=== PATIENT | female | born 1965 | race Caucasian/White ===

== ENCOUNTER 2020-10-03 06:56 | Inpatient (IN) | payer OTHER ==
--- NOTE | 2020-10-03 07:26 | ED ---
General Adult HPI - General Chief complaint: Shortness of Breath Stated complaint: SOB Time Seen by Provider: 10/03/20 07:05 Source: patient Mode of arrival: wheelchair - History of Present Illness Initial comments: Dictation was produced using [employer] dictation software. please excuse any grammatical, word or spelling errors. This patient was cared for during a federal and state declared state of emergency secondary to Covid 19 Chief Complaint: 55-year-old female with multiple comorbidities presents with dyspnea times one week History of Present Illness: 55-year-old female she presents to the emergency department with dyspnea times one week. Patient just recently moved from [place]. She states that her of 30 years left her and patient was about to be homeless. Her sister who lives locally went to pick her up and brought her to report here on 2 live patient has multiple comorbidities. She has past medical history of COPD. She states she normally wears oxygen at 5 L. Patient is accompanied by sister who states that patient does not have any home oxygen at the moment. Patient states she's been progressively short of breath. She does have some mild left anterior chest pain. States it radiates down her left upper extremity. Denies any diaphoresis. She does feel like she has increased swelling in her lower extremities. States that her symptoms are worse with lying flat. Patient does have a history of congestive heart failure. Denies any constitutional symptoms. No cough. The ROS documented in this emergency department record has been reviewed and confirmed by me. Those systems with pertinent positive or negative responses have been documented in the HPI. All other systems are other negative and/or noncontributory. PHYSICAL EXAM: General Impression: Alert and oriented x3, not in acute distress, obese HEENT: Normocephalic atraumatic, extra-ocular movements intact, pupils equal and reactive to light bilaterally, mucous membranes moist. Cardiovascular: Heart regular rate and rhythm, no murmurs Chest: Able to complete full sentences, no retractions, no tachypnea, lungs clear to auscultation bilaterally in the posterior lung gray Abdomen: abdomen soft, non-tender, non-distended, no organomegaly Musculoskeletal: Pulses present and equal in all extremities, 1+ pitting edema Motor: no focal deficits noted Neurological: CN II-XII grossly intact, no focal motor or sensory deficits noted Skin: Intact with no visualized rashes Psych: Normal affect and mood ED course: -year-old female with multiple comorbidities presents to the emergency department for chest pain shortness of breath. All signs upon arrival shows 85% on room air, rest vital signs within acceptable limits. Patient typically wears 5 L home oxygen at home. Patient placed on her usual home oxygen level. Laboratory evaluation obtained. CBC is unremarkable. Coag panel is negative. 0.49. Metabolic panel shows respiratory acidosis with a pH of 7.24 and pCO2 of 77. No long panel is unremarkable. Troponin is negative. BNP is negative. Chest x-ray shows chronic parenchymal changes. Patient reevaluated bedside shortly after labs are resulted and she still complains of shortness of breath. Concerning patient's recent vehicle travel is concerned that patient has pulmonary embolus. CT angios the chest obtained showing 2 small filling defects within the right upper lobe suggesting pulmonary embolism. Patient started on heparin. She does not have any features to suggest mass or submassive pulmonary embolism. Patient be admitted to cardiac telemetry. Case discussed with Dr. Sergo Valencia was went except patient care. Pulmonology on consult. EKG interpretation: Ventricular rate 70, sinus rhythm, MD interval 150, QRS 86, QTC 426. No MD prolongation, no QTC prolongation, no ST or T-wave changes noted. No old EKG for comparison. Overall, this EKG is unremarkable - Related Data Home Medications Medication Instructions Recorded Confirmed Albuterol Sulfate [Ventolin HFA] 2 puff INHALATION RT-QID PRN 10/03/20 10/03/20 Atorvastatin [Lipitor] 20 mg PO HS 10/03/20 10/03/20 Budesonide/Formoterol Fumarate 2 puff INHALATION RT-BID 10/03/20 10/03/20 [Symbicort 160-4.5 Mcg Inhaler] Ipratropium-Albuterol Nebulize 3 ml INHALATION RT-QID PRN 10/03/20 10/03/20 [Duoneb 0.5 mg-3 mg/3 ml Soln] Levothyroxine Sodium [Euthyrox] 150 mcg PO DAILY 10/03/20 10/03/20 Losartan [Cozaar] 12.5 mg PO DAILY 10/03/20 10/03/20 Magnesium Oxide 400 mg PO DAILY 10/03/20 10/03/20 Omeprazole 40 mg PO DAILY 10/03/20 10/03/20 Potassium Chloride [Klor-Con 20] 20 meq PO DAILY 10/03/20 10/03/20 Umeclidinium [place] [Incruse 1 puff INHALATION RT-DAILY 10/03/20 10/03/20 Ellipta] acetaZOLAMIDE [Diamox Sequels] 500 mg PO DAILY 10/03/20 10/03/20 metFORMIN HCL ER [Glucophage Xr] 500 mg PO DAILY 10/03/20 10/03/20 Allergies Allergy/AdvReac Type Severity Reaction Status Date / Time hydrocodone [From [place]] AdvReac Rash/Hives Verified 10/03/20 09:49 Review of Systems ROS Statement: Those systems with pertinent positive or pertinent negative responses have been documented in the HPI. ROS Other: All systems not noted in ROS Statement are negative. Past Medical History Past Medical History: Chest Pain / Angina, COPD, Diabetes Mellitus, Liver Disease, Thyroid Disorder Additional Past Medical History / Comment(s): CHF History of Any Multi-Drug Resistant Organisms: None Reported Past Surgical History: Section, Cholecystectomy Past Psychological History: No Psychological Hx Reported Smoking Status: Current every day smoker Past Alcohol Use History: None Reported Past Drug Use History: None Reported Course Vital Signs 10/03/20 10/03/20 10/03/20 07:06 07:40 09:04 Temperature 98.1 F Pulse Rate 80 58 L 58 L Respiratory 21 20 20 Rate Blood Pressure 138/87 128/64 120/74 O2 Sat by Pulse 85 L 97 97 Oximetry Medical Decision Making - Lab Data Result diagrams: 10/03/20 07:40 10/03/20 07:40 Lab Results 10/03/20 10/03/20 10/03/20 Range/Units 07:40 07:40 07:40 WBC 5.5 (3.8-10.6) k/uL RBC 4.51 (3.80-5.40) m/uL Hgb 14.6 (11.4-16.0) gm/dL Hct 46.1 H (34.0-46.0) % MCV 102.2 H (80.0-100.0) fL MCH 32.3 (25.0-35.0) pg MCHC 31.6 (31.0-37.0) g/dL RDW 14.6 (11.5-15.5) % Plt Count 211 (150-450) k/uL MPV 9.6 Neutrophils % 58 % Lymphocytes % 27 % Monocytes % 11 % Eosinophils % 2 % Basophils % 1 % Neutrophils # 3.2 (1.3-7.7) k/uL Lymphocytes # 1.5 (1.0-4.8) k/uL Monocytes # 0.6 (0-1.0) k/uL Eosinophils # 0.1 (0-0.7) k/uL Basophils # 0.1 (0-0.2) k/uL Manual Slide Review Performed Macrocytosis Slight PT (9.0-12.0) sec INR (<1.2) APTT (22.0-30.0) sec D-Dimer (<0.60) mg/L FEU VBG pH (7.31-7.41) VBG pCO2 (37-51) mmHg VBG HCO3 (24-28) mmol/L Sodium 141 (137-145) mmol/L Potassium 4.5 (3.5-5.1) mmol/L Chloride 103 (98-107) mmol/L Carbon Dioxide 30 (22-30) mmol/L Anion Gap 8 mmol/L BUN 16 (7-17) mg/dL Creatinine 0.88 (0.52-1.04) mg/dL Est GFR (CKD-EPI)AfAm 85 (>60 ml/min/1.73 sqM) Est GFR (CKD-EPI)NonAf 74 (>60 ml/min/1.73 sqM) Glucose 129 H (74-99) mg/dL Calcium 8.7 (8.4-10.2) mg/dL Magnesium 1.9 (1.6-2.3) mg/dL Total Bilirubin 0.6 (0.2-1.3) mg/dL AST 23 (14-36) U/L ALT 22 (4-34) U/L Alkaline Phosphatase 60 (38-126) U/L Troponin I <0.012 (0.000-0.034) ng/mL NT-Pro-B Natriuret Pep pg/mL Total Protein 6.9 (6.3-8.2) g/dL Albumin 3.8 (3.5-5.0) g/dL Lipase 24 (23-300) U/L 10/03/20 10/03/20 10/03/20 Range/Units 07:40 07:40 09:03 WBC (3.8-10.6) k/uL RBC (3.80-5.40) m/uL Hgb (11.4-16.0) gm/dL Hct (34.0-46.0) % MCV (80.0-100.0) fL MCH (25.0-35.0) pg MCHC (31.0-37.0) g/dL RDW (11.5-15.5) % Plt Count (150-450) k/uL MPV Neutrophils % % Lymphocytes % % Monocytes % % Eosinophils % % Basophils % % Neutrophils # (1.3-7.7) k/uL Lymphocytes # (1.0-4.8) k/uL Monocytes # (0-1.0) k/uL Eosinophils # (0-0.7) k/uL Basophils # (0-0.2) k/uL Manual Slide Review Macrocytosis PT 10.4 (9.0-12.0) sec INR 1.0 (<1.2) APTT 20.9 L (22.0-30.0) sec D-Dimer 0.49 (<0.60) mg/L FEU VBG pH 7.24 L (7.31-7.41) VBG pCO2 77 H* (37-51) mmHg VBG HCO3 32 H (24-28) mmol/L Sodium (137-145) mmol/L Potassium (3.5-5.1) mmol/L Chloride (98-107) mmol/L Carbon Dioxide (22-30) mmol/L Anion Gap mmol/L BUN (7-17) mg/dL Creatinine (0.52-1.04) mg/dL Est GFR (CKD-EPI)AfAm (>60 ml/min/1.73 sqM) Est GFR (CKD-EPI)NonAf (>60 ml/min/1.73 sqM) Glucose (74-99) mg/dL Calcium (8.4-10.2) mg/dL Magnesium (1.6-2.3) mg/dL Total Bilirubin (0.2-1.3) mg/dL AST (14-36) U/L ALT (4-34) U/L Alkaline Phosphatase (38-126) U/L Troponin I (0.000-0.034) ng/mL NT-Pro-B Natriuret Pep 175 pg/mL Total Protein (6.3-8.2) g/dL Albumin (3.5-5.0) g/dL Lipase (23-300) U/L Critical Care Time Critical Care Time: Yes Total Critical Care Time: 33 Disposition Clinical Impression: Pulmonary embolism, Respiratory failure Disposition: ADMITTED IP TO THIS [facility] Condition: Fair Referrals: None,Stated [Primary Care Provider] - 1-2 days Decision Time: 10:28
[2020-10-03 07:58] LABS: VBG PH 7.24 (7.31-7.41)
[2020-10-03 08:09] LABS: Basophils # (A) 0.1 k/uL (0-0.2); Basophils % (A) 1 %; Eosinophils # (A) 0.1 k/uL (0-0.7); Eosinophils % (A) 2 %; HCT 46.1 % (34.0-46.0); HGB 14.6 gm/dL (11.4-16.0); Lymphocytes # (A) 1.5 k/uL (1.0-4.8); Lymphocytes % (A) 27 %; MCH 32.3 pg (25.0-35.0); MCHC 31.6 g/dL (31.0-37.0); MCV 102.2 fL (80.0-100.0); Macrocytosis Slight; Mean Platelet Volume 9.6; Monocytes # (A) 0.6 k/uL (0-1.0); Monocytes % (A) 11 %; Neutrophils # (A) 3.2 k/uL (1.3-7.7); Neutrophils % (A) 58 %; Platelet Count 211 k/uL (150-450); RBC 4.51 m/uL (3.80-5.40); RDW 14.6 % (11.5-15.5); WBC 5.5 k/uL (3.8-10.6)
[2020-10-03 08:27] LABS: Albumin 3.8 g/dL (3.5-5.0); Calcium 8.7 mg/dL (8.4-10.2); Magnesium 1.9 mg/dL (1.6-2.3); Potassium 4.5 mmol/L (3.5-5.1); Total Bilirubin 0.6 mg/dL (0.2-1.3); Total Protein 6.9 g/dL (6.3-8.2)
[2020-10-03] MEDS ORDERED: ACETAMINOPHEN TAB 500 MG TAB PO STA (08:52)
--- NOTE | 2020-10-03 09:26 | XR ---
EXAMINATION TYPE: XR chest 1V portable DATE OF EXAM: 10/03/2020 COMPARISON: NONE HISTORY: Chest pain and cough. Dyspnea. TECHNIQUE: Single AP portable frontal view of the chest is obtained. FINDINGS: There is chronic parenchymal change bilaterally without suspicious focal air space opacity , pleural effusion, or pneumothorax seen. The cardiac silhouette size is enlarged. The osseous str uctures are intact. IMPRESSION: Chronic parenchymal changes and cardiomegaly without acute pulmonary process.
[2020-10-03] MEDS ORDERED: IPRATROPIUM-ALBUTEROL 3 ML NEB INHALATION PRN ×2 (09:32→16:39)
[2020-10-03 09:44] LABS: Prothrombin Time 10.4 sec (9.0-12.0)
[2020-10-03 09:53] LABS: Partial Thromboplastin Time 20.9 sec (22.0-30.0)
--- NOTE | 2020-10-03 10:20 | CT ---
EXAMINATION TYPE: CT angio chest DATE OF EXAM: 10/03/2020 COMPARISON: None HISTORY: Positive D-dimer CT DLP: 1024.1 mGycm CONTRAST: CT chest with contrast and 3D reconstruction with MIP imaging is performed without and with IV Contra st, patient injected with 100 ml mL of Isovue 370. Contrast-enhanced CT of the chest was performed through the course of the pulmonary arteries with ralf g and mediastinal window settings submitted. 3D reconstruction with MIP imaging was also performed. PULMONARY ARTERIES: One or 2 small filling defects within right upper lobe tributaries suggest pulmon sindi embolism. No evidence for large central embolus. LUNGS: The lungs are clear and free of infiltrate. Linear basilar atelectasis noted. No pulmonary nod ule or mass is detected. No pleural effusion. MEDIASTINUM: Thoracic aorta is of normal caliber,however, evaluation is limited given timing of the contrast bolus. If there is concern for thoracic aortic pathology consider [place]AR[place]. Correlate clinicall y . The heart is is enlarged. The main pulmonary arteries are enlarged suggesting underlying pulmona ry arterial hypertension. No evidence for mediastinal mass. No mediastinal lymph nodes greater than 1cm. HILAR STRUCTURES: No evidence for mass. No hilar lymph nodes greater than 1 cm. UPPER ABDOMEN: No significant abnormality is seen. IMPRESSION: 1. One or 2 small filling defects within right upper lobe tributaries suggest pulmonary embolism. No evidence for large central embolus.
[2020-10-03] MEDS ORDERED: HEPARIN SODIUM,PORCINE 10,000 UNIT/ML 1 ML VIAL IV ONE (10:22)
[2020-10-03] MEDS ORDERED: HEPARIN SODIUM,PORCINE 5,000 UNIT/ML 1 ML VIAL IV PRN (10:22)
[2020-10-03] MEDS ORDERED: HEPARIN SOD,PORK IN 0.45% NACL 25,000 UNIT in 0.45% NACL 1 250ML.BAG IV SCH (10:30)
[2020-10-03] MEDS ORDERED: ALBUTEROL NEBULIZED 2.5 MG/3 ML INHALATION PRN (16:39)
[2020-10-03] MEDS ORDERED: metFORMIN 500 MG TAB PO SCH (17:30)
[2020-10-03] MEDS: INSULIN ASPART (NovoLOG) 100 UNIT/ML VIAL SQ SCH ×2 (18:21→21:24)
[2020-10-03 18:25] LABS: Glucose,Whole Blood 128 mg/dL (75-99)
--- NOTE | 2020-10-03 18:26 | P.CNPUL ---
History of Present Illness Consult date: 10/03/20 Reason for consult: dyspnea Chief complaint: Acute hypercapnic respiratory failure History of present illness: This is a 55-year-old white female patient who has recently moved from [place] to be with her younger sister, with past medical history of advanced COPD on home oxygen usually 5 L/m, chronic CHF with unknown systolic function, morbid obesity, sleep apnea on CPAP therapy, diabetes mellitus type 2, hypot hyroidism, chronic and ongoing history of smoking, patient quit smoking last night, she had been smoking up to 3 packs on a daily basis. Her sister states that she had recently had to go down to [place] and "rescue" her sister whose recently left her with her children and the patient was about to be homeless, who had been having problems with her health for the past year, she was housebound for the past year, with limited mobility. On 10/03/2020 patient presents to the emergency department with dyspnea 1 week. Patient was having some mild anterior chest pain that was radiating down her left upper extremity. Denied any diaphoresis, she reported some increased swelling in her lower extremities. Chest x-ray in emergency department showed chronic parenchymal changes with cardiomegaly without acute pulmonary process. EKG showed a sinus rhythm with PACs. Patient was tested for COVID 19 and was negative. Venous blood gas revealed a pCO2 of 77, and pH of 7.24 and bicarbonate concentration of 32 venous blood gas, patient was having significant shortness of breath, she was placed on BiPAP support with pressures of 12 and 6 and FiO2 of 40%. D-dimer was negative at 0.49, white blood cell count was 5.5, hemoglobin is 14.6, electrodes and renal profile were unremarkable, LFTs were within normal limits, BNP was 175, troponin was less than 0.012. CTA chest was completed showing one or 2 small filling defects within the right upper lobe tributary suggesting pulmonary embolism, no evidence of a large central embolus. Review of Systems All systems: negative Constitutional: Denies chills, Denies fever Eyes: denies blurred vision, denies pain Ears, nose, mouth and throat: Denies headache, Denies sore throat Cardiovascular: Reports edema, Reports shortness of breath, Denies chest pain Respiratory: Reports dyspnea, Reports home oxygen, Reports sleep apnea, Reports wheezing, Denies cough Gastrointestinal: Denies abdominal pain, Denies diarrhea, Denies nausea, Denies vomiting Genitourinary: Denies dysuria, Denies hematuria Musculoskeletal: Denies myalgias Integumentary: Denies pruritus, Denies rash Neurological: Denies numbness, Denies weakness Psychiatric: Denies anxiety, Denies depression Endocrine: Denies fatigue, Denies weight change Past Medical History Past Medical History: Chest Pain / Angina, COPD, Diabetes Mellitus, Liver Disease, Thyroid Disorder Additional Past Medical History / Comment(s): CHF History of Any Multi-Drug Resistant Organisms: None Reported Past Surgical History: Section, Cholecystectomy Past Psychological History: No Psychological Hx Reported Smoking Status: Current every day smoker Past Alcohol Use History: None Reported Past Drug Use History: None Reported Medications and Allergies Home Medications Medication Instructions Recorded Confirmed Type Albuterol Sulfate [Ventolin HFA] 2 puff INHALATION RT-QID PRN 10/03/20 10/03/20 History Atorvastatin [Lipitor] 20 mg PO HS 10/03/20 10/03/20 History Budesonide/Formoterol Fumarate 2 puff INHALATION RT-BID 10/03/20 10/03/20 History [Symbicort 160-4.5 Mcg Inhaler] Ipratropium-Albuterol Nebulize 3 ml INHALATION RT-QID PRN 10/03/20 10/03/20 History [Duoneb 0.5 mg-3 mg/3 ml Soln] Levothyroxine Sodium [Euthyrox] 150 mcg PO DAILY 10/03/20 10/03/20 History Losartan [Cozaar] 12.5 mg PO DAILY 10/03/20 10/03/20 History Magnesium Oxide 400 mg PO DAILY 10/03/20 10/03/20 History Omeprazole 40 mg PO DAILY 10/03/20 10/03/20 History Potassium Chloride [Klor-Con 20] 20 meq PO DAILY 10/03/20 10/03/20 History Umeclidinium [place] [Incruse 1 puff INHALATION RT-DAILY 10/03/20 10/03/20 History Ellipta] acetaZOLAMIDE [Diamox Sequels] 500 mg PO DAILY 10/03/20 10/03/20 History metFORMIN HCL ER [Glucophage Xr] 500 mg PO DAILY 10/03/20 10/03/20 History Allergies Allergy/AdvReac Type Severity Reaction Status Date / Time hydrocodone [From [place]] AdvReac Rash/Hives Verified 10/03/20 09:49 Physical Exam Vitals: Vital Signs Temp Pulse Resp BP Pulse Ox 10/03/20 17:00 75 18 117/74 100 10/03/20 16:00 75 18 124/72 100 10/03/20 15:00 70 20 129/66 100 10/03/20 13:13 75 20 136/98 100 10/03/20 11:45 71 20 136/91 98 10/03/20 10:53 63 22 124/91 97 10/03/20 09:50 97 10/03/20 09:35 86 L 10/03/20 09:04 58 L 20 120/74 97 10/03/20 07:40 58 L 20 128/64 97 10/03/20 07:06 98.1 F 80 21 138/87 85 L Intake and Output 10/03/20 10/03/20 10/03/20 06:59 14:59 22:59 Other: Weight 165.561 kg GENERAL EXAM: Alert, pleasant, 55-year-old obese white female on BiPAP support in the emergency department with pressures of 12 and 6 and FiO2 of 40%, comfortable in no apparent distress. HEAD: Normocephalic/atraumatic. EYES: Normal reaction of pupils, equal size. Conjunctiva pink, sclera white. NOSE: Clear with pink turbinates. THROAT: No erythema or exudates. NECK: No masses, no JVD, no thyroid enlargement, no adenopathy. CHEST: No chest wall deformity. Symmetrical expansion. LUNGS: Diminished l air entry with no crackles, wheeze, rhonchi or dullness. CVS: Regular rate and rhythm, normal S1 and S2, no gallops, no murmurs, no rubs ABDOMEN: Soft, nontender. No hepatosplenomegaly, normal bowel sounds, no guarding or rigidity. EXTREMITIES: No clubbing, 1+ bilateral lower extremity edema, and evidence of chronic venous stasis, no cyanosis, 2+ pulses and upper and lower extremities. MUSCULOSKELETAL: Muscle strength and tone normal. SPINE: No scoliosis or deformity SKIN: No rashes CENTRAL NERVOUS SYSTEM: Alert and oriented -3. No focal deficits, tone is normal in all 4 extremities. PSYCHIATRIC: Alert and oriented -3. Appropriate affect. Intact judgment and insight. Results - Laboratory Findings CBC and BMP: 10/03/20 07:40 10/03/20 07:40 PT/INR, D-dimer PT 10.4 sec (9.0-12.0) 10/03/20 09:03 INR 1.0 (<1.2) 10/03/20 09:03 D-Dimer 0.49 mg/L FEU (<0.60) 10/03/20 09:03 Abnormal lab findings: Abnormal Labs 10/03/20 10/03/20 10/03/20 07:40 07:40 07:40 Hct 46.1 H MCV 102.2 H APTT VBG pH 7.24 L VBG pCO2 77 H* VBG HCO3 32 H Glucose 129 H 10/03/20 09:03 Hct MCV APTT 20.9 L VBG pH VBG pCO2 VBG HCO3 Glucose - Diagnostic Findings Chest x-ray: report reviewed, image reviewed CT scan - chest: report reviewed, image reviewed Assessment and Plan Plan: Assessment: #1. Acute hypercapnic respiratory failure related to acute exacerbation of COPD. COVID 19 was negative #2. Chronic hypoxic respiratory failure related to COPD #3. Cor pulmonale #4. History of CHF with unknown systolic function #5. Obstructive sleep apnea on CPAP #6. Morbid obesity #7. Diabetes mellitus2 #8. Chronic and ongoing history of smoking #9. Hypothyroidism Plan: We'll continue current medical treatment, continue BiPAP support, we will add IV steroids 40 mg every 8 hours, continue with Diamox, we will add Symbicort, breathing treatments, lab work and chest x-ray and computed tomography scan have been reviewed. We can discontinue the heparin infusion, no central pulmonary embolism, we'll place the patient on prophylactic dose Lovenox for DVT prophylaxis. Patient's presentation is related to acute exacerbation of COPD, not related to small tiny PE in the right upper lobe. Acute intake and output, daily weight, follow-up labs in the morning. Obtain Dopplers of lower extremities. Obtain echocardiogram. We'll continue to follow I performed a history & physical examination of the patient and discussed their management with my nurse practitioner, Savanna Bishop. I reviewed the nurse practitioner's note and agree with the documented findings and plan of care. Lung sounds are positive for diminished breath sounds with scattered wheezes. The findings and the impression was discussed with the patient. I attest to the documentation by the nurse practitioner. Time with Patient: Greater than 30
[2020-10-03] MEDS: PANTOPRAZOLE 40 MG TABLET PO SCH (18:28)
[2020-10-03] MEDS: metFORMIN 500 MG TAB PO SCH (18:28)
[2020-10-03] MEDS: LOSARTAN 25 MG TAB PO SCH (18:29)
[2020-10-03] MEDS: ENOXAPARIN 40 MG/0.4 ML SYRINGE SQ SCH (18:30)
[2020-10-03] MEDS: SYMBICORT 160-4.5 MCG INHALER INHALATION SCH (19:22)
[2020-10-03] MEDS: IPRATROPIUM-ALBUTEROL 3 ML NEB INHALATION SCH (19:22)
[2020-10-03] MEDS ORDERED: AZITHROMYCIN 500 MG in SODIUM CHLORIDE 0.9% 250 ML IVPB STA (19:41)
[2020-10-03] MEDS: ACETAZOLAMIDE 500 MG PO SCH (20:19)
[2020-10-03 21:16] LABS: Glucose,Whole Blood 125 mg/dL (75-99)
[2020-10-03] MEDS ORDERED: MAGNESIUM SULFATE-D5W PMX 1 GM in DEXTROSE/WATER 1 100ML.BAG IVPB ONE (21:28)
[2020-10-03] MEDS: MORPHINE SULFATE 4 MG/ML SYRINGE IVP PRN (21:36)
[2020-10-03] MEDS: ATORVASTATIN 20 MG TAB PO SCH (21:37)
[2020-10-03] MEDS: methylPREDNISolone SOD SUCCI 40 MG/ML 1 ML VIAL IV SCH (22:57)
--- NOTE | 2020-10-04 00:32 | US ---
EXAMINATION TYPE: US venous doppler duplex LE DATE OF EXAM: 10/03/2020 8:56 PM COMPARISON: NONE CLINICAL HISTORY: swelling, rule out DVT. Swelling. R/O DVT. SIDE PERFORMED: Bilateral TECHNIQUE: The lower extremity deep venous system is examined utilizing real time linear array sonog vj with graded compression, doppler sonography and color-flow sonography. VESSELS IMAGED: Common Femoral Vein Deep Femoral Vein Greater Saphenous Vein * Femoral Vein Popliteal Vein Small Saphenous Vein * Proximal Calf Veins (* superficial vessels) Limited exam due to large patient body habitus. Right Leg: No evidence of DVT in veins imaged at this time. Unable to visualize distal femoral vein in transverse compression views. Limited due to edema. Left Leg: No evidence of DVT in veins imaged at this time. Unable to visualize distal femoral vein in transverse compression views. Limited due to edema. IMPRESSION: No sign of deep vein thrombosis in both legs.
[2020-10-04 06:28] LABS: Glucose,Whole Blood 157 mg/dL (75-99)
[2020-10-04] MEDS: INSULIN ASPART (NovoLOG) 100 UNIT/ML VIAL SQ SCH ×4 (06:35→20:53)
[2020-10-04] MEDS: LEVOTHYROXINE 75 MCG TAB PO SCH (06:36)
[2020-10-04] MEDS: MORPHINE SULFATE 4 MG/ML SYRINGE IVP PRN ×3 (06:36→23:09)
[2020-10-04] MEDS: metFORMIN 500 MG TAB PO SCH ×2 (06:36→17:47)
[2020-10-04] MEDS: SYMBICORT 160-4.5 MCG INHALER INHALATION SCH ×2 (07:50→19:37)
[2020-10-04] MEDS: IPRATROPIUM-ALBUTEROL 3 ML NEB INHALATION SCH ×4 (07:50→19:37)
[2020-10-04] MEDS: ACETAZOLAMIDE 500 MG PO SCH (09:24)
[2020-10-04] MEDS: methylPREDNISolone SOD SUCCI 40 MG/ML 1 ML VIAL IV SCH (09:26)
[2020-10-04] MEDS: PANTOPRAZOLE 40 MG TABLET PO SCH (09:26)
[2020-10-04] MEDS: LOSARTAN 25 MG TAB PO SCH (09:26)
--- NOTE | 2020-10-04 10:58 | XR ---
EXAMINATION TYPE: XR chest 1V portable DATE OF EXAM: 10/04/2020 COMPARISON: 10/03/2020 HISTORY: Shortness of breath TECHNIQUE: Single frontal view of the chest is obtained. FINDINGS: Heart is enlarged. Coarsened interstitium with arthropathy of the shoulders. No pneumothor ax. No sizable pleural effusion. IMPRESSION: 1. Cardiomegaly correlate for bronchitis, interstitial pneumonitis or mild venous congestion.
[2020-10-04 11:50] LABS: Glucose,Whole Blood 143 mg/dL (75-99)
[2020-10-04] MEDS: predniSONE 10 MG TAB PO SCH (12:35)
--- NOTE | 2020-10-04 12:37 | ECHOF ---
Referral Reason:dyspbnea MEASUREMENTS -------- HEIGHT: 162.6 cm WEIGHT: 167.8 kg BP: 127/74 RVIDd: 3.5 cm (< 3.3) IVSd: 1.3 cm (0.6 - 1.1) LVIDd: 3.8 cm (3.9 - 5.3) LVPWd: 1.5 cm (0.6 - 1.1) IVSs: 1.7 cm LVIDs: 3.1 cm LVPWs: 1.8 cm MV EXCURSION: 18.655 mm (> 18.000) MV EF SLOPE: 72 mm/s (70 - 150) EPSS: 0.5 cm FINDINGS -------- Sinus rhythm. Morbid Obesity This was a techncally difficult study with suboptimal views, , Lumason utilized for enhancement of images. The left ventricular size is normal. Overall left ventricular systolic function is low-normal with, an EF between 50 - 55 %. The right ventricle is normal in size. The left atrial size is normal. 5.0mg OF Lumason UTLIZED: 2 OR MORE WALL SEGMENTS NOT VISUALIZED. The aortic valve was not well visualized. The mitral valve was not well visualized. The tricuspid valve was not well visualized. Unable to estimate RVSP due to inadequate TR jet spect ral doppler profile. The pulmonic valve was not well visualized. There is no pericardial effusion. CONCLUSIONS -------- 1. Morbid Obesity 2. This was a techncally difficult study with suboptimal views, , Lumason utilized for enhancement of images. 3. Overall left ventricular systolic function is low-normal with, an EF between 50 - 55 %. 4. The left atrial size is normal. 5. 5.0mg OF Lumason UTLIZED: 2 OR MORE WALL SEGMENTS NOT VISUALIZED. 6. The aortic valve was not well visualized. 7. The mitral valve was not well visualized. 8. The tricuspid valve was not well visualized. 9. The pulmonic valve was not well visualized. UNIT AIDE TECH: Palak Morrow RDCS
--- NOTE | 2020-10-04 16:07 | P.PN ---
Subjective Progress Note Date: 10/04/20 Principal diagnosis: Dyspnea, hypoxemia This is a 55-year-old white female patient who has recently moved from [place] to be with her younger sister, with past medical history of advanced COPD on home oxygen usually 5 L/m, chronic CHF with unknown systolic function, morbid obesity, sleep apnea on CPAP therapy, diabetes mellitus type 2, hypothyroidism, chronic and ongoing history of smoking, patient quit smoking last night, she had been smoking up to 3 packs on a daily basis. Her sister states that she had recently had to go down to [place] and "rescue" her alize truong whose recently left her with her children and the patient was about to be homeless, who had been having problems with her health for the past year, she was housebound for the past year, with limited mobility. On 10/03/2020 patient presents to the emergency department with dyspnea 1 week. Patient was having some mild anterior chest pain that was radiating down her left upper extremity. Denied any diaphoresis, she reported some increased swelling in her lower extremities. Chest x-ray in emergency department showed chronic parenchymal changes with cardiomegaly without acute pulmonary process. EKG showed a sinus rhythm with PACs. Patient was tested for COVID 19 and was negative. Venous blood gas revealed a pCO2 of 77, and pH of 7.24 and bicarbonate concentration of 32 venous blood gas, patient was having significant shortness of breath, she was placed on BiPAP support with pressures of 12 and 6 and FiO2 of 40%. D-dimer was negative at 0.49, white blood cell count was 5.5, hemoglobin is 14.6, electrodes and renal profile were unremarkable, LFTs were within normal limits, BNP was 175, troponin was less than 0.012. CTA chest was completed showing one or 2 small filling defects within the right upper lobe tributary suggesting pulmonary embolism, no evidence of a large central embolus. On 10/04/2020 patient seen in follow-up on selective care unit, she is currently off BiPAP support, she is currently on 5 L of oxygen which which she usually wears on a regular basis at home and her pulse ox is 96%, no fever or chills, vitals have been stable, she did wear BiPAP support last night with FiO2 of 40%. Her pro-calcitonin was negative, echocardiogram was completed and this was a technically difficult study with suboptimal views, and the valves were not well visualized, and right-sided pressures were not possible to estimate, EF was low normal at 50-55%. Follow-up chest x-ray shows cardiomegaly with coarsened interstitium. Lower extremity Dopplers were negative for DVT, d-dimer was negative, patient is on prophylactic dose Lovenox, she is on antibiotics including azithromycin and Rocephin, she is on breathing treatments and IV steroids. She feels much better today, she is talking in full sentences. Objective - Vital Signs Vital signs: Vital Signs Temp 98.9 F 10/04/20 08:00 Pulse 72 10/04/20 15:57 Resp 19 10/04/20 04:00 BP 122/66 10/04/20 08:00 Pulse Ox 96 10/04/20 12:00 Intake & Output 10/03/20 10/04/20 10/04/20 18:59 06:59 18:59 Intake Total 530 Balance 530 Weight 165.561 kg 165.7 kg Intake: Intake, IV Titration 50 Amount cefTRIAXone 1 gm In 50 Sodium Chloride 0.9% 50 ml @ 100 mls/hr IVPB Q24HR [facility] Rx#:[id number] Oral 480 Other: Voiding Method Toilet # Voids 1 1 # Bowel Movements 1 1 - Exam GENERAL EXAM: Alert, pleasant, 55-year-old obese white female currently on 5 L of oxygen a pulse ox of 96%, was previously on on BiPAP support with pressures of 12 and 6 and FiO2 of 40%, comfortable in no apparent distress. HEAD: Normocephalic/atraumatic. EYES: Normal reaction of pupils, equal size. Conjunctiva pink, sclera white. NOSE: Clear with pink turbinates. THROAT: No erythema or exudates. NECK: No masses, no JVD, no thyroid enlargement, no adenopathy. CHEST: No chest wall deformity. Symmetrical expansion. LUNGS: Diminished l air entry with no crackles, wheeze, rhonchi or dullness. CVS: Regular rate and rhythm, normal S1 and S2, no gallops, no murmurs, no rubs ABDOMEN: Soft, nontender. No hepatosplenomegaly, normal bowel sounds, no guarding or rigidity. EXTREMITIES: No clubbing, 1+ bilateral lower extremity edema, and evidence of chronic venous stasis, no cyanosis, 2+ pulses and upper and lower extremities. MUSCULOSKELETAL: Muscle strength and tone normal. SPINE: No scoliosis or deformity SKIN: No rashes CENTRAL NERVOUS SYSTEM: Alert and oriented -3. No focal deficits, tone is normal in all 4 extremities. PSYCHIATRIC: Alert and oriented -3. Appropriate affect. Intact judgment and insight. - Labs CBC & Chem 7: 10/03/20 07:40 10/03/20 07:40 Labs: Abnormal Lab Results - Last 24 Hours (Table) 10/03/20 10/03/20 10/03/20 Range/Units 07:40 18:12 21:14 POC Glucose (mg/dL) 128 H 125 H (75-99) mg/dL Hemoglobin A1c 6.6 H (4.0-6.0) % 10/04/20 10/04/20 Range/Units 06:27 11:45 POC Glucose (mg/dL) 157 H 143 H (75-99) mg/dL Hemoglobin A1c (4.0-6.0) % Assessment and Plan Plan: Assessment: #1. Acute hypercapnic respiratory failure related to acute exacerbation of COPD. COVID 19 was negative #2. Chronic hypoxic respiratory failure related to COPD #3. Cor pulmonale #4. History of CHF with diastolic dysfunction #5. Obstructive sleep apnea on CPAP #6. Morbid obesity #7. Diabetes mellitus2 #8. Chronic and ongoing history of smoking #9. Hypothyroidism Plan: Patient is improving, breathing easier, off BiPAP support, she is back on 5 L of oxygen, wean FiO2 to keep O2 sat at or above 90-92%. We will discontinue azit hromycin, continue with Rocephin, continue with breathing treatments, we'll stop the IV Solu-Medrol and switch the patient to oral prednisone, continue home dose of Diamox. Discharge planning is working with the patient on arranging home oxygen, she has a Trilogy ventilator that she brought with her from [place] however the unit may have to be checked by the company as it has been malfunctioning, she has a nebulizer machine, she will need medication for it, patient has no healthcare coverage, discharge planning is working with [employer] funds to provide patient with necessary equipment and medications prior to discharge. She is improving, she was advised to quit smoking. She has been up to the bathroom tolerating activity well. She can probably be considered for discharge home tomorrow in the next 24 hours I performed a history & physical examination of the patient and discussed their management with my nurse practitioner, Savanna Bishop. I reviewed the nurse practitioner's note and agree with the documented findings and plan of care. Lung sounds are positive for diminished breath sounds with scattered wheezes. The findings and the impression was discussed with the patient. I attest to the documentation by the nurse practitioner. Time with Patient: Less than 30
[2020-10-04 16:59] LABS: Glucose,Whole Blood 163 mg/dL (75-99)
[2020-10-04] MEDS: ENOXAPARIN 40 MG/0.4 ML SYRINGE SQ SCH (17:46)
[2020-10-04 20:18] LABS: Glucose,Whole Blood 164 mg/dL (75-99)
[2020-10-04] MEDS: ATORVASTATIN 20 MG TAB PO SCH (20:53)
[2020-10-05 06:01] LABS: Glucose,Whole Blood 129 mg/dL (75-99)
[2020-10-05] MEDS: LEVOTHYROXINE 75 MCG TAB PO SCH (06:52)
[2020-10-05] MEDS: INSULIN ASPART (NovoLOG) 100 UNIT/ML VIAL SQ SCH ×3 (06:52→17:40)
[2020-10-05] MEDS: metFORMIN 500 MG TAB PO SCH ×2 (06:52→17:40)
[2020-10-05] MEDS ORDERED: BUTALB/APAP/CAFF 50-325-40MG TAB PO PRN (07:06)
--- NOTE | 2020-10-05 08:16 | P.HPIM ---
History of Present Illness H&P Date: 10/04/20 Chief Complaint: shortness of breath Nerissa Marshall is a 55 yo F who recently moved to this area from [place] to be with her younger sister, with past medical history of COPD on home O2 5 LPM, chronic CHF with unknown systolic function, morbid obesity, sleep apnea on CPAP therapy, diabetes mellitus type 2, hypothyroidism, chronic and ongoing history of smoking, patient quit smoking last night, she had been smoking up to 3 packs on a daily basis. Her sister states that she had recently had to go down to [place] and "rescue" her sister whose recently left her with her children and the patient was about to be homeless, who had been having problems with her health for the past year, she was housebound for the past year, with limited mobility. On 10/03/2020 patient presents to the emergency department with dyspnea 1 week. Patient was having some mild anterior chest pain that was radiating down her left upper extremity. Denied any diaphoresis, she reported some increased swelling in her lower extremities. Chest x-ray in emergency department showed chronic parenchymal changes with cardiomegaly without acute pulmonary process. EKG showed a sinus rhythm with PACs. Patient was tested for COVID 19 and was negative. Venous blood gas revealed a pCO2 of 77, and pH of 7.24 and bicarbonate concentration of 32 venous blood gas, patient was having significant shortness of breath, she was placed on BiPAP support with pressures of 12 and 6 and FiO2 of 40%. D-dimer was negative at 0.49, white blood cell count was 5.5, hemoglobin is 14.6, electrodes and renal profile were unremarkable, LFTs were within normal limits, BNP was 175, troponin was less than 0.012. CTA chest was completed showing one or 2 small filling defects within the right upper lobe tributary suggesting pulmonary embolism, no evidence of a large central embolus. Review of Systems All systems: negative Constitutional: Reports malaise, Reports weakness, Denies chills, Denies fever Eyes: denies blurred vision, denies pain Ears, nose, mouth and throat: Denies headache, Denies sore throat Cardiovascular: Denies chest pain, Denies shortness of breath Respiratory: Reports cough, Reports dyspnea, Reports wheezing Gastrointestinal: Denies abdominal pain, Denies diarrhea, Denies nausea, Denies vomiting Genitourinary: Denies dysuria, Denies hematuria Musculoskeletal: Denies myalgias Integumentary: Denies pruritus, Denies rash Neurological: Denies numbness, Denies weakness Psychiatric: Denies anxiety, Denies depression Endocrine: Denies fatigue, Denies weight change Past Medical History Past Medical History: Chest Pain / Angina, COPD, Diabetes Mellitus, Liver Disease, Sleep Apnea/CPAP/BIPAP, Thyroid Disorder Additional Past Medical History / Comment(s): CHF, cpap at night, gout History of Any Multi-Drug Resistant Organisms: None Reported Past Surgical History: Section, Cholecystectomy Past Anesthesia/Blood Transfusion Reactions: No Reported Reaction Past Psychological History: No Psychological Hx Reported Smoking Status: Former smoker Past Alcohol Use History: None Reported Past Drug Use History: None Reported Medications and Allergies Home Medications Medication Instructions Recorded Confirmed Type Albuterol Sulfate [Ventolin HFA] 2 puff INHALATION RT-QID PRN 10/03/20 10/03/20 History Atorvastatin [Lipitor] 20 mg PO HS 10/03/20 10/03/20 History Budesonide/Formoterol Fumarate 2 puff INHALATION RT-BID 10/03/20 10/03/20 History [Symbicort 160-4.5 Mcg Inhaler] Ipratropium-Albuterol Nebulize 3 ml INHALATION RT-QID PRN 10/03/20 10/03/20 History [Duoneb 0.5 mg-3 mg/3 ml Soln] Levothyroxine Sodium [Euthyrox] 150 mcg PO DAILY 10/03/20 10/03/20 History Losartan [Cozaar] 12.5 mg PO DAILY 10/03/20 10/03/20 History Magnesium Oxide 400 mg PO DAILY 10/03/20 10/03/20 History Omeprazole 40 mg PO DAILY 10/03/20 10/03/20 History Potassium Chloride [Klor-Con 20] 20 meq PO DAILY 10/03/20 10/03/20 History Umeclidinium [place] [Incruse 1 puff INHALATION RT-DAILY 10/03/20 10/03/20 History Ellipta] acetaZOLAMIDE [Diamox Sequels] 500 mg PO DAILY 10/03/20 10/03/20 History metFORMIN HCL ER [Glucophage Xr] 500 mg PO DAILY 10/03/20 10/03/20 History Allergies Allergy/AdvReac Type Severity Reaction Status Date / Time hydrocodone [From [place]] AdvReac Rash/Hives Verified 10/03/20 09:49 Physical Exam Vitals: Vital Signs Temp Pulse Pulse Resp BP Pulse Ox 10/04/20 16:00 73 100/64 94 L 10/04/20 15:57 72 10/04/20 15:44 72 10/04/20 12:00 81 96 10/04/20 11:18 72 10/04/20 11:04 72 10/04/20 08:00 98.9 F 72 76 122/66 93 L 10/04/20 07:50 73 10/04/20 04:00 97.5 F L 76 19 127/64 10/04/20 00:00 98.2 F 84 16 116/65 94 L 10/03/20 20:00 97.8 F 76 16 122/76 96 10/03/20 19:30 76 10/03/20 19:22 78 95 Intake and Output 10/04/20 10/04/20 10/04/20 06:59 14:59 22:59 Intake Total 530 Balance 530 Intake: Intake, IV Titration 50 Amount cefTRIAXone 1 gm In 50 Sodium Chloride 0.9% 50 ml @ 100 mls/hr IVPB Q24HR [facility] Rx#:[id number] Oral 480 Other: # Voids 1 2 # Bowel Movements 1 1 Weight 165.7 kg General: well nourished, well developed, NAD, Obese. Vitals reviewed Eyes: PERRL, EOMI, conjunctiva normal HENT: normocephalic, mucus membranes moist Neck: supple, no JVD Lungs: diminished air entry throughout, no rales. wheezing bilaterally CV: Regular rate and rhythm, no murmur. Peripheral pulses 2+ Abdomen: soft, nondistended, no organomegaly Lymph: no cervical or axillary LAD Skin: warm and dry. Neuro: A&Ox3, normal mood and affect Results CBC & Chem 7: 10/03/20 07:40 10/03/20 07:40 Labs: Abnormal Lab Results - Last 24 Hours (Table) 10/03/20 10/03/20 10/04/20 Range/Units 07:40 21:14 06:27 POC Glucose (mg/dL) 125 H 157 H (75-99) mg/dL Hemoglobin A1c 6.6 H (4.0-6.0) % 10/04/20 10/04/20 Range/Units 11:45 16:49 POC Glucose (mg/dL) 143 H 163 H (75-99) mg/dL Hemoglobin A1c (4.0-6.0) % Thrombosis Risk Factor Assmnt - Choose All That Apply Each Factor Represents 1 point: Age 41-60 years Thrombosis Risk Factor Assessment Total Risk Factor Score: 1 Thrombosis Risk Factor Assessment Level: Low Risk Assessment and Plan (1) Acute on chronic respiratory failure with hypoxia and hypercapnia Current Visit: Yes Status: Acute Code(s): J96.21 - ACUTE AND CHRONIC RESPIRATORY FAILURE WITH HYPOXIA; J96.22 - ACUTE AND CHRONIC RESPIRATORY FAILURE WITH HYPERCAPNIA SNOMED Code(s): 28344825179123 (2) COPD exacerbation Current Visit: Yes Status: Acute Code(s): J44.1 - CHRONIC OBSTRUCTIVE PULMONARY DISEASE W (ACUTE) EXACERBATION SNOMED Code(s): 624059381 (3) Chronic CHF Current Visit: Yes Status: Acute Code(s): I50.9 - HEART FAILURE, UNSPECIFIED SNOMED Code(s): 55139618 (4) Chronic diastolic CHF (congestive heart failure), NYHA class 3 Current Visit: Yes Status: Acute Code(s): I50.32 - CHRONIC DIASTOLIC (CONGESTIVE) HEART FAILURE SNOMED Code(s): 671169045 (5) Obstructive sleep apnea Current Visit: Yes Status: Acute Code(s): G47.33 - OBSTRUCTIVE SLEEP APNEA (ADULT) (PEDIATRIC) SNOMED Code(s): 56359891 Plan: 1. Acute on chronic respiratory failure. Likely secondary to COPD excerbation vs PE. Pulmonology consult, start IV steroids. Cover with empiric rocephin. Duonebs and symbicort. Smoking cessation counseling 2. Respiratory acidosis with metabolic alkalosis. Titrate O2 to 90%, diamox per pulmonary 3. Small PE, no evidence of DVT. Pt covered on lovenox, will plan to switch to N OAC vs coumadin based on insurance 4. ANDRES, obesity hypoventilation syndrome. CPAP qhs 5. HTN. Continue cozaar 6. Hypothyroidism. Continue synthroid
[2020-10-05] MEDS: IPRATROPIUM-ALBUTEROL 3 ML NEB INHALATION SCH ×3 (08:18→16:19)
[2020-10-05] MEDS: SYMBICORT 160-4.5 MCG INHALER INHALATION SCH (08:20)
[2020-10-05 08:27] VITALS: RESP 20
[2020-10-05] MEDS: ACETAZOLAMIDE 500 MG PO SCH (08:29)
[2020-10-05] MEDS: LOSARTAN 25 MG TAB PO SCH (08:33)
[2020-10-05] MEDS: PANTOPRAZOLE 40 MG TABLET PO SCH (08:33)
[2020-10-05] MEDS: predniSONE 10 MG TAB PO SCH (08:33)
[2020-10-05 11:45] LABS: Glucose,Whole Blood 135 mg/dL (75-99)
[2020-10-05] MEDS ORDERED: BUTALB/APAP/CAFF 50-325-40MG TAB PO STA (11:53)
[2020-10-05] MEDS ORDERED: MAGNESIUM SULFATE-D5W PMX 1 GM in DEXTROSE/WATER 1 100ML.BAG IVPB ONE (12:00)
--- NOTE | 2020-10-05 12:16 | P.DS ---
Providers Date of admission: 10/03/20 09:32 Expected date of discharge: 10/05/20 Attending physician: Sergo Valencia MD Consults: 10/03/20 09:03 Consult Physician Routine Consulting Provider: Deejay Hickey Consult Reason/Comments: respiratory acidosis Do you want consulting provider notified?: Yes Primary care physician: Stated None Hospital Course: Final Diagnoses: (1) Acute on chronic respiratory failure with hypoxia and hypercapnia secondary to acute COPD and possible small PE- further review of CTA as per pulmonary with recommendations including anticoagulation. Current Visit: Yes Status: Acute Code(s): J96.21 - ACUTE AND CHRONIC RESPIRATORY FAILURE WITH HYPOXIA; J96.22 - ACUTE AND CHRONIC RESPIRATORY FAILURE WITH HYPERCAPNIA SNOMED Code(s): 96779483196795 (2) COPD exacerbation Current Visit: Yes Status: Acute Code(s): J44.1 - CHRONIC OBSTRUCTIVE PULMONARY DISEASE W (ACUTE) EXACERBATION SNOMED Code(s): 707596378 (3) Chronic CHF Current Visit: Yes Status: Acute Code(s): I50.9 - HEART FAILURE, UNSPECIFIED SNOMED Code(s): 49561685 (4) Chronic diastolic CHF (congestive heart failure), NYHA class 3 Current Visit: Yes Status: Acute Code(s): I50.32 - CHRONIC DIASTOLIC (CONGESTIVE) HEART FAILURE SNOMED Code(s): 815867727 (5) Obstructive sleep apnea Current Visit: Yes Status: Acute Code(s): G47.33 - OBSTRUCTIVE SLEEP APNEA (ADULT) (PEDIATRIC) SNOMED Code(s): 79557694 (6) CTA suggests small PE, no DVT. Pulmonary following. Further recommendations regarding anticoagulation as per pulmonary. (7) hypothyroidism (8) hypertension (9) respiratory acidosis with metabolic alkalosis (10) ongoing nicotine dependence. (11) morbid obesity, BMI 63.5 Hospital course:Nerissa Marshall is a 55 yo F who recently moved to this area from [place] to be with her younger sister, with past medical history of COPD on home O2 5 LPM, chronic CHF with unknown systolic function, morbid obesity, sleep apnea on CPAP therapy, diabetes mellitus type 2, hypothyroidism, chronic and ongoing history of smoking, patient quit smoking last night, she had been smoking up to 3 packs on a daily basis. Her sister states that she had recently had to go down to [place] and "rescue" her sister whose recently left her with her children and the patient was about to be homeless, who had been having problems with her health for the past year, she was housebound for the past year, with limited mobility. On 10/03/2020 patient presents to the emergency department with dyspnea 1 week. Patient was having some mild anterior chest pain that was radiating down her left upper extremity. Denied any diaphoresis, she reported some increased swelling in her lower extremities. Chest x-ray in emergency department showed chronic parenchymal changes with cardiomegaly without acute pulmonary process. EKG showed a sinus rhythm with PACs. Patient was tested for COVID 19 and was negative. Venous blood gas revealed a pCO2 of 77, and pH of 7.24 and bicarbonate concentration of 32 venous blood gas, patient was having significant shortness of breath, she was placed on BiPAP support with pressures of 12 and 6 and FiO2 of 40%. D-dimer was negative at 0.49, white blood cell count was 5.5, hemoglobin is 14.6, electrodes and renal profile were unremarkable, LFTs were within normal limits, BNP was 175, troponin was less than 0.012. CTA chest was completed showing one or 2 small filling defects within the right upper lobe tributary suggesting pulmonary embolism, no evidence of a large central embolus. Maintained on empiric antibiotics, steroids, nebulized BRONCHODILATORS, Symbicort and oxygen. O2 sat on room air after ambulation 84%, patient will require 2 L nasal cannula oxygen at discharge. Case management assisting with [employer] funds. Denies chest pain, palpitations or increased shortness of breath. Denies lightheadedness, dizziness or focal deficits. Significant clinical improvement. Patient will be discharged home today in a stable condition with guarded prognosis, pending final DC recommendations including whether or not patient requires anticoagulation, and clearance for discharge. Smoking cessation reinforced. The impression and plan of care has been dictated as directed. : I performed a history and examination of this patient, discussed the same with the dictator. I agree with the dictator's note ,documented as a scribe. Any additional findings or plans will be noted. Patient Condition at Discharge: Stable Plan - Discharge Summary Discharge Rx Participant: No New Discharge Prescriptions: New Amoxic-Pot Clav 875-125Mg [Augmentin 875-125] 1 tab PO Q12HR 3 Days #6 tab predniSONE 10 mg PO DIRECTED #18 tab Continue Levothyroxine Sodium [Euthyrox] 150 mcg PO DAILY Ipratropium-Albuterol Nebulize [Duoneb 0.5 mg-3 mg/3 ml Soln] 3 ml INHALATION RT-QID PRN PRN Reason: Shortness Of Breath Atorvastatin [Lipitor] 20 mg PO HS Albuterol Sulfate [Ventolin HFA] 2 puff INHALATION RT-QID PRN PRN Reason: Shortness Of Breath metFORMIN HCL ER [Glucophage Xr] 500 mg PO DAILY Potassium Chloride [Klor-Con 20] 20 meq PO DAILY Omeprazole 40 mg PO DAILY Magnesium Oxide 400 mg PO DAILY acetaZOLAMIDE [Diamox Sequels] 500 mg PO DAILY Umeclidinium [place] [Incruse Ellipta] 1 puff INHALATION RT-DAILY Losartan [Cozaar] 12.5 mg PO DAILY Budesonide/Formoterol Fumarate [Symbicort 160-4.5 Mcg Inhaler] 2 puff INHALATION RT-BID Discharge Medication List Albuterol Sulfate [Ventolin HFA] 2 puff INHALATION RT-QID PRN 10/03/20 [History] Atorvastatin [Lipitor] 20 mg PO HS 10/03/20 [History] Budesonide/Formoterol Fumarate [Symbicort 160-4.5 Mcg Inhaler] 2 puff INHALATION RT-BID 10/03/20 [History] Ipratropium-Albuterol Nebulize [Duoneb 0.5 mg-3 mg/3 ml Soln] 3 ml INHALATION RT-QID PRN 10/03/20 [History] Levothyroxine Sodium [Euthyrox] 150 mcg PO DAILY 10/03/20 [History] Losartan [Cozaar] 12.5 mg PO DAILY 10/03/20 [History] Magnesium Oxide 400 mg PO DAILY 10/03/20 [History] Omeprazole 40 mg PO DAILY 10/03/20 [History] Potassium Chloride [Klor-Con 20] 20 meq PO DAILY 10/03/20 [History] Umeclidinium [place] [Incruse Ellipta] 1 puff INHALATION RT-DAILY 10/03/20 [History] acetaZOLAMIDE [Diamox Sequels] 500 mg PO DAILY 10/03/20 [History] metFORMIN HCL ER [Glucophage Xr] 500 mg PO DAILY 10/03/20 [History] Amoxic-Pot Clav 875-125Mg [Augmentin 875-125] 1 tab PO Q12HR 3 Days #6 tab 10/05/20 [Rx] predniSONE 10 mg PO DIRECTED #18 tab 10/05/20 [Rx] Follow up Appointment(s)/Referral(s): Sergo Valencia MD [STAFF PHYSICIAN] - 10/10/20 5:00 pm ([facility] in [place], [address]) Activity/Diet/Wound Care/Special Instructions: 2 L nasal cannula O2, O2 sat on room air 84% -case management confirming.Confirm pulmonary final DC recommendations including anticoagulation, clearance for dc &follow-up appointment.
--- NOTE | 2020-10-05 15:49 | P.PN ---
Subjective Progress Note Date: 10/05/20 Principal diagnosis: Acute on chronic hypoxic and hypercapnic respiratory failure This is a 55-year-old white female patient who has recently moved from [place] to be with her younger sister, with past medical history of advanced COPD on home oxygen usually 5 L/m, chronic CHF with unknown systolic function, morbid obesity, sleep apnea on CPAP therapy, diabetes mellitus type 2, hypothyroidism, chronic and ongoing history of smoking, patient quit smoking last night, she had been smoking up to 3 packs on a daily basis. Her sister states that she had recently had to go down to [place] and "rescue" her sister whose recently left her with her children and the patient was about to be homeless, who had been having problems with her health for the past year, she was housebound for the past year, with limited mobility. On 10/03/2020 patient presents to the emergency department with dyspnea 1 week. Patient was having some mild anterior chest pain that was radiating down her left upper extremity. Denied any diaphoresis, she reported some increased swelling in her lower extremities. Chest x-ray in emergency department showed chronic parenchymal changes with cardiomegaly without acute pulmonary process. EKG showed a sinus rhythm with PACs. Patient was tested for COVID 19 and was negative. Venous blood gas revealed a pCO2 of 77, and pH of 7.24 and bicarbonate concentration of 32 venous blood gas, patient was having significant shortness of breath, she was placed on BiPAP support with pressures of 12 and 6 and FiO2 of 40%. D-dimer was negative at 0.49, white blood cell count was 5.5, hemoglobin is 14.6, electrodes and renal profile were unremarkable, LFTs were within normal limits, BNP was 175, troponin was less than 0.012. CTA chest was completed showing one or 2 small filling defects within the right upper lobe tributary suggesting pulmonary embolism, no evidence of a large central embolus. On 10/04/2020 patient seen in follow-up on selective care unit, she is currently off BiPAP support, she is currently on 5 L of oxygen which which she usually wears on a regular basis at home and her pulse ox is 96%, no fever or chills, vitals have been stable, she did wear BiPAP support last night with FiO2 of 40%. Her pro-calcitonin was negative, echocardiogram was completed and this was a technically difficult study with suboptimal views, and the valves were not well visualized, and right-sided pressures were not possible to estimate, EF was low normal at 50-55%. Follow-up chest x-ray shows cardiomegaly with coarsened int erstitium. Lower extremity Dopplers were negative for DVT, d-dimer was negative, patient is on prophylactic dose Lovenox, she is on antibiotics including azithromycin and Rocephin, she is on breathing treatments and IV steroids. She feels much better today, she is talking in full sentences. Patient was reevaluated today on 10/05/2020, patient is doing much better, intermittently on BiPAP, slept with the BiPAP, patient is on home oxygen and the plan is to resume home oxygen as she had it before. Dramatic improvement over the last 2 days, hence I plan to discharge the patient home on bronchodilators, prednisone burst and taper, oxygen, and BiPAP. Patient could be discharged home on her usual bronchodilators, Augmentin, and prednisone burst and taper Objective - Vital Signs Vital signs: Vital Signs Temp 98 F 10/05/20 11:45 Pulse 70 10/05/20 11:51 Resp 20 10/05/20 11:45 BP 126/75 10/05/20 11:45 Pulse Ox 96 10/05/20 11:46 Intake & Output 10/04/20 10/05/20 10/05/20 18:59 06:59 18:59 Intake Total 1010 390 Output Total 775 Balance 1010 -385 Weight 167.8 kg Intake: Intake, IV Titration 50 150 Amount Magnesium Sulfate-D5w Pmx 100 1 gm In Dextrose/Water 1 100ml.bag @ 100 mls/hr IVPB ONCE ONE Rx#: [id number] cefTRIAXone 1 gm In 50 50 Sodium Chloride 0.9% 50 ml @ 100 mls/hr IVPB Q24HR [facility] Rx#:[id number] Oral 960 240 Output: Urine 775 Other: Voiding Method Toilet # Voids 2 1 2 # Bowel Movements 1 2 - Exam GENERAL EXAM: Morbidly obese 55-year-old female on BiPAP, in no distress. HEAD: Normocephalic/atraumatic. Slightly cushingoid looking HEENT: PERRLA, EOMI, short obese neck, Mallampati class IV. CHEST: No chest wall deformity. Symmetrical expansion. LUNGS: Diminished breath sounds at the bases no rhonchi and no wheezes. CVS: Regular rate and rhythm, normal S1 and S2, no gallops, no murmurs, no rubs ABDOMEN: Obese, Soft, nontender. No hepatosplenomegaly, normal bowel sounds, no guarding or rigidity. EXTREMITIES: No clubbing, 1+ bilateral lower extremity edema, and evidence of chronic venous stasis, no cyanosis, 2+ pulses and upper and lower extremities. MUSCULOSKELETAL: Muscle strength and tone normal. SKIN: No rashes CENTRAL NERVOUS SYSTEM: . alert and oriented 3, no gross focal neurologic deficit PSYCHIATRIC: Normal mood affect and normal mental status examination. - Labs CBC & Chem 7: 10/03/20 07:40 10/03/20 07:40 Labs: Abnormal Lab Results - Last 24 Hours (Table) 10/04/20 10/04/20 10/05/20 Range/Units 16:49 20:17 06:00 POC Glucose (mg/dL) 163 H 164 H 129 H (75-99) mg/dL 10/05/20 Range/Units 11:44 POC Glucose (mg/dL) 135 H (75-99) mg/dL Assessment and Plan Assessment: #1. Acute hypercapnic respiratory failure related to acute exacerbation of COPD. COVID 19 was negative #2. Chronic hypoxic respiratory failure related to COPD #3. Cor pulmonale #4. History of CHF with diastolic dysfunction #5. Obstructive sleep apnea on CPAP #6. Morbid obesity #7. Diabetes mellitus2 #8. Chronic and ongoing history of smoking #9. Hypothyroidism Recommendation: Considering the patient has made a significant improvement in the last 2 days, we'll clear the patient to be discharged home on oxygen, BiPAP, bronchodilators, Augmentin, and prednisone burst and taper, follow-up on outpatient basis. Time with Patient: Less than 30
[2020-10-05 16:21] VITALS: BP 109/68; TEMP 98.3
[2020-10-05 16:34] VITALS: PULSE 67
[2020-10-05] MEDS: ENOXAPARIN 40 MG/0.4 ML SYRINGE SQ SCH (16:34)
[2020-10-05 16:41] LABS: Glucose,Whole Blood 150 mg/dL (75-99)
== END 2020-10-05 18:52 | disposition home or self-care (01) | DRG 190 ==
LOC: EC 06:56 → 3SCARD 09:32
PROVIDERS: ADMIT Family Medicine; ATTEND Family Medicine
PROC: 5A09457 Assistance with Respiratory Ventilation, 24-96 Consecutive Hours, Continuous Positive Airway Pressure (ICD-10-PCS; principal; 2020-10-03)
DX: J44.1 Chronic obstructive pulmonary disease with (acute) exacerbation (principal); J96.21 Acute and chronic respiratory failure with hypoxia; J96.22 Acute and chronic respiratory failure with hypercapnia; E87.4 Mixed disorder of acid-base balance; E66.2 Morbid (severe) obesity with alveolar hypoventilation; Z68.44 Body mass index [BMI] 60.0-69.9, adult; I50.32 Chronic diastolic (congestive) heart failure; I11.0 Hypertensive heart disease with heart failure; I27.81 Cor pulmonale (chronic); E11.9 Type 2 diabetes mellitus without complications; Z20.822 Contact with and (suspected) exposure to COVID-19; G47.33 Obstructive sleep apnea (adult) (pediatric); K76.9 Liver disease, unspecified; E03.9 Hypothyroidism, unspecified; Z99.81 Dependence on supplemental oxygen; F17.210 Nicotine dependence, cigarettes, uncomplicated; Z71.6 Tobacco abuse counseling; Z79.51 Long term (current) use of inhaled steroids; Z79.84 Long term (current) use of oral hypoglycemic drugs; Z79.890 Hormone replacement therapy; Z79.899 Other long term (current) drug therapy; Z59.0 Homelessness; Z87.76 Personal history of (corrected) congenital malformations of integument, limbs and musculoskeletal system; Z90.49 Acquired absence of other specified parts of digestive tract; Z87.19 Personal history of other diseases of the digestive system; Z98.891 History of uterine scar from previous surgery; Z98.890 Other specified postprocedural states
CPT/HCPCS: 36415; 71045; 71275; 80053; 82803; 83036; 83690; 83735; 83880; 84145; 84484; 85025; 85379; 85610; 85730; 87635; 93005; 93306; 93970; 94640; 94660; 94760; 96365; 96366; 99291

== ENCOUNTER 2020-10-15 23:37 | Inpatient (IN) | payer OTHER ==
[2020-10-15] MEDS ORDERED: ALBUTEROL NEBULIZED 2.5 MG/3 ML INHALATION STA (23:39)
[2020-10-15] MEDS ORDERED: IPRATROPIUM 0.5 MG/2.5 ML NEBU INHALATION STA (23:39)
[2020-10-15] MEDS ORDERED: methylPREDNISolone SOD SUCCI 125 MG/2 ML VIAL IV STA (23:39)
[2020-10-15] MEDS ORDERED: SODIUM CHLORIDE 0.9% 1,000 ML IV STA (23:39)
--- NOTE | 2020-10-15 23:40 | ED ---
SOB HPI - General Stated Complaint: SOB Time Seen by Provider: 10/15/20 23:39 Source: RN notes reviewed, old records reviewed Mode of arrival: EMS - History of Present Illness Initial Comments: This is a 55-year-old female DF for evaluation patient's presenting for shortness of breath today. Patient is morbidly obese, history of CHF and COPD with recent hospital admission 2 weeks ago. No fevers. Just been of some chest pain and tightness. No other travel history, no known significant sick contacts aside from recent inpatient hospitalization. Patient is worsening shortness of breath tonight no help with at-home treatment MD Complaint: shortness of breath, cough -: days(s) Severity: moderate Severity scale (1-10): 3 Consistency: constant Improves With: nothing Worsens With: nothing Known History Of: COPD, congestive heart failure Context: recent URI, recent illness Associated Symptoms: pain with inspiration, cough, sputum production, palp itations Treatments Prior to Arrival: oxygen - Related Data Home Medications Medication Instructions Recorded Confirmed Potassium Chloride [Klor-Con 20] 20 meq PO DAILY 10/03/20 10/03/20 Previous Rx's Medication Instructions Recorded Albuterol Sulfate [Ventolin HFA] 2 puff INHALATION RT-QID PRN #1 10/05/20 inhaler Amoxic-Pot Clav 875-125Mg 1 tab PO Q12HR 3 Days #6 tab 10/05/20 [Augmentin 875-125] Atorvastatin [Lipitor] 20 mg PO HS #30 tab 10/05/20 Budesonide/Formoterol Fumarate 2 puff INHALATION RT-BID #1 inhaler 10/05/20 [Symbicort 160-4.5 Mcg Inhaler] Ipratropium-Albuterol Nebulize 3 ml INHALATION RT-QID #120 neb 10/05/20 [Duoneb 0.5 mg-3 mg/3 ml Soln] Levothyroxine Sodium [Euthyrox] 150 mcg PO DAILY #30 tab 10/05/20 Losartan [Cozaar] 12.5 mg PO DAILY #30 tab 10/05/20 Magnesium Oxide 400 mg PO DAILY #30 tab 10/05/20 Omeprazole 40 mg PO DAILY #30 cap 10/05/20 acetaZOLAMIDE [Diamox Sequels] 500 mg PO DAILY #30 cap 10/05/20 metFORMIN HCL ER [Glucophage Xr] 500 mg PO DAILY #30 tab 10/05/20 predniSONE 10 mg PO DIRECTED #18 tab 10/05/20 Allergies Allergy/AdvReac Type Severity Reaction Status Date / Time hydrocodone [From [place]] AdvReac Rash/Hives Verified 10/03/20 09:49 Review of Systems ROS Statement: Those systems with pertinent positive or pertinent negative responses have been documented in the HPI. ROS Other: All systems not noted in ROS Statement are negative. Past Medical History Past Medical History: Chest Pain / Angina, COPD, Diabetes Mellitus, Liver Disease, Sleep Apnea/CPAP/BIPAP, Thyroid Disorder Additional Past Medical History / Comment(s): CHF, cpap at night, gout History of Any Multi-Drug Resistant Organisms: None Reported Past Surgical History: Section, Cholecystectomy Past Anesthesia/Blood Transfusion Reactions: No Reported Reaction Past Psychological History: No Psychological Hx Reported Smoking Status: Former smoker Past Alcohol Use History: None Reported Past Drug Use History: None Reported General Exam General appearance: alert, in no apparent distress Head exam: Present: atraumatic, normocephalic, normal inspection Eye exam: Present: normal appearance, PERRL, EOMI. Absent: scleral icterus, conjunctival injection, periorbital swelling ENT exam: Present: normal exam, mucous membranes moist Neck exam: Present: normal inspection. Absent: tenderness, meningismus, lymphadenopathy Respiratory exam: Present: wheezes, rhonchi, decreased breath sounds, prolonged expiratory. Absent: respiratory distress, rales, stridor Cardiovascular Exam: Present: regular rate, normal rhythm, normal heart sounds. Absent: systolic murmur, diastolic murmur, rubs, gallop, clicks GI/Abdominal exam: Present: soft, normal bowel sounds. Absent: distended, tend erness, guarding, rebound, rigid Extremities exam: Present: normal inspection, full ROM, normal capillary refill. Absent: tenderness, pedal edema, joint swelling, calf tenderness Back exam: Present: normal inspection Neurological exam: Present: alert, oriented X3, CN II-XII intact Psychiatric exam: Present: normal affect, normal mood Skin exam: Present: warm, dry, intact, normal color. Absent: rash Course Vital Signs 10/15/20 10/16/20 23:38 00:23 Temperature 98.8 F Pulse Rate 83 83 Respiratory 20 Rate Blood Pressure 120/59 O2 Sat by Pulse 98 Oximetry - Reevaluation(s) Reevaluation #1: 10/16/20 00:42 Medical record is reviewed Reevaluation #2: 10/16/20 00:42 Patient is mildly improved with oxygen CHFand breathing treatments here in the ER Reevaluation #3: 10/16/20 00:42 Patient denying any current persistent chest pain, still feels significantly short of breath - Consultations Consultation #1: Spoke with [facility] to agrees to admit this patient Medical Decision Making - Medical Decision Making 55 female DF for evaluation patient has COPD and CHF exacerbation. Negative coronavirus. Patient be admitted for observation, cardiology and pulmonary to see - Lab Data Result diagrams: 10/16/20 00:07 10/16/20 00:07 Lab Results 10/16/20 10/16/20 10/16/20 Range/Units 00:07 00:07 00:07 WBC 6.2 (3.8-10.6) k/uL RBC 4.30 (3.80-5.40) m/uL Hgb 14.3 (11.4-16.0) gm/dL Hct 45.0 (34.0-46.0) % MCV 104.5 H (80.0-100.0) fL MCH 33.3 (25.0-35.0) pg MCHC 31.9 (31.0-37.0) g/dL RDW 14.0 (11.5-15.5) % Plt Count 180 (150-450) k/uL MPV 7.7 Neutrophils % 73 % Lymphocytes % 16 % Monocytes % 7 % Eosinophils % 2 % Basophils % 1 % Neutrophils # 4.5 (1.3-7.7) k/uL Lymphocytes # 1.0 (1.0-4.8) k/uL Monocytes # 0.4 (0-1.0) k/uL Eosinophils # 0.1 (0-0.7) k/uL Basophils # 0.1 (0-0.2) k/uL Hypochromasia Slight Macrocytosis Moderate PT 10.3 (9.0-12.0) sec INR 1.0 (<1.2) APTT 22.5 (22.0-30.0) sec Carbon Dioxide 34 H (22-30) mmol/L Creatinine 0.77 (0.52-1.04) mg/dL Est GFR (CKD-EPI)AfAm >90 (>60 ml/min/1.73 sqM) Est GFR (CKD-EPI)NonAf 86 (>60 ml/min/1.73 sqM) Total Protein 7.0 (6.3-8.2) g/dL Albumin 4.1 (3.5-5.0) g/dL - EKG Data -: EKG Interpreted by Me (EKG shows sinus rhythm 83 CO 130 QRS 84 QTc 437) - Radiology Data Radiology results: report reviewed (Chest x-rays shows positive CHF), image reviewed Disposition Clinical Impression: Respiratory failure, Acute on chronic respiratory failure with hypoxia and hypercapnia, COPD exacerbation, Chronic CHF, Obstructive sleep apnea, Congestive heart failure, Acute pulmonary edema Disposition: ADMITTED IP TO THIS HOSP Condition: Good Is patient prescribed a controlled substance at d/c from ED?: No Referrals: Sergo Valencia MD [Primary Care Provider] - 1-2 days
[2020-10-16 00:16] LABS: Basophils # (A) 0.1 k/uL (0-0.2); Basophils % (A) 1 %; Eosinophils # (A) 0.1 k/uL (0-0.7); Eosinophils % (A) 2 %; HGB 14.3 gm/dL (11.4-16.0); Hypochromasia Slight; Lymphocytes % (A) 16 %; MCH 33.3 pg (25.0-35.0); MCHC 31.9 g/dL (31.0-37.0); MCV 104.5 fL (80.0-100.0); Macrocytosis Moderate; Mean Platelet Volume 7.7; Monocytes # (A) 0.4 k/uL (0-1.0); Monocytes % (A) 7 %; Neutrophils # (A) 4.5 k/uL (1.3-7.7); Neutrophils % (A) 73 %; Platelet Count 180 k/uL (150-450); WBC 6.2 k/uL (3.8-10.6)
--- NOTE | 2020-10-16 00:25 | XR ---
EXAM: XR Chest, 2 Views CLINICAL HISTORY: ITS.REASON XR Reason: difficulty breathing TECHNIQUE: Frontal and lateral views of the chest. Limitation: Underpenetration due to patient's large body habitus decreases the sensitivity of this exam. COMPARISON: 10/04/20 FINDINGS: Lungs: Mild diffuse interstitial opacities in both lungs. Pleural space: Unremarkable. No pneumothorax. Heart: Mild cardiomegaly. Mediastinum: Mediastinal contour, corresponds to location of main pulmonary artery is enlarged, unchanged, may suggest pulmonary artery hypertension. Bones/joints: No acute findings. IMPRESSION: 1. Mild pulmonary edema. 2. Mediastinal contour, corresponds to location of main pulmonary artery is enlarged, unchanged, may suggest pulmonary artery hypertension.
[2020-10-16 00:26] LABS: Partial Thromboplastin Time 22.5 sec (22.0-30.0); Prothrombin Time 10.3 sec (9.0-12.0)
[2020-10-16 00:31] LABS: African American GFR (CKD) >90 (>60 ml/min/1.73 sqM); Albumin 4.1 g/dL (3.5-5.0); Carbon Dioxide 34 mmol/L (22-30); Non-African American GFR(CKD) 86 (>60 ml/min/1.73 sqM)
[2020-10-16 00:32] LABS: ALT 73 U/L (4-34); AST 56 U/L (14-36); Alkaline Phosphatase 75 U/L (38-126); Anion Gap 6 mmol/L; Blood Urea Nitrogen 20 mg/dL (7-17); C Reactive Protein 17.3 mg/L (<10.0); Chloride 100 mmol/L (98-107); Creatine Kinase 154 U/L (30-135); Glucose 127 mg/dL (74-99); LDH 754 U/L (313-618); Potassium 4.6 mmol/L (3.5-5.1); Sodium 140 mmol/L (137-145); Total Bilirubin 0.3 mg/dL (0.2-1.3)
[2020-10-16] MEDS: FUROSEMIDE 10 MG/ML 4 ML VIAL IV SCH ×4 (03:02→21:34)
[2020-10-16] MEDS: methylPREDNISolone SOD SUCCI 125 MG/2 ML VIAL IV SCH ×3 (05:35→17:34)
[2020-10-16 07:11] LABS: Glucose,Whole Blood 227 mg/dL (75-99)
[2020-10-16] MEDS: ALBUTEROL HFA INHALER INHALATION SCH ×4 (07:51→20:11)
[2020-10-16] MEDS ORDERED: TIOTROPIUM 2.5 MCG INHALER INHALATION SCH (08:00)
[2020-10-16] MEDS: INSULIN ASPART (NovoLOG) 100 UNIT/ML VIAL SQ SCH ×4 (08:29→21:34)
--- NOTE | 2020-10-16 09:45 | CONS ---
CONSULTATION Nerissa Marshall is a 55-year-old lady who is obese and also has a history of type 2 diabetes, hypothyroidism and hypertension and hyperlipidemia. An echocardiogram was a suboptimal study, revealed fairly well preserved systolic function with ejection fraction in the 50% to 55% range. She also had some multiple tests performed at that time including a chest CT angio which revealed no evidence of any significant PE. There was no DVT. This patient comes into the hospital at this time with complaints of shortness of breath. She is morbidly obese. She has COPD, recently hospitalized with what seemed to be hypercapnic exacerbation of COPD. She denies any chest pain, palpitations or syncope. PAST MEDICAL HISTORY: Remarkable for atypical chest pain, type 2 diabetes, hypertension, hyperlipidemia, obstructive sleep apnea, wears a CPAP and recent hospitalization with hypercapnic exacerbation of COPD. MEDICATIONS: Medications at home include atorvastatin 20 mg daily, levothyroxine, losartan, magnesium oxide, Diamox, metformin, and tapering doses of prednisone since she was recently hospitalized. LABORATORY DATA: Review suggests that her troponin is normal and her BNP is unremarkable. Echo revealed preserved systolic function. Review of chest x-ray suggests no clear-cut evidence of significant pulmonary edema. There seems to be some prominence of pulmonary arteries. EKG revealed a sinus mechanism with PACs and PVCs, but no acute changes. P/E: JVD is up 1 cm. No Carotid bruit. Distant heart sounds. Lungs reveal bilateral scattered rhonchi. Mild ariella LE edema. No focal motor deficits. IMPRESSION: There is no clinical evidence to suggest systolic congestive heart failure. May have a component of diastolic heart failure. Chest x-ray does not clear-cut to indicate pulmonary edema. BNP is normal and the patient's presentation is more consistent with exacerbation of chronic obstructive pulmonary disease with a history of underlying known chronic obstructive pulmonary disease with hypercapnic presentation recently. She also has obstructive sleep apnea. If the patient's clinical picture changes I will come back and re-evaluate her, but for now we will diurese her and request a pulmononary evaluation and make further recommendations. Thank you very much for the consult. VERONICA / DENISEN: [id number] / OZZIE
[2020-10-16] MEDS: LEVOTHYROXINE 75 MCG TAB PO SCH (11:25)
[2020-10-16 12:05] LABS: Glucose,Whole Blood 264 mg/dL (75-99)
[2020-10-16] MEDS: ASCORBIC ACID 500 MG TAB PO SCH (12:59)
--- NOTE | 2020-10-16 13:45 | P.CNPUL ---
History of Present Illness Consult date: 10/16/20 Requesting physician: Shelton Ledesma Reason for consult: dyspnea, cough, COPD, hypoxemia, abnormal CXR/CT Chief complaint: Shortness of breath. COVID infection. History of present illness: 55-year-old female, who was recently inpatient, for a COPD and CHF exacerbation. She was seen by my partner and at that time, tested negative for coronavirus. The patient was again seen in the emergency department on October 15. The patient came in with complaints of significant shortness of breath. She apparently denied any fever. She did have some chest tightness and some chest discomfort. She also had chest congestion. She was not a particularly good historian. The patient was also feeling weak, muscle aches and joint aches. She also had fatigue. She was seen in the emergency department, and did test positive for COVID 19. Currently, the patient's laying nearly flat in bed, on 5 L nasal cannula. She is very obese. Blood pressure heart rate respiratory rate and temperature are all stable. White count is 6.2, hemoglobin 14.3, hematocrit 45, and platelet count 180,000. PT, INR, and PTT are all normal. Sodium 140, potassium 4.6, chlorides 100, CO2 34, anion gap 6, BUN 20, and creatinine 0.77. AST 56, ALT 73, LDH 754, and C-reactive protein is 17.3. Chest x-ray shows bilateral diffuse interstitial abnormalities. His could be consistent with fluid overload and/or interstitial pneumonia. Her BNP was essentially normal. Review of Systems REVIEW OF SYSTEMS: CONSTITUTIONAL: Weakness and fatigue. NEUROLOGIC: [ Negative.] HEENT: [ Negative.] CARDIAC: Shortness of breath, cough, chest congestion, chest tightness, all lasting more than a couple weeks. PULMONARY: [Negative.] GI: [Negative.] : [Negative.] RHEUMATOLOGIC: [ Negative.] IMMUNOLOGIC: [ Negative.] ENDOCRINE: [Negative. ] DERMATOLOGIC: [Negative.] Past Medical History Past Medical History: Chest Pain / Angina, COPD, Diabetes Mellitus, Liver Disease, Sleep Apnea/CPAP/BIPAP, Thyroid Disorder Additional Past Medical History / Comment(s): CHF, cpap at night, gout History of Any Multi-Drug Resistant Organisms: None Reported Past Surgical History: Section, Cholecystectomy Past Anesthesia/Blood Transfusion Reactions: No Reported Reaction Past Psychological History: No Psychological Hx Reported Smoking Status: Current every day smoker Past Alcohol Use History: None Reported Past Drug Use History: None Reported Medications and Allergies Home Medications Medication Instructions Recorded Confirmed Type Potassium Chloride [Klor-Con 20] 20 meq PO DAILY 10/03/20 10/16/20 History Albuterol Sulfate [Ventolin HFA] 2 puff INHALATION RT-QID PRN #1 10/05/20 10/16/20 Rx inhaler Atorvastatin [Lipitor] 20 mg PO HS #30 tab 10/05/20 10/16/20 Rx Ipratropium-Albuterol Nebulize 3 ml INHALATION RT-QID #120 neb 10/05/20 10/16/20 Rx [Duoneb 0.5 mg-3 mg/3 ml Soln] Levothyroxine Sodium [Euthyrox] 150 mcg PO DAILY #30 tab 10/05/20 10/16/20 Rx Losartan [Cozaar] 12.5 mg PO DAILY #30 tab 10/05/20 10/16/20 Rx Magnesium Oxide 400 mg PO DAILY #30 tab 10/05/20 10/16/20 Rx Omeprazole 40 mg PO DAILY #30 cap 10/05/20 10/16/20 Rx acetaZOLAMIDE [Diamox Sequels] 500 mg PO DAILY #30 cap 10/05/20 10/16/20 Rx metFORMIN HCL ER [Glucophage Xr] 500 mg PO DAILY #30 tab 10/05/20 10/16/20 Rx Ipratropium-Albuterol Nebulize 3 ml INHALATION RT-Q4H PRN 10/16/20 10/16/20 Hi story [Duoneb 0.5 mg-3 mg/3 ml Soln] Allergies Allergy/AdvReac Type Severity Reaction Status Date / Time hydrocodone [From [place]] AdvReac Rash/Hives Verified 10/16/20 07:57 Physical Exam Osteopathic Statement: *. No significant issues noted on an osteopathic structural exam other than those noted in the History and Physical/Consult. Vitals: Vital Signs Temp Pulse Pulse Resp BP BP BP 10/16/20 11:35 98 F 74 20 123/79 10/16/20 11:06 80 10/16/20 08:00 16 10/16/20 07:05 98.9 F 61 16 144/76 10/16/20 02:00 98.4 F 99 18 141/68 10/16/20 01:01 85 10/16/20 00:23 83 10/15/20 23:38 98.8 F 83 20 120/59 Pulse Ox 10/16/20 11:35 94 L 10/16/20 11:06 94 L 10/16/20 08:00 10/16/20 07:05 95 10/16/20 02:00 93 L 10/16/20 01:01 10/16/20 00:23 10/15/20 23:38 98 Intake and Output 10/15/20 10/16/20 10/16/20 22:59 06:59 14:59 Intake Total 240 Balance 240 Intake: Oral 240 Other: Voiding Method Toilet Toilet # Voids 2 Weight 164.654 kg Currently on 5 L, without se respiratory distress, audible wheezing, use of accessory muscles, or conversational dyspnea. HEENT examination is grossly unremarkable. Mucous membranes are moist. Neck supple. Full range of motion. No adenopathy thyromegaly or neck vein distention. Cardiovascular examination reveals regular rhythm rate. S1-S2 normal. No S3 or S4. No discernible murmur noted. Heart sounds are very distant. Heart rate 74 bpm. Lungs reveal bilateral coarse rhonchi, and lateral crackles. Slight prolongation on forced maneuver. Mild expiratory wheezes are also noted. Abdomen soft bowel sounds are heard. No masses or tenderness. Abdomen is very obese. Extremities are intact. No cyanosis or clubbing. Trace edema is noted. Skin is without rash or lesion. Neurologic examination is brief but nonfocal. Results - Laboratory Findings CBC and BMP: 10/16/20 00:07 10/16/20 00:07 PT/INR, D-dimer PT 10.3 sec (9.0-12.0) 10/16/20 00:07 INR 1.0 (<1.2) 10/16/20 00:07 Abnormal lab findings: Abnormal Labs 10/16/20 10/16/20 10/16/20 00:07 00:07 00:38 MCV 104.5 H Carbon Dioxide 34 H BUN 20 H Glucose 127 H POC Glucose (mg/dL) AST 56 H ALT 73 H Lactate Dehydrogenase 754 H Creatine Kinase 154 H C-Reactive Protein 17.3 H Coronavirus (PCR) Detected A 10/16/20 10/16/20 07:10 12:01 MCV Carbon Dioxide BUN Glucose POC Glucose (mg/dL) 227 H 264 H AST ALT Lactate Dehydrogenase Creatine Kinase C-Reactive Protein Coronavirus (PCR) - Diagnostic Findings Chest x-ray: image reviewed Assessment and Plan Assessment: Shortness of breath, which has been present for more than a couple weeks, and may relate to underlying COVID 19 pneumonia, and/or COPD exacerbation. CHF seems less likely given her relatively normal BNP. Chronic hypoxemic and hypercapnic respiratory failure. History of COPD with ongoing tobacco use. History of angina pectoris. History of diabetes mellitus. History of obstructive sleep apnea syndrome, currently on CPAP. History of hyperlipidemia. History of hypothyroidism. Morbid obesity. Plan: Plan dated 10/16/2020. The patient is beyond the window for REM. She will get albuterol inhaler, vitamin C, Symbicort, Solu-Medrol, zinc, and Lovenox. She'll also get vitamin D3. Spiriva, updrafts or discontinued. We will continue to watch the patient very carefully to see whether or not there is any deterioration. In addition, we did ask her to bring her CPAP machine into the hospital so she can use it here. We will continue to follow make recommendations were appropriate. Her overall prognosis remains very guarded. She is at high risk for deterioration given her obesity, and her chronic medical problems. Time with Patient: Greater than 30
[2020-10-16] MEDS: SYMBICORT 160-4.5 MCG INHALER INHALATION SCH (16:32)
[2020-10-16 16:35] LABS: Glucose,Whole Blood 177 mg/dL (75-99)
--- NOTE | 2020-10-16 16:54 | P.HPIM ---
History of Present Illness H&P Date: 10/16/20 Chief Complaint: Shortness of breath/COVID infection 55-year-old female, who was recently inpatient, for a COPD and CHF exacerbation. She was seen by my partner and at that time, tested negative for coronavirus. The patient was again seen in the emergency department on October 15. The patient came in with complaints of significant shortness of breath. She apparently denied any fever. She did have some chest tightness and some chest discomfort. She also had chest congestion. She was not a particularly good historian. The patient was also feeling weak, muscle aches and joint aches. She also had fatigue. Patient was worked up in ED and did test positive for COVID 19. Currently, the patient's laying nearly flat in bed, on 5 L nasal cannula. She is very obese. Blood pressure heart rate respiratory rate and temperature are all stable. White count is 6.2, hemoglobin 14.3, hematocrit 45, and platelet count 180,000. PT, INR, and PTT are all normal. Sodium 140, potassium 4.6, chlorides 100, CO2 34, anion gap 6, BUN 20, and creatinine 0.77. AST 56, ALT 73, LDH 754, and C- reactive protein is 17.3. Chest x-ray shows bilateral diffuse interstitial abnormalities. His could be consistent with fluid overload and/or interstitial pneumonia. Review of Systems REVIEW OF SYSTEMS: CONSTITUTIONAL: No fever, no malaise, no fatigue. HEENT: No recent visual problems or hearing problems. Denied any sore throat. CARDIOVASCULAR: No chest pain, orthopnea, PND, no palpitations, no syncope. PULMONARY: No shortness of breath, no cough, no hemoptysis. GASTROINTESTINAL: No diarrhea, no nausea, no vomiting, no abdominal pain. NEUROLOGICAL: No headaches, no weakness, no numbness. HEMATOLOGICAL: Denies any bleeding or petechiae. GENITOURINARY: Denies any burning micturition, frequency, or urgency. MUSCULOSKELETAL/RHEUMATOLOGICAL: Denies any joint pain, swelling, or any muscle pain. ENDOCRINE: Denies any polyuria or polydipsia. The rest of the 14-point review of systems is negative. Past Medical History Past Medical History: Chest Pain / Angina, COPD, Diabetes Mellitus, Liver Disease, Sleep Apnea/CPAP/BIPAP, Thyroid Disorder Additional Past Medical History / Comment(s): CHF, cpap at night, gout History of Any Multi-Drug Resistant Organisms: None Reported Past Surgical History: Section, Cholecystectomy Past Anesthesia/Blood Transfusion Reactions: No Reported Reaction Past Psychological History: No Psychological Hx Reported Smoking Status: Current every day smoker Past Alcohol Use History: None Reported Past Drug Use History: None Reported Medications and Allergies Home Medications Medication Instructions Recorded Confirmed Type Potassium Chloride [Klor-Con 20] 20 meq PO DAILY 10/03/20 10/16/20 History Albuterol Sulfate [Ventolin HFA] 2 puff INHALATION RT-QID PRN #1 10/05/20 10/16/20 Rx inhaler Atorvastatin [Lipitor] 20 mg PO HS #30 tab 10/05/20 10/16/20 Rx Ipratropium-Albuterol Nebulize 3 ml INHALATION RT-QID #120 neb 10/05/20 10/16/20 Rx [Duoneb 0.5 mg-3 mg/3 ml Soln] Levothyroxine Sodium [Euthyrox] 150 mcg PO DAILY #30 tab 10/05/20 10/16/20 Rx Losartan [Cozaar] 12.5 mg PO DAILY #30 tab 10/05/20 10/16/20 Rx Magnesium Oxide 400 mg PO DAILY #30 tab 10/05/20 10/16/20 Rx Omeprazole 40 mg PO DAILY #30 cap 10/05/20 10/16/20 Rx acetaZOLAMIDE [Diamox Sequels] 500 mg PO DAILY #30 cap 10/05/20 10/16/20 Rx metFORMIN HCL ER [Glucophage Xr] 500 mg PO DAILY #30 tab 10/05/20 10/16/20 Rx Ipratropium-Albuterol Nebulize 3 ml INHALATION RT-Q4H PRN 10/16/20 10/16/20 History [Duoneb 0.5 mg-3 mg/3 ml Soln] Allergies Allergy/AdvReac Type Severity Reaction Status Date / Time hydrocodone [From [facility]] AdvReac Rash/Hives Verified 10/16/20 07:57 Physical Exam Vitals: Vital Signs Temp Pulse Pulse Resp BP BP Pulse Ox 10/16/20 11:06 80 94 L 10/16/20 08:00 16 10/16/20 07:05 98.9 F 61 16 144/76 95 10/16/20 02:00 98.4 F 99 18 141/68 93 L 10/16/20 01:01 85 10/16/20 00:23 83 10/15/20 23:38 98.8 F 83 20 120/59 98 Intake and Output 10/15/20 10/16/20 10/16/20 22:59 06:59 14:59 Intake Total 240 Balance 240 Intake: Oral 240 Other: Voiding Method Toilet Toilet # Voids 2 Weight 164.654 kg PHYSICAL EXAMINATION: GENERAL: The patient is alert and oriented x3, not in any acute distress. Well developed, well nourished. HEENT: Pupils are round and equally reacting to light. EOMI. No scleral icterus. No conjunctival pallor. Normocephalic, atraumatic. No pharyngeal erythema. No thyromegaly. CARDIOVASCULAR: S1 and S2 present. No murmurs, rubs, or gallops. PULMONARY: Positive bilateral crackles and rhonchi with some expiratory wheezes. ABDOMEN: Soft, nontender, nondistended, normoactive bowel sounds. No palpable organomegaly. MUSCULOSKELETAL: No joint swelling or deformity. EXTREMITIES: No cyanosis, clubbing, or pedal edema. NEUROLOGICAL: Gross neurological examination did not reveal any focal deficits. SKIN: No rashes. Results CBC & Chem 7: 10/16/20 00:07 10/16/20 00:07 Labs: Abnormal Lab Results - Last 24 Hours (Table) 10/16/20 10/16/20 10/16/20 Range/Units 00:07 00:07 00:38 MCV 104.5 H (80.0-100.0) fL Carbon Dioxide 34 H (22-30) mmol/L BUN 20 H (7-17) mg/dL Glucose 127 H (74-99) mg/dL POC Glucose (mg/dL) (75-99) mg/dL AST 56 H (14-36) U/L ALT 73 H (4-34) U/L Lactate Dehydrogenase 754 H (313-618) U/L Creatine Kinase 154 H (30-135) U/L C-Reactive Protein 17.3 H (<10.0) mg/L Coronavirus (PCR) Detected A (Not Detectd) 10/16/20 Range/Units 07:10 MCV (80.0-100.0) fL Carbon Dioxide (22-30) mmol/L BUN (7-17) mg/dL Glucose (74-99) mg/dL POC Glucose (mg/dL) 227 H (75-99) mg/dL AST (14-36) U/L ALT (4-34) U/L Lactate Dehydrogenase (313-618) U/L Creatine Kinase (30-135) U/L C-Reactive Protein (<10.0) mg/L Coronavirus (PCR) (Not Detectd) Thrombosis Risk Factor Assmnt - Choose All That Apply Any of the Below Risk Factors Present?: Yes Each Factor Represents 1 point: Abnormal pulmonary function (COPD), Age 41-60 years, Obesity (BMI >25), Swollen legs (current) Thrombosis Risk Factor Assessment Total Risk Factor Score: 4 Thrombosis Risk Factor Assessment Level: Moderate Risk Assessment and Plan Assessment: 1. Shortness of breath; multifactorial COVID 19 pneumonia, and/or COPD exacerbation Pulmonary on board and patient is beyond the window for REM. She will get albuterol inhaler, vitamin C, Symbicort, Solu-Medrol, zinc, and Lovenox. She'll also get vitamin D3. Spiriva, updrafts or discontinued. We will continue to watch the patient very carefully to see whether or not there is any deterioration. In addition, we did ask her to bring her CPAP machine into the hospital so she can use it here. We will continue to follow make recommendat ions were appropriate. Her overall prognosis remains very guarded. She is at high risk for deterioration given her obesity, and her chronic medical problems. 2. Acute on chronic hypoxemic/hypercapnic respiratory failure; as above 3. Diabetes mellitus; Accu-Cheks every before meals and at bedtime with Humalog sliding scale 4. Hyperlipidemia; Lipitor 20 mg by mouth daily at bedtime 5. Hypothyroidism; levothyroxin 150 MCG daily 6. Obstructive sleep apnea; patient uses CPAP at home 7. Hypertension; resume home dose of Cozaar 12.5 mg daily DVT prophylaxis; SCDs/subcu Lovenox CODE STATUS; full code
[2020-10-16 21:29] LABS: Glucose,Whole Blood 177 mg/dL (75-99)
[2020-10-16] MEDS: ATORVASTATIN 20 MG TAB PO SCH (21:33)
[2020-10-16 22:50] LABS: Hemoglobin A1C 6.5 % (4.0-6.0)
[2020-10-17] MEDS: methylPREDNISolone SOD SUCCI 125 MG/2 ML VIAL IV SCH ×5 (00:49→23:40)
[2020-10-17] MEDS: LEVOTHYROXINE 75 MCG TAB PO SCH (06:01)
[2020-10-17 06:32] LABS: African American GFR (CKD) 71 (>60 ml/min/1.73 sqM); Anion Gap 6 mmol/L; Blood Urea Nitrogen 35 mg/dL (7-17); Calcium 8.9 mg/dL (8.4-10.2); Carbon Dioxide 34 mmol/L (22-30); Chloride 98 mmol/L (98-107); Glucose 158 mg/dL (74-99); Non-African American GFR(CKD) 62 (>60 ml/min/1.73 sqM); Potassium 5.7 mmol/L (3.5-5.1); Sodium 138 mmol/L (137-145)
[2020-10-17 07:09] LABS: Glucose,Whole Blood 154 mg/dL (75-99)
[2020-10-17] MEDS: ZINC SULFATE 220 MG CAP PO SCH (08:22)
[2020-10-17] MEDS: LOSARTAN 25 MG TAB PO SCH (08:22)
[2020-10-17] MEDS: CHOLECALCIFEROL 25 MCG (1000 IU) TABLET PO SCH (08:22)
[2020-10-17] MEDS: ASCORBIC ACID 500 MG TAB PO SCH (08:22)
[2020-10-17] MEDS: FUROSEMIDE 10 MG/ML 4 ML VIAL IV SCH ×2 (08:23→19:24)
[2020-10-17] MEDS: INSULIN ASPART (NovoLOG) 100 UNIT/ML VIAL SQ SCH ×4 (08:23→21:37)
[2020-10-17] MEDS: ENOXAPARIN 40 MG/0.4 ML SYRINGE SQ SCH (08:23)
[2020-10-17] MEDS: ALBUTEROL HFA INHALER INHALATION SCH ×4 (08:40→19:46)
[2020-10-17] MEDS: SYMBICORT 160-4.5 MCG INHALER INHALATION SCH ×2 (08:40→19:46)
[2020-10-17] MEDS ORDERED: POTASSIUM CHLORIDE ER 20 MEQ TAB.ER PO SCH (09:00)
[2020-10-17] MEDS: PANTOPRAZOLE 40 MG TABLET PO SCH (09:01)
[2020-10-17 11:07] LABS: Glucose,Whole Blood 187 mg/dL (75-99)
[2020-10-17 13:03] VITALS: BMI 62.3
--- NOTE | 2020-10-17 15:44 | P.PN ---
Subjective Progress Note Date: 10/17/20 This is a 55-year-old morbidly obese female admitted with complaint 19 pneumonia, possible acute COPD exacerbation with chronic hypoxic/hypercapnic respiratory failure and multiple other medical issues. Maintained on COVID regimen, patient was beyond the window for Remdesevir. Sitting up in chair, complaints of exertional shortness of breath, currently maintaining O2 sats in the 90s on 5 L nasal cannula. Denies chest pain, palpitations. Afebrile. Diuresing on Lasix IV push, with inaccurate I&O , no output charted .Renal function worsening, creatinine 1.02, Potassium 5.7. Blood sugars controlled. Repeat EKG in progress. Objective - Vital Signs Vital signs: Vital Signs Temp 97.8 F 10/17/20 15:00 Pulse 86 10/17/20 15:00 Resp 18 10/17/20 15:00 BP 161/81 10/17/20 15:00 Pulse Ox 95 10/17/20 15:00 Intake & Output 10/16/20 10/17/20 10/17/20 18:59 06:59 18:59 Intake Total 240 Balance 240 Weight 164.654 kg Intake: Oral 240 Other: Voiding Method Toilet Toilet Toilet # Voids 3 2 1 # Bowel Movements 0 1 - Exam PHYSICAL EXAM: VITAL SIGNS: As above GENERAL: Sitting up in chair, no acute distress HEENT: Conjunctivae normal. eyes normal. NECK: Short neck, Unable to assess JVD. CARDIOVASCULAR: S1, S2 regular..No murmur RESPIRATION: Breath sounds diminished in the bases. No rhonchi or crackles. ABDOMEN: Obese, Soft, nontender . No guarding. no masses palpable. Positive Bowel sounds heard. LEGS: No edema. no swelling PSYCHIATRY: Alert and oriented X3, mood and affect normal. NERVOUS SYSTEM: Cranial N 2-12 grossly normal. No focal deficits Skin: Warm and dry, no rash - Labs CBC & Chem 7: 10/16/20 00:07 10/17/20 05:50 Labs: Abnormal Lab Results - Last 24 Hours (Table) 10/16/20 10/16/20 10/16/20 Range/Units 13:17 16:33 21:28 Potassium (3.5-5.1) mmol/L Carbon Dioxide (22-30) mmol/L BUN (7-17) mg/dL Glucose (74-99) mg/dL POC Glucose (mg/dL) 177 H 177 H (75-99) mg/dL Hemoglobin A1c 6.5 H (4.0-6.0) % 10/17/20 10/17/20 10/17/20 Range/Units 05:50 07:07 11:05 Potassium 5.7 H (3.5-5.1) mmol/L Carbon Dioxide 34 H (22-30) mmol/L BUN 35 H (7-17) mg/dL Glucose 158 H (74-99) mg/dL POC Glucose (mg/dL) 154 H 187 H (75-99) mg/dL Hemoglobin A1c (4.0-6.0) % Assessment and Plan Assessment: Acute on chronic hypoxic and hypercapnic respiratory failure secondary to acute covid-Pneumonia and possible acute COPD exacerbation Chronic diastolic CHF, NYHA class III Obstructive sleep apnea on CPAP Diabetes mellitus type 2 hypothyroidism hypertension ongoing nicotine dependence. morbid obesity, BMI 62.3 Plan: Continue on current medication regime ,monitoring and symptomatic treatment. Continue on COVID cocktail. Diuretics as per cardiology . Creatinine and potassium worsening , close monitoring of renal function and electrolytes. repeat potassium pending, may need to dc cozaar.Discharge planning in progress possibly for tomorrow pending pulmonary and cardiology final DC recommendations and clearance. The impression and plan of care has been dictated as directed. : I performed a history and examination of this patient, discussed the same with the dictator. I agree with the dictator's note ,documented as a scribe. Any additional findings or plans will be noted.
--- NOTE | 2020-10-17 15:44 | P.PN ---
Subjective Progress Note Date: 10/17/20 55-year-old female, who was recently inpatient, for a COPD and CHF exacerbation. She was seen by my partner and at that time, tested negative for coronavirus. The patient was again seen in the emergency department on October 15. The patient came in with complaints of significant shortness of breath. She apparently denied any fever. She did have some chest tightness and some chest discomfort. She also had chest congestion. She was not a particularly good historian. The patient was also feeling weak, muscle aches and joint aches. She also had fatigue. She was seen in the emergency department, and did test positive for COVID 19. Currently, the patient's laying nearly flat in bed, on 5 L nasal cannula. She is very obese. Blood pressure heart rate respiratory rate and temperature are all stable. White count is 6.2, hemoglobin 14.3, hematocrit 45, and platelet count 180,000. PT, INR, and PTT are all normal. Sodium 140, potassium 4.6, chlorides 100, CO2 34, anion gap 6, BUN 20, and creatinine 0.77. AST 56, ALT 73, LDH 754, and C-reactive protein is 17.3. Chest x-ray shows bilateral diffuse interstitial abnormalities. His could be consistent with flui d overload and/or interstitial pneumonia. Her BNP was essentially normal. On today's evaluation of the 2020 the patient is resting comfortably on O2 BiPAP delivered to her for a nasal mask. She is very is much success with the BiPAP machine. No new complaints. She is on IV Solu-Medrol. She was outside the window for REM. Inflammatory markers were not repeated today in the levels from yesterday were noted. The patient is on IV Solu-Medrol. She is on Lovenox 40 mg subcu every 24 hours. Home medications of been all resumed. I also reviewed the patient's chest x-ray that was done at a time of admission and the chest x-ray showed some cardiomegaly and increased pulmonary vascular markings. This could be related to her interstitial edema versus overnight he related pneumonia. Her latest echocardiogram was done on 10/04/2020 and this was done during her late admission and the patient was found to have a preserved LV function with an ejection fraction of 50-55%. She is morbidly obese and she carries a BMI of 62.3. Liver function test has a minimally elevated and the patient has a mild component of transaminitis. Objective - Vital Signs Vital signs: Vital Signs Temp 97.8 F 10/17/20 15:00 Pulse 86 10/17/20 15:00 Resp 18 10/17/20 15:00 BP 161/81 10/17/20 15:00 Pulse Ox 95 10/17/20 15:00 Intake & Output 10/16/20 10/17/20 10/17/20 18:59 06:59 18:59 Intake Total 240 Balance 240 Weight 164.654 kg Intake: Oral 240 Other: Voiding Method Toilet Toilet Toilet # Voids 3 2 1 # Bowel Movements 0 1 - Exam Currently on BiPAP and the patient seems to be quite comfortable and she is arousable. HEENT examination is grossly unremarkable. Mucous membranes are moist. Neck supple. Full range of motion. No adenopathy thyromegaly or neck vein distention. Cardiovascular examination reveals regular rhythm rate. S1-S2 normal. No S3 or S4. No discernible murmur noted. Heart sounds are very distant. Heart rate 74 bpm. Lungs reveal bilateral coarse rhonchi, and lateral crackles. Slight prolongat ion on forced maneuver. Mild expiratory wheezes are also noted. Abdomen soft bowel sounds are heard. No masses or tenderness. Abdomen is very obese. Extremities are intact. No cyanosis or clubbing. Trace edema is noted. Skin is without rash or lesion. Neurologic examination is brief but nonfocal. - Labs CBC & Chem 7: 10/16/20 00:07 10/17/20 05:50 Labs: Abnormal Lab Results - Last 24 Hours (Table) 10/16/20 10/16/20 10/16/20 Range/Units 13:17 16:33 21:28 Potassium (3.5-5.1) mmol/L Carbon Dioxide (22-30) mmol/L BUN (7-17) mg/dL Glucose (74-99) mg/dL POC Glucose (mg/dL) 177 H 177 H (75-99) mg/dL Hemoglobin A1c 6.5 H (4.0-6.0) % 10/17/20 10/17/20 10/17/20 Range/Units 05:50 07:07 11:05 Potassium 5.7 H (3.5-5.1) mmol/L Carbon Dioxide 34 H (22-30) mmol/L BUN 35 H (7-17) mg/dL Glucose 158 H (74-99) mg/dL POC Glucose (mg/dL) 154 H 187 H (75-99) mg/dL Hemoglobin A1c (4.0-6.0) % Assessment and Plan Plan: 1 acute hypoxic respiratory failure with Shortness of breath, which has been present for more than a couple weeks, and may relate to underlying COVID 19 pneumonia, and/or COPD exacerbation. CHF seems less likely given her relatively normal BNP. The patient is currently on BiPAP and this is an automatic BiPAP unit. The patient had a chest x-ray that shows cardiomegaly and increased pulmonary vascular markings. ProBNP level was nonelevated. LDH level is at 754 and the patient's pro calcitonin level was at 0.06 from her previous admission and this needs to be rechecked. On today's evaluation, the patient remains bronchospastic and wheezy. Breath sounds are quite diminished bilaterally. She is a chronic smoker in she continues to smoke about 1 pack of cigarettes a day. 2 Chronic hypoxemic and hypercapnic respiratory failure. 3 History of COPD with ongoing tobacco use. 4 History of angina pectoris. 5 History of diabetes mellitus. 6 History of obstructive sleep apnea syndrome, currently on CPAP. 7 History of hyperlipidemia. 8 History of hypothyroidism. 9 Morbid obesity. Plan: Continue Solu-Medrol 60 mg every 6 hours The patient was found to be outside the the window for REM. She will get albuterol inhaler, vitamin C, Solu-Medrol, zinc, and Lovenox. Symbicort will be continued Continue on a BiPAP for respiratory support Lasix IV 40 mg every 12 hours
[2020-10-17 17:29] LABS: Glucose,Whole Blood 145 mg/dL (75-99)
[2020-10-17] MEDS: ATORVASTATIN 20 MG TAB PO SCH (19:24)
[2020-10-17] MEDS: GABAPENTIN 300 MG CAP PO SCH (19:24)
[2020-10-17 20:13] LABS: Glucose,Whole Blood 147 mg/dL (75-99)
[2020-10-18] MEDS: LEVOTHYROXINE 75 MCG TAB PO SCH (05:20)
[2020-10-18] MEDS: methylPREDNISolone SOD SUCCI 125 MG/2 ML VIAL IV SCH ×3 (05:20→17:35)
[2020-10-18 06:14] LABS: Basophils % (A) 1 %; Eosinophils % (A) 0 %; HGB 14.6 gm/dL (11.4-16.0); Hypochromasia Marked; Lymphocytes # (A) 0.7 k/uL (1.0-4.8); Lymphocytes % (A) 9 %; MCH 33.1 pg (25.0-35.0); MCV 106.9 fL (80.0-100.0); Macrocytosis Moderate; Mean Platelet Volume 7.8; Monocytes # (A) 0.3 k/uL (0-1.0); Monocytes % (A) 4 %; Neutrophils # (A) 6.6 k/uL (1.3-7.7); Neutrophils % (A) 86 %; Platelet Count 188 k/uL (150-450); RDW 13.9 % (11.5-15.5); WBC 7.7 k/uL (3.8-10.6)
[2020-10-18 06:28] LABS: African American GFR (CKD) >90 (>60 ml/min/1.73 sqM); Anion Gap 2 mmol/L; Blood Urea Nitrogen 37 mg/dL (7-17); Calcium 9.1 mg/dL (8.4-10.2); Carbon Dioxide 39 mmol/L (22-30); Chloride 97 mmol/L (98-107); Glucose 214 mg/dL (74-99); Non-African American GFR(CKD) 82 (>60 ml/min/1.73 sqM); Potassium 5.3 mmol/L (3.5-5.1); Sodium 138 mmol/L (137-145)
[2020-10-18 07:39] LABS: Glucose,Whole Blood 186 mg/dL (75-99)
[2020-10-18] MEDS: PANTOPRAZOLE 40 MG TABLET PO SCH (07:51)
[2020-10-18] MEDS: INSULIN ASPART (NovoLOG) 100 UNIT/ML VIAL SQ SCH ×4 (07:51→20:43)
[2020-10-18] MEDS: ENOXAPARIN 40 MG/0.4 ML SYRINGE SQ SCH (07:51)
[2020-10-18] MEDS: ASCORBIC ACID 500 MG TAB PO SCH (07:51)
[2020-10-18] MEDS: CHOLECALCIFEROL 25 MCG (1000 IU) TABLET PO SCH (07:52)
[2020-10-18] MEDS: GABAPENTIN 300 MG CAP PO SCH ×2 (07:52→20:26)
[2020-10-18] MEDS: LOSARTAN 25 MG TAB PO SCH (07:52)
[2020-10-18] MEDS: ALBUTEROL HFA INHALER INHALATION SCH ×4 (08:14→20:16)
[2020-10-18] MEDS: SYMBICORT 160-4.5 MCG INHALER INHALATION SCH ×2 (08:14→20:16)
[2020-10-18] MEDS: ZINC SULFATE 220 MG CAP PO SCH (09:52)
[2020-10-18] MEDS: FUROSEMIDE 10 MG/ML 4 ML VIAL IV SCH (09:52)
[2020-10-18 11:38] LABS: Glucose,Whole Blood 162 mg/dL (75-99)
--- NOTE | 2020-10-18 13:49 | CDI ---
Documentation Clarification Form Date: 10/18/2020 01:20:00 PM From: Betsy Guerrier RN CCDS Admit Date: 10/17/2020 10:19:00 AM Patient Name: Nerissa Marshall Visit Number: [id number] Discharge Date: ATTENTION: The Clinical Documentation Specialists (CDI) and [facility] Coding Staff appreciate your assistance in clarifying documentation. Please respond to the clarification below the line at the bottom and electronically sign. The CDI & [facility] Coding staff will review the response and follow-up if needed. Please note: Queries are made part of the Legal Health Record. If you have any questions, please contact the author of this message via ITS. Dr. Michael Parish, Your patient has the documented diagnosis of unspecified Diastolic Heart Failure. 10/16, Cardiology consult. Additional information regarding the acuity of Diastolic Heart Failure is requested. History/Risk Factors: 55-year-old male female presents to the ED for shortness of breath and chest congestion with tightness. Medical history: CHF and HTN. 10/16 H&P. Clinical Indicators: There is no clinical evidence to suggest systolic congestive heart failure. May have a component of diastolic heart failure. Chest x-ray does not clear- cut to indicate pulmonary edema. BNP is normal, and the patients presentation is more consistent with exacerbation of chronic obstructive pulmonary disease. VS/Pulse OX 10/16: B/P 141/68; HR 99; Temp 98.4 F Oral; RR 20; SpO2 93% 5L nasal cannula. BNP 10/16: 361 Echocardiogram Results 10/04: Overall left ventricular systolic function is low normal with an EF 50-55%. Chest X Ray 10/16: Mild Pulmonary edema. Mediastinal contour corresponds to location of main pulmonary artery is enlarged, unchanged. Treatment: 10/16 Lasix 40mg IV Q8H changed 10/16 to Lasix 40mg IV Q12H to current. In your professional opinion, can you please clarify the acuity and type of CHF if known? Chronic Diastolic Heart Failure (preserved EF) Acute on Chronic Diastolic Heart Failure (preserved EF) Other, please specify Unable to determine Query answered 10/18 Dr Valencia progress note Chronic diastolic CHF, NYHA class III (Last Revision: August 2020) MTDD
[2020-10-18] MEDS ORDERED: BUTALB/APAP/CAFF 50-325-40MG TAB PO STA (15:34)
--- NOTE | 2020-10-18 15:41 | P.PN ---
Subjective Progress Note Date: 10/18/20 This is a 55-year-old morbidly obese female admitted with complaint 19 pneumonia, possible acute COPD exacerbation with chronic hypoxic/hypercapnic respiratory failure and multiple other medical issues. Maintained on COVID regimen, patient was beyond the window for Remdesevir. Sitting up in chair, complaints of exertional shortness of breath, currently maintaining O2 sats in the 90s on 5 L nasal cannula. Denies chest pain, palpitations. Afebrile. Diuresing on Lasix IV push, with inaccurate I&O , no output charted .Renal function worsening, creatinine 1.02, Potassium 5.7. Blood sugars controlled. Repeat EKG in progress. 10/18/2020 continues on COVID cocktail. Diuresing on Lasix IV push .creatinine improving.currently maintaining O2 sats in the 90s on 5 L nasal cannula. Complains of generalized headache. Denies chest pain, palpitations. Objective - Vital Signs Vital signs: Vital Signs Temp 98.1 F 10/18/20 13:10 Pulse 73 10/18/20 13:10 Resp 18 10/18/20 13:10 BP 139/96 10/18/20 13:10 Pulse Ox 96 10/18/20 13:10 Intake & Output 10/17/20 10/18/20 10/18/20 18:59 06:59 18:59 Output Total 300 500 900 Balance -300 -500 -900 Weight 164.654 kg Output: Urine 300 500 900 Other: Voiding Method Toilet Bedside Commode Bedside Commode # Voids 1 1 # Bowel Movements 1 - Exam PHYSICAL EXAM: VITAL SIGNS: As above GENERAL: Alert and oriented 3, Sitting up in chair, no acute distress HEENT: Conjunctivae normal. eyes normal. Oral mucosa moist. NECK: Short neck, Unable to assess JVD. CARDIOVASCULAR: S1, S2 regular.No murmur RESPIRATION: Breath sounds diminished in the bases. No rhonchi or crackles. ABDOMEN: Obese, Soft, nontender . No guarding. no masses palpable. Positive Bowel sounds heard. LEGS: No edema. no swelling NERVOUS SYSTEM: Cranial N 2-12 grossly normal. No focal deficits Skin: Warm and dry, no rash - Labs CBC & Chem 7: 10/18/20 05:13 10/18/20 05:13 Labs: Abnormal Lab Results - Last 24 Hours (Table) 10/17/20 10/17/20 10/17/20 Range/Units 17:04 17:27 20:12 Hct (34.0-46.0) % MCV (80.0-100.0) fL Lymphocytes # (1.0-4.8) k/uL Potassium 5.5 H (3.5-5.1) mmol/L Chloride (98-107) mmol/L Carbon Dioxide (22-30) mmol/L BUN (7-17) mg/dL Glucose (74-99) mg/dL POC Glucose (mg/dL) 145 H 147 H (75-99) mg/dL 10/18/20 10/18/20 10/18/20 Range/Units 05:13 05:13 07:37 Hct 47.0 H (34.0-46.0) % MCV 106.9 H (80.0-100.0) fL Lymphocytes # 0.7 L (1.0-4.8) k/uL Potassium 5.3 H (3.5-5.1) mmol/L Chloride 97 L (98-107) mmol/L Carbon Dioxide 39 H (22-30) mmol/L BUN 37 H (7-17) mg/dL Glucose 214 H (74-99) mg/dL POC Glucose (mg/dL) 186 H (75-99) mg/dL 10/18/20 Range/Units 11:36 Hct (34.0-46.0) % MCV (80.0-100.0) fL Lymphocytes # (1.0-4.8) k/uL Potassium (3.5-5.1) mmol/L Chloride (98-107) mmol/L Carbon Dioxide (22-30) mmol/L BUN (7-17) mg/dL Glucose (74-99) mg/dL POC Glucose (mg/dL) 162 H (75-99) mg/dL Assessment and Plan Assessment: Acute on chronic hypoxic and hypercapnic respiratory failure secondary to acute covid-Pneumonia and possible acute COPD exacerbation Chronic diastolic CHF, NYHA class III Obstructive sleep apnea on CPAP Diabetes mellitus type 2 hypothyroidism hypertension ongoing nicotine dependence. morbid obesity, BMI 62.3 Plan: Continue on current medication regime ,monitoring and symptomatic treatment. Maintain COVID cocktail. Diuretics as per cardiology . Fioicet for headache. Close monitoring of renal function and electrolytes with repeat labs ordered for a.m. Discharge planning in progress for tomorrow pending pulmonary final DC recommendations and clearance. The impression and plan of care has been dictated as directed. : I performed a history and examination of this patient, discussed the same with the dictator. I agree with the dictator's note ,documented as a scribe. Any additional findings or plans will be noted.
--- NOTE | 2020-10-18 16:01 | P.PN ---
Subjective Progress Note Date: 10/18/20 55-year-old female, who was recently inpatient, for a COPD and CHF exacerbation. She was seen by my partner and at that time, tested negative for coronavirus. The patient was again seen in the emergency department on October 15. The patient came in with complaints of significant shortness of breath. She apparently denied any fever. She did have some chest tightness and some chest discomfort. She also had chest congestion. She was not a particularly good historian. The patient was also feeling weak, muscle aches and joint aches. She also had fatigue. She was seen in the emergency department, and did test positive for COVID 19. Currently, the patient's laying nearly flat in bed, on 5 L nasal cannula. She is very obese. Blood pressure heart rate respiratory rate and temperature are all stable. White count is 6.2, hemoglobin 14.3, hematocrit 45, and platelet count 180,000. PT, INR, and PTT are all normal. Sodium 140, potassium 4.6, chlorides 100, CO2 34, anion gap 6, BUN 20, and creatinine 0.77. AST 56, ALT 73, LDH 754, and C-reactive protein is 17.3. Chest x-ray shows bilateral diffuse interstitial abnormalities. His could be consistent with flui d overload and/or interstitial pneumonia. Her BNP was essentially normal. On today's evaluation of the 10/17 2020 the patient is resting comfortably on O2 BiPAP delivered to her for a nasal mask. She is very is much success with the BiPAP machine. No new complaints. She is on IV Solu-Medrol. She was outside the window for REM. Inflammatory markers were not repeated today in the levels from yesterday were noted. The patient is on IV Solu-Medrol. She is on Lovenox 40 mg subcu every 24 hours. Home medications of been all resumed. I also reviewed the patient's chest x-ray that was done at a time of admission and the chest x-ray showed some cardiomegaly and increased pulmonary vascular markings. This could be related to her interstitial edema versus overnight he related pneumonia. Her latest echocardiogram was done on 10/04/2020 and this was done during her late admission and the patient was found to have a preserved LV function with an ejection fraction of 50-55%. She is morbidly obese and she carries a BMI of 62.3. Liver function test has a minimally elevated and the patient has a mild component of transaminitis. Days evaluation 10/18/2020, the patient is drowsy. The patient is still on a CPAP is being delivered through and nose mask and she is on a with a minimum p ressure of 5 and a maximum pressure of 15. She is quite synchronous with a BiPAP machine. She remains on IV Solu-Medrol. Her pulse ox has been around 95% on the above-mentioned APAP, and addition to 5 L of oxygen through her nose mask. While on the APAP, the patient was on 5 L of oxygen by nasal cannula. She is very much dependent to the APAP machine. While off the APAP, the patient easily desaturate to lower levels of oxygen. She remains on IV Solu-Medrol for now 60 mg every 6 hours. She is also on Lovenox 40 mg subcu daily. Her last d- dimer was from 10/16/2020 and it was no and inflammatory markers has not been checked. She is tolerating oral intake. While eating, she would go on 5 L of oxygen nasal cannula. She is ALLERGIC discharge. She has some edema in lower extremities bilaterally. Objective - Vital Signs Vital signs: Vital Signs Temp 98.1 F 10/18/20 13:10 Pulse 73 10/18/20 13:10 Resp 18 10/18/20 13:10 BP 139/96 10/18/20 13:10 Pulse Ox 96 10/18/20 13:10 Intake & Output 10/17/20 10/18/20 10/18/20 18:59 06:59 18:59 Output Total 300 500 900 Balance -300 -500 -900 Weight 164.654 kg Output: Urine 300 500 900 Other: Voiding Method Toilet Bedside Commode Bedside Commode # Voids 1 1 # Bowel Movements 1 - Exam Currently on APAP Minimum pressure of 5 and a maximum pressure of 15 and the patient seems to be quite comfortable and she is arousable. HEENT examination is grossly unremarkable. Mucous membranes are moist. Neck supple. Full range of motion. No adenopathy thyromegaly or neck vein distention. Cardiovascular examination reveals regular rhythm rate. S1-S2 normal. No S3 or S4. No discernible murmur noted. Heart sounds are very distant. Heart rate 74 bpm. Lungs reveal bilateral coarse rhonchi, and lateral crackles. Slight prolongation on forced maneuver. Mild expiratory wheezes are also noted. Abdomen soft bowel sounds are heard. No masses or tenderness. Abdomen is very obese. Extremities are intact. No cyanosis or clubbing. Trace edema is noted. Skin is without rash or lesion. Neurologic examination is brief but nonfocal. - Labs CBC & Chem 7: 10/18/20 05:13 10/18/20 05:13 Labs: Abnormal Lab Results - Last 24 Hours (Table) 10/17/20 10/17/20 10/17/20 Range/Units 17:04 17:27 20:12 Hct (34.0-46.0) % MCV (80.0-100.0) fL Lymphocytes # (1.0-4.8) k/uL Potassium 5.5 H (3.5-5.1) mmol/L Chloride (98-107) mmol/L Carbon Dioxide (22-30) mmol/L BUN (7-17) mg/dL Glucose (74-99) mg/dL POC Glucose (mg/dL) 145 H 147 H (75-99) mg/dL 10/18/20 10/18/20 10/18/20 Range/Units 05:13 05:13 07:37 Hct 47.0 H (34.0-46.0) % MCV 106.9 H (80.0-100.0) fL Lymphocytes # 0.7 L (1.0-4.8) k/uL Potassium 5.3 H (3.5-5.1) mmol/L Chloride 97 L (98-107) mmol/L Carbon Dioxide 39 H (22-30) mmol/L BUN 37 H (7-17) mg/dL Glucose 214 H (74-99) mg/dL POC Glucose (mg/dL) 186 H (75-99) mg/dL 10/18/20 Range/Units 11:36 Hct (34.0-46.0) % MCV (80.0-100.0) fL Lymphocytes # (1.0-4.8) k/uL Potassium (3.5-5.1) mmol/L Chloride (98-107) mmol/L Carbon Dioxide (22-30) mmol/L BUN (7-17) mg/dL Glucose (74-99) mg/dL POC Glucose (mg/dL) 162 H (75-99) mg/dL Assessment and Plan Plan: 1 acute hypoxic respiratory failure with Shortness of breath, which has been present for more than a couple weeks, and may relate to underlying COVID 19 pneumonia, and/or COPD exacerbation. CHF seems less likely given her relatively normal BNP. The patient is currently on APAP. The patient had a chest x-ray that shows cardiomegaly and increased pulmonary vascular markings. ProBNP level was nonelevated. LDH level is at 754 and the patient's pro calcitonin level was at 0.06 from her previous admission and this needs to be rechecked. Patient is a chronic smoker. On yesterday's evaluation she was still bronchospastic and wheezy. For now, she still APAP dependent which is being utilized at the pressure minimal 5 and a maximum of 15 along with oxygen at 5 L/m. Limited improvement since yesterday. Very much dependence over APAP unit for now. Follow-up chest x-ray and implement remarkably obtain for tomorrow. 2 Chronic hypoxemic and hypercapnic respiratory failure. 3 History of COPD with ongoing tobacco use. 4 History of angina pectoris. 5 History of diabetes mellitus. 6 History of obstructive sleep apnea syndrome, currently on CPAP. 7 History of hyperlipidemia. 8 History of hypothyroidism. 9 Morbid obesity. Plan: Continue Solu-Medrol 60 mg every 6 hours The patient was found to be outside the the window for REM. She will get albuterol inhaler, vitamin C, Solu-Medrol, zinc, and Lovenox. Symbicort will be continued Continue on a APAP for respiratory support , pressure minimal 5, maximum 15 along with oxygen at 5 L per minute Repeat LDH, CRP and D-dimer tomorrow Chest x-ray in a.m., portable Blood gas in a.m. on 5 L of oxygen by nasal cannula only Lasix IV 40 mg every 24 hours and will reduce it to once a day only. will continue to follow make further recommendations based on her progress.
[2020-10-18 17:11] LABS: Glucose,Whole Blood 164 mg/dL (75-99)
[2020-10-18] MEDS: ATORVASTATIN 20 MG TAB PO SCH (20:26)
[2020-10-18 20:36] LABS: Glucose,Whole Blood 181 mg/dL (75-99)
[2020-10-19] MEDS: methylPREDNISolone SOD SUCCI 125 MG/2 ML VIAL IV SCH ×3 (00:01→13:48)
[2020-10-19] MEDS: LEVOTHYROXINE 75 MCG TAB PO SCH (05:24)
[2020-10-19 05:52] LABS: Basophils % (A) 0 %; Eosinophils # (A) 0.1 k/uL (0-0.7); Eosinophils % (A) 1 %; HCT 48.8 % (34.0-46.0); HGB 14.8 gm/dL (11.4-16.0); Hypochromasia Moderate; Lymphocytes # (A) 0.7 k/uL (1.0-4.8); Lymphocytes % (A) 11 %; MCH 32.3 pg (25.0-35.0); MCHC 30.4 g/dL (31.0-37.0); MCV 106.2 fL (80.0-100.0); Macrocytosis Moderate; Mean Platelet Volume 7.4; Monocytes # (A) 0.2 k/uL (0-1.0); Monocytes % (A) 3 %; Neutrophils # (A) 5.6 k/uL (1.3-7.7); Neutrophils % (A) 85 %; Platelet Count 199 k/uL (150-450); RDW 14.2 % (11.5-15.5); WBC 6.6 k/uL (3.8-10.6)
[2020-10-19 06:11] LABS: African American GFR (CKD) >90 (>60 ml/min/1.73 sqM); Blood Urea Nitrogen 38 mg/dL (7-17); Chloride 94 mmol/L (98-107); Glucose 173 mg/dL (74-99); Non-African American GFR(CKD) >90 (>60 ml/min/1.73 sqM); Potassium 5.2 mmol/L (3.5-5.1); Sodium 140 mmol/L (137-145)
[2020-10-19 06:31] LABS: Anion Gap 7 mmol/L; Carbon Dioxide 39 mmol/L (22-30)
[2020-10-19 07:46] VITALS: BP 167/74; PULSE 84; RESP 18; TEMP 97.9
[2020-10-19] MEDS: SYMBICORT 160-4.5 MCG INHALER INHALATION SCH (08:10)
[2020-10-19] MEDS: ALBUTEROL HFA INHALER INHALATION SCH ×2 (08:10→11:39)
--- NOTE | 2020-10-19 08:10 | XR ---
EXAMINATION TYPE: XR chest 1V portable DATE OF EXAM: 10/19/2020 HISTORY: Shortness of breath. COMPARISON: 10/16/2020 TECHNIQUE: Single view of the chest is submitted. FINDINGS: Demonstrated are scattered senescent parenchymal change. Persisting cardiomegaly with pulmonary venous congestion. Developing perihilar infiltrates are diffic ult to exclude. Hilar and mediastinal structures are within normal limits. Degenerative changes are seen of the dorsal spine. IMPRESSION: 1. Persisting cardiomegaly with pulmonary venous congestion. Developing perihilar infiltrates are di fficult to exclude.
[2020-10-19 08:38] LABS: Glucose,Whole Blood 210 mg/dL (75-99)
[2020-10-19] MEDS ORDERED: FUROSEMIDE 10 MG/ML 4 ML VIAL IV SCH (09:00)
[2020-10-19] MEDS: ZINC SULFATE 220 MG CAP PO SCH (09:27)
[2020-10-19] MEDS: INSULIN ASPART (NovoLOG) 100 UNIT/ML VIAL SQ SCH ×2 (09:27→13:51)
[2020-10-19] MEDS: ENOXAPARIN 40 MG/0.4 ML SYRINGE SQ SCH (09:27)
[2020-10-19] MEDS: GABAPENTIN 300 MG CAP PO SCH (09:27)
[2020-10-19] MEDS: CHOLECALCIFEROL 25 MCG (1000 IU) TABLET PO SCH (09:28)
[2020-10-19] MEDS: ASCORBIC ACID 500 MG TAB PO SCH (09:28)
[2020-10-19] MEDS: PANTOPRAZOLE 40 MG TABLET PO SCH (09:28)
[2020-10-19] MEDS: LOSARTAN 25 MG TAB PO SCH (09:28)
--- NOTE | 2020-10-19 11:27 | P.PN ---
<Bria,Mlya - Last Filed: 10/19/20 11:15> Subjective Progress Note Date: 10/19/20 Principal diagnosis: Acute on chronic hypercapnic/hypoxemic respiratory failure 55-year-old female, who was recently inpatient, for a COPD and CHF exacerbation. She was seen by my partner and at that time, tested negative for coronavirus. The patient was again seen in the emergency department on October 15. The patient came in with complaints of significant shortness of breath. She apparently denied any fever. She did have some chest tightness and some chest discomfort. She also had chest congestion. She was not a particularly good historian. The patient was also feeling weak, muscle aches and joint aches. She also had fatigue. She was seen in the emergency department, and did test positive for COVID 19. Currently, the patient's laying nearly flat in bed, on 5 L nasal cannula. She is very obese. Blood pressure heart rate respiratory rate and temperature are all stable. White count is 6.2, hemoglobin 14.3, hematocrit 45, and platelet count 180,000. PT, INR, and PTT are all normal. Sodium 140, potassium 4.6, chlorides 100, CO2 34, anion gap 6, BUN 20, and creatinine 0.77. AST 56, ALT 73, LDH 754, and C-reactive protein is 17.3. Chest x-ray shows bilateral diffuse interstitial abnormalities. His could be consistent with fluid overload and/or interstitial pneumonia. Her BNP was essentially normal. On today's evaluation of the 10/17 2020 the patient is resting comfortably on O2 BiPAP delivered to her for a nasal mask. She is very is much success with the BiPAP machine. No new complaints. She is on IV Solu-Medrol. She was outside the window for REM. Inflammatory markers were not repeated today in the levels from yesterday were noted. The patient is on IV Solu-Medrol. She is on Lovenox 40 mg subcu every 24 hours. Home medications of been all resumed. I also r eviewed the patient's chest x-ray that was done at a time of admission and the chest x-ray showed some cardiomegaly and increased pulmonary vascular markings. This could be related to her interstitial edema versus overnight he related pneumonia. Her latest echocardiogram was done on 10/04/2020 and this was done during her late admission and the patient was found to have a preserved LV function with an ejection fraction of 50-55%. She is morbidly obese and she carries a BMI of 62.3. Liver function test has a minimally elevated and the patient has a mild component of transaminitis. Days evaluation 10/18/2020, the patient is drowsy. The patient is still on a CPAP is being delivered through and nose mask and she is on a with a minimum pressure of 5 and a maximum pressure of 15. She is quite synchronous with a BiPAP machine. She remains on IV Solu-Medrol. Her pulse ox has been around 95% on the above-mentioned APAP, and addition to 5 L of oxygen through her nose mask. While on the APAP, the patient was on 5 L of oxygen by nasal cannula. She is very much dependent to the APAP machine. While off the APAP, the patient easily desaturate to lower levels of oxygen. She remains on IV Solu-Medrol for now 60 mg every 6 hours. She is also on Lovenox 40 mg subcu daily. Her last d- dimer was from 10/16/2020 and it was no and inflammatory markers has not been checked. She is tolerating oral intake. While eating, she would go on 5 L of oxygen nasal cannula. She is ALLERGIC discharge. She has some edema in lower extremities bilaterally. The patient is seen today 10/19/2020 in follow-up on the regular medical floor. She is actually doing much better. She is sitting up in a chair at the bedside. Awake and alert in no acute distress. Asking to go home. She has been mal ntained on CPAP with a minimum pressure of 5 maximum 15. Currently on 5 L nasal cannula O2 saturations in the 90s. She's been afebrile. White count 6.6. Hemoglobin 14.8. D-dimer 0.41. Sodium 140. Potassium 5.2. Creatinine 0.74. He is continued on Symbicort, Ventolin, IV Solu-Medrol, IV diuretics. He is continued on vitamin supplements, Lovenox. Chest x-ray continues to show evidence of cardiomegaly, pulmonary venous congestion, perihilar infiltrates. Objective - Vital Signs Vital signs: Vital Signs Temp 97.9 F 10/19/20 07:00 Pulse 84 10/19/20 07:00 Resp 18 10/19/20 07:00 BP 167/74 10/19/20 07:00 Pulse Ox 90 L 10/19/20 07:00 Intake & Output 10/18/20 10/19/20 10/19/20 18:59 06:59 18:59 Intake Total 450 100 Output Total 900 Balance -900 450 100 Intake: Oral 450 100 Output: Urine 900 Other: Voiding Method Bedside Commode Bedside Commode External Catheter # Voids 770 1 # Bowel Movements 1 1 - Exam GENERAL EXAM: Alert, wasn't, morbidly obese 55-year-old female patient, on 5 L nasal cannula, up in a chair, comfortable in no apparent distress. HEAD: Normocephalic. EYES: Normal reaction of pupils, equal size. NOSE: Clear with pink turbinates. THROAT: No erythema or exudates. NECK: No masses, no JVD. CHEST: No chest wall deformity. LUNGS: Equal air entry with management breath sounds, faint end expiratory wheeze. CVS: S1 and S2 normal with no audible murmur, regular rhythm. ABDOMEN: Morbidly obese, normal bowel sounds, no guarding or rigidity. SPINE: No scoliosis or deformity SKIN: No rashes CENTRAL NERVOUS SYSTEM: No focal deficits, tone is normal in all 4 extremities. EXTREMITIES: There is 1-2+ peripheral edema. No clubbing, no cyanosis. Peripheral pulses are intact. - Labs CBC & Chem 7: 10/19/20 05:34 10/19/20 05:34 Labs: Abnormal Lab Results - Last 24 Hours (Table) 10/18/20 10/18/20 10/18/20 Range/Units 11:36 17:10 20:29 Hct (34.0-46.0) % MCV (80.0-100.0) fL MCHC (31.0-37.0) g/dL Lymphocytes # (1.0-4.8) k/uL Potassium (3.5-5.1) mmol/L Chloride (98-107) mmol/L Carbon Dioxide (22-30) mmol/L BUN (7-17) mg/dL Glucose (74-99) mg/dL POC Glucose (mg/dL) 162 H 164 H 181 H (75-99) mg/dL 10/19/20 10/19/20 10/19/20 Range/Units 05:34 05:34 08:37 Hct 48.8 H (34.0-46.0) % MCV 106.2 H (80.0-100.0) fL MCHC 30.4 L (31.0-37.0) g/dL Lymphocytes # 0.7 L (1.0-4.8) k/uL Potassium 5.2 H (3.5-5.1) mmol/L Chloride 94 L (98-107) mmol/L Carbon Dioxide 39 H (22-30) mmol/L BUN 38 H (7-17) mg/dL Glucose 173 H (74-99) mg/dL POC Glucose (mg/dL) 210 H (75-99) mg/dL Assessment and Plan Assessment: 1 acute hypoxic respiratory failure with Shortness of breath, which has been present for more than a couple weeks, and may relate to underlying COVID 19 pneumonia, and/or COPD exacerbation. CHF seems less likely given her relatively normal BNP. The patient is currently on APAP. The patient had a chest x-ray that shows cardiomegaly and increased pulmonary vascular markings. ProBNP level was nonelevated. LDH level is at 754 and the patient's pro calcitonin level was at 0.06 from her previous admission and this needs to be rechecked. Patient is a chronic smoker. On yesterday's evaluation she was still bronchospastic and wheezy. For now, she still APAP dependent which is being utilized at the pressure minimal 5 and a maximum of 15 along with oxygen at 5 L/m. Limited improvement since yesterday. Very much dependence over APAP unit for now. Follow-up chest x-ray and implement remarkably obtain for tomorrow. 2 Chronic hypoxemic and hypercapnic respiratory failure. 3 History of COPD with ongoing tobacco use. 4 History of angina pectoris. 5 History of diabetes mellitus. 6 History of obstructive sleep apnea syndrome, currently on CPAP. 7 History of hyperlipidemia. 8 History of hypothyroidism. 9 Morbid obesity. Plan: The patient was seen and evaluated by Dr. Tolentino Chest x-ray and labs reviewed Currently on 5 L nasal cannula alternating with APAP Has a Trilogy device at home Continued on Lovenox, vitamin supplements, IV Solu-Medrol Continued on diuretics We will continue to follow I, the cosigning physician, performed a history & physical examination of the patient. Lungs sounds diminished, end expiratory wheeze. Maintaining good O2 saturations in the 90s on 5 L/m per nasal cannula. I discussed the assessment and plan of care with my nurse practitioner, Myla Fraser. I attest to the above note as dictated by her. <Rasheed Tolentino - Last Filed: 10/19/20 12:56> Objective - Vital Signs Vital signs: Vital Signs Temp 97.9 F 10/19/20 07:00 Pulse 84 10/19/20 07:00 Resp 18 10/19/20 07:00 BP 167/74 10/19/20 07:00 Pulse Ox 90 L 10/19/20 07:00 Intake & Output 10/18/20 10/19/20 10/19/20 18:59 06:59 18:59 Intake Total 450 100 Output Total 900 Balance -900 450 100 Intake: Oral 450 100 Output: Urine 900 Other: Voiding Method Bedside Commode Bedside Commode External Catheter # Voids 770 1 # Bowel Movements 1 1 - Labs CBC & Chem 7: 10/19/20 05:34 10/19/20 05:34 Labs: Abnormal Lab Results - Last 24 Hours (Table) 10/18/20 10/18/20 10/19/20 Range/Units 17:10 20:29 05:34 Hct 48.8 H (34.0-46.0) % MCV 106.2 H (80.0-100.0) fL MCHC 30.4 L (31.0-37.0) g/dL Lymphocytes # 0.7 L (1.0-4.8) k/uL Potassium (3.5-5.1) mmol/L Chloride (98-107) mmol/L Carbon Dioxide (22-30) mmol/L BUN (7-17) mg/dL Glucose (74-99) mg/dL POC Glucose (mg/dL) 164 H 181 H (75-99) mg/dL 10/19/20 10/19/20 Range/Units 05:34 08:37 Hct (34.0-46.0) % MCV (80.0-100.0) fL MCHC (31.0-37.0) g/dL Lymphocytes # (1.0-4.8) k/uL Potassium 5.2 H (3.5-5.1) mmol/L Chloride 94 L (98-107) mmol/L Carbon Dioxide 39 H (22-30) mmol/L BUN 38 H (7-17) mg/dL Glucose 173 H (74-99) mg/dL POC Glucose (mg/dL) 210 H (75-99) mg/dL Assessment and Plan Plan: She is possibly go looking for going home today. She has a Trilogy ventilator at home. She will obviously diuretics in the form of Lasix and prednisone burst taper at time of discharge. We'll begin to follow up this patient on outpatient basis post discharge.
[2020-10-19 12:56] LABS: Glucose,Whole Blood 188 mg/dL (75-99)
--- NOTE | 2020-10-19 14:37 | P.DS ---
Providers Date of admission: 10/17/20 10:19 Expected date of discharge: 10/19/20 Attending physician: Sergo Valencia MD Consults: 10/16/20 00:37 Consult Physician Routine Consulting Provider: Angel Hernadez Consult Reason/Comments: chf Do you want consulting provider notified?: Yes Consult Physician Routine Consulting Provider: Rasheed Tolentino Consult Reason/Comments: copd Do you want consulting provider notified?: Yes Primary care physician: Sergo Valencia MD Hospital Course: Final Diagnoses: Acute on chronic hypoxic and hypercapnic respiratory failure secondary to acute covid-Pneumonia and possible acute COPD exacerbation Chronic diastolic CHF, NYHA class III Obstructive sleep apnea on CPAP Diabetes mellitus type 2 hypothyroidism hypertension ongoing nicotine dependence. morbid obesity, BMI 62.3 Hospital course:This is a 55-year-old morbidly obese female admitted with complaint 19 pneumonia, possible acute COPD exacerbation with chronic hypoxic/hypercapnic respiratory failure and multiple other medical issues. Maintained on COVID regimen, patient was beyond the window for Remdesevir. Sitting up in chair, complaints of exertional shortness of breath, currently maintaining O2 sats in the 90s on 5 L nasal cannula. Denies chest pain, palpitations. Afebrile. Diuresing on Lasix IV push, with inaccurate I&O , no output charted .Renal function worsening, creatinine 1.02, Potassium 5.7. Blood sugars controlled. Repeat EKG in progress. 10/18/2020 continues on COVID cocktail. Diuresing on Lasix IV push .creatinine improving.currently maintaining O2 sats in the 90s on 5 L nasal cannula. Complains of generalized headache. Denies chest pain, palpitations. Significant clinical improvement. Patient will be discharged home today in a stable condition with guarded prognosis pending pulmonary final DC recommendations and clearance. The impression and plan of care has been dictated as directed. : I performed a history and examination of this patient, discussed the same with the dictator. I agree with the dictator's note ,documented as a scribe. Any additional findings or plans will be noted. Patient Condition at Discharge: Stable Plan - Discharge Summary Discharge Rx Participant: Yes New Discharge Prescriptions: New Furosemide [Lasix] 40 mg PO DAILY #30 tablet Gabapentin [Neurontin] 300 mg PO BID #6 cap Zinc Sulfate [Orazinc] 220 mg PO DAILY cap Budesonide-Formot 160-4.5 Mcg [Symbicort 160-4.5 Mcg Inhaler] 2 puff INHALATION RT-BID #1 inh Cholecalciferol [Vitamin D3 (25 Mcg = 1000 Iu)] 25 mcg PO DAILY tablet Ascorbic Acid [Vitamin C] 1,000 mg PO DAILY tab Continue Losartan [Cozaar] 12.5 mg PO DAILY #30 tab Ipratropium-Albuterol Nebulize [Duoneb 0.5 mg-3 mg/3 ml Soln] 3 ml INHALATION RT-QID #120 neb Levothyroxine Sodium [Euthyrox] 150 mcg PO DAILY #30 tab metFORMIN HCL ER [Glucophage Xr] 500 mg PO DAILY #30 tab Atorvastatin [Lipitor] 20 mg PO HS #30 tab Magnesium Oxide 400 mg PO DAILY #30 tab Omeprazole 40 mg PO DAILY #30 cap Albuterol Sulfate [Ventolin HFA] 2 puff INHALATION RT-QID PRN #1 inhaler PRN Reason: Shortness Of Breath Ipratropium-Albuterol Nebulize [Duoneb 0.5 mg-3 mg/3 ml Soln] 3 ml INHALATION RT-Q4H PRN PRN Reason: Shortness Of Breath Discontinued Potassium Chloride [Klor-Con 20] 20 meq PO DAILY acetaZOLAMIDE [Diamox Sequels] 500 mg PO DAILY #30 cap Discharge Medication List Albuterol Sulfate [Ventolin HFA] 2 puff INHALATION RT-QID PRN #1 inhaler 10/05/20 [Rx] Atorvastatin [Lipitor] 20 mg PO HS #30 tab 10/05/20 [Rx] Ipratropium-Albuterol Nebulize [Duoneb 0.5 mg-3 mg/3 ml Soln] 3 ml INHALATION RT-QID #120 neb 10/05/20 [Rx] Levothyroxine Sodium [Euthyrox] 150 mcg PO DAILY #30 tab 10/05/20 [Rx] Losartan [Cozaar] 12.5 mg PO DAILY #30 tab 10/05/20 [Rx] Magnesium Oxide 400 mg PO DAILY #30 tab 10/05/20 [Rx] Omeprazole 40 mg PO DAILY #30 cap 10/05/20 [Rx] metFORMIN HCL ER [Glucophage Xr] 500 mg PO DAILY #30 tab 10/05/20 [Rx] Ipratropium-Albuterol Nebulize [Duoneb 0.5 mg-3 mg/3 ml Soln] 3 ml INHALATION RT-Q4H PRN 10/16/20 [History] Ascorbic Acid [Vitamin C] 1,000 mg PO DAILY tab 10/19/20 [Rx] Budesonide-Formot 160-4.5 Mcg [Symbicort 160-4.5 Mcg Inhaler] 2 puff INHALATION RT-BID #1 inh 10/19/20 [Rx] Cholecalciferol [Vitamin D3 (25 Mcg = 1000 Iu)] 25 mcg PO DAILY tablet 10/19/20 [Rx] Furosemide [Lasix] 40 mg PO DAILY #30 tablet 10/19/20 [Rx] Gabapentin [Neurontin] 300 mg PO BID #6 cap 10/19/20 [Rx] Zinc Sulfate [Orazinc] 220 mg PO DAILY cap 10/19/20 [Rx] Follow up Appointment(s)/Referral(s): Sergo Valencia MD [Primary Care Provider] - 10/24/20 5:00 pm [facility] - As Needed Ambulatory/Diagnostic Orders: Complete Blood Count w/diff [LAB.AMB] Time Frame: 3 Days, Location: None Selected Patient Instructions/Handouts: Coronavirus Disease 2019 (COVID-19) Activity/Diet/Wound Care/Special Instructions: [employer] is oxygen supplier and can be reached at [phone] 4l [place] O2, maintain o2 sats of 88%
[2020-10-19] MEDS: BUTALB/APAP/CAFF 50-325-40MG TAB PO PRN ×2 (14:40)
[2020-10-19 22:08] LABS: C Reactive Protein <0.4 mg/dL (0.0-0.8); LDH 395 U/L (120-246)
== END 2020-10-19 14:54 | disposition home health service (06) | DRG 177 ==
LOC: EC 23:37 → 6NMEDSUR 10-16 00:41 → OBSVTOIN 10-17 10:19
PROVIDERS: ADMIT Family Medicine; ATTEND Family Medicine
PROC: 5A09457 Assistance with Respiratory Ventilation, 24-96 Consecutive Hours, Continuous Positive Airway Pressure (ICD-10-PCS; principal; 2020-10-17)
DX: U07.1 COVID-19 (principal); J12.82 Pneumonia due to coronavirus disease 2019; J96.21 Acute and chronic respiratory failure with hypoxia; J96.22 Acute and chronic respiratory failure with hypercapnia; I50.32 Chronic diastolic (congestive) heart failure; Z68.44 Body mass index [BMI] 60.0-69.9, adult; J44.0 Chronic obstructive pulmonary disease with (acute) lower respiratory infection; J44.1 Chronic obstructive pulmonary disease with (acute) exacerbation; I11.0 Hypertensive heart disease with heart failure; E66.01 Morbid (severe) obesity due to excess calories; E11.9 Type 2 diabetes mellitus without complications; E78.5 Hyperlipidemia, unspecified; E03.9 Hypothyroidism, unspecified; G47.33 Obstructive sleep apnea (adult) (pediatric); K76.9 Liver disease, unspecified; I49.3 Ventricular premature depolarization; R51.9 Headache, unspecified; F17.210 Nicotine dependence, cigarettes, uncomplicated; Z79.890 Hormone replacement therapy; Z79.51 Long term (current) use of inhaled steroids; Z79.84 Long term (current) use of oral hypoglycemic drugs; Z79.899 Other long term (current) drug therapy; Z87.39 Personal history of other diseases of the musculoskeletal system and connective tissue; Z98.891 History of uterine scar from previous surgery; Z90.49 Acquired absence of other specified parts of digestive tract; Z87.19 Personal history of other diseases of the digestive system; Z98.890 Other specified postprocedural states; Z71.3 Dietary counseling and surveillance; Z88.5 Allergy status to narcotic agent
CPT/HCPCS: 36415; 71045; 71046; 80048; 80053; 82550; 83036; 83615; 83735; 83880; 84132; 84484; 85025; 85379; 85610; 85730; 86140; 87635; 93005; 94640; 94660; 94760; 96374; 99285

== ENCOUNTER 2020-10-19 23:02 | Inpatient (IN) | payer OTHER ==
[2020-10-19] MEDS ORDERED: MORPHINE SULFATE 4 MG/ML SYRINGE IV STA (23:12)
[2020-10-19] MEDS ORDERED: DEXAMETHASONE SOD PHOSPHATE 10 MG/ML 1 ML VIAL IV STA (23:13)
[2020-10-19] MEDS ORDERED: NITROGLYCERIN OINT 1 INCH/GM PACKET TOPICAL STA (23:13)
--- NOTE | 2020-10-19 23:48 | XR ---
EXAMINATION TYPE: XR chest 1V portable DATE OF EXAM: 10/19/2020 COMPARISON: Today HISTORY: Short of breath TECHNIQUE: Single view FINDINGS: Exam limited by patient's size. There is bilateral perihilar pulmonary infiltrates. Pulmona ry vascularity difficult to evaluate. There is probably some atelectasis in the lung bases. There are chest leads. Bony thorax is intact. IMPRESSION: Perihilar pulmonary infiltrates. There is probably some basilar atelectasis. No change co mpared to exam this morning. Limited exam.
[2020-10-19] MEDS ORDERED: DILTIAZEM DRIP BOLUS FROM BAG 1 MG SOLN IV ONE (23:54)
[2020-10-20 00:01] LABS: Basophils # (A) 0.1 k/uL (0-0.2); Basophils % (A) 1 %; Eosinophils % (A) 1 %; HCT 49.7 % (34.0-46.0); Hypochromasia Moderate; Lymphocytes # (A) 0.9 k/uL (1.0-4.8); Lymphocytes % (A) 12 %; MCHC 30.1 g/dL (31.0-37.0); MCV 106.6 fL (80.0-100.0); Macrocytosis Moderate; Monocytes # (A) 0.3 k/uL (0-1.0); Monocytes % (A) 5 %; Neutrophils % (A) 81 %; Platelet Count 180 k/uL (150-450); RBC 4.67 m/uL (3.80-5.40); RDW 14.1 % (11.5-15.5); WBC 7.3 k/uL (3.8-10.6)
[2020-10-20 00:15] LABS: Prothrombin Time 10.6 sec (9.0-12.0)
[2020-10-20 00:19] LABS: Partial Thromboplastin Time 21.8 sec (22.0-30.0)
[2020-10-20] MEDS: DILTIAZEM 125 MG in SODIUM CHLORIDE 0.9% 100 ML IV SCH ×2 (00:24→00:25)
[2020-10-20 00:27] LABS: ALT 65 U/L (4-34); AST 42 U/L (14-36); African American GFR (CKD) >90 (>60 ml/min/1.73 sqM); Alkaline Phosphatase 80 U/L (38-126); Blood Urea Nitrogen 39 mg/dL (7-17); Calcium 8.6 mg/dL (8.4-10.2); Chloride 86 mmol/L (98-107); Glucose 199 mg/dL (74-99); Magnesium 1.8 mg/dL (1.6-2.3); Non-African American GFR(CKD) 82 (>60 ml/min/1.73 sqM); Potassium 4.2 mmol/L (3.5-5.1); Sodium 142 mmol/L (137-145); Total Bilirubin 0.5 mg/dL (0.2-1.3); Total Protein 7.2 g/dL (6.3-8.2)
[2020-10-20 00:33] LABS: Anion Gap 0 mmol/L
[2020-10-20 00:47] LABS: Carbon Dioxide 56 mmol/L (22-30)
[2020-10-20 02:25] LABS: VBG PH 7.28 (7.31-7.41)
[2020-10-20] MEDS ORDERED: NITROGLYCERIN SL TABS 0.4 MG TAB SUBLINGUAL PRN (03:35)
[2020-10-20] MEDS ORDERED: methylPREDNISolone SOD SUCCI 125 MG/2 ML VIAL IV STA (03:35)
--- NOTE | 2020-10-20 03:35 | ED ---
SOB HPI - General Chief Complaint: Shortness of Breath Stated Complaint: KELLY, Covid+ Time Seen by Provider: 10/19/20 23:09 Source: patient Mode of arrival: EMS Limitations: physical limitation (Severe dyspnea) - History of Present Illness MD Complaint: shortness of breath, chest pain -: hour(s) Severity: mild Quality: dull Consistency: constant Improves With: nothing Worsens With: lying flat Known History Of: COPD, congestive heart failure, other (Covid) Associated Symptoms: chest pain Treatments Prior to Arrival: NIPPV - Related Data Home Oxygen Therapy: Yes Home Oxygen Amount: other Home Medications Medication Instructions Recorded Confirmed Ipratropium-Albuterol Nebulize 3 ml INHALATION RT-Q4H PRN 10/16/20 10/20/20 [Duoneb 0.5 mg-3 mg/3 ml Soln] Previous Rx's Medication Instructions Recorded Albuterol Sulfate [Ventolin HFA] 2 puff INHALATION RT-QID PRN #1 10/05/20 inhaler Atorvastatin [Lipitor] 20 mg PO HS #30 tab 10/05/20 Ipratropium-Albuterol Nebulize 3 ml INHALATION RT-QID #120 neb 10/05/20 [Duoneb 0.5 mg-3 mg/3 ml Soln] Levothyroxine Sodium [Euthyrox] 150 mcg PO DAILY #30 tab 10/05/20 Losartan [Cozaar] 12.5 mg PO DAILY #30 tab 10/05/20 Magnesium Oxide 400 mg PO DAILY #30 tab 10/05/20 Omeprazole 40 mg PO DAILY #30 cap 10/05/20 metFORMIN HCL ER [Glucophage Xr] 500 mg PO DAILY #30 tab 10/05/20 Ascorbic Acid [Vitamin C] 1,000 mg PO DAILY tab 10/19/20 Budesonide-Formot 160-4.5 Mcg 2 puff INHALATION RT-BID #1 inh 10/19/20 [Symbicort 160-4.5 Mcg Inhaler] Cholecalciferol [Vitamin D3 (25 25 mcg PO DAILY tablet 10/19/20 Mcg = 1000 Iu)] Furosemide [Lasix] 40 mg PO DAILY #30 tablet 10/19/20 Gabapentin [Neurontin] 300 mg PO BID #6 cap 10/19/20 Zinc Sulfate [Orazinc] 220 mg PO DAILY cap 03/24/21 Apixaban [Eliquis] 5 mg PO BID #60 tab 10/21/20 Allergies Allergy/AdvReac Type Severity Reaction Status Date / Time hydrocodone [From [place]] AdvReac Rash/Hives Verified 10/20/20 06:52 Review of Systems ROS Statement: Those systems with pertinent positive or pertinent negative responses have been documented in the HPI. ROS Other: All systems not noted in ROS Statement are negative. Limitations: ROS unobtainable due to patients medical condition Constitutional: Denies: fever, chills Respiratory: Reports: cough, dyspnea. Denies: hemoptysis Cardiovascular: Reports: chest pain, palpitations, orthopnea. Denies: edema, syncope Gastrointestinal: Denies: abdominal pain, nausea, vomiting, diarrhea Genitourinary: Denies: dysuria Musculoskeletal: Denies: back pain Skin: Denies: rash Neurological: Denies: headache Past Medical History Past Medical History: Chest Pain / Angina, COPD, Diabetes Mellitus, Liver Disease, Sleep Apnea/CPAP/BIPAP, Thyroid Disorder Additional Past Medical History / Comment(s): CHF, cpap at night, gout History of Any Multi-Drug Resistant Organisms: None Reported Past Surgical History: Section, Cholecystectomy Past Anesthesia/Blood Transfusion Reactions: No Reported Reaction Past Psychological History: No Psychological Hx Reported Smoking Status: Current every day smoker Past Alcohol Use History: None Reported Past Drug Use History: None Reported General Exam Limitations: physical limitation General appearance: alert, in distress Head exam: Present: atraumatic, normocephalic Eye exam: Present: normal appearance. Absent: scleral icterus, conjunctival injection Neck exam: Present: normal inspection, full ROM. Absent: tenderness Respiratory exam: Present: respiratory distress, wheezes, accessory muscle use. Absent: rales, rhonchi, stridor, decreased breath sounds, prolonged expiratory Cardiovascular Exam: Present: tachycardia, irregular rhythm, normal heart sounds. Absent: systolic murmur, diastolic murmur, rubs, gallop GI/Abdominal exam: Present: soft. Absent: distended, tenderness, guarding, rebound, rigid, mass Extremities exam: Present: normal inspection, normal capillary refill, pedal edema. Absent: calf tenderness Back exam: Present: normal inspection. Absent: CVA tenderness (R), CVA tenderness (L) Neurological exam: Present: alert Skin exam: Present: warm, dry, intact, normal color. Absent: rash Course Vital Signs 10/19/20 10/19/20 10/19/20 23:10 23:14 23:20 Temperature 99.1 F Pulse Rate 93 137 H Respiratory 32 H 31 H 32 H Rate Blood Pressure 179/89 182/97 O2 Sat by Pulse 97 97 Oximetry 10/19/20 10/19/20 10/20/20 23:30 23:45 00:06 Temperature Pulse Rate 144 H 137 H 155 H Respiratory 32 H 32 H 32 H Rate Blood Pressure 168/123 163/114 163/109 O2 Sat by Pulse 99 100 99 Oximetry 10/20/20 10/20/20 10/20/20 00:26 00:35 00:49 Temperature Pulse Rate 129 H 129 H 126 H Respiratory 32 H 31 H 30 H Rate Blood Pressure 139/115 143/90 161/111 O2 Sat by Pulse 98 98 Oximetry 10/20/20 10/20/20 10/20/20 01:00 02:00 02:30 Temperature Pulse Rate 133 H 90 87 Respiratory 18 25 H 22 Rate Blood Pressure 168/91 147/91 142/84 O2 Sat by Pulse 96 91 L 91 L Oximetry 10/20/20 10/20/20 10/20/20 03:15 04:16 04:45 Temperature Pulse Rate 88 86 79 Respiratory 24 25 H 28 H Rate Blood Pressure 136/84 140/84 125/74 O2 Sat by Pulse 91 L 80 L 95 Oximetry 10/20/20 10/20/20 10/20/20 05:00 06:00 06:36 Temperature Pulse Rate 80 80 76 Respiratory 30 H 30 H 30 H Rate Blood Pressure 98/62 94/64 86/64 O2 Sat by Pulse 95 95 95 Oximetry 10/20/20 10/20/20 10/20/20 06:45 07:50 08:39 Temperature 97.4 F L Pulse Rate 60 55 L 56 L Respiratory 30 H 30 H 16 Rate Blood Pressure 92/65 108/32 99/73 O2 Sat by Pulse 94 L 95 99 Oximetry Procedures - [place] Protocol (Time Out) Nurse: Brittany Isaac - Intubation Sedative: Etomidate Laryngoscope: other ([place] scope) ET Tube Size: 7.5 ET Tube Uncuffed: No Tube Secured Depth (cm): 22 Tube Secured Location: teeth Tube Placement Confirmation: visualized tube passing through cords, equal breath sounds bilaterally, no breath sounds over epigastrium, confirmation by capnometr y Patient Tolerated Procedure: well Intubation Complications: none Medical Decision Making - Lab Data Result diagrams: 10/29/20 08:53 10/29/20 08:53 Lab Results 10/19/20 10/19/20 10/19/20 Range/Units 23:36 23:36 23:36 WBC 7.3 (3.8-10.6) k/uL RBC 4.67 (3.80-5.40) m/uL Hgb 15.0 (11.4-16.0) gm/dL Hct 49.7 H (34.0-46.0) % MCV 106.6 H (80.0-100.0) fL MCH 32.0 (25.0-35.0) pg MCHC 30.1 L (31.0-37.0) g/dL RDW 14.1 (11.5-15.5) % Plt Count 180 (150-450) k/uL MPV 8.0 Neutrophils % 81 % Lymphocytes % 12 % Monocytes % 5 % Eosinophils % 1 % Basophils % 1 % Neutrophils # 6.0 (1.3-7.7) k/uL Lymphocytes # 0.9 L (1.0-4.8) k/uL Monocytes # 0.3 (0-1.0) k/uL Eosinophils # 0.0 (0-0.7) k/uL Basophils # 0.1 (0-0.2) k/uL Hypochromasia Moderate Macrocytosis Moderate PT 10.6 (9.0-12.0) sec INR 1.0 (<1.2) APTT 21.8 L (22.0-30.0) sec VBG pH (7.31-7.41) VBG pCO2 (37-51) mmHg VBG HCO3 (24-28) mmol/L Sodium 142 (137-145) mmol/L Potassium 4.2 (3.5-5.1) mmol/L Chloride 86 L (98-107) mmol/L Carbon Dioxide 56 H* (22-30) mmol/L Anion Gap 0 mmol/L BUN 39 H (7-17) mg/dL Creatinine 0.80 (0.52-1.04) mg/dL Est GFR (CKD-EPI)AfAm >90 (>60 ml/min/1.73 sqM) Est GFR (CKD-EPI)NonAf 82 (>60 ml/min/1.73 sqM) Glucose 199 H (74-99) mg/dL Plasma Lactic Acid James (0.7-2.0) mmol/L Calcium 8.6 (8.4-10.2) mg/dL Magnesium 1.8 (1.6-2.3) mg/dL Total Bilirubin 0.5 (0.2-1.3) mg/dL AST 42 H (14-36) U/L ALT 65 H (4-34) U/L Alkaline Phosphatase 80 (38-126) U/L Troponin I (0.000-0.034) ng/mL NT-Pro-B Natriuret Pep pg/mL Total Protein 7.2 (6.3-8.2) g/dL Albumin 4.0 (3.5-5.0) g/dL 10/19/20 10/19/20 10/19/20 Range/Units 23:36 23:36 23:36 WBC (3.8-10.6) k/uL RBC (3.80-5.40) m/uL Hgb (11.4-16.0) gm/dL Hct (34.0-46.0) % MCV (80.0-100.0) fL MCH (25.0-35.0) pg MCHC (31.0-37.0) g/dL RDW (11.5-15.5) % Plt Count (150-450) k/uL MPV Neutrophils % % Lymphocytes % % Monocytes % % Eosinophils % % Basophils % % Neutrophils # (1.3-7.7) k/uL Lymphocytes # (1.0-4.8) k/uL Monocytes # (0-1.0) k/uL Eosinophils # (0-0.7) k/uL Basophils # (0-0.2) k/uL Hypochromasia Macrocytosis PT (9.0-12.0) sec INR (<1.2) APTT (22.0-30.0) sec VBG pH (7.31-7.41) VBG pCO2 (37-51) mmHg VBG HCO3 (24-28) mmol/L Sodium (137-145) mmol/L Potassium (3.5-5.1) mmol/L Chloride (98-107) mmol/L Carbon Dioxide (22-30) mmol/L Anion Gap mmol/L BUN (7-17) mg/dL Creatinine (0.52-1.04) mg/dL Est GFR (CKD-EPI)AfAm (>60 ml/min/1.73 sqM) Est GFR (CKD-EPI)NonAf (>60 ml/min/1.73 sqM) Glucose (74-99) mg/dL Plasma Lactic Acid James 1.5 (0.7-2.0) mmol/L Calcium (8.4-10.2) mg/dL Magnesium (1.6-2.3) mg/dL Total Bilirubin (0.2-1.3) mg/dL AST (14-36) U/L ALT (4-34) U/L Alkaline Phosphatase (38-126) U/L Troponin I 0.021 (0.000-0.034) ng/mL NT-Pro-B Natriuret Pep 1240 pg/mL Total Protein (6.3-8.2) g/dL Albumin (3.5-5.0) g/dL 10/20/20 Range/Units 02:03 WBC (3.8-10.6) k/uL RBC (3.80-5.40) m/uL Hgb (11.4-16.0) gm/dL Hct (34.0-46.0) % MCV (80.0-100.0) fL MCH (25.0-35.0) pg MCHC (31.0-37.0) g/dL RDW (11.5-15.5) % Plt Count (150-450) k/uL MPV Neutrophils % % Lymphocytes % % Monocytes % % Eosinophils % % Basophils % % Neutrophils # (1.3-7.7) k/uL Lymphocytes # (1.0-4.8) k/uL Monocytes # (0-1.0) k/uL Eosinophils # (0-0.7) k/uL Basophils # (0-0.2) k/uL Hypochromasia Macrocytosis PT (9.0-12.0) sec INR (<1.2) APTT (22.0-30.0) sec VBG pH 7.28 L (7.31-7.41) VBG pCO2 107 H* (37-51) mmHg VBG HCO3 49 H (24-28) mmol/L Sodium (137-145) mmol/L Potassium (3.5-5.1) mmol/L Chloride (98-107) mmol/L Carbon Dioxide (22-30) mmol/L Anion Gap mmol/L BUN (7-17) mg/dL Creatinine (0.52-1.04) mg/dL Est GFR (CKD-EPI)AfAm (>60 ml/min/1.73 sqM) Est GFR (CKD-EPI)NonAf (>60 ml/min/1.73 sqM) Glucose (74-99) mg/dL Plasma Lactic Acid James (0.7-2.0) mmol/L Calcium (8.4-10.2) mg/dL Magnesium (1.6-2.3) mg/dL Total Bilirubin (0.2-1.3) mg/dL AST (14-36) U/L ALT (4-34) U/L Alkaline Phosphatase (38-126) U/L Troponin I (0.000-0.034) ng/mL NT-Pro-B Natriuret Pep pg/mL Total Protein (6.3-8.2) g/dL Albumin (3.5-5.0) g/dL Critical Care Time Critical Care Time: Yes (45 minutes) Disposition Clinical Impression: COPD exacerbation, Respiratory failure, Congestive heart failure Disposition: ADMITTED IP TO THIS HOSP Condition: Critical Is patient prescribed a controlled substance at d/c from ED?: No
[2020-10-20] MEDS: ENOXAPARIN 150 MG/ML SYRINGE SQ SCH (04:14)
[2020-10-20] MEDS ORDERED: ETOMIDATE 2 MG/ML 10 ML VIAL IVP STA (04:34)
[2020-10-20] MEDS ORDERED: SUCCINYLCHOLINE CHLORIDE VIAL 200 MG/10 ML VIAL IV STA (04:35)
[2020-10-20] MEDS ORDERED: MORPHINE SULFATE 4 MG/ML SYRINGE IVP STA (04:42)
[2020-10-20 05:11] LABS: Allen Test Performed? Yes
[2020-10-20 05:12] LABS: ABG PH 7.22 (7.35-7.45)
[2020-10-20 05:13] LABS: ABG PCO2 120 mmHg (35-45); ABG PO2 49 mmHg (83-108)
[2020-10-20 05:57] LABS: ABG PH 7.33 (7.35-7.45); Allen Test Performed? Yes
[2020-10-20 05:58] LABS: ABG HCO3 49 mmol/L (21-25); ABG PCO2 93 mmHg (35-45); ABG PO2 134 mmHg (83-108)
[2020-10-20 05:59] LABS: ABG Base Excess 23.5 mmol/L; ABG TCO2 52 mmol/L (19-24)
--- NOTE | 2020-10-20 06:26 | XR ---
EXAM: XR Chest, 1 View CLINICAL HISTORY: ITS.REASON XR Reason: OG tube placement TECHNIQUE: Frontal view of the chest. COMPARISON: October 16, 2020 FINDINGS: Lungs: See below. Pleural space: Unremarkable. No pneumothorax. Heart: Mild cardiomegaly with mildly increased perihilar edema and/or infiltrates compared to previous. Mediastinum: Unremarkable. Bones/joints: Mild to moderate osteophytosis in the mid to lower thoracic spine. Tubes, lines and devices: Endotracheal tube tip in good position 2 cm above the radha. The NG tube extends below the diaphragm into the stomach. IMPRESSION: Mild cardiomegaly with mildly increased perihilar edema and/or infiltrates compared to previous. Endotracheal and NG tubes in good position.
[2020-10-20] MEDS: LEVOTHYROXINE 75 MCG TAB PO SCH (06:31)
[2020-10-20] MEDS: methylPREDNISolone SOD SUCCI 125 MG/2 ML VIAL IV SCH ×3 (06:45→19:16)
[2020-10-20] MEDS ORDERED: PANTOPRAZOLE 40 MG TABLET PO SCH (07:30)
[2020-10-20] MEDS ORDERED: SYMBICORT 160-4.5 MCG INHALER INHALATION SCH (08:00)
[2020-10-20] MEDS: ALBUTEROL HFA INHALER INHALATION PRN ×2 (08:37→20:06)
[2020-10-20] MEDS ORDERED: FUROSEMIDE 40 MG TAB PO SCH (09:00)
[2020-10-20] MEDS ORDERED: TIOTROPIUM 2.5 MCG INHALER INHALATION SCH (09:00)
[2020-10-20] MEDS ORDERED: metFORMIN 500 MG TAB PO SCH (09:00)
[2020-10-20 09:05] LABS: Glucose,Whole Blood 230 mg/dL (75-99)
[2020-10-20] MEDS ORDERED: INSULIN ASPART (NovoLOG) 100 UNIT/ML VIAL SQ SCH (09:15)
[2020-10-20] MEDS ORDERED: MORPHINE SULFATE 4 MG/ML SYRINGE IVP PRN (09:15)
--- NOTE | 2020-10-20 09:21 | P.CNPUL ---
History of Present Illness Consult date: 10/20/20 Requesting physician: Srego Valencia Reason for consult: chest pain, COPD, hypoxemia, abnormal CXR/CT Chief complaint: Shortness of breath, History of present illness: 55-year-old female patient who was recently hospitalized from [facility] 10/19/2020 for COVID 19 pneumonia, acute exacerbation of COPD and CHF diastolic dysfunction. Patient has history of advanced COPD, she is on home oxygen usuall y wears 5 L/m on a regular basis, has a obstructive sleep apnea and reportedly has a Trilogy device at home. Patient recently moved from [place], was hospitalized in the beginning of September for acute exacerbation of COPD and diastolic CHF. She was out of the window for Remdesivir, she was treated with standard care including IV steroids, diuretics, breathing treatments and prophylactic anticoagulation. The medical history includes hypothyroidism, hyperlipidemia, diabetes mellitus type 2, morbid obesity, chronic and ongoing history of tobacco use. On 10/20/2020 patient was brought into the emergency department per EMS with difficulty breathing and chest discomfort. CXR showed mild cardiomegaly with mildly increased perihilar edema and infiltrates increased compared to be enlarged exam, HEENT showed sinus rhythm with PACs. Her blood gases in the emergency department showed pO2 of 49, pCO2 of 120, and pH of 7.2, patient had decreased consciousness and was in significant amount of respiratory distress, and she was emergently intubated and placed on mechanical ventilator. Repeat blood gases showed improvement in acute on chronic hypercapnic and hypoxic respiratory failure, with improvement of pO2 up to 134, pCO2 of 93, and pH of 7.33. She was also noted to be in new onset A. fib with RVR, and required Cardizem drip for brief amount of time and she is back in sinus currently. Patient was started on IV steroids, Lasix, breathing treatments. Lab work has been reviewed, showing no evidence of leukocytosis white blood cell, 7.3, with a hemoglobin of 15, proBNP of 1240, is 0.021, second troponin was 0.052. Lactic acid was within normal limits, patient has been afebrile since arrival to the emergency department, hemodynamically stable, this morning she seen in the emergency department, she remains sedated and on mechanical ventilator, on assist-control mode of ventilation with a rate of 30, tidal lungs 400, FiO2 of 80% and PEEP of 5, this morning's blood gases show improvement in pO2 and pCO2 concentrations and improvements in the acid base balance with pH up to 7.33 as mentioned above. Review of Systems All systems: negative Constitutional: Denies chills, Denies fever Eyes: denies blurred vision, denies pain Ears, nose, mouth and throat: Denies headache, Denies sore throat Cardiovascular: Reports dyspnea on exertion, Denies chest pain, Denies shortness of breath Respiratory: Reports dyspnea, Reports home oxygen, Reports respiratory infections, Denies cough Gastrointestinal: Denies abdominal pain, Denies diarrhea, Denies nausea, Denies vomiting Genitourinary: Denies dysuria, Denies hematuria Musculoskeletal: Denies myalgias Integumentary: Denies pruritus, Denies rash Neurological: Denies numbness, Denies weakness Psychiatric: Denies anxiety, Denies depression Endocrine: Denies fatigue, Denies weight change Past Medical History Past Medical History: Chest Pain / Angina, COPD, Diabetes Mellitus, Liver Disease, Sleep Apnea/CPAP/BIPAP, Thyroid Disorder Additional Past Medical History / Comment(s): CHF, cpap at night, gout History of Any Multi-Drug Resistant Organisms: None Reported Past Surgical History: Section, Cholecystectomy Past Anesthesia/Blood Transfusion Reactions: No Reported Reaction Past Psychological History: No Psychological Hx Reported Smoking Status: Current every day smoker Past Alcohol Use History: None Reported Past Drug Use History: None Reported Medications and Allergies Home Medications Medication Instructions Recorded Confirmed Type Albuterol Sulfate [Ventolin HFA] 2 puff INHALATION RT-QID PRN #1 10/05/20 10/20/20 Rx inhaler Atorvastatin [Lipitor] 20 mg PO HS #30 tab 10/05/20 10/20/20 Rx Ipratropium-Albuterol Nebulize 3 ml INHALATION RT-QID #120 neb 10/05/20 10/20/20 Rx [Duoneb 0.5 mg-3 mg/3 ml Soln] Levothyroxine Sodium [Euthyrox] 150 mcg PO DAILY #30 tab 10/05/20 10/20/20 Rx Losartan [Cozaar] 12.5 mg PO DAILY #30 tab 10/05/20 10/20/20 Rx Magnesium Oxide 400 mg PO DAILY #30 tab 10/05/20 10/20/20 Rx Omeprazole 40 mg PO DAILY #30 cap 10/05/20 10/20/20 Rx metFORMIN HCL ER [Glucophage Xr] 500 mg PO DAILY #30 tab 10/05/20 10/20/20 Rx Ipratropium-Albuterol Nebulize 3 ml INHALATION RT-Q4H PRN 10/16/20 10/20/20 History [Duoneb 0.5 mg-3 mg/3 ml Soln] Ascorbic Acid [Vitamin C] 1,000 mg PO DAILY tab 10/19/20 10/20/20 Rx Budesonide-Formot 160-4.5 Mcg 2 puff INHALATION RT-BID #1 inh 10/19/20 10/20/20 Rx [Symbicort 160-4.5 Mcg Inhaler] Cholecalciferol [Vitamin D3 (25 25 mcg PO DAILY tablet 10/19/20 10/20/20 Rx Mcg = 1000 Iu)] Furosemide [Lasix] 40 mg PO DAILY #30 tablet 10/19/20 10/20/20 Rx Gabapentin [Neurontin] 300 mg PO BID #6 cap 10/19/20 10/20/20 Rx Zinc Sulfate [Orazinc] 220 mg PO DAILY cap 10/19/20 10/20/20 Rx Allergies Allergy/AdvReac Type Severity Reaction Status Date / Time hydrocodone [From [place]] AdvReac Rash/Hives Verified 10/20/20 06:52 Physical Exam Vitals: Vital Signs Temp Pulse Resp BP Pulse Ox 10/20/20 08:39 97.4 F L 56 L 16 99/73 99 10/20/20 07:50 55 L 30 H 108/32 95 10/20/20 06:45 60 30 H 92/65 94 L 10/20/20 06:36 76 30 H 86/64 95 10/20/20 06:00 80 30 H 94/64 95 10/20/20 05:00 80 30 H 98/62 95 10/20/20 04:45 79 28 H 125/74 95 10/20/20 04:16 86 25 H 140/84 80 L 10/20/20 03:15 88 24 136/84 91 L 10/20/20 02:30 87 22 142/84 91 L 10/20/20 02:00 90 25 H 147/91 91 L 10/20/20 01:00 133 H 18 168/91 96 10/20/20 00:49 126 H 30 H 161/111 98 10/20/20 00:35 129 H 31 H 143/90 10/20/20 00:26 129 H 32 H 139/115 98 10/20/20 00:06 155 H 32 H 163/109 99 10/19/20 23:45 137 H 32 H 163/114 100 10/19/20 23:30 144 H 32 H 168/123 99 10/19/20 23:20 137 H 32 H 182/97 97 10/19/20 23:14 99.1 F 93 31 H 179/89 97 10/19/20 23:10 32 H Intake and Output 10/19/20 10/20/20 10/20/20 22:59 06:59 14:59 Intake Total 84.809 Balance 84.809 Intake: Intake, IV Titration 84.809 Amount Diltiazem 125 mg In 0.167 Sodium Chloride 0.9% 100 ml @ 10 MG/HR 10 mls/hr IV .[id number] ONIEL Rx#: [id number] propofoL 1,000 mg In 84.642 Empty Bag 1 bag @ Titrate IV .Q0M ONIEL Rx#: [id number] Other: Weight 163.248 kg GENERAL EXAM: Obese 55-year-old white female, on assist-control mode of ventilation FiO2 of 80% and PEEP of 10, comfortable in no apparent distress. HEAD: Normocephalic/atraumatic. EYES: Normal reaction of pupils, equal size. Conjunctiva pink, sclera white. NOSE: Clear with pink turbinates. THROAT: No erythema or exudates. NECK: No masses, no JVD, no thyroid enlargement, no adenopathy. CHEST: No chest wall deformity. Symmetrical expansion. LUNGS: Equal air entry with no crackles, wheeze, rhonchi or dullness. CVS: Regular rate and rhythm, normal S1 and S2, no gallops, no murmurs, no rubs ABDOMEN: Soft, nontender. No hepatosplenomegaly, normal bowel sounds, no guarding or rigidity. EXTREMITIES: No clubbing, no edema, no cyanosis, 2+ pulses and upper and lower extremities. MUSCULOSKELETAL: Muscle strength and tone normal. SPINE: No scoliosis or deformity SKIN: No rashes CENTRAL NERVOUS SYSTEM: Sedated, intubated. No focal deficits, tone is normal in all 4 extremities. Results - Laboratory Findings CBC and BMP: 10/19/20 23:36 10/19/20 23:36 ABG ABG pH 7.33 (7.35-7.45) L 10/20/20 05:45 ABG pCO2 93 mmHg (35-45) H* 10/20/20 05:45 ABG pO2 134 mmHg (83-108) H 10/20/20 05:45 ABG O2 Saturation 99.0 % (94-97) H 10/20/20 05:45 PT/INR, D-dimer PT 10.6 sec (9.0-12.0) 10/19/20 23:36 INR 1.0 (<1.2) 10/19/20 23:36 Abnormal lab findings: Abnormal Labs 10/19/20 10/19/20 10/19/20 23:36 23:36 23:36 Hct 49.7 H MCV 106.6 H MCHC 30.1 L Lymphocytes # 0.9 L APTT 21.8 L ABG pH ABG pCO2 ABG pO2 ABG HCO3 ABG Total CO2 ABG O2 Saturation VBG pH VBG pCO2 VBG HCO3 Chloride 86 L Carbon Dioxide 56 H* BUN 39 H Glucose 199 H POC Glucose (mg/dL) AST 42 H ALT 65 H Troponin I 10/20/20 10/20/20 10/20/20 02:03 04:03 04:05 Hct MCV MCHC Lymphocytes # APTT ABG pH 7.22 L ABG pCO2 120 H* ABG pO2 49 L* ABG HCO3 ABG Total CO2 ABG O2 Saturation 81.0 L VBG pH 7.28 L VBG pCO2 107 H* VBG HCO3 49 H Chloride Carbon Dioxide BUN Glucose POC Glucose (mg/dL) AST ALT Troponin I 0.052 H* 10/20/20 10/20/20 10/20/20 05:45 07:30 09:03 Hct MCV MCHC Lymphocytes # APTT ABG pH 7.33 L ABG pCO2 93 H* ABG pO2 134 H ABG HCO3 49 H* ABG Total CO2 52 H ABG O2 Saturation 99.0 H VBG pH VBG pCO2 VBG HCO3 Chloride Carbon Dioxide BUN Glucose POC Glucose (mg/dL) 230 H AST ALT Troponin I 0.079 H* - Diagnostic Findings Chest x-ray: report reviewed, image reviewed Assessment and Plan Plan: Assessment: #1. Acute on chronic hypoxic and hypercapnic respiratory failure related to acute exacerbation of COPD, diastolic CHF or graft #2. New onset of A. fib with RVR, patient was briefly on Cardizem drip back in sinus right now #3. Hospitalization for COVID 19 pneumonia, from 10/16 through 10/19/2020 #4. COPD with chronic hypoxic and hypercapnic respiratory failure, patient usually wears 5 L of oxygen at home on a regular basis, and reportedly has a Trilogy device at home #5. Chronic diastolic CHF, echocardiogram showed EF of 50-55%, valves could not be visualized related to body habitus #6. Obesity #7. Chronic and ongoing history of smoking #8. Obstructive sleep apnea and patient has a Trilogy device at home, but compliance is not known at this time Plan: Continue IV steroids with Solu-Medrol 60 mg every 6 hours, continue daily dose Lasix, continue Lovenox, continue therapeutic dose for now, we'll obtain a d- dimer, patient is back in sinus rhythm, cardiology has been consulted. Blood sugar control using sliding scale insulin. Drop FiO2 down to 60%, will discon tinue Spiriva, we will give the patient albuterol. In view of positive COVID status patient cannot have nebulized treatments right now, continue weaning down FiO2. Daily chest x-ray, accurate intake and output, follow electrolytes, we'll send a pro-calcitonin level, no clear evidence of infection at this time, no fever chills, no leukocytosis, we'll continue to follow I performed a history & physical examination of the patient and discussed their management with my nurse practitioner, Savanna Bishop. I reviewed the nurse practitioner's note and agree with the documented findings and plan of care. Lung sounds are positive for diminished breath sounds. The findings and the impression was discussed with the patient. I attest to the documentation by the nurse practitioner. Time with Patient: Greater than 30
[2020-10-20 09:55] LABS: ABG Base Excess 24.5 mmol/L; ABG Oxygen Saturation 94.6 % (94-97); ABG PH 7.44 (7.35-7.45); ABG PO2 64 mmHg (83-108); ABG TCO2 51 mmol/L (19-24)
[2020-10-20 10:23] LABS: ABG PCO2 72 mmHg (35-45)
[2020-10-20 10:24] LABS: ABG HCO3 49 mmol/L (21-25); Allen Test Performed? No
[2020-10-20] MEDS: LOSARTAN 25 MG TAB PO SCH (10:35)
[2020-10-20] MEDS: MAGNESIUM OXIDE 400 MG TAB PO SCH (10:37)
[2020-10-20] MEDS: CHOLECALCIFEROL 25 MCG (1000 IU) TABLET PO SCH (10:38)
[2020-10-20] MEDS: GABAPENTIN 300 MG CAP PO SCH ×2 (10:38→20:59)
[2020-10-20] MEDS: SODIUM CHLORIDE 0.9% 1,000 ML IV SCH (10:39)
[2020-10-20 10:43] LABS: Glucose,Whole Blood 243 mg/dL (75-99)
[2020-10-20] MEDS ORDERED: Salmeterol 50 mcg INHALER INHALATION SCH (11:00)
--- NOTE | 2020-10-20 11:50 | P.CRDCN ---
History of Present Illness Consult date: 10/20/20 History of present illness: CHIEF COMPLAINT: New-onset atrial fibrillation HISTORY OF PRESENT ILLNESS: This is a 55-year-old female with a past medical history significant for COPD with home oxygen, diabetes mellitus, congestive heart failure, sleep apnea, thyroid disorder, and nicotine dependence. Patient does not follow with a ortho rn as she recently moved from [place]. It is noted that the patient was recently hospitalized in September due to COPD and CHF. We have been asked to see the patient in consultation for new onset atrial fibrillation. Patient presented to the emergency room due to shortness of [place] ath. In the emergency room the patient developed increasing respiratory distress and was intubated. Patient is positive for Covid 19 (tested on 10/16/2020). Patient was in sinus mechanism upon presentation to the ER. She developed atrial fibrillation and was on a Cardizem drip for a short period of time. She has since converted back to sinus mechanism. Patient is currently receiving Lovenox 150 mg every 12 hours DIAGNOSTICS: EKG reveals sinus mechanism with PVCs Chest xray perihilar pulmonary infiltrates. Probably some basilar atelectasis. Laboratory data: WBC 7.3. Hemoglobin 15.0. Platelet count 180. Sodium 142. Potassium 4.2. BUN 39. Creatinine 0.80. Lactic acid 1.5. AST 42. ALT 65. BNP 1240. Troponin 0.021. 0.052. 0.079. Current home cardiac medications include losartan 12.5 mg daily, Lasix 40 mg daily, Lipitor 20 mg daily Echocardiogram completed on 10/04/2020 revealed ejection fraction 50-55% REVIEW OF SYSTEMS: Thorough review of systems not completed secondary to limited evaluation/examination and due to Covid19 PHYSICAL EXAM: Thorough physical exam not completed secondary to limited evaluation/examination and due to Covid19 ASSESSMENT: Acute on chronic hypoxic and hypercapnic respiratory failure requiring mechanical ventilation Covid 19 New onset paroxysmal atrial fibrillation with RVR, currently maintaining sinus mechanism Chronic diastolic congestive heart failure, EF 50-55% Hypertension Hyperlipidemia Obstructive sleep apnea Nicotine dependence PLAN: Continue ICU management per Dr. Tolentino Continue telemetry monitoring Resume home cardiac medications Will hold off on beta lacie therapy at this time due to bradycardia Continue Lovenox 150mg q12 hours Further recommendations pending patient course Nurse practitioner note has been reviewed by physician. Signing provider agrees with the documented findings, assessment, and plan of care. Past Medical History Past Medical History: Chest Pain / Angina, COPD, Diabetes Mellitus, Liver Disease, Sleep Apnea/CPAP/BIPAP, Thyroid Disorder Additional Past Medical History / Comment(s): CHF, cpap at night, gout History of Any Multi-Drug Resistant Organisms: None Reported Past Surgical History: Section, Cholecystectomy Past Anesthesia/Blood Transfusion Reactions: No Reported Reaction Past Psychological History: No Psychological Hx Reported Smoking Status: Current every day smoker Past Alcohol Use History: None Reported Past Drug Use History: None Reported Medications and Allergies Home Medications Medication Instructions Recorded Confirmed Type Albuterol Sulfate [Ventolin HFA] 2 puff INHALATION RT-QID PRN #1 10/05/20 10/20/20 Rx inhaler Atorvastatin [Lipitor] 20 mg PO HS #30 tab 10/05/20 10/20/20 Rx Ipratropium-Albuterol Nebulize 3 ml INHALATION RT-QID #120 neb 10/05/20 10/20/20 Rx [Duoneb 0.5 mg-3 mg/3 ml Soln] Levothyroxine Sodium [Euthyrox] 150 mcg PO DAILY #30 tab 10/05/20 10/20/20 Rx Losartan [Cozaar] 12.5 mg PO DAILY #30 tab 10/05/20 10/20/20 Rx Magnesium Oxide 400 mg PO DAILY #30 tab 10/05/20 10/20/20 Rx Omeprazole 40 mg PO DAILY #30 cap 10/05/20 10/20/20 Rx metFORMIN HCL ER [Glucophage Xr] 500 mg PO DAILY #30 tab 10/05/20 10/20/20 Rx Ipratropium-Albuterol Nebulize 3 ml INHALATION RT-Q4H PRN 10/16/20 10/20/20 History [Duoneb 0.5 mg-3 mg/3 ml Soln] Ascorbic Acid [Vitamin C] 1,000 mg PO DAILY tab 10/19/20 10/20/20 Rx Budesonide-Formot 160-4.5 Mcg 2 puff INHALATION RT-BID #1 inh 10/19/20 10/20/20 Rx [Symbicort 160-4.5 Mcg Inhaler] Cholecalciferol [Vitamin D3 (25 25 mcg PO DAILY tablet 10/19/20 10/20/20 Rx Mcg = 1000 Iu)] Furosemide [Lasix] 40 mg PO DAILY #30 tablet 10/19/20 10/20/20 Rx Gabapentin [Neurontin] 300 mg PO BID #6 cap 10/19/20 10/20/20 Rx Zinc Sulfate [Orazinc] 220 mg PO DAILY cap 10/19/20 10/20/20 Rx Allergies Allergy/AdvReac Type Severity Reaction Status Date / Time hydrocodone [From [place]] AdvReac Rash/Hives Verified 10/20/20 06:52 Physical Exam Vitals: Vital Signs Temp Pulse Resp BP Pulse Ox 10/20/20 08:39 97.4 F L 56 L 16 99/73 99 10/20/20 07:50 55 L 30 H 108/32 95 10/20/20 06:45 60 30 H 92/65 94 L 10/20/20 06:36 76 30 H 86/64 95 10/20/20 06:00 80 30 H 94/64 95 10/20/20 05:00 80 30 H 98/62 95 10/20/20 04:45 79 28 H 125/74 95 10/20/20 04:16 86 25 H 140/84 80 L 10/20/20 03:15 88 24 136/84 91 L 10/20/20 02:30 87 22 142/84 91 L 10/20/20 02:00 90 25 H 147/91 91 L 10/20/20 01:00 133 H 18 168/91 96 10/20/20 00:49 126 H 30 H 161/111 98 10/20/20 00:35 129 H 31 H 143/90 10/20/20 00:26 129 H 32 H 139/115 98 10/20/20 00:06 155 H 32 H 163/109 99 10/19/20 23:45 137 H 32 H 163/114 100 10/19/20 23:30 144 H 32 H 168/123 99 10/19/20 23:20 137 H 32 H 182/97 97 10/19/20 23:14 99.1 F 93 31 H 179/89 97 10/19/20 23:10 32 H Intake and Output 10/19/20 10/20/20 10/20/20 22:59 06:59 14:59 Intake Total 84.809 Balance 84.809 Intake: Intake, IV Titration 84.809 Amount Diltiazem 125 mg In 0.167 Sodium Chloride 0.9% 100 ml @ 10 MG/HR 10 mls/hr IV .[id number] [facility] Rx#: [id number] propofoL 1,000 mg In 84.642 Empty Bag 1 bag @ Titrate IV .Q0M [facility] Rx#: [id number] Other: Weight 154.5 kg 163.248 kg Results 10/19/20 23:36 10/19/20 23:36 Cardiac Enzymes 10/19/20 10/19/20 10/20/20 Range/Units 23:36 23:36 04:03 AST 42 H (14-36) U/L Troponin I 0.021 0.052 H* (0.000-0.034) ng/mL 10/20/20 Range/Units 07:30 AST (14-36) U/L Troponin I 0.079 H* (0.000-0.034) ng/mL Coagulation 10/19/20 Range/Units 23:36 PT 10.6 (9.0-12.0) sec APTT 21.8 L (22.0-30.0) sec CBC 10/19/20 Range/Units 23:36 WBC 7.3 (3.8-10.6) k/uL RBC 4.67 (3.80-5.40) m/uL Hgb 15.0 (11.4-16.0) gm/dL Hct 49.7 H (34.0-46.0) % Plt Count 180 (150-450) k/uL Comprehensive Metabolic Panel 10/19/20 Range/Units 23:36 Sodium 142 (137-145) mmol/L Potassium 4.2 (3.5-5.1) mmol/L Chloride 86 L (98-107) mmol/L Carbon Dioxide 56 H* (22-30) mmol/L BUN 39 H (7-17) mg/dL Creatinine 0.80 (0.52-1.04) mg/dL Glucose 199 H (74-99) mg/dL Calcium 8.6 (8.4-10.2) mg/dL AST 42 H (14-36) U/L ALT 65 H (4-34) U/L Alkaline Phosphatase 80 (38-126) U/L Total Protein 7.2 (6.3-8.2) g/dL Albumin 4.0 (3.5-5.0) g/dL Current Medications Generic Name Dose Route Start Last Admin Trade Name Freq PRN Reason Stop Dose Admin Albuterol Sulfate 2 puff 10/20/20 03:35 10/20/20 08:37 Albuterol Hfa Inhaler INHALATION 2 puff RT-Q4H PRN Administration Dyspnea Aspirin 325 mg 10/21/20 09:00 Aspirin 325 Mg Tab PO DAILY [facility] Atorvastatin Calcium 20 mg 10/20/20 21:00 Atorvastatin 20 Mg Tab PO HS [facility] Budesonide 1 mg 10/20/20 20:00 Budesonide 1 Mg/2 Ml Nebu INHALATION RT-BID [facility] Cholecalciferol 25 mcg 10/20/20 09:00 Cholecalciferol 25 Mcg (1000 Iu) Tablet PO DAILY [facility] Enoxaparin Sodium 150 mg 10/20/20 03:45 10/20/20 04:14 Enoxaparin 150 Mg/Ml Syringe SQ 150 mg Q12H [facility] Administration Formoterol Fumarate 20 mcg 10/20/20 20:00 Formoterol Fumarate 20 Mcg/2 Ml Nebu INHALATION RT-BID [facility] Furosemide 40 mg 10/21/20 09:00 Furosemide 10 Mg/Ml 4 Ml Vial IV DAILY [facility] Gabapentin 300 mg 10/20/20 09:00 Gabapentin 300 Mg Cap PO BID [facility] Diltiazem HCl 125 mg/ Sodium 125 mls @ 10 mls/hr 10/19/20 23:45 10/20/20 00:25 Chloride IV 10 mg/hr .[id number] [facility] 10 mls/hr Administration 10 MG/HR Propofol 1,000 mg/ IV Solution 100 mls @ 0 mls/hr 10/20/20 09:30 IV .Q0M [facility] Protocol Titrate Sodium Chloride 1,000 mls @ 20 mls/hr 10/20/20 09:45 Saline 0.9% IV .Q24H [facility] Insulin Aspart 0 unit 10/20/20 09:15 Insulin Aspart (Novolog) 100 Unit/Ml Vial SQ Q6H [facility] Protocol Levothyroxine Sodium 150 mcg 10/20/20 06:30 10/20/20 06:31 Levothyroxine 75 Mcg Tab PO Not Given DAILY@0630 [facility] Losartan Potassium 12.5 mg 10/20/20 09:00 Losartan 25 Mg Tab PO DAILY [facility] Magnesium Oxide 400 mg 03/25/21 09:00 Magnesium Oxide 400 Mg Tab PO DAILY [facility] Methylprednisolone Sodium Succinate 60 mg 10/20/20 06:00 10/20/20 06:45 Methylprednisolone Sod Succi 125 Mg/2 Ml Vial IV 60 mg Q6HR [facility] Administration Morphine Sulfate 4 mg 10/20/20 09:15 10/20/20 09:21 Morphine Sulfate 4 Mg/Ml Syringe IVP 4 mg Q4HR PRN Administration Pain Nitroglycerin 0.4 mg 10/20/20 03:35 Nitroglycerin Sl Tabs 0.4 Mg Tab SUBLINGUAL Q5M PRN Chest Pain Pantoprazole Sodium 40 mg 10/20/20 07:30 10/20/20 07:55 Pantoprazole 40 Mg Tablet PO Not Given [id number] [facility] Intake and Output 10/19/20 10/20/20 10/20/20 22:59 06:59 14:59 Intake Total 84.809 Balance 84.809 Intake: Intake, IV Titration 84.809 Amount Diltiazem 125 mg In 0.167 Sodium Chloride 0.9% 100 ml @ 10 MG/HR 10 mls/hr IV .[id number] [facility] Rx#: [id number] propofoL 1,000 mg In 84.642 Empty Bag 1 bag @ Titrate IV .Q0M [facility] Rx#: [id number] Other: Weight 154.5 kg 163.248 kg Patient Weight 10/21/20 06:59 Weight 163.248 kg 10/19/20 23:36 10/19/20 23:36
[2020-10-20 11:52] LABS: Glucose,Whole Blood 266 mg/dL (75-99)
[2020-10-20 12:51] LABS: C Reactive Protein 67.1 mg/L (<10.0)
[2020-10-20] MEDS: NOREPINEPHRINE 4 MG in SODIUM CHLORIDE 0.9% 250 ML IV SCH ×2 (13:54→15:59)
--- NOTE | 2020-10-20 13:57 | XR ---
EXAMINATION TYPE: XR chest 1V portable DATE OF EXAM: 10/20/2020 COMPARISON: 10/20/2020 HISTORY: NG tube placement TECHNIQUE: Single frontal view of the chest is obtained. FINDINGS: Diffuse interstitial pattern with left basilar infiltrate. ET and NG tube noted. No pneumo thorax. Heart is enlarged. Biapical pleural thickening. IMPRESSION: Diffuse interstitial pattern correlate for interstitial pneumonitis.
[2020-10-20] MEDS: PANTOPRAZOLE 40 MG/10 ML VIAL IVP SCH (14:33)
--- NOTE | 2020-10-20 14:45 | P.HPIM ---
History of Present Illness H&P Date: 10/20/20 This is a 55-year-old morbidly obese female discharged yesterday. Patient had been hospitalized 10/16/20- 10/19/20 with COvid- 19 pneumonia , possible acute COPD exacerbation with chronic hypoxic/hypercapnic respiratory failure and multiple other medical issues. Patient had been maintained on COVID regimen, but was beyond the window for Remdesevir. Patient was maintaining O2 sats in the 90s on 4-5 L, baseline and discharged home. Apparently patient failed to use her CPAP last night and returned to the ER with A. fib RVR, severely hypoxic requiring intubation, placed on Cardizem drip. CXR reported perihilar pulmonary infiltrates, some basilar atelectasis with no change compared to prior exam . ABGs noted. Afebrile, normal lactic acid, normal WBC. Hemoglobin 15, platelets 180, d-dimer 0.62. Sodium 142, potassium 4.2, carbon dioxide 56, BUN 39, creatinine 0.8 glucose 199 magnesium 1.8, total bili 0.5, mildly elevated AST ALT 42, 65 LDH 1444. Troponin 0.021, 0.052, 0.079, CRP 67.1, BNP 1240. EKG for sinus rhythm with premature supraventricular complexes with occasional PVCs. Review of Systems Review systems unable to obtain, patient sedated and intubated. Past Medical History Past Medical History: Chest Pain / Angina, COPD, Diabetes Mellitus, Liver Disease, Sleep Apnea/CPAP/BIPAP, Thyroid Disorder Additional Past Medical History / Comment(s): CHF, cpap at night, gout History of Any Multi-Drug Resistant Organisms: None Reported Past Surgical History: Section, Cholecystectomy Past Anesthesia/Blood Transfusion Reactions: No Reported Reaction Past Psychological History: No Psychological Hx Reported Smoking Status: Current every day smoker Past Alcohol Use History: None Reported Past Drug Use History: None Reported Medications and Allergies Home Medications Medication Instructions Recorded Confirmed Type Albuterol Sulfate [Ventolin HFA] 2 puff INHALATION RT-QID PRN #1 10/05/20 10/20/20 Rx inhaler Atorvastatin [Lipitor] 20 mg PO HS #30 tab 10/05/20 10/20/20 Rx Ipratropium-Albuterol Nebulize 3 ml INHALATION RT-QID #120 neb 10/05/20 10/20/20 Rx [Duoneb 0.5 mg-3 mg/3 ml Soln] Levothyroxine Sodium [Euthyrox] 150 mcg PO DAILY #30 tab 10/05/20 10/20/20 Rx Losartan [Cozaar] 12.5 mg PO DAILY #30 tab 10/05/20 10/20/20 Rx Magnesium Oxide 400 mg PO DAILY #30 tab 10/05/20 10/20/20 Rx Omeprazole 40 mg PO DAILY #30 cap 10/05/20 10/20/20 Rx metFORMIN HCL ER [Glucophage Xr] 500 mg PO DAILY #30 tab 10/05/20 10/20/20 Rx Ipratropium-Albuterol Nebulize 3 ml INHALATION RT-Q4H PRN 10/16/20 10/20/20 History [Duoneb 0.5 mg-3 mg/3 ml Soln] Ascorbic Acid [Vitamin C] 1,000 mg PO DAILY tab 10/19/20 10/20/20 Rx Budesonide-Formot 160-4.5 Mcg 2 puff INHALATION RT-BID #1 inh 10/19/20 10/20/20 Rx [Symbicort 160-4.5 Mcg Inhaler] Cholecalciferol [Vitamin D3 (25 25 mcg PO DAILY tablet 10/19/20 10/20/20 Rx Mcg = 1000 Iu)] Furosemide [Lasix] 40 mg PO DAILY #30 tablet 10/19/20 10/20/20 Rx Gabapentin [Neurontin] 300 mg PO BID #6 cap 10/19/20 10/20/20 Rx Zinc Sulfate [Orazinc] 220 mg PO DAILY cap 10/19/20 10/20/20 Rx Allergies Allergy/AdvReac Type Severity Reaction Status Date / Time hydrocodone [From [place]] AdvReac Rash/Hives Verified 10/20/20 06:52 Physical Exam Vitals: Vital Signs Temp Pulse Resp BP Pulse Ox 10/20/20 12:00 98.1 F 51 L 24 94 L 10/20/20 11:00 53 L 24 94 L 10/20/20 10:30 54 L 30 H 95 10/20/20 08:39 97.4 F L 56 L 16 99/73 99 10/20/20 07:50 55 L 30 H 108/32 95 10/20/20 06:45 60 30 H 92/65 94 L 10/20/20 06:36 76 30 H 86/64 95 10/20/20 06:00 80 30 H 94/64 95 10/20/20 05:00 80 30 H 98/62 95 10/20/20 04:45 79 28 H 125/74 95 10/20/20 04:16 86 25 H 140/84 80 L 10/20/20 03:15 88 24 136/84 91 L 10/20/20 02:30 87 22 142/84 91 L 10/20/20 02:00 90 25 H 147/91 91 L 10/20/20 01:00 133 H 18 168/91 96 10/20/20 00:49 126 H 30 H 161/111 98 10/20/20 00:35 129 H 31 H 143/90 10/20/20 00:26 129 H 32 H 139/115 98 10/20/20 00:06 155 H 32 H 163/109 99 10/19/20 23:45 137 H 32 H 163/114 100 10/19/20 23:30 144 H 32 H 168/123 99 10/19/20 23:20 137 H 32 H 182/97 97 10/19/20 23:14 99.1 F 93 31 H 179/89 97 10/19/20 23:10 32 H Intake and Output 10/19/20 10/20/20 10/20/20 22:59 06:59 14:59 Intake Total 84.809 157.418 Output Total 120 Balance 84.809 37.418 Intake: IV 66 0.9 Flush 6 Sodium Chloride 0.9% 1, 60 000 ml @ 20 mls/hr IV . Q24H [facility] Rx#:[id number] Intake, IV Titration 84.809 91.418 Amount Diltiazem 125 mg In 0.167 Sodium Chloride 0.9% 100 ml @ 10 MG/HR 10 mls/hr IV .[id number] [facility] Rx#: [id number] propofoL 1,000 mg In 84.642 Empty Bag 1 bag @ Titrate IV .Q0M [facility] Rx#: [id number] propofoL 1,000 mg In 91.418 Empty Bag 1 bag @ Titrate IV .Q0M [facility] Rx#: [id number] Output: Urine 120 Other: Voiding Method Indwelling Catheter # Bowel Movements 1 Weight 154.5 kg 163.248 kg ABP, PAP, CO, CI - Last 8 Hours Arterial Blood Pressure 96/52 Arterial Blood Pressure 99/56 - Exam PHYSICAL EXAM: VITAL SIGNS: As above GENERAL: Sedated and on mechanical ventilation, no acute distress HEENT: Conjunctivae normal. eyes normal. Intubated. NECK: Short neck, Unable to assess JVD. CARDIOVASCULAR: S1, S2 regular.No murmur, rubs or gallops RESPIRATION: Breath sounds diminished in the bases. No rhonchi or crackles. No wheezing ABDOMEN: Obese, Soft, nontender . No guarding. no masses palpable. Positive Bowel sounds heard. LEGS: No edema. no swelling NERVOUS SYSTEM: Unable to assess, patient intubated and sedated. Skin: Warm and dry, no rash Results CBC & Chem 7: 10/19/20 23:36 10/19/20 23:36 Labs: Abnormal Lab Results - Last 24 Hours (Table) 10/19/20 10/19/20 10/19/20 Range/Units 23:36 23:36 23:36 Hct 49.7 H (34.0-46.0) % MCV 106.6 H (80.0-100.0) fL MCHC 30.1 L (31.0-37.0) g/dL Lymphocytes # 0.9 L (1.0-4.8) k/uL APTT 21.8 L (22.0-30.0) sec D-Dimer (<0.60) mg/L FEU ABG pH (7.35-7.45) ABG pCO2 (35-45) mmHg ABG pO2 (83-108) mmHg ABG HCO3 (21-25) mmol/L ABG Total CO2 (19-24) mmol/L ABG O2 Saturation (94-97) % VBG pH (7.31-7.41) VBG pCO2 (37-51) mmHg VBG HCO3 (24-28) mmol/L Chloride 86 L (98-107) mmol/L Carbon Dioxide 56 H* (22-30) mmol/L BUN 39 H (7-17) mg/dL Glucose 199 H (74-99) mg/dL POC Glucose (mg/dL) (75-99) mg/dL AST 42 H (14-36) U/L ALT 65 H (4-34) U/L Lactate Dehydrogenase (313-618) U/L Troponin I (0.000-0.034) ng/mL C-Reactive Protein (<10.0) mg/L 10/20/20 10/20/20 10/20/20 Range/Units 02:03 04:03 04:05 Hct (34.0-46.0) % MCV (80.0-100.0) fL MCHC (31.0-37.0) g/dL Lymphocytes # (1.0-4.8) k/uL APTT (22.0-30.0) sec D-Dimer (<0.60) mg/L FEU ABG pH 7.22 L (7.35-7.45) ABG pCO2 120 H* (35-45) mmHg ABG pO2 49 L* (83-108) mmHg ABG HCO3 (21-25) mmol/L ABG Total CO2 (19-24) mmol/L ABG O2 Saturation 81.0 L (94-97) % VBG pH 7.28 L (7.31-7.41) VBG pCO2 107 H* (37-51) mmHg VBG HCO3 49 H (24-28) mmol/L Chloride (98-107) mmol/L Carbon Dioxide (22-30) mmol/L BUN (7-17) mg/dL Glucose (74-99) mg/dL POC Glucose (mg/dL) (75-99) mg/dL AST (14-36) U/L ALT (4-34) U/L Lactate Dehydrogenase (313-618) U/L Troponin I 0.052 H* (0.000-0.034) ng/mL C-Reactive Protein (<10.0) mg/L 10/20/20 10/20/20 10/20/20 Range/Units 05:45 07:30 09:03 Hct (34.0-46.0) % MCV (80.0-100.0) fL MCHC (31.0-37.0) g/dL Lymphocytes # (1.0-4.8) k/uL APTT (22.0-30.0) sec D-Dimer (<0.60) mg/L FEU ABG pH 7.33 L (7.35-7.45) ABG pCO2 93 H* (35-45) mmHg ABG pO2 134 H (83-108) mmHg ABG HCO3 49 H* (21-25) mmol/L ABG Total CO2 52 H (19-24) mmol/L ABG O2 Saturation 99.0 H (94-97) % VBG pH (7.31-7.41) VBG pCO2 (37-51) mmHg VBG HCO3 (24-28) mmol/L Chloride (98-107) mmol/L Carbon Dioxide (22-30) mmol/L BUN (7-17) mg/dL Glucose (74-99) mg/dL POC Glucose (mg/dL) 230 H (75-99) mg/dL AST (14-36) U/L ALT (4-34) U/L Lactate Dehydrogenase (313-618) U/L Troponin I 0.079 H* (0.000-0.034) ng/mL C-Reactive Protein (<10.0) mg/L 10/20/20 10/20/20 10/20/20 Range/Units 09:53 10:42 11:50 Hct (34.0-46.0) % MCV (80.0-100.0) fL MCHC (31.0-37.0) g/dL Lymphocytes # (1.0-4.8) k/uL APTT (22.0-30.0) sec D-Dimer (<0.60) mg/L FEU ABG pH (7.35-7.45) ABG pCO2 72 H* (35-45) mmHg ABG pO2 64 L (83-108) mmHg ABG HCO3 49 H* (21-25) mmol/L ABG Total CO2 51 H (19-24) mmol/L ABG O2 Saturation (94-97) % VBG pH (7.31-7.41) VBG pCO2 (37-51) mmHg VBG HCO3 (24-28) mmol/L Chloride (98-107) mmol/L Carbon Dioxide (22-30) mmol/L BUN (7-17) mg/dL Glucose (74-99) mg/dL POC Glucose (mg/dL) 243 H 266 H (75-99) mg/dL AST (14-36) U/L ALT (4-34) U/L Lactate Dehydrogenase (313-618) U/L Troponin I (0.000-0.034) ng/mL C-Reactive Protein (<10.0) mg/L 10/20/20 10/20/20 Range/Units 11:59 11:59 Hct (34.0-46.0) % MCV (80.0-100.0) fL MCHC (31.0-37.0) g/dL Lymphocytes # (1.0-4.8) k/uL APTT (22.0-30.0) sec D-Dimer 0.62 H (<0.60) mg/L FEU ABG pH (7.35-7.45) ABG pCO2 (35-45) mmHg ABG pO2 (83-108) mmHg ABG HCO3 (21-25) mmol/L ABG Total CO2 (19-24) mmol/L ABG O2 Saturation (94-97) % VBG pH (7.31-7.41) VBG pCO2 (37-51) mmHg VBG HCO3 (24-28) mmol/L Chloride (98-107) mmol/L Carbon Dioxide (22-30) mmol/L BUN (7-17) mg/dL Glucose (74-99) mg/dL POC Glucose (mg/dL) (75-99) mg/dL AST (14-36) U/L ALT (4-34) U/L Lactate Dehydrogenase 1444 H (313-618) U/L Troponin I (0.000-0.034) ng/mL C-Reactive Protein 67.1 H (<10.0) mg/L Microbiology - Last 24 Hours (Table) 10/20/20 05:00 Sputum Culture - Preliminary Sputum Thrombosis Risk Factor Assmnt - Choose All That Apply Each Factor Represents 1 point: Age 41-60 years, Obesity (BMI >25) Thrombosis Risk Factor Assessment Total Risk Factor Score: 2 Thrombosis Risk Factor Assessment Level: Low Risk Assessment and Plan Assessment: Acute on chronic hypoxic and hypercapnic respiratory failure, secondary to recent covid-Pneumonia hospitalization 10/16/20 through 10/19/2020 and acute COPD exacerbation, acute diastolic CHF exacerbation. Patient was discharged yesterday, proceeded home and apparently did not use CPAP, arrived back in the ER with A. fib with RVR, requiring intubation. Mechanical ventilator dependent. Paroxysmal A. fib with RVR, suspect possibly chronic secondary to the above, status post Cardizem drip, Converted to sinus rhythm Hypotension, on pressor support Chronic diastolic CHF, NYHA class III, EF 50-55 % Obstructive sleep apnea on CPAP, noncompliant Diabetes mellitus type 2 hypothyroidism hypertension ongoing nicotine dependence. morbid obesity, BMI 62.3 Plan: Continue on current medication regime ,monitoring and symptomatic treatment. ICU management as per therapist radiation/ FIO2 weaning in progress/ Arelis nuing diuretics, nebulized bronchodilators, IV steroids, NovoLog sliding scale. GI and DVT prophylaxis in place with Lovenox. Sputum culture pending. The impression and plan of care has been dictated as directed. : I performed a history and examination of this patient, discussed the same with the dictator. I agree with the dictator's note ,documented as a scribe. Any additional findings or plans will be noted.
[2020-10-20] MEDS: FLUTICASONE 220 MCG INHALER INHALATION SCH ×2 (15:54→20:06)
--- NOTE | 2020-10-20 16:08 | P.PCN ---
Date of Procedure: 10/20/20 Preoperative Diagnosis: acute hypoxic/hypercapnic respiratory failure/obesity hypoventilation syndrome Postoperative Diagnosis: acute hypoxic/hypercapnic respiratory failure/obesity hypoventilation syndrome Procedure(s) Performed: Insertion of a central line, insertion of an arterial line Anesthesia: local Surgeon: Rasheed Tolentino Pathology: none sent Condition: critical Disposition: ICU Operative Findings: Indication: Hemodynamic monitoring/Intravenous access. A time-out was completed verifying correct patient, procedure, site, positioning, and implant(s) or special equipment if applicable. The patient was placed in a dependent position appropriate for central line placement based on the vein to be cannulated. The patients right groin was prepped and draped in sterile fashion. 1% Lidocaine was used to anesthetize the surrounding skin area. A triple lumen 9F Cordis catheter was introduced into the right common femoral vein using Seldinger technique. The catheter was threaded smoothly over the guide wire and appropriate blood return was obtained. Each lumen of the catheter was evacuated of air and flushed with sterile saline. The catheter was then sutured in place to the skin and a sterile dressing applied. Perfusion to the extremity distal to the point of catheter i nsertion was checked and found to be adequate. The patient tolerated the procedure well and there were no complications. Indication: Hemodynamic monitoring. A time-out was completed verifying correct patient, procedure, site, positioning, and implant(s) or special equipment if applicable. Allens test was performed to ensure adequate perfusion. The patients left wrist was prepped and draped in sterile fashion. 1% Lidocaine was used to anesthetize the area. An 18G Arrow arterial line was introduced into the left radial artery. The catheter was threaded over the guide wire and the needle was removed with appropriate pulsatile blood return. Blood loss was minimal. The catheter was then sutured in place to the skin and a sterile dressing applied. Perfusion to the extremity distal to the point of catheter insertion was checked and found to be adequate. The patient tolerated the procedure well and there were no complications.
[2020-10-20 18:04] LABS: ABG Base Excess 25.5 mmol/L; ABG Oxygen Saturation 95.3 % (94-97); ABG PCO2 70 mmHg (35-45); ABG PH 7.46 (7.35-7.45); ABG PO2 67 mmHg (83-108); ABG TCO2 52 mmol/L (19-24); Allen Test Performed? Yes
[2020-10-20 18:08] LABS: ABG HCO3 49 mmol/L (21-25)
[2020-10-20 18:55] LABS: Glucose,Whole Blood 175 mg/dL (75-99)
[2020-10-20] MEDS: INSULIN ASPART (NovoLOG) 100 UNIT/ML VIAL SQ SCH (19:16)
[2020-10-20] MEDS ORDERED: FORMOTEROL FUMARATE 20 MCG/2 ML NEBU INHALATION SCH (20:00)
[2020-10-20] MEDS ORDERED: BUDESONIDE 1 MG/2 ML NEBU INHALATION SCH (20:00)
[2020-10-20] MEDS: ATORVASTATIN 20 MG TAB PO SCH (20:59)
[2020-10-21] MEDS ORDERED: methylPREDNISolone SOD SUCCI 125 MG/2 ML VIAL ONE (00:05)
[2020-10-21 05:37] LABS: Glucose,Whole Blood 215 mg/dL (75-99)
[2020-10-21 05:52] LABS: Glucose,Whole Blood 218 mg/dL (75-99)
[2020-10-21 06:05] LABS: Basophils % (A) 0 %; Eosinophils % (A) 0 %; HCT 41.3 % (34.0-46.0); HGB 12.8 gm/dL (11.4-16.0); Hypochromasia Slight; Lymphocytes # (A) 0.6 k/uL (1.0-4.8); Lymphocytes % (A) 10 %; MCH 32.6 pg (25.0-35.0); MCHC 31.1 g/dL (31.0-37.0); MCV 104.7 fL (80.0-100.0); Macrocytosis Moderate; Mean Platelet Volume 8.2; Monocytes # (A) 0.2 k/uL (0-1.0); Monocytes % (A) 3 %; Neutrophils # (A) 4.8 k/uL (1.3-7.7); Neutrophils % (A) 86 %; Platelet Count 154 k/uL (150-450); RBC 3.94 m/uL (3.80-5.40); RDW 14.3 % (11.5-15.5); WBC 5.6 k/uL (3.8-10.6)
[2020-10-21 06:12] LABS: ABG PH 7.45 (7.35-7.45); Allen Test Performed? Yes
[2020-10-21 06:13] LABS: ABG Base Excess 25.3 mmol/L; ABG HCO3 49 mmol/L (21-25); ABG PCO2 71 mmHg (35-45); ABG PO2 67 mmHg (83-108); ABG TCO2 52 mmol/L (19-24)
[2020-10-21] MEDS: INSULIN ASPART (NovoLOG) 100 UNIT/ML VIAL SQ SCH ×4 (06:31→18:18)
[2020-10-21] MEDS: NOREPINEPHRINE 4 MG in SODIUM CHLORIDE 0.9% 250 ML IV SCH ×3 (06:32→21:17)
[2020-10-21] MEDS: methylPREDNISolone SOD SUCCI 125 MG/2 ML VIAL IV SCH ×4 (06:32→18:18)
[2020-10-21] MEDS: DILTIAZEM 125 MG in SODIUM CHLORIDE 0.9% 100 ML IV SCH (06:32)
[2020-10-21] MEDS: LEVOTHYROXINE 75 MCG TAB PO SCH (06:38)
--- NOTE | 2020-10-21 07:14 | P.PN ---
Subjective Progress Note Date: 10/21/20 55-year-old female patient who was recently hospitalized from [facility] 10/19/2020 for COVID 19 pneumonia, acute exacerbation of COPD and CHF diastolic dysfunction. Patient has history of advanced COPD, she is on home oxygen usually wears 5 L/m on a regular basis, has a obstructive sleep apnea and reportedly has a Trilogy device at home. Patient recently moved from [place], was hospitalized in the beginning of September for acute exacerbation of COPD and diastolic CHF. She was out of the window for Remdesivir, she was treated with standard care including IV steroids, diuretics, breathing treatments and prophylactic anticoagulation. The medical history includes hypothyroidism, hyperlipidemia, diabetes mellitus type 2, morbid obesity, chronic and ongoing history of tobacco use. On 10/20/2020 patient was brought into the emergency department per EMS with difficulty breathing and chest discomfort. CXR showed mild cardiomegaly with mildly increased perihilar edema and infiltrates increased compared to be enlarged exam, HEENT showed sinus rhythm with PACs. Her blood gases in the emergency department showed pO2 of 49, pCO2 of 120, and pH of 7.2, patient had decreased consciousness and was in significant amount of respiratory distress, and she was emergently intubated and placed on mechanical ventilator. Repeat blood gases showed improvement in acute on chronic hypercapnic and hypoxic respiratory failure, with improvement of pO2 up to 134, pCO2 of 93, and pH of 7.33. She was also noted to be in new onset A. fib with RVR, and required Cardizem drip for brief amount of time and she is back in sinus currently. Patient was started on IV steroids, Lasix, breathing treatments. Lab work has been reviewed, showing no evidence of leukocytosis white blood cell, 7.3, with a hemoglobin of 15, proBNP of 1240, is 0.021, second troponin was 0.052. Lactic acid was within normal limits, patient has been afebrile since arrival to the emergency department, hemodynamically stable, this morning she seen in the emergency department, she remains sedated and on nm chanical ventilator, on assist-control mode of ventilation with a rate of 30, tidal lungs 400, FiO2 of 80% and PEEP of 5, this morning's blood gases show improvement in pO2 and pCO2 concentrations and improvements in the acid base balance with pH up to 7.33 as mentioned above. On 10/21/2020, the patient is being seen for a follow-up. The patient remains intubated on a mechanical ventilator. This morning the patient is on propofol which is running at 60 mcg/kg per minute and the patient is well sedated for now and very much interested a mechanical ventilator. She is an assist-control mode at the rate of 24 with a tidal volume of 350 and FiO2 of 60% with a PEEP of 10. The morning blood gases showed a pH of 7.45 with a pCO2 of 71 and pO2 of 66. Peak airway pressure was around 42 and static airway pressure was 27-28. The chest x-ray is showing adequate expansion of both lungs. There is cardiomegaly. There is some mild interstitial prominence with questionable consolidation of the right lower lobe. ET tube is at the level of the aortic knob and the OG tube is in good location. She does remain bronchospastic and wheezy. Note that her blood pressure has stabilized. She was given a bolus of fluid with a liter of normal saline. No pressors was utilized. Diuretics were placed on hold. Her white second dose of 5.6 with a hemoglobin of 12.8. Rest of the electrolytes are still pending from this morning. Meanwhile, the patient is on bronchodilators with albuterol 2 puffs, and she is also on IV Solu Medrol 60 mg every 6 hours. In terms of her cardiac rhythm, the patient is back into normal sinus rhythm. Cardizem drip was weaned off it was discontinued yesterday and the patient is hemodynamically stable at this point in time. The fluid balance is in the order of +1.3 L since yesterday. No other significant events overnight. Enteral feeding has been started at 80 mL an hour of vital high protein.. Abdomen is soft. No significant edema in her extremities. No other significant events otherwise for now. Objective - Vital Signs Vital signs: Vital Signs Temp 97.6 F 10/21/20 00:00 Pulse 57 L 10/21/20 03:00 Resp 24 10/21/20 03:00 BP 99/73 10/20/20 08:39 Pulse Ox 92 L 10/21/20 03:00 Intake & Output 10/20/20 10/21/20 10/21/20 18:59 06:59 18:59 Intake Total 1595.418 376 23 Output Total 255 365 15 Balance 1340.418 11 8 Weight 163.248 kg 145 kg Intake: IV 1204 276 23 0.9 Flush 24 36 3 0.9 Na Bolus 1000 Sodium Chloride 0.9% 1, 180 240 20 000 ml @ 20 mls/hr IV . Q24H ONIEL Rx#:[id number] Intake, IV Titration 391.418 100 Amount propofoL 1,000 mg In 391.418 100 Empty Bag 1 bag @ Titrate IV .Q0M ONIEL Rx#: [id number] Output: Urine 255 365 15 Other: Voiding Method Indwelling Catheter Indwelling Catheter # Bowel Movements 1 ABP, PAP, CO, CI - Last Documented Arterial Blood Pressure 98/58 - Exam GENERAL EXAM: Obese 55-year-old white female, on assist-control mode of ventilation FiO2 of 60% and PEEP of 10, comfortable in no apparent distress. HEAD: Normocephalic/atraumatic. EYES: Normal reaction of pupils, equal size. Conjunctiva pink, sclera white. NOSE: Clear with pink turbinates. THROAT: No erythema or exudates. NECK: No masses, no JVD, no thyroid enlargement, no adenopathy. CHEST: No chest wall deformity. Symmetrical expansion. LUNGS: Equal air entry with no crackles, wheeze, rhonchi or dullness. CVS: Regular rate and rhythm, normal S1 and S2, no gallops, no murmurs, no rubs ABDOMEN: Soft, nontender. No hepatosplenomegaly, normal bowel sounds, no guarding or rigidity. EXTREMITIES: No clubbing, no edema, no cyanosis, 2+ pulses and upper and lower extremities. MUSCULOSKELETAL: Muscle strength and tone normal. SPINE: No scoliosis or deformity SKIN: No rashes CENTRAL NERVOUS SYSTEM: Sedated, intubated. No focal deficits, tone is normal in all 4 extremities. - Labs CBC & Chem 7: 10/21/20 04:47 10/19/20 23:36 Labs: Abnormal Lab Results - Last 24 Hours (Table) 10/20/20 10/20/20 10/20/20 Range/Units 07:30 09:03 09:53 MCV (80.0-100.0) fL Lymphocytes # (1.0-4.8) k/uL D-Dimer (<0.60) mg/L FEU ABG pH (7.35-7.45) ABG pCO2 72 H* (35-45) mmHg ABG pO2 64 L (83-108) mmHg ABG HCO3 49 H* (21-25) mmol/L ABG Total CO2 51 H (19-24) mmol/L POC Glucose (mg/dL) 230 H (75-99) mg/dL Lactate Dehydrogenase (313-618) U/L Troponin I 0.079 H* (0.000-0.034) ng/mL C-Reactive Protein (<10.0) mg/L Procalcitonin (0.02-0.09) ng/mL 10/20/20 10/20/20 10/20/20 Range/Units 10:42 11:50 11:59 MCV (80.0-100.0) fL Lymphocytes # (1.0-4.8) k/uL D-Dimer 0.62 H (<0.60) mg/L FEU ABG pH (7.35-7.45) ABG pCO2 (35-45) mmHg ABG pO2 (83-108) mmHg ABG HCO3 (21-25) mmol/L ABG Total CO2 (19-24) mmol/L POC Glucose (mg/dL) 243 H 266 H (75-99) mg/dL Lactate Dehydrogenase (313-618) U/L Troponin I (0.000-0.034) ng/mL C-Reactive Protein (<10.0) mg/L Procalcitonin (0.02-0.09) ng/mL 10/20/20 10/20/20 10/20/20 Range/Units 11:59 11:59 17:57 MCV (80.0-100.0) fL Lymphocytes # (1.0-4.8) k/uL D-Dimer (<0.60) mg/L FEU ABG pH 7.46 H (7.35-7.45) ABG pCO2 70 H (35-45) mmHg ABG pO2 67 L (83-108) mmHg ABG HCO3 49 H* (21-25) mmol/L ABG Total CO2 52 H (19-24) mmol/L POC Glucose (mg/dL) (75-99) mg/dL Lactate Dehydrogenase 1444 H (313-618) U/L Troponin I (0.000-0.034) ng/mL C-Reactive Protein 67.1 H (<10.0) mg/L Procalcitonin 0.21 H (0.02-0.09) ng/mL 10/20/20 10/20/20 10/21/20 Range/Units 18:54 23:46 04:47 MCV 104.7 H (80.0-100.0) fL Lymphocytes # 0.6 L (1.0-4.8) k/uL D-Dimer (<0.60) mg/L FEU ABG pH (7.35-7.45) ABG pCO2 (35-45) mmHg ABG pO2 (83-108) mmHg ABG HCO3 (21-25) mmol/L ABG Total CO2 (19-24) mmol/L POC Glucose (mg/dL) 175 H 215 H (75-99) mg/dL Lactate Dehydrogenase (313-618) U/L Troponin I (0.000-0.034) ng/mL C-Reactive Protein (<10.0) mg/L Procalcitonin (0.02-0.09) ng/mL 10/21/20 10/21/20 Range/Units 05:51 05:52 MCV (80.0-100.0) fL Lymphocytes # (1.0-4.8) k/uL D-Dimer (<0.60) mg/L FEU ABG pH (7.35-7.45) ABG pCO2 71 H* (35-45) mmHg ABG pO2 67 L (83-108) mmHg ABG HCO3 49 H* (21-25) mmol/L ABG Total CO2 52 H (19-24) mmol/L POC Glucose (mg/dL) 218 H (75-99) mg/dL Lactate Dehydrogenase (313-618) U/L Troponin I (0.000-0.034) ng/mL C-Reactive Protein (<10.0) mg/L Procalcitonin (0.02-0.09) ng/mL Microbiology - Last 24 Hours (Table) 10/20/20 05:00 Gram Stain - Preliminary Sputum Sputum Culture - Preliminary Assessment and Plan Plan: #1. Acute on chronic hypoxic and hypercapnic respiratory failure related to acute exacerbation of COPD, diastolic CHF and possibly a new onset atrial f ibrillation with rapid ventricular response. The patient remains intubated on a mechanical ventilator. The predominant factor for now contributing to her respiratory failure is COPD exacerbation as the patient remains quite bronchospastic and wheezy with elevated peak airway pressures. She is still somewhat hypoxic on today's blood gas. Acid base status is improved considerably. The patient does have some underlying interstitial infiltrates related to a Covid 19 related pneumonia for which she was hospitalized earlier. #2. New onset of A. fib with RVR, patient was briefly on Cardizem drip back in sinus right now #3. Hospitalization for COVID 19 pneumonia, from 10/16 through 10/19/2020 LDH is 1444 and the CRP 67. The patient is afebrile. #4. COPD with chronic hypoxic and hypercapnic respiratory failure, patient usually wears 5 L of oxygen at home on a regular basis, and reportedly has a Trilogy device at home #5. Chronic diastolic CHF, echocardiogram showed EF of 50-55%, valves could not be visualized related to body habitus #6. Obesity #7. Chronic and ongoing history of smoking #8. Obstructive sleep apnea and patient has a Trilogy device at home, but compliance is not known at this time Plan: Continue ventilator support Drop the PEEP down to 8 Drop the FiO2 down to 50% Continue IV Solu-Medrol 60 mg every 6 hours No need for diuretics for now Cardiac rhythm is back to sinus Continue enteral feeding for nutritional support Pro-calcitonin level is still pending for now Continue supportive care. Not ready for extubation yet. We'll give her another 24 hours. Would like to see improvement in airway pressures and in oxygenation prior to being considered for weaning. condition is critical. We'll continue to follow. We'll make further recommendations based on her progress. Triple-lumen catheter was inserted. No need for pressors at this point in time. critically care evaluation that was done and more than 30 minutes. Time with Patient: Greater than 30
[2020-10-21 07:37] LABS: Albumin 2.6 g/dL (3.5-5.0); Calcium 7.6 mg/dL (8.4-10.2); Potassium 3.9 mmol/L (3.5-5.1); Total Bilirubin 0.5 mg/dL (0.2-1.3); Total Protein 5.1 g/dL (6.3-8.2)
[2020-10-21] MEDS: FLUTICASONE 220 MCG INHALER INHALATION SCH ×2 (07:59→19:11)
[2020-10-21] MEDS: ALBUTEROL HFA INHALER INHALATION SCH ×5 (07:59→23:49)
[2020-10-21 08:18] LABS: C Reactive Protein 64.1 mg/L (<10.0)
[2020-10-21] MEDS: GABAPENTIN 300 MG CAP PO SCH ×2 (08:54→21:19)
[2020-10-21] MEDS: LOSARTAN 25 MG TAB PO SCH (08:54)
[2020-10-21] MEDS: CHOLECALCIFEROL 25 MCG (1000 IU) TABLET PO SCH (08:54)
[2020-10-21] MEDS: PANTOPRAZOLE 40 MG/10 ML VIAL IVP SCH (08:54)
[2020-10-21] MEDS: MAGNESIUM OXIDE 400 MG TAB PO SCH (08:54)
[2020-10-21] MEDS ORDERED: ASPIRIN 325 MG TAB PO SCH (09:00)
[2020-10-21] MEDS ORDERED: FUROSEMIDE 10 MG/ML 4 ML VIAL IV SCH (09:00)
[2020-10-21] MEDS ORDERED: ENOXAPARIN 40 MG/0.4 ML SYRINGE SQ SCH (09:00)
--- NOTE | 2020-10-21 09:34 | XR ---
EXAMINATION TYPE: XR chest 1V portable DATE OF EXAM: 10/21/2020 COMPARISON: Chest x-ray 10/20/2020 HISTORY: Intubated TECHNIQUE: Single frontal view of the chest is obtained. FINDINGS: Endotracheal tube and NG tube are overlying appropriate positions, distal tip the NG tube not included on the exam. Patient is rotated. There is no evident pneumothorax or pleural effusion. C ardiac mediastinal silhouette likely stable. Left hemidiaphragm is secured. There are overlying artif acts. IMPRESSION: Correlate for pneumonia, edema with congestive heart failure
[2020-10-21] MEDS ORDERED: Potassium Replacement Protocol 1 EACH MISC MISCELLANE PRN (10:10)
[2020-10-21] MEDS: SODIUM CHLORIDE 0.9% 1,000 ML IV SCH (10:56)
[2020-10-21] MEDS ORDERED: POTASSIUM BICARBONATE/CIT AC 20 MEQ TABLET.EFF NG-TUBE ONE (11:00)
[2020-10-21 11:17] LABS: Glucose,Whole Blood 182 mg/dL (75-99)
[2020-10-21] MEDS ORDERED: APIXABAN 5 MG TAB PO SCH (12:15)
--- NOTE | 2020-10-21 12:31 | P.PN ---
Subjective Progress Note Date: 10/21/20 CHIEF COMPLAINT: New-onset atrial fibrillation HISTORY OF PRESENT ILLNESS: 10/20/2020 This is a 55-year-old female with a past medical history significant for COPD with home oxygen, diabetes mellitus, congestive heart failure, sleep apnea, thyroid disorder, and nicotine dependence. 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 It is noted that the patient was recently hospitalized in September due to COPD and CHF. We have been asked to see the patient in consultation for new onset atrial fibrillation. Patient presented to the emergency room due to shortness of breath. In the emergency room the patient developed increasing respiratory distress and was intubated. Patient is positive for Covid 19 (tested on 10/16/2020). Patient was in sinus mechanism upon presentation to the ER. She developed atrial fibrillation and was on a Cardizem drip for a short period of time. She has since converted back to sinus mechanism. Patient is currently receiving Lovenox 150 mg every 12 hours EKG reveals sinus mechanism with PVCs Chest xray perihilar pulmonary infiltrates. Probably some basilar atelectasis. Laboratory data: WBC 7.3. Hemoglobin 15.0. Platelet count 180. Sodium 142. Potassium 4.2. BUN 39. Creatinine 0.80. Lactic acid 1.5. AST 42. ALT 65. BNP 1240. Troponin 0.021. 0.052. 0.079. Current home cardiac medications include losartan 12.5 mg daily, Lasix 40 mg daily, Lipitor 20 mg daily Echocardiogram completed on 10/04/2020 revealed ejection fraction 50-55% 10/21/2020 Patient is maintaining sinus mechanism on telemetry. Heart rate in the 70s. Patient was receiving Lovenox 150 mg twice a day but her dose was decreased down to 40 mg daily today by pulmonary. She remains on mechanical ventilation. FiO2 50%. Blood pressure 120/63. PHYSICAL EXAM: Thorough physical exam not completed secondary to limited evaluation/examination and due to Covid19 ASSESSMENT: Acute on chronic hypoxic and hypercapnic respiratory failure requiring mechanical ventilation Covid 19 New onset paroxysmal atrial fibrillation with RVR, currently maintaining sinus mechanism Chronic diastolic congestive heart failure, EF 50-55% Hypertension Hyperlipidemia Obstructive sleep apnea Nicotine dependence PLAN: Continue ICU management per Dr. Tolentino Continue telemetry monitoring Begin metoprolol 12.5 mg twice a day Due to combination of paroxysmal atrial fibrillation and Covid, recommend anticoagulation for 2-3 months duration. Begin Eliquis 5 mg twice a day. Discontinue Lovenox Further recommendations pending patient course Nurse practitioner note has been reviewed by physician. Signing provider agrees with the documented findings, assessment, and plan of care. Objective - Vital Signs Vital signs: Vital Signs Temp 97.4 F L 10/21/20 08:00 Pulse 70 10/21/20 10:00 Resp 18 10/21/20 10:00 BP 99/73 10/20/20 08:39 Pulse Ox 91 L 10/21/20 10:00 Intake & Output 10/20/20 10/21/20 10/21/20 18:59 06:59 18:59 Intake Total 1595.418 376 432 Output Total 255 365 240 Balance 1340.418 11 192 Weight 163.248 kg 145 kg 145 kg Intake: IV 1204 276 92 0.9 Flush 24 36 12 0.9 Na Bolus 1000 Sodium Chloride 0.9% 1, 180 240 80 000 ml @ 20 mls/hr IV . Q24H ONI[facility] Rx#:[id number] Intake, IV Titration 391.418 100 200 Amount propofoL 1,000 mg In 391.418 100 200 Empty Bag 1 bag @ Titrate IV .Q0M ONIEL Rx#: [id number] Tube Feeding 60 Other 80 Output: Urine 255 365 240 Other: Voiding Method Indwelling Catheter Indwelling Catheter Indwelling Catheter # Bowel Movements 1 1 ABP, PAP, CO, CI - Last Documented Arterial Blood Pressure 140/70 - Labs CBC & Chem 7: 10/21/20 04:47 10/21/20 04:47 Labs: Abnormal Lab Results - Last 24 Hours (Table) 10/20/20 10/20/20 10/20/20 Range/Units 11:59 11:59 11:59 MCV (80.0-100.0) fL Lymphocytes # (1.0-4.8) k/uL D-Dimer 0.62 H (<0.60) mg/L FEU ABG pH (7.35-7.45) ABG pCO2 (35-45) mmHg ABG pO2 (83-108) mmHg ABG HCO3 (21-25) mmol/L ABG Total CO2 (19-24) mmol/L Chloride (98-107) mmol/L Carbon Dioxide (22-30) mmol/L BUN (7-17) mg/dL Creatinine (0.52-1.04) mg/dL Glucose (74-99) mg/dL POC Glucose (mg/dL) (75-99) mg/dL Calcium (8.4-10.2) mg/dL AST (14-36) U/L ALT (4-34) U/L Lactate Dehydrogenase 1444 H (313-618) U/L C-Reactive Protein 67.1 H (<10.0) mg/L Total Protein (6.3-8.2) g/dL Albumin (3.5-5.0) g/dL Triglycerides (<150) mg/dL HDL Cholesterol (40-60) mg/dL Procalcitonin 0.21 H (0.02-0.09) ng/mL 10/20/20 10/20/20 10/20/20 Range/Units 17:57 18:54 23:46 MCV (80.0-100.0) fL Lymphocytes # (1.0-4.8) k/uL D-Dimer (<0.60) mg/L FEU ABG pH 7.46 H (7.35-7.45) ABG pCO2 70 H (35-45) mmHg ABG pO2 67 L (83-108) mmHg ABG HCO3 49 H* (21-25) mmol/L ABG Total CO2 52 H (19-24) mmol/L Chloride (98-107) mmol/L Carbon Dioxide (22-30) mmol/L BUN (7-17) mg/dL Creatinine (0.52-1.04) mg/dL Glucose (74-99) mg/dL POC Glucose (mg/dL) 175 H 215 H (75-99) mg/dL Calcium (8.4-10.2) mg/dL AST (14-36) U/L ALT (4-34) U/L Lactate Dehydrogenase (313-618) U/L C-Reactive Protein (<10.0) mg/L Total Protein (6.3-8.2) g/dL Albumin (3.5-5.0) g/dL Triglycerides (<150) mg/dL HDL Cholesterol (40-60) mg/dL Procalcitonin (0.02-0.09) ng/mL 03/10/21/20 10/21/20 Range/Units 04:47 04:47 05:51 MCV 104.7 H (80.0-100.0) fL Lymphocytes # 0.6 L (1.0-4.8) k/uL D-Dimer (<0.60) mg/L FEU ABG pH (7.35-7.45) ABG pCO2 (35-45) mmHg ABG pO2 (83-108) mmHg ABG HCO3 (21-25) mmol/L ABG Total CO2 (19-24) mmol/L Chloride 92 L (98-107) mmol/L Carbon Dioxide 44 H* (22-30) mmol/L BUN 48 H (7-17) mg/dL Creatinine 1.06 H (0.52-1.04) mg/dL Glucose 221 H (74-99) mg/dL POC Glucose (mg/dL) 218 H (75-99) mg/dL Calcium 7.6 L (8.4-10.2) mg/dL AST 83 H (14-36) U/L ALT 52 H (4-34) U/L Lactate Dehydrogenase 1023 H (313-618) U/L C-Reactive Protein 64.1 H (<10.0) mg/L Total Protein 5.1 L (6.3-8.2) g/dL Albumin 2.6 L (3.5-5.0) g/dL Triglycerides 608 H (<150) mg/dL HDL Cholesterol 28 L (40-60) mg/dL Procalcitonin (0.02-0.09) ng/mL 10/21/20 10/21/20 Range/Units 05:52 11:15 MCV (80.0-100.0) fL Lymphocytes # (1.0-4.8) k/uL D-Dimer (<0.60) mg/L FEU ABG pH (7.35-7.45) ABG pCO2 71 H* (35-45) mmHg ABG pO2 67 L (83-108) mmHg ABG HCO3 49 H* (21-25) mmol/L ABG Total CO2 52 H (19-24) mmol/L Chloride (98-107) mmol/L Carbon Dioxide (22-30) mmol/L BUN (7-17) mg/dL Creatinine (0.52-1.04) mg/dL Glucose (74-99) mg/dL POC Glucose (mg/dL) 182 H (75-99) mg/dL Calcium (8.4-10.2) mg/dL AST (14-36) U/L ALT (4-34) U/L Lactate Dehydrogenase (313-618) U/L C-Reactive Protein (<10.0) mg/L Total Protein (6.3-8.2) g/dL Albumin (3.5-5.0) g/dL Triglycerides (<150) mg/dL HDL Cholesterol (40-60) mg/dL Procalcitonin (0.02-0.09) ng/mL Microbiology - Last 24 Hours (Table) 10/20/20 05:00 Gram Stain - Preliminary Sputum Sputum Culture - Preliminary
--- NOTE | 2020-10-21 14:15 | P.PN ---
Subjective Progress Note Date: 10/21/20 This is a 55-year-old morbidly obese female discharged yesterday. Patient had been hospitalized 10/16/20- 10/19/20 with COvid- 19 pneumonia , possible acute COPD exacerbation with chronic hypoxic/hypercapnic respiratory failure and multiple other medical issues. Patient had been maintained on COVID regimen, but was beyond the window for Remdesevir. Patient was maintaining O2 sats in the 90s on 4-5 L, baseline and discharged home. Apparently patient failed to use her CPAP last night and returned to the ER with A. fib RVR (initial EKG unavailable), severely hypoxic requiring intubation, placed on Cardizem drip. CXR reported perihilar pulmonary infiltrates, some basilar atelectasis with no change compared to prior exam . ABGs noted. Afebrile, normal lactic acid, normal WBC. Hemoglobin 15, platelets 180, d-dimer 0.62. Sodium 142, potassium 4.2, carbon dioxide 56, BUN 39, creatinine 0.8 glucose 199 magnesium 1.8, total bili 0.5, mildly elevated AST ALT 42, 65 LDH 1444. Troponin 0.021, 0.052, 0.079, CRP 67.1, BNP 1240. EKG for sinus rhythm with premature supraventricular complexes with occasional PVCs. 10/21/2020 remains vent dependent, FiO2 50%/+8 of PEEP, elevated airway pressures. Chest x-ray noted. Sedated on diprovan. Remains off of Levophed. Cardizem drip weaned off yesterday, telemetry sinus rhythm. Objective - Vital Signs Vital signs: Vital Signs Temp 97.4 F L 10/21/20 08:00 Pulse 70 10/21/20 10:00 Resp 18 10/21/20 10:00 BP 99/73 10/20/20 08:39 Pulse Ox 91 L 10/21/20 10:00 Intake & Output 10/20/20 10/21/20 10/21/20 18:59 06:59 18:59 Intake Total 1595.418 376 432 Output Total 255 365 240 Balance 1340.418 11 192 Weight 163.248 kg 145 kg 145 kg Intake: IV 1204 276 92 0.9 Flush 24 36 12 0.9 Na Bolus 1000 Sodium Chloride 0.9% 1, 180 240 80 000 ml @ 20 mls/hr IV . Q24H [facility] Rx#:[id number] Intake, IV Titration 391.418 100 200 Amount propofoL 1,000 mg In 391.418 100 200 Empty Bag 1 bag @ Titrate IV .Q0M [facility] Rx#: [id number] Tube Feeding 60 Other 80 Output: Urine 255 365 240 Other: Voiding Method Indwelling Catheter Indwelling Catheter Indwelling Catheter # Bowel Movements 1 1 ABP, PAP, CO, CI - Last Documented Arterial Blood Pressure 140/70 - Exam - Exam PHYSICAL EXAM: Limited secondary to COVID-19 VITAL SIGNS: As above GENERAL: Sedated and on mechanical ventilation, no acute distress HEENT: Intubated. CARDIOVASCULAR: Telemetry sinus rhythm RESPIRATION: Intubated, FiO2 50%/+ 8 peep NERVOUS SYSTEM: Unable to assess, patient intubated and sedated. Microbiology 10/20/20 05:00 Sputum Gram Stain - Preliminary 10/20/20 05:00 Sputum Sputum Culture - Preliminary - Labs CBC & Chem 7: 10/21/20 04:47 10/21/20 04:47 Labs: Abnormal Lab Results - Last 24 Hours (Table) 10/20/20 10/20/20 10/20/20 Range/Units 11:50 11:59 11:59 MCV (80.0-100.0) fL Lymphocytes # (1.0-4.8) k/uL D-Dimer 0.62 H (<0.60) mg/L FEU ABG pH (7.35-7.45) ABG pCO2 (35-45) mmHg ABG pO2 (83-108) mmHg ABG HCO3 (21-25) mmol/L ABG Total CO2 (19-24) mmol/L Chloride (98-107) mmol/L Carbon Dioxide (22-30) mmol/L BUN (7-17) mg/dL Creatinine (0.52-1.04) mg/dL Glucose (74-99) mg/dL POC Glucose (mg/dL) 266 H (75-99) mg/dL Calcium (8.4-10.2) mg/dL AST (14-36) U/L ALT (4-34) U/L Lactate Dehydrogenase 1444 H (313-618) U/L C-Reactive Protein 67.1 H (<10.0) mg/L Total Protein (6.3-8.2) g/dL Albumin (3.5-5.0) g/dL Triglycerides (<150) mg/dL HDL Cholesterol (40-60) mg/dL Procalcitonin (0.02-0.09) ng/mL 10/20/20 10/20/20 10/20/20 Range/Units 11:59 17:57 18:54 MCV (80.0-100.0) fL Lymphocytes # (1.0-4.8) k/uL D-Dimer (<0.60) mg/L FEU ABG pH 7.46 H (7.35-7.45) ABG pCO2 70 H (35-45) mmHg ABG pO2 67 L (83-108) mmHg ABG HCO3 49 H* (21-25) mmol/L ABG Total CO2 52 H (19-24) mmol/L Chloride (98-107) mmol/L Carbon Dioxide (22-30) mmol/L BUN (7-17) mg/dL Creatinine (0.52-1.04) mg/dL Glucose (74-99) mg/dL POC Glucose (mg/dL) 175 H (75-99) mg/dL Calcium (8.4-10.2) mg/dL AST (14-36) U/L ALT (4-34) U/L Lactate Dehydrogenase (313-618) U/L C-Reactive Protein (<10.0) mg/L Total Protein (6.3-8.2) g/dL Albumin (3.5-5.0) g/dL Triglycerides (<150) mg/dL HDL Cholesterol (40-60) mg/dL Procalcitonin 0.21 H (0.02-0.09) ng/mL 10/20/20 10/21/20 10/21/20 Range/Units 23:46 04:47 04:47 MCV 104.7 H (80.0-100.0) fL Lymphocytes # 0.6 L (1.0-4.8) k/uL D-Dimer (<0.60) mg/L FEU ABG pH (7.35-7.45) ABG pCO2 (35-45) mmHg ABG pO2 (83-108) mmHg ABG HCO3 (21-25) mmol/L ABG Total CO2 (19-24) mmol/L Chloride 92 L (98-107) mmol/L Carbon Dioxide 44 H* (22-30) mmol/L BUN 48 H (7-17) mg/dL Creatinine 1.06 H (0.52-1.04) mg/dL Glucose 221 H (74-99) mg/dL POC Glucose (mg/dL) 215 H (75-99) mg/dL Calcium 7.6 L (8.4-10.2) mg/dL AST 83 H (14-36) U/L ALT 52 H (4-34) U/L Lactate Dehydrogenase 1023 H (313-618) U/L C-Reactive Protein 64.1 H (<10.0) mg/L Total Protein 5.1 L (6.3-8.2) g/dL Albumin 2.6 L (3.5-5.0) g/dL Triglycerides 608 H (<150) mg/dL HDL Cholesterol 28 L (40-60) mg/dL Procalcitonin (0.02-0.09) ng/mL 10/21/20 10/21/20 10/21/20 Range/Units 05:51 05:52 11:15 MCV (80.0-100.0) fL Lymphocytes # (1.0-4.8) k/uL D-Dimer (<0.60) mg/L FEU ABG pH (7.35-7.45) ABG pCO2 71 H* (35-45) mmHg ABG pO2 67 L (83-108) mmHg ABG HCO3 49 H* (21-25) mmol/L ABG Total CO2 52 H (19-24) mmol/L Chloride (98-107) mmol/L Carbon Dioxide (22-30) mmol/L BUN (7-17) mg/dL Creatinine (0.52-1.04) mg/dL Glucose (74-99) mg/dL POC Glucose (mg/dL) 218 H 182 H (75-99) mg/dL Calcium (8.4-10.2) mg/dL AST (14-36) U/L ALT (4-34) U/L Lactate Dehydrogenase (313-618) U/L C-Reactive Protein (<10.0) mg/L Total Protein (6.3-8.2) g/dL Albumin (3.5-5.0) g/dL Triglycerides (<150) mg/dL HDL Cholesterol (40-60) mg/dL Procalcitonin (0.02-0.09) ng/mL Microbiology - Last 24 Hours (Table) 10/20/20 05:00 Gram Stain - Preliminary Sputum Sputum Culture - Preliminary Assessment and Plan Assessment: Acute on chronic hypoxic and hypercapnic respiratory failure, secondary to recent covid-Pneumonia hospitalization 10/16/20 through 10/19/2020 and acute COPD exacerbation, acute diastolic CHF exacerbation. Patient was discharged yesterday, proceeded home and apparently did not use CPAP, arrived back in the ER with A. fib with RVR, requiring intubation. Mechanical ventilator dependent. Paroxysmal A. fib with RVR, suspect possibly chronic secondary to the above, status post Cardizem drip, Converted to sinus rhythm Hypotension, status post brief pressor support Chronic diastolic CHF, NYHA class III, EF 50-55 % Obstructive sleep apnea on CPAP, noncompliant Diabetes mellitus type 2 hypothyroidism hypertension ongoing nicotine dependence. morbid obesity, BMI 62.3 Plan: Continue on current medication regime ,monitoring and symptomatic treatment. ICU management as per supervisor wall mirror department; maintained on nebulized bronchodilators, IV steroids, NovoLog sliding scale. Sputum culture pending. The impression and plan of care has been dictated as directed. : I performed a history and examination of this patient, discussed the same with the dictator. I agree with the dictator's note ,documented as a scribe. Any additional findings or plans will be noted.
[2020-10-21 16:27] LABS: Hemoglobin A1C 6.4 % (4.0-6.0)
[2020-10-21 18:03] LABS: Glucose,Whole Blood 193 mg/dL (75-99)
[2020-10-21] MEDS: APIXABAN 5 MG TAB PO SCH (21:19)
[2020-10-21] MEDS: ATORVASTATIN 20 MG TAB PO SCH (21:19)
[2020-10-21] MEDS: METOPROLOL TARTRATE 12.5 MG TAB PO SCH (21:20)
[2020-10-21 23:58] LABS: Glucose,Whole Blood 190 mg/dL (75-99)
[2020-10-22] MEDS: INSULIN ASPART (NovoLOG) 100 UNIT/ML VIAL SQ SCH ×4 (00:17→17:26)
[2020-10-22] MEDS: methylPREDNISolone SOD SUCCI 125 MG/2 ML VIAL IV SCH ×5 (00:18→23:59)
[2020-10-22] MEDS: ALBUTEROL HFA INHALER INHALATION SCH ×6 (03:33→23:59)
[2020-10-22 04:54] LABS: Allen Test Performed? Yes
[2020-10-22 04:55] LABS: ABG PCO2 84 mmHg (35-45); ABG PH 7.37 (7.35-7.45); ABG PO2 59 mmHg (83-108)
[2020-10-22 04:56] LABS: ABG HCO3 49 mmol/L (21-25); ABG TCO2 51 mmol/L (19-24)
[2020-10-22 05:07] LABS: Basophils % (A) 1 %; Eosinophils % (A) 1 %; HCT 39.8 % (34.0-46.0); HGB 13.3 gm/dL (11.4-16.0); Hypochromasia Slight; Lymphocytes # (A) 0.3 k/uL (1.0-4.8); Lymphocytes % (A) 5 %; MCH 34.5 pg (25.0-35.0); MCHC 33.3 g/dL (31.0-37.0); MCV 103.7 fL (80.0-100.0); Macrocytosis Slight; Mean Platelet Volume 8.2; Monocytes # (A) 0.2 k/uL (0-1.0); Monocytes % (A) 3 %; Neutrophils # (A) 6.7 k/uL (1.3-7.7); Neutrophils % (A) 91 %; Platelet Count 145 k/uL (150-450); RBC 3.84 m/uL (3.80-5.40); RDW 13.8 % (11.5-15.5); WBC 7.3 k/uL (3.8-10.6)
[2020-10-22 05:16] LABS: C Reactive Protein 57.7 mg/L (<10.0); Calcium 7.9 mg/dL (8.4-10.2); Potassium 4.6 mmol/L (3.5-5.1); Total Bilirubin 0.5 mg/dL (0.2-1.3); Total Protein 5.6 g/dL (6.3-8.2)
[2020-10-22 05:38] LABS: Glucose,Whole Blood 209 mg/dL (75-99)
[2020-10-22 05:40] LABS: D-Dimer 0.52 mg/L FEU (<0.60)
[2020-10-22] MEDS: NOREPINEPHRINE 4 MG in SODIUM CHLORIDE 0.9% 250 ML IV SCH ×3 (05:45→21:43)
[2020-10-22] MEDS: LEVOTHYROXINE 75 MCG TAB PO SCH (05:49)
--- NOTE | 2020-10-22 07:18 | XR ---
EXAMINATION TYPE: XR chest 1V portable DATE OF EXAM: 10/22/2020 COMPARISON: 10/21/2020 HISTORY: Shortness of breath TECHNIQUE: Single frontal view of the chest is obtained. FINDINGS: ET tube and NG tube unchanged in position. Partially consolidative and interstitial opacity in the right lung base unchanged. Left lung base opa city has increased in the interval. The upper lung zones are essentially clear. There is no pneumotho rax. No change in the ET tube and NG tube. The osseous structures are intact. IMPRESSION: Bibasilar opacities with interval worsening in the left lung base.
--- NOTE | 2020-10-22 08:23 | P.PN ---
Subjective Progress Note Date: 10/22/20 55-year-old female patient who was recently hospitalized from [facility] 10/19/2020 for COVID 19 pneumonia, acute exacerbation of COPD and CHF diastolic dysfunction. Patient has history of advanced COPD, she is on home oxygen usually wears 5 L/m on a regular basis, has a obstructive sleep apnea and reportedly has a Trilogy device at home. Patient recently moved from [place], was hospitalized in the beginning of September for acute exacerbation of COPD and diastolic CHF. She was out of the window for Remdesivir, she was treated with standard care including IV steroids, diuretics, breathing treatments and prophylactic anticoagulation. The medical history includes hypothyroidism, hyperlipidemia, diabetes mellitus type 2, morbid obesity, chronic and ongoing history of tobacco use. On 10/20/2020 patient was brought into the emergency department per EMS with difficulty breathing and chest discomfort. CXR showed mild cardiomegaly with mildly increased perihilar edema and infiltrates increased compared to be enlarged exam, HEENT showed sinus rhythm with PACs. Her blood gases in the emergency department showed pO2 of 49, pCO2 of 120, and pH of 7.2, patient had decreased consciousness and was in significant amount of respiratory distress, and she was emergently intubated and placed on mechanical ventilator. Repeat blood gases showed improvement in acute on chronic hypercapnic and hypoxic respiratory failure, with improvement of pO2 up to 134, pCO2 of 93, and pH of 7.33. She was also noted to be in new onset A. fib with RVR, and required Cardizem drip for brief amount of time and she is back in sinus currently. Patient was started on IV steroids, Lasix, breathing treatments. Lab work has been reviewed, showing no evidence of leukocytosis white blood cell, 7.3, with a hemoglobin of 15, proBNP of 1240, is 0.021, second troponin was 0.052. Lactic acid was within normal limits, patient has been afebrile since arrival to the emergency department, hemodynamically stable, this morning she seen in the emergency department, she remains sedated and on ne chanical ventilator, on assist-control mode of ventilation with a rate of 30, tidal lungs 400, FiO2 of 80% and PEEP of 5, this morning's blood gases show improvement in pO2 and pCO2 concentrations and improvements in the acid base balance with pH up to 7.33 as mentioned above. On 10/21/2020, the patient is being seen for a follow-up. The patient remains intubated on a mechanical ventilator. This morning the patient is on propofol which is running at 60 mcg/kg per minute and the patient is well sedated for now and very much interested a mechanical ventilator. She is an assist-control mode at the rate of 24 with a tidal volume of 350 and FiO2 of 60% with a PEEP of 10. The morning blood gases showed a pH of 7.45 with a pCO2 of 71 and pO2 of 66. Peak airway pressure was around 42 and static airway pressure was 27-28. The chest x-ray is showing adequate expansion of both lungs. There is cardiomegaly. There is some mild interstitial prominence with questionable consolidation of the right lower lobe. ET tube is at the level of the aortic knob and the OG tube is in good location. She does remain bronchospastic and wheezy. Note that her blood pressure has stabilized. She was given a bolus of fluid with a liter of normal saline. No pressors was utilized. Diuretics were placed on hold. Her white second dose of 5.6 with a hemoglobin of 12.8. Rest of the electrolytes are still pending from this morning. Meanwhile, the patient is on bronchodilators with albuterol 2 puffs, and she is also on IV Solu Medrol 60 mg every 6 hours. In terms of her cardiac rhythm, the patient is back into normal sinus rhythm. Cardizem drip was weaned off it was discontinued yesterday and the patient is hemodynamically stable at this point in time. The fluid balance is in the order of +1.3 L since yesterday. No other significant events overnight. Enteral feeding has been started at 80 mL an hour of vital high protein.. Abdomen is soft. No significant edema in her extremities. No other significant events otherwise for now. 2020 the patient remains intubated on a mechanical ventilator. This morning she is on propofol running at 60 mcg/kg per minute and the patient is also on a mechanical ventilator on assist control mode at the rate of 16 with a tidal volume of 53 and FiO2 of 70% with a PEEP of 10. A FiO2 was brought up to 70% and the morning blood gases showed a pH of 7.37 with a pCO2 of 84 and pO2 of 59. The chest x-ray shows a retrocardiac infiltrate and there is also right lower lobe pulmonary infiltrate. Nevertheless does not extensive and upper lobe s are quite clear. Note that the patient also had a Covid 19 related infection/pneumonia which probably is contributing to her ongoing hypoxemia. In any rate, the patient is still on a mechanical ventilator for now. She is quite synchronous with the mechanical ventilator. She is calm and comfortable. No significant orotracheal secretions. She is hemodynamically stable. His sputum analysis came back positive for some rare budding yeast which is expected otherwise the rest was consistent with a normal respiratory cherelle. There is of treatment, she remains on IV Solu-Medrol 60 mg every 6 hours. She is also on albuterol HFA 2 puffs scheduled every 4 hours, no antibiotics for now. Have her LEVEL WAS LOW AT 0.21 AND 0.11 RESPECTIVELY 2. In terms of diuretics, the patient was becoming hypotensive and I stopped the diuretics. She is currently IV fluids running at 20 mL an hour and she is also on no pressors for now. She is afebrile. She is tolerating her enteral feeding for nutritional support and she is on vital high protein at the rate of 20 mL an hour. White cell count tobairon john is at 7.3 with a hemoglobin of 13.3. Platelet is down to 145. Inflammatory markers show an LDH level of 1023 from yesterday and the CRP level is down to 57 from today. She is currently on Eliquis 5 mg by mouth twice a day. This was given to her because of paroxysmal atrial fibrillation with a crit at time of admission. Currently she is back to normal sinus rhythm for now. Objective - Vital Signs Vital signs: Vital Signs Temp 98.5 F 10/22/20 04:00 Pulse 70 10/22/20 07:00 Resp 20 10/22/20 07:00 BP 99/73 10/20/20 08:39 Pulse Ox 95 10/22/20 07:00 Intake & Output 10/21/20 10/22/20 10/22/20 18:59 06:59 18:59 Intake Total 1290 999.09 108.25 Output Total 650 570 60 Balance 640 429.09 48.25 Weight 145 kg 149.2 kg Intake: IV 276 276 23 0.9 Flush 36 36 3 Sodium Chloride 0.9% 1, 240 240 20 000 ml @ 20 mls/hr IV . Q24H [facility] Rx#:[id number] Intake, IV Titration 654 393.09 65.25 Amount Norepinephrine 4 mg In 254 Sodium Chloride 0.9% 250 ml @ 0.05 MCG/KG/MIN 31. 099 mls/hr IV .Q8H11M [facility] Rx#:[id number] propofoL 1,000 mg In 400 393.09 65.25 Empty Bag 1 bag @ Titrate IV .Q0M [facility] Rx#: [id number] Tube Feeding 220 240 20 Other 140 90 Output: Urine 650 570 60 Other: Voiding Method Indwelling Catheter Indwelling Catheter # Bowel Movements 1 ABP, PAP, CO, CI - Last Documented Arterial Blood Pressure 125/69 - Exam GENERAL EXAM: Obese 55-year-old white female, on assist-control mode of ventilation FiO2 of 70% and PEEP of 8, comfortable in no apparent distress. HEAD: Normocephalic/atraumatic. EYES: Normal reaction of pupils, equal size. Conjunctiva pink, sclera white. NOSE: Clear with pink turbinates. THROAT: No erythema or exudates. NECK: No masses, no JVD, no thyroid enlargement, no adenopathy. CHEST: No chest wall deformity. Symmetrical expansion. LUNGS: Equal air entry with no crackles, wheeze, rhonchi or dullness. CVS: Regular rate and rhythm, normal S1 and S2, no gallops, no murmurs, no rubs ABDOMEN: Soft, nontender. No hepatosplenomegaly, normal bowel sounds, no guarding or rigidity. EXTREMITIES: No clubbing, no edema, no cyanosis, 2+ pulses and upper and lower extremities. MUSCULOSKELETAL: Muscle strength and tone normal. SPINE: No scoliosis or deformity SKIN: No rashes CENTRAL NERVOUS SYSTEM: Sedated, intubated. No focal deficits, tone is normal in all 4 extremities. - Labs CBC & Chem 7: 10/22/20 05:02 10/22/20 05:02 Labs: Abnormal Lab Results - Last 24 Hours (Table) 10/21/20 10/21/20 10/21/20 Range/Units 04:47 04:47 04:47 MCV (80.0-100.0) fL Plt Count (150-450) k/uL Lymphocytes # (1.0-4.8) k/uL Fibrinogen (200-500) mg/dL ABG pCO2 (35-45) mmHg ABG pO2 (83-108) mmHg ABG HCO3 (21-25) mmol/L ABG Total CO2 (19-24) mmol/L ABG O2 Saturation (94-97) % Chloride (98-107) mmol/L Carbon Dioxide (22-30) mmol/L BUN (7-17) mg/dL Glucose (74-99) mg/dL POC Glucose (mg/dL) (75-99) mg/dL Hemoglobin A1c 6.4 H (4.0-6.0) % Calcium (8.4-10.2) mg/dL AST (14-36) U/L ALT (4-34) U/L C-Reactive Protein 64.1 H (<10.0) mg/L Total Protein (6.3-8.2) g/dL Albumin (3.5-5.0) g/dL Procalcitonin 0.11 H (0.02-0.09) ng/mL 10/21/20 10/21/20 10/21/20 Range/Units 11:15 18:02 23:56 MCV (80.0-100.0) fL Plt Count (150-450) k/uL Lymphocytes # (1.0-4.8) k/uL Fibrinogen (200-500) mg/dL ABG pCO2 (35-45) mmHg ABG pO2 (83-108) mmHg ABG HCO3 (21-25) mmol/L ABG Total CO2 (19-24) mmol/L ABG O2 Saturation (94-97) % Chloride (98-107) mmol/L Carbon Dioxide (22-30) mmol/L BUN (7-17) mg/dL Glucose (74-99) mg/dL POC Glucose (mg/dL) 182 H 193 H 190 H (75-99) mg/dL Hemoglobin A1c (4.0-6.0) % Calcium (8.4-10.2) mg/dL AST (14-36) U/L ALT (4-34) U/L C-Reactive Protein (<10.0) mg/L Total Protein (6.3-8.2) g/dL Albumin (3.5-5.0) g/dL Procalcitonin (0.02-0.09) ng/mL 10/22/20 10/22/20 10/22/20 Range/Units 04:47 05:02 05:02 MCV 103.7 H (80.0-100.0) fL Plt Count 145 L (150-450) k/uL Lymphocytes # 0.3 L (1.0-4.8) k/uL Fibrinogen 522 H (200-500) mg/dL ABG pCO2 84 H* (35-45) mmHg ABG pO2 59 L* (83-108) mmHg ABG HCO3 49 H* (21-25) mmol/L ABG Total CO2 51 H (19-24) mmol/L ABG O2 Saturation 90.0 L (94-97) % Chloride (98-107) mmol/L Carbon Dioxide (22-30) mmol/L BUN (7-17) mg/dL Glucose (74-99) mg/dL POC Glucose (mg/dL) (75-99) mg/dL Hemoglobin A1c (4.0-6.0) % Calcium (8.4-10.2) mg/dL AST (14-36) U/L ALT (4-34) U/L C-Reactive Protein (<10.0) mg/L Total Protein (6.3-8.2) g/dL Albumin (3.5-5.0) g/dL Procalcitonin (0.02-0.09) ng/mL 10/22/20 10/22/20 Range/Units 05:02 05:37 MCV (80.0-100.0) fL Plt Count (150-450) k/uL Lymphocytes # (1.0-4.8) k/uL Fibrinogen (200-500) mg/dL ABG pCO2 (35-45) mmHg ABG pO2 (83-108) mmHg ABG HCO3 (21-25) mmol/L ABG Total CO2 (19-24) mmol/L ABG O2 Saturation (94-97) % Chloride 89 L (98-107) mmol/L Carbon Dioxide 48 H* (22-30) mmol/L BUN 48 H (7-17) mg/dL Glucose 228 H (74-99) mg/dL POC Glucose (mg/dL) 209 H (75-99) mg/dL Hemoglobin A1c (4.0-6.0) % Calcium 7.9 L (8.4-10.2) mg/dL AST 54 H (14-36) U/L ALT 45 H (4-34) U/L C-Reactive Protein 57.7 H (<10.0) mg/L Total Protein 5.6 L (6.3-8.2) g/dL Albumin 3.0 L (3.5-5.0) g/dL Procalcitonin (0.02-0.09) ng/mL Microbiology - Last 24 Hours (Table) 10/20/20 05:00 Gram Stain - Preliminary Sputum Sputum Culture - Preliminary Assessment and Plan Plan: #1. Acute on chronic hypoxic and hypercapnic respiratory failure related to acute exacerbation of COPD, diastolic CHF and possibly a new onset atrial fibrillation with rapid ventricular response. The patient remains intubated on a mechanical ventilator. The predominant factor for now contributing to her respiratory failure is COPD exacerbation as the patient remains quite bronchospastic and wheezy with elevated peak airway pressures. In fact, the patient is having an issue with oxygenation and ventilation. There is a left lower lobe consolidation. I'm not sure if this is pneumonia or atelectasis. This is probably contributing to her hypoxemia and this morning she is on 8 of PEEP with an FiO2 of 70%. Peripheral calcitonin level is low. I'm going to cover her with antibiotics. I'm going to ultimately try an early extubation on this patient to a BiPAP as long as she is able to tolerate and this will largely depend on her oxygenation status and her ventilation status. I'm suggesting driving the PEEP again down to 5 dropping the FiO2 down to 60% in repeating a blood gas and covering this patient with empiric antibiotics. I'm not sure what's causing this hypoxemia. This could be a combination of his previous Covid 19 related pneumonia, questionable left lower lobe pneumonia on a bacteri al source, atelectasis of the left lower lobe and is admitted to the main factors here. Pulmonary embolism is considered to be unlikely and the patient remains on anticoagulation. #2. New onset of A. fib with RVR, patient was briefly on Cardizem drip back in sinus right now #3. Hospitalization for COVID 19 pneumonia, from 10/16 through 10/19/2020 LDH is 1444 and the CRP 67. The patient is afebrile. #4. COPD with chronic hypoxic and hypercapnic respiratory failure, patient usually wears 5 L of oxygen at home on a regular basis, and reportedly has a Trilogy device at home #5. Chronic diastolic CHF, echocardiogram showed EF of 50-55%, valves could not be visualized related to body habitus #6. Obesity #7. Chronic and ongoing history of smoking #8. Obstructive sleep apnea and patient has a Trilogy device at home, but compliance is not known at this time Plan: Continue ventilator support Drop the PEEP down to 5 Drop the FiO2 down to 60% Repeat blood. In 30 minutes to an hour Continue IV Solu-Medrol 60 mg every 6 hours No need for diuretics for now Cardiac rhythm is back to sinus Continue enteral feeding for nutritional support Pro-calcitonin level is low, nevertheless, due to concern of a bacterial pneumonia and the left lower lobe, we'll put the patient IV cefepime 2 g every 12 hours Continue supportive care. May consider early extubation to have BiPAP is on the patient's complex situation. I think prolonged intubation we'll put the patient into a major this advantage and I would like to do an earlier intubation for a BiPAP condition is critical. We'll continue to follow. We'll make further recommendations based on her progress. Triple-lumen catheter was inserted. No need for pressors at this point in time. critically care evaluation that was done and more than 30 minutes. Time with Patient: Greater than 30
[2020-10-22] MEDS: FLUTICASONE 220 MCG INHALER INHALATION SCH ×2 (08:25→19:35)
[2020-10-22] MEDS: METOPROLOL TARTRATE 12.5 MG TAB PO SCH ×2 (08:40→21:26)
[2020-10-22] MEDS: MAGNESIUM OXIDE 400 MG TAB PO SCH (08:43)
[2020-10-22] MEDS: APIXABAN 5 MG TAB PO SCH ×2 (08:43→21:26)
[2020-10-22] MEDS: CHOLECALCIFEROL 25 MCG (1000 IU) TABLET PO SCH (08:43)
[2020-10-22] MEDS: GABAPENTIN 300 MG CAP PO SCH ×2 (08:43→21:26)
[2020-10-22] MEDS: CEFEPIME 2 GM in SODIUM CHLORIDE 0.9% 100 ML IVPB SCH ×2 (08:45→21:26)
[2020-10-22] MEDS: PANTOPRAZOLE 40 MG/10 ML VIAL IVP SCH (08:46)
[2020-10-22 09:05] LABS: ABG Base Excess 24.1 mmol/L; ABG Oxygen Saturation 93.4 % (94-97); ABG PCO2 88 mmHg (35-45); ABG PH 7.36 (7.35-7.45); ABG PO2 68 mmHg (83-108); ABG TCO2 52 mmol/L (19-24)
[2020-10-22 09:06] LABS: ABG HCO3 50 mmol/L (21-25); Allen Test Performed? no
[2020-10-22] MEDS: LOSARTAN 25 MG TAB PO SCH (10:08)
[2020-10-22 11:34] LABS: Glucose,Whole Blood 204 mg/dL (75-99)
--- NOTE | 2020-10-22 12:25 | P.PN ---
Subjective Progress Note Date: 10/22/20 CHIEF COMPLAINT: New-onset atrial fibrillation HISTORY OF PRESENT ILLNESS: 10/20/2020 This is a 55-year-old female with a past medical history significant for COPD with home oxygen, diabetes mellitus, congestive heart failure, sleep apnea, thyroid disorder, and nicotine dependence. 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 It is noted that the patient was recently hospitalized in September due to COPD and CHF. We have been asked to see the patient in consultation for new onset atrial fibrillation. Patient presented to the emergency room due to shortness of breath. In the emergency room the patient developed increasing respiratory distress and was intubated. Patient is positive for Covid 19 (tested on 10/16/2020). Patient was in sinus mechanism upon presentation to the ER. She developed atrial fibrillation and was on a Cardizem drip for a short period of time. She has since converted back to sinus mechanism. Patient is currently receiving Lovenox 150 mg every 12 hours EKG reveals sinus mechanism with PVCs Chest xray perihilar pulmonary infiltrates. Probably some basilar atelectasis. Laboratory data: WBC 7.3. Hemoglobin 15.0. Platelet count 180. Sodium 142. Potassium 4.2. BUN 39. Creatinine 0.80. Lactic acid 1.5. AST 42. ALT 65. BNP 1240. Troponin 0.021. 0.052. 0.079. Current home cardiac medications include losartan 12.5 mg daily, Lasix 40 mg daily, Lipitor 20 mg daily Echocardiogram completed on 10/04/2020 revealed ejection fraction 50-55% 10/21/2020 Patient is maintaining sinus mechanism on telemetry. Heart rate in the 70s. Patient was receiving Lovenox 150 mg twice a day but her dose was decreased down to 40 mg daily today by pulmonary. She remains on mechanical ventilation. FiO2 50%. Blood pressure 120/63. 10/22/2020 patient remains in the ICU on mechanical ventilation. She's maintaining sinus mechanism on telemetry. Heart rate in the 60s. She has been started on Eliquis for anticoagulation. PHYSICAL EXAM: Thorough physical exam not completed secondary to limited evaluation/examination and due to Covid19 ASSESSMENT: Acute on chronic hypoxic and hypercapnic respiratory failure requiring mechanical ventilation Covid 19 New onset paroxysmal atrial fibrillation with RVR, currently maintaining sinus mechanism Chronic diastolic congestive heart failure, EF 50-55% Hypertension Hyperlipidemia Obstructive sleep apnea Nicotine dependence PLAN: Continue ICU management per Dr. Tolentino Continue current dose of metoprolol Due to combination of paroxysmal atrial fibrillation and Covid, recommend anticoagulation for 2-3 months duration. Continue Eliquis 5 mg twice a day Further recommendations pending patient course Nurse practitioner note has been reviewed by physician. Signing provider agrees with the documented findings, assessment, and plan of care. Objective - Vital Signs Vital signs: Vital Signs Temp 98.1 F 10/22/20 08:00 Pulse 70 10/22/20 11:00 Resp 22 10/22/20 11:00 BP 99/73 10/20/20 08:39 Pulse Ox 91 L 10/22/20 11:00 Intake & Output 10/21/20 10/22/20 10/22/20 18:59 06:59 18:59 Intake Total 1290 999.09 396.250 Output Total 650 570 350 Balance 640 429.09 46.250 Weight 145 kg 149.2 kg Intake: IV 276 276 46 0.9 Flush 36 36 6 Sodium Chloride 0.9% 1, 240 240 40 000 ml @ 20 mls/hr IV . Q24H ON[facility] Rx#:[id number] Intake, IV Titration 654 393.09 240.250 Amount Cefepime 2 gm In Sodium 75 Chloride 0.9% 100 ml @ 25 mls/hr IVPB Q12HR ON[facility] Rx #:[id number] Norepinephrine 4 mg In 254 Sodium Chloride 0.9% 250 ml @ 0.05 MCG/KG/MIN 31. 099 mls/hr IV .Q8H11M ON[facility] Rx#:[id number] propofoL 1,000 mg In 400 393.09 165.250 Empty Bag 1 bag @ Titrate IV .Q0M ONI[facility] Rx#: [id number] Tube Feeding 220 240 80 Other 140 90 30 Output: Urine 650 570 350 Other: Voiding Method Indwelling Catheter Indwelling Catheter Indwelling Catheter # Bowel Movements 1 ABP, PAP, CO, CI - Last Documented Arterial Blood Pressure 146/60 - Labs CBC & Chem 7: 10/22/20 05:02 10/22/20 05:02 Labs: Abnormal Lab Results - Last 24 Hours (Table) 10/21/20 10/21/20 10/21/20 Range/Units 04:47 04:47 18:02 MCV (80.0-100.0) fL Plt Count (150-450) k/uL Lymphocytes # (1.0-4.8) k/uL Fibrinogen (200-500) mg/dL ABG pCO2 (35-45) mmHg ABG pO2 (83-108) mmHg ABG HCO3 (21-25) mmol/L ABG Total CO2 (19-24) mmol/L ABG O2 Saturation (94-97) % Chloride (98-107) mmol/L Carbon Dioxide (22-30) mmol/L BUN (7-17) mg/dL Glucose (74-99) mg/dL POC Glucose (mg/dL) 193 H (75-99) mg/dL Hemoglobin A1c 6.4 H (4.0-6.0) % Calcium (8.4-10.2) mg/dL AST (14-36) U/L ALT (4-34) U/L C-Reactive Protein (<10.0) mg/L Total Protein (6.3-8.2) g/dL Albumin (3.5-5.0) g/dL Procalcitonin 0.11 H (0.02-0.09) ng/mL 10/21/20 10/22/20 10/22/20 Range/Units 23:56 04:47 05:02 MCV 103.7 H (80.0-100.0) fL Plt Count 145 L (150-450) k/uL Lymphocytes # 0.3 L (1.0-4.8) k/uL Fibrinogen (200-500) mg/dL ABG pCO2 84 H* (35-45) mmHg ABG pO2 59 L* (83-108) mmHg ABG HCO3 49 H* (21-25) mmol/L ABG Total CO2 51 H (19-24) mmol/L ABG O2 Saturation 90.0 L (94-97) % Chloride (98-107) mmol/L Carbon Dioxide (22-30) mmol/L BUN (7-17) mg/dL Glucose (74-99) mg/dL POC Glucose (mg/dL) 190 H (75-99) mg/dL Hemoglobin A1c (4.0-6.0) % Calcium (8.4-10.2) mg/dL AST (14-36) U/L ALT (4-34) U/L C-Reactive Protein (<10.0) mg/L Total Protein (6.3-8.2) g/dL Albumin (3.5-5.0) g/dL Procalcitonin (0.02-0.09) ng/mL 10/22/20 10/22/20 10/22/20 Range/Units 05:02 05:02 05:37 MCV (80.0-100.0) fL Plt Count (150-450) k/uL Lymphocytes # (1.0-4.8) k/uL Fibrinogen 522 H (200-500) mg/dL ABG pCO2 (35-45) mmHg ABG pO2 (83-108) mmHg ABG HCO3 (21-25) mmol/L ABG Total CO2 (19-24) mmol/L ABG O2 Saturation (94-97) % Chloride 89 L (98-107) mmol/L Carbon Dioxide 48 H* (22-30) mmol/L BUN 48 H (7-17) mg/dL Glucose 228 H (74-99) mg/dL POC Glucose (mg/dL) 209 H (75-99) mg/dL Hemoglobin A1c (4.0-6.0) % Calcium 7.9 L (8.4-10.2) mg/dL AST 54 H (14-36) U/L ALT 45 H (4-34) U/L C-Reactive Protein 57.7 H (<10.0) mg/L Total Protein 5.6 L (6.3-8.2) g/dL Albumin 3.0 L (3.5-5.0) g/dL Procalcitonin (0.02-0.09) ng/mL 10/22/20 10/22/20 Range/Units 09:00 11:33 MCV (80.0-100.0) fL Plt Count (150-450) k/uL Lymphocytes # (1.0-4.8) k/uL Fibrinogen (200-500) mg/dL ABG pCO2 88 H* (35-45) mmHg ABG pO2 68 L (83-108) mmHg ABG HCO3 50 H* (21-25) mmol/L ABG Total CO2 52 H (19-24) mmol/L ABG O2 Saturation 93.4 L (94-97) % Chloride (98-107) mmol/L Carbon Dioxide (22-30) mmol/L BUN (7-17) mg/dL Glucose (74-99) mg/dL POC Glucose (mg/dL) 204 H (75-99) mg/dL Hemoglobin A1c (4.0-6.0) % Calcium (8.4-10.2) mg/dL AST (14-36) U/L ALT (4-34) U/L C-Reactive Protein (<10.0) mg/L Total Protein (6.3-8.2) g/dL Albumin (3.5-5.0) g/dL Procalcitonin (0.02-0.09) ng/mL Microbiology - Last 24 Hours (Table) 10/20/20 05:00 Gram Stain - Final Sputum Sputum Culture - Preliminary
[2020-10-22] MEDS: INSULIN DETEMIR (LEVEMIR) 100 UNIT/ML SYR SQ SCH (13:36)
[2020-10-22 17:16] LABS: Glucose,Whole Blood 175 mg/dL (75-99)
[2020-10-22] MEDS: SODIUM CHLORIDE 0.9% 1,000 ML IV SCH (17:27)
--- NOTE | 2020-10-22 20:52 | P.PN ---
Subjective This is a pleasant 55 years old female with past medical history of diabetes mellitus, COPD, obstructive sleep apnea on CPAP at night night, hypothyroidism. Presents with respiratory distress and found to have respiratory failure secondary to bilateral covid Pneumonia, and she's been treated with combination of vitamin C, zinc Solu-Medrol 60 mg as well as anticoagulation with Eliquis. She is status post extubation today and she is very lethargic and cannot contribute much stone formation. Secondary bacteria suspected in the left lower lobe and patient is on cefepime Patient is with new onset A. fib and RVR, patient is currently controlled and anticoagulation with Eliquis 5 mg. But needs only small dose of metoprolol 12.5 mg. Levemir 5 unit at that for hyperglycemia while on steroids Review of systems: N/a, patient was not able to participate because she is retired Active Medications Generic Name Dose Route Start Last Admin Trade Name Freq PRN Reason Stop Dose Admin Albuterol Sulfate 2 puff 10/21/20 08:00 10/22/20 19:18 Albuterol Hfa Inhaler INHALATION 2 puff RT-Q4H ONI[facility] Administration Apixaban 5 mg 10/21/20 21:00 10/22/20 08:43 Apixaban 5 Mg Tab PO 5 mg BID ONIEL Administration Atorvastatin Calcium 20 mg 10/20/20 21:00 10/21/20 21:19 Atorvastatin 20 Mg Tab PO 20 mg HS ONIEL Administration Cholecalciferol 25 mcg 10/20/20 09:00 10/22/20 08:43 Cholecalciferol 25 Mcg (1000 Iu) Tablet PO 25 mcg DAILY ONIEL Administration Fluticasone Propionate 2 puff 10/20/20 11:00 10/22/20 19:35 Fluticasone 220 Mcg Inhaler INHALATION 2 puff RT-BID ONIEL Administration Gabapentin 300 mg 10/20/20 09:00 10/22/20 08:43 Gabapentin 300 Mg Cap PO 300 mg BID ONIEL Administration Propofol 1,000 mg/ IV Solution 100 mls @ 0 mls/hr 10/20/20 09:30 10/22/20 10:23 IV Infused .Q0M ON[facility] Titration Protocol Titrate Sodium Chloride 1,000 mls @ 20 mls/hr 10/20/20 09:45 10/22/20 17:27 Saline 0.9% IV 20 mls/hr .Q24H ONIEL Administration Norepinephrine Bitartrate 4 mg 254 mls @ 31.099 mls/hr 10/20/20 11:45 10/22/20 13:01 / Sodium Chloride IV Not Given .Q8H11M ONIEL Protocol 0.05 MCG/KG/MIN Cefepime HCl 2 gm/ Sodium 100 mls @ 25 mls/hr 10/22/20 09:00 10/22/20 08:45 Chloride IVPB 25 mls/hr Q12HR ONIEL Administration Insulin Aspart 0 unit 10/20/20 18:00 10/22/20 17:26 Insulin Aspart (Novolog) 100 Unit/Ml Vial SQ 4 unit Q6H ONIEL Administration Protocol Insulin Detemir 5 unit 10/22/20 12:15 10/22/20 13:36 Insulin Detemir (Levemir) 100 Unit/Ml Syr SQ 5 unit DAILY@0700 ONIEL Administration Levothyroxine Sodium 150 mcg 10/20/20 06:30 10/22/20 05:49 Levothyroxine 75 Mcg Tab PO 150 mcg DAILY@0630 ONIEL Administration Losartan Potassium 12.5 mg 10/20/20 09:00 10/22/20 10:08 Losartan 25 Mg Tab PO 12.5 mg DAILY ONIEL Administration Magnesium Oxide 400 mg 10/20/20 09:00 10/22/20 08:43 Magnesium Oxide 400 Mg Tab PO 400 mg DAILY ONIEL Administration Methylprednisolone Sodium Succinate 60 mg 10/20/20 06:00 10/22/20 17:09 Methylprednisolone Sod Succi 125 Mg/2 Ml Vial IV 60 mg Q6HR ONIEL Administration Metoprolol Tartrate 12.5 mg 10/21/20 21:00 10/22/20 08:40 Metoprolol Tartrate 12.5 Mg Tab PO 12.5 mg BID ONIEL Administration Miscellaneous Information 1 each 10/21/20 10:10 Potassium Replacement Protocol 1 Each Misc MISCELLANE DAILY PRN Per Protocol Protocol Morphine Sulfate 4 mg 10/20/20 09:15 10/20/20 09:21 Morphine Sulfate 4 Mg/Ml Syringe IVP 4 mg Q4HR PRN Administration Pain Nitroglycerin 0.4 mg 10/20/20 03:35 Nitroglycerin Sl Tabs 0.4 Mg Tab SUBLINGUAL Q5M PRN Chest Pain Pantoprazole Sodium 40 mg 10/20/20 14:30 10/22/20 08:46 Pantoprazole 40 Mg/10 Ml Vial IVP 40 mg DAILY ONIEL Administration Objective - Vital Signs Vital signs: Vital Signs Temp 98.1 F 10/22/20 08:00 Pulse 70 10/22/20 11:00 Resp 22 10/22/20 11:00 BP 99/73 10/20/20 08:39 Pulse Ox 91 L 10/22/20 11:00 Intake & Output 10/21/20 10/22/20 10/22/20 18:59 06:59 18:59 Intake Total 1290 999.09 396.250 Output Total 650 570 350 Balance 640 429.09 46.250 Weight 145 kg 149.2 kg Intake: IV 276 276 46 0.9 Flush 36 36 6 Sodium Chloride 0.9% 1, 240 240 40 000 ml @ 20 mls/hr IV . Q24H [facility] Rx#:[id number] Intake, IV Titration 654 393.09 240.250 Amount Cefepime 2 gm In Sodium 75 Chloride 0.9% 100 ml @ 25 mls/hr IVPB Q12HR [facility] Rx #:[id number] Norepinephrine 4 mg In 254 Sodium Chloride 0.9% 250 ml @ 0.05 MCG/KG/MIN 31. 099 mls/hr IV .Q8H11M [facility] Rx#:[id number] propofoL 1,000 mg In 400 393.09 165.250 Empty Bag 1 bag @ Titrate IV .Q0M [facility] Rx#: [id number] Tube Feeding 220 240 80 Other 140 90 30 Output: Urine 650 570 350 Other: Voiding Method Indwelling Catheter Indwelling Catheter Indwelling Catheter # Bowel Movements 1 ABP, PAP, CO, CI - Last Documented Arterial Blood Pressure 146/60 - Exam -GENERAL: The patient is alert and oriented x3, not in any acute distress. Generally weak HEENT: Pupils are round and equally reacting to light. EOMI. No scleral icterus. No conjunctival pallor. Normocephalic, atraumatic. No pharyngeal erythema. No thyromegaly. CARDIOVASCULAR: S1 and S2 present. No murmurs, rubs, or gallops. -PULMONARY: Chest is clear to auscultation, no bilateral crepitation and bronchial breath sounds especially on the left side ABDOMEN: Soft, nontender, nondistended, normoactive bowel sounds. No palpable organomegaly. MUSCULOSKELETAL: No joint swelling or deformity. EXTREMITIES: No cyanosis, clubbing, or pedal edema. NEUROLOGICAL: Gross neurological examination did not reveal any focal deficits. SKIN: No rashes. no petechiae. - Labs CBC & Chem 7: 10/22/20 05:02 10/22/20 05:02 Labs: Abnormal Lab Results - Last 24 Hours (Table) 10/21/20 10/21/20 10/21/20 Range/Units 04:47 04:47 18:02 MCV (80.0-100.0) fL Plt Count (150-450) k/uL Lymphocytes # (1.0-4.8) k/uL Fibrinogen (200-500) mg/dL ABG pCO2 (35-45) mmHg ABG pO2 (83-108) mmHg ABG HCO3 (21-25) mmol/L ABG Total CO2 (19-24) mmol/L ABG O2 Saturation (94-97) % Chloride (98-107) mmol/L Carbon Dioxide (22-30) mmol/L BUN (7-17) mg/dL Glucose (74-99) mg/dL POC Glucose (mg/dL) 193 H (75-99) mg/dL Hemoglobin A1c 6.4 H (4.0-6.0) % Calcium (8.4-10.2) mg/dL AST (14-36) U/L ALT (4-34) U/L C-Reactive Protein (<10.0) mg/L Total Protein (6.3-8.2) g/dL Albumin (3.5-5.0) g/dL Procalcitonin 0.11 H (0.02-0.09) ng/mL 10/21/20 10/22/20 10/22/20 Range/Units 23:56 04:47 05:02 MCV 103.7 H (80.0-100.0) fL Plt Count 145 L (150-450) k/uL Lymphocytes # 0.3 L (1.0-4.8) k/uL Fibrinogen (200-500) mg/dL ABG pCO2 84 H* (35-45) mmHg ABG pO2 59 L* (83-108) mmHg ABG HCO3 49 H* (21-25) mmol/L ABG Total CO2 51 H (19-24) mmol/L ABG O2 Saturation 90.0 L (94-97) % Chloride (98-107) mmol/L Carbon Dioxide (22-30) mmol/L BUN (7-17) mg/dL Glucose (74-99) mg/dL POC Glucose (mg/dL) 190 H (75-99) mg/dL Hemoglobin A1c (4.0-6.0) % Calcium (8.4-10.2) mg/dL AST (14-36) U/L ALT (4-34) U/L C-Reactive Protein (<10.0) mg/L Total Protein (6.3-8.2) g/dL Albumin (3.5-5.0) g/dL Procalcitonin (0.02-0.09) ng/mL 10/22/20 10/22/20 10/22/20 Range/Units 05:02 05:02 05:37 MCV (80.0-100.0) fL Plt Count (150-450) k/uL Lymphocytes # (1.0-4.8) k/uL Fibrinogen 522 H (200-500) mg/dL ABG pCO2 (35-45) mmHg ABG pO2 (83-108) mmHg ABG HCO3 (21-25) mmol/L ABG Total CO2 (19-24) mmol/L ABG O2 Saturation (94-97) % Chloride 89 L (98-107) mmol/L Carbon Dioxide 48 H* (22-30) mmol/L BUN 48 H (7-17) mg/dL Glucose 228 H (74-99) mg/dL POC Glucose (mg/dL) 209 H (75-99) mg/dL Hemoglobin A1c (4.0-6.0) % Calcium 7.9 L (8.4-10.2) mg/dL AST 54 H (14-36) U/L ALT 45 H (4-34) U/L C-Reactive Protein 57.7 H (<10.0) mg/L Total Protein 5.6 L (6.3-8.2) g/dL Albumin 3.0 L (3.5-5.0) g/dL Procalcitonin (0.02-0.09) ng/mL 10/22/20 10/22/20 Range/Units 09:00 11:33 MCV (80.0-100.0) fL Plt Count (150-450) k/uL Lymphocytes # (1.0-4.8) k/uL Fibrinogen (200-500) mg/dL ABG pCO2 88 H* (35-45) mmHg ABG pO2 68 L (83-108) mmHg ABG HCO3 50 H* (21-25) mmol/L ABG Total CO2 52 H (19-24) mmol/L ABG O2 Saturation 93.4 L (94-97) % Chloride (98-107) mmol/L Carbon Dioxide (22-30) mmol/L BUN (7-17) mg/dL Glucose (74-99) mg/dL POC Glucose (mg/dL) 204 H (75-99) mg/dL Hemoglobin A1c (4.0-6.0) % Calcium (8.4-10.2) mg/dL AST (14-36) U/L ALT (4-34) U/L C-Reactive Protein (<10.0) mg/L Total Protein (6.3-8.2) g/dL Albumin (3.5-5.0) g/dL Procalcitonin (0.02-0.09) ng/mL Microbiology - Last 24 Hours (Table) 10/20/20 05:00 Gram Stain - Final Sputum Sputum Culture - Preliminary Assessment and Plan Assessment: Acute bilateral Covid pneumonia Acute hypoxic respiratory failure secondary to above Suspected left lower lobe bacterial super infected pneumonia New-onset A. fib and RVR History of sleep apnea 2 diabetes mellitus COPD Chronic heart failure Plan: This is a pleasant 55 years old female who presents with and A. fib. Continue Solu-Medrol, continue with vitamin C and zinc. Also with broad-spectrum antibiotics with cefepime, cardiology and pulmonary team on the case. Continue with metoprolol and Eliquis Labs and medication were reviewed.. Continue same treatment. Continue with s ymptomatic treatment. Resume home medication. Monitor lytes and vitals. DVT and GI prophylaxis. Further recommendationsas per clinical course of the patient DVT prophylaxis: Eliquis GI Prophylaxis: Ppi Prognosis is guarded
[2020-10-22] MEDS: ATORVASTATIN 20 MG TAB PO SCH (21:26)
[2020-10-22 23:39] LABS: Glucose,Whole Blood 188 mg/dL (75-99)
[2020-10-23] MEDS: ALBUTEROL HFA INHALER INHALATION SCH ×5 (04:26→20:51)
[2020-10-23 05:18] LABS: Basophils % (A) 1 %; Eosinophils % (A) 0 %; HCT 42.4 % (34.0-46.0); HGB 13.1 gm/dL (11.4-16.0); Hypochromasia Moderate; Lymphocytes # (A) 0.4 k/uL (1.0-4.8); Lymphocytes % (A) 5 %; MCH 32.5 pg (25.0-35.0); MCHC 30.9 g/dL (31.0-37.0); Macrocytosis Moderate; Mean Platelet Volume 8.5; Monocytes # (A) 0.3 k/uL (0-1.0); Monocytes % (A) 3 %; Neutrophils # (A) 7.5 k/uL (1.3-7.7); Neutrophils % (A) 90 %; Platelet Count 169 k/uL (150-450); RBC 4.04 m/uL (3.80-5.40); RDW 14.3 % (11.5-15.5); WBC 8.4 k/uL (3.8-10.6)
[2020-10-23 05:45] LABS: Glucose,Whole Blood 187 mg/dL (75-99)
[2020-10-23 05:46] LABS: Albumin 3.1 g/dL (3.5-5.0); C Reactive Protein 54.8 mg/L (<10.0); Potassium 5.3 mmol/L (3.5-5.1); Total Bilirubin 0.5 mg/dL (0.2-1.3)
[2020-10-23] MEDS: NOREPINEPHRINE 4 MG in SODIUM CHLORIDE 0.9% 250 ML IV SCH ×3 (06:07→22:26)
[2020-10-23] MEDS: methylPREDNISolone SOD SUCCI 125 MG/2 ML VIAL IV SCH ×4 (06:18→23:07)
[2020-10-23] MEDS: LEVOTHYROXINE 75 MCG TAB PO SCH (06:18)
[2020-10-23] MEDS: INSULIN ASPART (NovoLOG) 100 UNIT/ML VIAL SQ SCH ×5 (06:19→23:06)
[2020-10-23] MEDS: INSULIN DETEMIR (LEVEMIR) 100 UNIT/ML SYR SQ SCH (06:22)
--- NOTE | 2020-10-23 07:39 | XR ---
EXAMINATION TYPE: XR chest 1V portable DATE OF EXAM: 10/23/2020 HISTORY: Shortness of breath. COMPARISON: 10/22/2020 TECHNIQUE: Single view of the chest is submitted. FINDINGS: Endotracheal and NG tubes have been removed. Persistent perihilar patchy basilar infiltrates. No significant change appreciated. The heart is stable. Hilar and mediastinal structures are within normal limits. Degenerative changes are seen of the dorsal spine. IMPRESSION: 1. Persistent perihilar patchy basilar infiltrates. No significant change appreciated.
[2020-10-23] MEDS: PANTOPRAZOLE 40 MG/10 ML VIAL IVP SCH (07:55)
[2020-10-23] MEDS: APIXABAN 5 MG TAB PO SCH ×2 (07:57→20:31)
[2020-10-23] MEDS: METOPROLOL TARTRATE 12.5 MG TAB PO SCH ×2 (07:57→20:31)
[2020-10-23] MEDS: MAGNESIUM OXIDE 400 MG TAB PO SCH (07:58)
[2020-10-23] MEDS: LOSARTAN 25 MG TAB PO SCH (07:58)
[2020-10-23] MEDS: GABAPENTIN 300 MG CAP PO SCH ×2 (07:58→20:31)
[2020-10-23] MEDS: CHOLECALCIFEROL 25 MCG (1000 IU) TABLET PO SCH (07:58)
[2020-10-23] MEDS: CEFEPIME 2 GM in SODIUM CHLORIDE 0.9% 100 ML IVPB SCH ×2 (08:01→20:31)
--- NOTE | 2020-10-23 08:50 | P.PN ---
Subjective Progress Note Date: 10/23/20 55-year-old female patient who was recently hospitalized from [facility] 10/19/2020 for COVID 19 pneumonia, acute exacerbation of COPD and CHF diastolic dysfunction. Patient has history of advanced COPD, she is on home oxygen usually wears 5 L/m on a regular basis, has a obstructive sleep apnea and reportedly has a Trilogy device at home. Patient recently moved from [place], was hospitalized in the beginning of September for acute exacerbation of COPD and diastolic CHF. She was out of the window for Remdesivir, she was treated with standard care including IV steroids, diuretics, breathing treatments and prophylactic anticoagulation. The medical history includes hypothyroidism, hyperlipidemia, diabetes mellitus type 2, morbid obesity, chronic and ongoing history of tobacco use. On 10/20/2020 patient was brought into the emergency department per EMS with difficulty breathing and chest discomfort. CXR showed mild cardiomegaly with mildly increased perihilar edema and infiltrates increased compared to be enlarged exam, HEENT showed sinus rhythm with PACs. Her blood gases in the emergency department showed pO2 of 49, pCO2 of 120, and pH of 7.2, patient had decreased consciousness and was in significant amount of respiratory distress, and she was emergently intubated and placed on mechanical ventilator. Repeat blood gases showed improvement in acute on chronic hypercapnic and hypoxic respiratory failure, with improvement of pO2 up to 134, pCO2 of 93, and pH of 7.33. She was also noted to be in new onset A. fib with RVR, and required Cardizem drip for brief amount of time and she is back in sinus currently. Patient was started on IV steroids, Lasix, breathing treatments. Lab work has been reviewed, showing no evidence of leukocytosis white blood cell, 7.3, with a hemoglobin of 15, proBNP of 1240, is 0.021, second troponin was 0.052. Lactic acid was within normal limits, patient has been afebrile since arrival to the emergency department, hemodynamically stable, this morning she seen in the emergency department, she remains sedated and on ne chanical ventilator, on assist-control mode of ventilation with a rate of 30, tidal lungs 400, FiO2 of 80% and PEEP of 5, this morning's blood gases show improvement in pO2 and pCO2 concentrations and improvements in the acid base balance with pH up to 7.33 as mentioned above. On 10/21/2020, the patient is being seen for a follow-up. The patient remains intubated on a mechanical ventilator. This morning the patient is on propofol which is running at 60 mcg/kg per minute and the patient is well sedated for now and very much interested a mechanical ventilator. She is an assist-control mode at the rate of 24 with a tidal volume of 350 and FiO2 of 60% with a PEEP of 10. The morning blood gases showed a pH of 7.45 with a pCO2 of 71 and pO2 of 66. Peak airway pressure was around 42 and static airway pressure was 27-28. The chest x-ray is showing adequate expansion of both lungs. There is cardiomegaly. There is some mild interstitial prominence with questionable consolidation of the right lower lobe. ET tube is at the level of the aortic knob and the OG tube is in good location. She does remain bronchospastic and wheezy. Note that her blood pressure has stabilized. She was given a bolus of fluid with a liter of normal saline. No pressors was utilized. Diuretics were placed on hold. Her white second dose of 5.6 with a hemoglobin of 12.8. Rest of the electrolytes are still pending from this morning. Meanwhile, the patient is on bronchodilators with albuterol 2 puffs, and she is also on IV Solu Medrol 60 mg every 6 hours. In terms of her cardiac rhythm, the patient is back into normal sinus rhythm. Cardizem drip was weaned off it was discontinued yesterday and the patient is hemodynamically stable at this point in time. The fluid balance is in the order of +1.3 L since yesterday. No other significant events overnight. Enteral feeding has been started at 80 mL an hour of vital high protein.. Abdomen is soft. No significant edema in her extremities. No other significant events otherwise for now. 2020 the patient remains intubated on a mechanical ventilator. This morning she is on propofol running at 60 mcg/kg per minute and the patient is also on a mechanical ventilator on assist control mode at the rate of 16 with a tidal volume of 53 and FiO2 of 70% with a PEEP of 10. A FiO2 was brought up to 70% and the morning blood gases showed a pH of 7.37 with a pCO2 of 84 and pO2 of 59. The chest x-ray shows a retrocardiac infiltrate and there is also right lower lobe pulmonary infiltrate. Nevertheless does not extensive and upper lobe s are quite clear. Note that the patient also had a Covid 19 related infection/pneumonia which probably is contributing to her ongoing hypoxemia. In any rate, the patient is still on a mechanical ventilator for now. She is quite synchronous with the mechanical ventilator. She is calm and comfortable. No significant orotracheal secretions. She is hemodynamically stable. His sputum analysis came back positive for some rare budding yeast which is expected otherwise the rest was consistent with a normal respiratory cherelle. There is of treatment, she remains on IV Solu-Medrol 60 mg every 6 hours. She is also on albuterol HFA 2 puffs scheduled every 4 hours, no antibiotics for now. Have her LEVEL WAS LOW AT 0.21 AND 0.11 RESPECTIVELY 2. In terms of diuretics, the patient was becoming hypotensive and I stopped the diuretics. She is currently IV fluids running at 20 mL an hour and she is also on no pressors for now. She is afebrile. She is tolerating her enteral feeding for nutritional support and she is on vital high protein at the rate of 20 mL an hour. White cell count tod ay is at 7.3 with a hemoglobin of 13.3. Platelet is down to 145. Inflammatory markers show an LDH level of 1023 from yesterday and the CRP level is down to 57 from today. She is currently on Eliquis 5 mg by mouth twice a day. This was given to her because of paroxysmal atrial fibrillation with a crit at time of admission. Currently she is back to normal sinus rhythm for now. 10/23/2020, the patient is off the mechanical ventilator. I managed to wean off her sedation yesterday and subsequently extubated this patient to a IPAP. She is currently on the BiPAP and she's been on the BiPAP since extubation. She loves her BiPAP and she is able to tolerated it well. Her current setting is 1 5/6 cm of BiPAP at a FiO2 of 50%. A blood gas is to be done today. The chest x-ray from today is showing some atelectasis/infiltration the left lower lobe. There is also cardiomegaly. The right lung remains relatively clear and there is still some persistent infiltration of the right lower lobe which was present on earlier chest x-rays. I was in no major interval change in the chest x-ray findings. The patient is pulse oxing approximately 92% on the current BiPAP setting. She is on IV cefepime as a broad-spectrum antibiotic coverage and this was added yesterday due to concern of superinfection/pneumonia. Note that she was infected for Covid 19 earlier and the patient remains on IV Solu-Medrol 60 mg every 6 hours which is also helped her with her COPD exacerbation. She is currently on no sedation. She is currently on no pressors. IV fluids are running at the rate of KVO at 20 mL an hour. Diuretics has been placed on hold. In terms of her inflammatory markers, her CRP level was at 54 and her d-dimer was at 0.52. Sputum culture has been negative. She is afebrile. She is arousable. She is following commands. She is only alert to self. Cardiac rhythm is sinus and we have not witnessed any episodes of atrial fibrillation since ICU stay and the patient is taken 5 mg of Eliquis as long-term anticoagulants for now. Objective - Vital Signs Vital signs: Vital Signs Temp 98.7 F 10/23/20 04:00 Pulse 76 10/23/20 07:00 Resp 14 10/23/20 07:00 BP 99/73 10/20/20 08:39 Pulse Ox 92 L 10/23/20 07:00 Intake & Output 10/22/20 10/23/20 10/23/20 18:59 06:59 18:59 Intake Total 568.250 286 23 Output Total 875 980 40 Balance -306.750 -694 -17 Weight 146.5 kg Intake: IV 193 286 23 0.9 Flush 33 36 3 Cefepime 2 gm In Sodium 120 Chloride 0.9% 100 ml @ 25 mls/hr IVPB Q12HR ONIEL Rx #:[id number] Sodium Chloride 0.9% 1, 160 130 20 000 ml @ 20 mls/hr IV . Q24H ONIEL Rx#:[id number] Intake, IV Titration 265.250 Amount Cefepime 2 gm In Sodium 100 Chloride 0.9% 100 ml @ 25 mls/hr IVPB Q12HR ONIEL Rx #:[id number] propofoL 1,000 mg In 165.250 Empty Bag 1 bag @ Titrate IV .Q0M ONIEL Rx#: [id number] Tube Feeding 80 Other 30 Output: Urine 875 980 40 Other: Voiding Method Indwelling Catheter Indwelling Catheter # Bowel Movements 1 ABP, PAP, CO, CI - Last Documented Arterial Blood Pressure 133/63 - Exam GENERAL EXAM: Obese 55-year-old white female, extubated to BiPAP current settings are 15/6 cm of water. She is able to generate enough tidal volumes above 500 and she has a respiratory rate in the low 20s and she has a adequate minute ventilation for now at around 8-10l L. HEAD: Normocephalic/atraumatic. EYES: Normal reaction of pupils, equal size. Conjunctiva pink, sclera white. NOSE: Clear with pink turbinates. THROAT: No erythema or exudates. NECK: No masses, no JVD, no thyroid enlargement, no adenopathy. CHEST: No chest wall deformity. Symmetrical expansion. LUNGS: Equal air entry with no crackles, wheeze, rhonchi or dullness. CVS: Regular rate and rhythm, normal S1 and S2, no gallops, no murmurs, no rubs ABDOMEN: Soft, nontender. No hepatosplenomegaly, normal bowel sounds, no guarding or rigidity. EXTREMITIES: No clubbing, no edema, no cyanosis, 2+ pulses and upper and lower extremities. MUSCULOSKELETAL: Muscle strength and tone normal. SPINE: No scoliosis or deformity SKIN: No rashes CENTRAL NERVOUS SYSTEM: Sedated, intubated. No focal deficits, tone is normal in all 4 extremities. - Labs CBC & Chem 7: 10/23/20 05:10 10/23/20 05:10 Labs: Abnormal Lab Results - Last 24 Hours (Table) 10/22/20 10/22/20 10/22/20 Range/Units 09:00 11:33 17:14 MCV (80.0-100.0) fL MCHC (31.0-37.0) g/dL Lymphocytes # (1.0-4.8) k/uL Fibrinogen (200-500) mg/dL ABG pCO2 88 H* (35-45) mmHg ABG pO2 68 L (83-108) mmHg ABG HCO3 50 H* (21-25) mmol/L ABG Total CO2 52 H (19-24) mmol/L ABG O2 Saturation 93.4 L (94-97) % Potassium (3.5-5.1) mmol/L Chloride (98-107) mmol/L Carbon Dioxide (22-30) mmol/L BUN (7-17) mg/dL Glucose (74-99) mg/dL POC Glucose (mg/dL) 204 H 175 H (75-99) mg/dL Calcium (8.4-10.2) mg/dL AST (14-36) U/L ALT (4-34) U/L C-Reactive Protein (<10.0) mg/L Total Protein (6.3-8.2) g/dL Albumin (3.5-5.0) g/dL 10/22/20 10/23/20 10/23/20 Range/Units 23:37 05:10 05:10 MCV 105.0 H (80.0-100.0) fL MCHC 30.9 L (31.0-37.0) g/dL Lymphocytes # 0.4 L (1.0-4.8) k/uL Fibrinogen 610 H (200-500) mg/dL ABG pCO2 (35-45) mmHg ABG pO2 (83-108) mmHg ABG HCO3 (21-25) mmol/L ABG Total CO2 (19-24) mmol/L ABG O2 Saturation (94-97) % Potassium (3.5-5.1) mmol/L Chloride (98-107) mmol/L Carbon Dioxide (22-30) mmol/L BUN (7-17) mg/dL Glucose (74-99) mg/dL POC Glucose (mg/dL) 188 H (75-99) mg/dL Calcium (8.4-10.2) mg/dL AST (14-36) U/L ALT (4-34) U/L C-Reactive Protein (<10.0) mg/L Total Protein (6.3-8.2) g/dL Albumin (3.5-5.0) g/dL 10/23/20 10/23/20 Range/Units 05:10 05:44 MCV (80.0-100.0) fL MCHC (31.0-37.0) g/dL Lymphocytes # (1.0-4.8) k/uL Fibrinogen (200-500) mg/dL ABG pCO2 (35-45) mmHg ABG pO2 (83-108) mmHg ABG HCO3 (21-25) mmol/L ABG Total CO2 (19-24) mmol/L ABG O2 Saturation (94-97) % Potassium 5.3 H (3.5-5.1) mmol/L Chloride 91 L (98-107) mmol/L Carbon Dioxide 49 H* (22-30) mmol/L BUN 48 H (7-17) mg/dL Glucose 161 H (74-99) mg/dL POC Glucose (mg/dL) 187 H (75-99) mg/dL Calcium 8.0 L (8.4-10.2) mg/dL AST 47 H (14-36) U/L ALT 44 H (4-34) U/L C-Reactive Protein 54.8 H (<10.0) mg/L Total Protein 6.0 L (6.3-8.2) g/dL Albumin 3.1 L (3.5-5.0) g/dL Microbiology - Last 24 Hours (Table) 10/20/20 05:00 Gram Stain - Final Sputum Sputum Culture - Preliminary Assessment and Plan Plan: #1. Acute on chronic hypoxic and hypercapnic respiratory failure related to acute exacerbation of COPD, diastolic CHF and possibly a new onset atrial fibrillation with rapid ventricular response and possibly component of COPD exacerbation and bilateral pulmonary infiltrates involving the left lower lobe and the right lower lobe and a pneumonia was also suspected. As such, respirat ory failure was multifactorial. The patient was intubated and placed on a mechanical ventilator for around 24 hours and following that she was extubated to a BiPAP which is currently running a pressure 15/60 FiO2 of 50%. She is quite comfortable. She is arousing. She is off sedation. She is off pressors. She is taking Solu-Medrol. She is taking IV cefepime. Diuretics will be restarted at a slower rate. She'll be given a trial off the BiPAP this morning also. Predominant factor contributing to respiratory failure is probably COPD and pneumonia. Could be a component of CHF also. Covid 19 probably is not a major contributing factor this point in time. #2. New onset of A. fib with RVR, patient was briefly on Cardizem drip back in sinus right now and the patient is maintained on long-term anticoagulation with Eliquis #3. Hospitalization for COVID 19 pneumonia, from 10/16 through 10/19/2020 LDH is 1444 and the CRP 67. The patient is afebrile. #4. COPD with chronic hypoxic and hypercapnic respiratory failure, patient usually wears 5 L of oxygen at home on a regular basis, and reportedly has a Trilogy device at home #5. Chronic diastolic CHF, echocardiogram showed EF of 50-55%, valves could not be visualized related to body habitus #6. Obesity #7. Chronic and ongoing history of smoking #8. Obstructive sleep apnea and patient has a Trilogy device at home, but compliance is not known at this time Plan: Keep BiPAP on and off during the day and alternate with high flow oxygen and allow the patient some diet. She is currently on pressures of 15/6 with an FiO2 of 50%. She should be able to tolerate high flow oxygen probably 15 L or even higher depending on her oxygenation. Obtain a blood gas Restart Lasix 40 mg IV every 24 hours Continue IV Solu-Medrol 60 mg every 6 hours Cardiac rhythm is back to sinus Pro-calcitonin level is low, nevertheless, due to concern of a bacterial pneumonia and the left lower lobe, we'll put the patient IV cefepime 2 g every 12 hours as the patient's chest x-ray still showing some bilateral lower lobe pulmonary infiltrates Continue supportive care. condition is still critical. We'll continue to follow. We'll make further recommendations based on her progress. critically care evaluation that was done and more than 30 minutes. Time with Patient: Greater than 30
[2020-10-23] MEDS: FLUTICASONE 220 MCG INHALER INHALATION SCH ×2 (08:59→20:51)
[2020-10-23 09:10] LABS: ABG PCO2 84 mmHg (35-45); ABG PH 7.39 (7.35-7.45); ABG PO2 62 mmHg (83-108)
[2020-10-23 09:11] LABS: ABG Base Excess 26.2 mmol/L; ABG HCO3 51 mmol/L (21-25); ABG Oxygen Saturation 92.1 % (94-97); ABG TCO2 54 mmol/L (19-24)
[2020-10-23] MEDS ORDERED: HYDROmorphone 1 MG/ML 1 ML SYRINGE IVP PRN (09:13)
[2020-10-23 09:16] LABS: Ferritin 1220.3 ng/mL (10.0-291.0)
[2020-10-23] MEDS: SODIUM CHLORIDE 0.9% 1,000 ML IV SCH (09:48)
[2020-10-23] MEDS: FUROSEMIDE 10 MG/ML 4 ML VIAL IV SCH (09:48)
--- NOTE | 2020-10-23 12:41 | P.PN ---
Subjective This is a pleasant 55 years old female with past medical history of diabetes mellitus, COPD, obstructive sleep apnea on CPAP at night night, hypothyroidism. Presents with respiratory distress and found to have respiratory failure secondary to bilateral covid Pneumonia, and she's been treated with combination of vitamin C, zinc Solu-Medrol 60 mg as well as anticoagulation with Eliquis. She is status post extubation today and she is very lethargic and cannot contribute much stone formation. Secondary bacteria suspected in the left lower lobe and patient is on cefepime Patient is with new onset A. fib and RVR, patient is currently controlled and anticoagulation with Eliquis 5 mg. But needs only small dose of metoprolol 12.5 mg. Levemir 5 unit at that for hyperglycemia while on steroids 10/23/2020 Patient is a status post extubated yesterday. Currently she is on BiPAP with a setting of 15/6 and FiO2 of 50%, her ABG still showing pO2 of 62 L so I think she still needs to be on BiPAP On the top of that she is fatigued but she follow command. Risks of vitals are stable. Sugar controlled at 187. C-reactive protein is around the same at 54.8. Ferritin is high at 1220. She remains on cefepime, Depo-Medrol 60 mg, she got IV Lasix and she made 1 L of urine output after that. Also she is on Eliquis Review of systems: N/a, patient was not able to participate because she is retired Active Medications Generic Name Dose Route Start Last Admin Trade Name Freq PRN Reason Stop Dose Admin Albuterol Sulfate 2 puff 10/21/20 08:00 10/23/20 12:05 Albuterol Hfa Inhaler INHALATION 2 puff RT-Q4H ONIEL Administration Apixaban 5 mg 10/21/20 21:00 10/23/20 07:57 Apixaban 5 Mg Tab PO 5 mg BID ONIEL Administration Atorvastatin Calcium 20 mg 10/20/20 21:00 10/22/20 21:26 Atorvastatin 20 Mg Tab PO 20 mg HS ONIEL Administration Cholecalciferol 25 mcg 10/20/20 09:00 10/23/20 07:58 Cholecalciferol 25 Mcg (1000 Iu) Tablet PO 25 mcg DAILY ONIEL Administration Fluticasone Propionate 2 puff 10/20/20 11:00 10/23/20 08:59 Fluticasone 220 Mcg Inhaler INHALATION 2 puff RT-BID ONIEL Administration Furosemide 40 mg 10/23/20 09:00 10/23/20 09:48 Furosemide 10 Mg/Ml 4 Ml Vial IV 40 mg DAILY ONIEL Administration Gabapentin 300 mg 10/20/20 09:00 10/23/20 07:58 Gabapentin 300 Mg Cap PO 300 mg BID ONIEL Administration Propofol 1,000 mg/ IV Solution 100 mls @ 0 mls/hr 10/20/20 09:30 10/22/20 10:23 IV Infused .Q0M ON[facility]EL Titration Protocol Titrate Sodium Chloride 1,000 mls @ 20 mls/hr 10/20/20 09:45 10/23/20 09:48 Saline 0.9% IV 20 mls/hr .Q24H ONIEL Administration Norepinephrine Bitartrate 4 mg 254 mls @ 31.099 mls/hr 10/20/20 11:45 10/23/20 06:07 / Sodium Chloride IV Not Given .Q8H11M ONIEL Protocol 0.05 MCG/KG/MIN Cefepime HCl 2 gm/ Sodium 100 mls @ 25 mls/hr 10/22/20 09:00 10/23/20 08:01 Chloride IVPB 25 mls/hr Q12HR ONIEL Administration Insulin Aspart 0 unit 10/20/20 18:00 10/23/20 06:19 Insulin Aspart (Novolog) 100 Unit/Ml Vial SQ 5 unit Q6H ONIEL Administration Protocol Insulin Detemir 5 unit 10/22/20 12:15 10/23/20 06:22 Insulin Detemir (Levemir) 100 Unit/Ml Syr SQ 5 unit DAILY@0700 ONIEL Administration Levothyroxine Sodium 150 mcg 10/20/20 06:30 10/23/20 06:18 Levothyroxine 75 Mcg Tab PO 150 mcg DAILY@0630 ONIEL Administration Losartan Potassium 12.5 mg 10/20/20 09:00 10/23/20 07:58 Losartan 25 Mg Tab PO 12.5 mg DAILY ONIEL Administration Magnesium Oxide 400 mg 10/20/20 09:00 10/23/20 07:58 Magnesium Oxide 400 Mg Tab PO 400 mg DAILY ONIEL Administration Methylprednisolone Sodium Succinate 60 mg 10/20/20 06:00 10/23/20 06:18 Methylprednisolone Sod Succi 125 Mg/2 Ml Vial IV 60 mg Q6HR ONIEL Administration Metoprolol Tartrate 12.5 mg 10/21/20 21:00 10/23/20 07:57 Metoprolol Tartrate 12.5 Mg Tab PO 12.5 mg BID ONIEL Administration Miscellaneous Information 1 each 10/21/20 10:10 Potassium Replacement Protocol 1 Each Misc MISCELLANE DAILY PRN Per Protocol Protocol Morphine Sulfate 4 mg 10/20/20 09:15 10/20/20 09:21 Morphine Sulfate 4 Mg/Ml Syringe IVP 4 mg Q4HR PRN Administration Pain Nitroglycerin 0.4 mg 10/20/20 03:35 Nitroglycerin Sl Tabs 0.4 Mg Tab SUBLINGUAL Q5M PRN Chest Pain Pantoprazole Sodium 40 mg 10/20/20 14:30 10/23/20 07:55 Pantoprazole 40 Mg/10 Ml Vial IVP 40 mg DAILY ONIEL Administration Objective - Vital Signs Vital signs: Vital Signs Temp 99.0 F 10/23/20 08:00 Pulse 66 10/23/20 11:00 Resp 19 10/23/20 11:00 BP 99/73 10/20/20 08:39 Pulse Ox 90 L 10/23/20 11:00 Intake & Output 10/22/20 10/23/20 10/23/20 18:59 06:59 18:59 Intake Total 568.250 286 238 Output Total 688 351 0311 Balance -306.750 -694 -1202 Weight 146.5 kg Intake: IV 193 286 238 0.9 Flush 33 36 18 Cefepime 2 gm In Sodium 120 100 Chloride 0.9% 100 ml @ 25 mls/hr IVPB Q12HR [facility] Rx #:[id number] Sodium Chloride 0.9% 1, 160 130 120 000 ml @ 20 mls/hr IV . Q24H [facility] Rx#:[id number] Intake, IV Titration 265.250 Amount Cefepime 2 gm In Sodium 100 Chloride 0.9% 100 ml @ 25 mls/hr IVPB Q12HR [facility] Rx #:[id number] propofoL 1,000 mg In 165.250 Empty Bag 1 bag @ Titrate IV .Q0M ON[facility] Rx#: [id number] Tube Feeding 80 Other 30 Output: Urine 200 897 6967 Other: Voiding Method Indwelling Catheter Indwelling Catheter Indwelling Catheter # Bowel Movements 1 1 ABP, PAP, CO, CI - Last Documented Arterial Blood Pressure 125/62 - Exam -GENERAL: The patient is alert and oriented x3, not in any acute distress. Generally weak HEENT: Pupils are round and equally reacting to light. EOMI. No scleral icterus. No conjunctival pallor. Normocephalic, atraumatic. No pharyngeal erythema. No thyromegaly. CARDIOVASCULAR: S1 and S2 present. No murmurs, rubs, or gallops. -PULMONARY: Chest is clear to auscultation, no bilateral crepitation and bronchial breath sounds especially on the left side ABDOMEN: Soft, nontender, nondistended, normoactive bowel sounds. No palpable organomegaly. MUSCULOSKELETAL: No joint swelling or deformity. EXTREMITIES: No cyanosis, clubbing, or pedal edema. NEUROLOGICAL: Gross neurological examination did not reveal any focal deficits. SKIN: No rashes. no petechiae. - Labs CBC & Chem 7: 10/23/20 05:10 10/23/20 05:10 Labs: Abnormal Lab Results - Last 24 Hours (Table) 10/22/20 10/22/20 10/23/20 Range/Units 17:14 23:37 05:10 MCV 105.0 H (80.0-100.0) fL MCHC 30.9 L (31.0-37.0) g/dL Lymphocytes # 0.4 L (1.0-4.8) k/uL Fibrinogen (200-500) mg/dL ABG pCO2 (35-45) mmHg ABG pO2 (83-108) mmHg ABG HCO3 (21-25) mmol/L ABG Total CO2 (19-24) mmol/L ABG O2 Saturation (94-97) % Potassium (3.5-5.1) mmol/L Chloride (98-107) mmol/L Carbon Dioxide (22-30) mmol/L BUN (7-17) mg/dL Glucose (74-99) mg/dL POC Glucose (mg/dL) 175 H 188 H (75-99) mg/dL Calcium (8.4-10.2) mg/dL Ferritin (10.0-291.0) ng/mL AST (14-36) U/L ALT (4-34) U/L C-Reactive Protein (<10.0) mg/L Total Protein (6.3-8.2) g/dL Albumin (3.5-5.0) g/dL 10/23/20 10/23/20 10/23/20 Range/Units 05:10 05:10 05:44 MCV (80.0-100.0) fL MCHC (31.0-37.0) g/dL Lymphocytes # (1.0-4.8) k/uL Fibrinogen 610 H (200-500) mg/dL ABG pCO2 (35-45) mmHg ABG pO2 (83-108) mmHg ABG HCO3 (21-25) mmol/L ABG Total CO2 (19-24) mmol/L ABG O2 Saturation (94-97) % Potassium 5.3 H (3.5-5.1) mmol/L Chloride 91 L (98-107) mmol/L Carbon Dioxide 49 H* (22-30) mmol/L BUN 48 H (7-17) mg/dL Glucose 161 H (74-99) mg/dL POC Glucose (mg/dL) 187 H (75-99) mg/dL Calcium 8.0 L (8.4-10.2) mg/dL Ferritin 1220.3 H (10.0-291.0) ng/mL AST 47 H (14-36) U/L ALT 44 H (4-34) U/L C-Reactive Protein 54.8 H (<10.0) mg/L Total Protein 6.0 L (6.3-8.2) g/dL Albumin 3.1 L (3.5-5.0) g/dL 10/23/20 Range/Units 09:04 MCV (80.0-100.0) fL MCHC (31.0-37.0) g/dL Lymphocytes # (1.0-4.8) k/uL Fibrinogen (200-500) mg/dL ABG pCO2 84 H* (35-45) mmHg ABG pO2 62 L (83-108) mmHg ABG HCO3 51 H* (21-25) mmol/L ABG Total CO2 54 H (19-24) mmol/L ABG O2 Saturation 92.1 L (94-97) % Potassium (3.5-5.1) mmol/L Chloride (98-107) mmol/L Carbon Dioxide (22-30) mmol/L BUN (7-17) mg/dL Glucose (74-99) mg/dL POC Glucose (mg/dL) (75-99) mg/dL Calcium (8.4-10.2) mg/dL Ferritin (10.0-291.0) ng/mL AST (14-36) U/L ALT (4-34) U/L C-Reactive Protein (<10.0) mg/L Total Protein (6.3-8.2) g/dL Albumin (3.5-5.0) g/dL Microbiology - Last 24 Hours (Table) 10/20/20 05:00 Gram Stain - Final Sputum Sputum Culture - Final Assessment and Plan Assessment: Acute bilateral Covid pneumonia Acute hypoxic respiratory failure secondary to above Suspected left lower lobe bacterial super infected pneumonia New-onset A. fib and RVR History of sleep apnea 2 diabetes mellitus COPD Chronic heart failure Plan: This is a pleasant 55 years old female who presents with and A. fib. Continue Solu-Medrol, continue with vitamin C and zinc. Also with broad-spectrum antibiotics with cefepime, cardiology and pulmonary team on the case. Continue with metoprolol and Eliquis Labs and medication were reviewed.. Continue same treatment. Continue with symptomatic treatment. Resume home medication. Monitor lytes and vitals. DVT and GI prophylaxis. Further recommendationsas per clinical course of the patient DVT prophylaxis: Eliquis GI Prophylaxis: Ppi Prognosis is guarded
--- NOTE | 2020-10-23 13:04 | P.PN ---
Subjective Progress Note Date: 10/23/20 CHIEF COMPLAINT: New-onset atrial fibrillation HISTORY OF PRESENT ILLNESS: 10/20/2020 This is a 55-year-old female with a past medical history significant for COPD with home oxygen, diabetes mellitus, congestive heart failure, sleep apnea, thyroid disorder, and nicotine dependence. 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 It is noted that the patient was recently hospitalized in September due to COPD and CHF. We have been asked to see the patient in consultation for new onset atrial fibrillation. Patient presented to the emergency room due to shortness of breath. In the emergency room the patient developed increasing respiratory distress and was intubated. Patient is positive for Covid 19 (tested on 10/16/2020). Patient was in sinus mechanism upon presentation to the ER. She developed atrial fibrillation and was on a Cardizem drip for a short period of time. She has since converted back to sinus mechanism. Patient is currently receiving Lovenox 150 mg every 12 hours EKG reveals sinus mechanism with PVCs Chest xray perihilar pulmonary infiltrates. Probably some basilar atelectasis. Laboratory data: WBC 7.3. Hemoglobin 15.0. Platelet count 180. Sodium 142. Potassium 4.2. BUN 39. Creatinine 0.80. Lactic acid 1.5. AST 42. ALT 65. BNP 1240. Troponin 0.021. 0.052. 0.079. Current home cardiac medications include losartan 12.5 mg daily, Lasix 40 mg daily, Lipitor 20 mg daily Echocardiogram completed on 10/04/2020 revealed ejection fraction 50-55% 10/21/2020 Patient is maintaining sinus mechanism on telemetry. Heart rate in the 70s. Patient was receiving Lovenox 150 mg twice a day but her dose was decreased down to 40 mg daily today by pulmonary. She remains on mechanical ventilation. FiO2 50%. Blood pressure 120/63. 10/22/2020 patient remains in the ICU on mechanical ventilation. She's maintaining sinus mechanism on telemetry. Heart rate in the 60s. She has been started on Eliquis for anticoagulation. 10/23/2020 Patient remains in the intensive care unit. She was extubated yesterday. She is currently on a BiPAP. She is maintaining sinus mechanism. She remains on Eliquis for anticoagulation. Blood pressure 117/58. PHYSICAL EXAM: Thorough physical exam not completed secondary to limited evaluation/examination and due to Covid19 ASSESSMENT: Acute on chronic hypoxic and hypercapnic respiratory failure requiring mechanical ventilation Covid 19 New onset paroxysmal atrial fibrillation with RVR, currently maintaining sinus mechanism Chronic diastolic congestive heart failure, EF 50-55% Hypertension Hyperlipidemia Obstructive sleep apnea Nicotine dependence PLAN: Continue ICU management per Dr. Tolentino Continue current dose of metoprolol Due to combination of paroxysmal atrial fibrillation and Covid, recommend anticoagulation for 2-3 months duration. Continue Eliquis 5 mg twice a day Patient is stable from a cardiac perspective. We will sign off. Please reconsult if needed. Nurse practitioner note has been reviewed by physician. Signing provider agrees with the documented findings, assessment, and plan of care. Objective - Vital Signs Vital signs: Vital Signs Temp 99.0 F 10/23/20 08:00 Pulse 65 10/23/20 12:00 Resp 18 10/23/20 12:00 BP 99/73 10/20/20 08:39 Pulse Ox 89 L 10/23/20 12:00 Intake & Output 10/22/20 10/23/20 10/23/20 18:59 06:59 18:59 Intake Total 568.250 286 238 Output Total 288 757 8432 Balance -306.750 -964 1202 Weight 146.5 kg Intake: IV 193 286 238 0.9 Flush 33 36 18 Cefepime 2 gm In Sodium 120 100 Chloride 0.9% 100 ml @ 25 mls/hr IVPB Q12HR [facility] Rx #:[id number] Sodium Chloride 0.9% 1, 160 130 120 000 ml @ 20 mls/hr IV . Q24H [facility] Rx#:[id number] Intake, IV Titration 265.250 Amount Cefepime 2 gm In Sodium 100 Chloride 0.9% 100 ml @ 25 mls/hr IVPB Q12HR [facility] Rx #:[id number] propofoL 1,000 mg In 165.250 Empty Bag 1 bag @ Titrate IV .Q0M [facility] Rx#: [id number] Tube Feeding 80 Other 30 Output: Urine 263 110 5640 Other: Voiding Method Indwelling Catheter Indwelling Catheter Indwelling Catheter # Bowel Movements 1 1 ABP, PAP, CO, CI - Last Documented Arterial Blood Pressure 117/58 - Labs CBC & Chem 7: 10/23/20 05:10 10/23/20 05:10 Labs: Abnormal Lab Results - Last 24 Hours (Table) 10/22/20 10/22/20 10/23/20 Range/Units 17:14 23:37 05:10 MCV 105.0 H (80.0-100.0) fL MCHC 30.9 L (31.0-37.0) g/dL Lymphocytes # 0.4 L (1.0-4.8) k/uL Fibrinogen (200-500) mg/dL ABG pCO2 (35-45) mmHg ABG pO2 (83-108) mmHg ABG HCO3 (21-25) mmol/L ABG Total CO2 (19-24) mmol/L ABG O2 Saturation (94-97) % Potassium (3.5-5.1) mmol/L Chloride (98-107) mmol/L Carbon Dioxide (22-30) mmol/L BUN (7-17) mg/dL Glucose (74-99) mg/dL POC Glucose (mg/dL) 175 H 188 H (75-99) mg/dL Calcium (8.4-10.2) mg/dL Ferritin (10.0-291.0) ng/mL AST (14-36) U/L ALT (4-34) U/L C-Reactive Protein (<10.0) mg/L Total Protein (6.3-8.2) g/dL Albumin (3.5-5.0) g/dL 10/23/20 10/23/20 10/23/20 Range/Units 05:10 05:10 05:44 MCV (80.0-100.0) fL MCHC (31.0-37.0) g/dL Lymphocytes # (1.0-4.8) k/uL Fibrinogen 610 H (200-500) mg/dL ABG pCO2 (35-45) mmHg ABG pO2 (83-108) mmHg ABG HCO3 (21-25) mmol/L ABG Total CO2 (19-24) mmol/L ABG O2 Saturation (94-97) % Potassium 5.3 H (3.5-5.1) mmol/L Chloride 91 L (98-107) mmol/L Carbon Dioxide 49 H* (22-30) mmol/L BUN 48 H (7-17) mg/dL Glucose 161 H (74-99) mg/dL POC Glucose (mg/dL) 187 H (75-99) mg/dL Calcium 8.0 L (8.4-10.2) mg/dL Ferritin 1220.3 H (10.0-291.0) ng/mL AST 47 H (14-36) U/L ALT 44 H (4-34) U/L C-Reactive Protein 54.8 H (<10.0) mg/L Total Protein 6.0 L (6.3-8.2) g/dL Albumin 3.1 L (3.5-5.0) g/dL 10/23/20 Range/Units 09:04 MCV (80.0-100.0) fL MCHC (31.0-37.0) g/dL Lymphocytes # (1.0-4.8) k/uL Fibrinogen (200-500) mg/dL ABG pCO2 84 H* (35-45) mmHg ABG pO2 62 L (83-108) mmHg ABG HCO3 51 H* (21-25) mmol/L ABG Total CO2 54 H (19-24) mmol/L ABG O2 Saturation 92.1 L (94-97) % Potassium (3.5-5.1) mmol/L Chloride (98-107) mmol/L Carbon Dioxide (22-30) mmol/L BUN (7-17) mg/dL Glucose (74-99) mg/dL POC Glucose (mg/dL) (75-99) mg/dL Calcium (8.4-10.2) mg/dL Ferritin (10.0-291.0) ng/mL AST (14-36) U/L ALT (4-34) U/L C-Reactive Protein (<10.0) mg/L Total Protein (6.3-8.2) g/dL Albumin (3.5-5.0) g/dL Microbiology - Last 24 Hours (Table) 10/20/20 05:00 Gram Stain - Final Sputum Sputum Culture - Final
[2020-10-23 13:06] LABS: Glucose,Whole Blood 189 mg/dL (75-99)
[2020-10-23 16:58] LABS: Glucose,Whole Blood 170 mg/dL (75-99)
[2020-10-23] MEDS: ATORVASTATIN 20 MG TAB PO SCH (20:31)
[2020-10-23 23:03] LABS: Glucose,Whole Blood 204 mg/dL (75-99)
[2020-10-24] MEDS: ALBUTEROL HFA INHALER INHALATION SCH ×7 (01:12→23:30)
[2020-10-24 04:19] LABS: Basophils # (A) 0.1 k/uL (0-0.2); Basophils % (A) 1 %; Eosinophils % (A) 0 %; HCT 41.1 % (34.0-46.0); HGB 13.1 gm/dL (11.4-16.0); Hypochromasia Slight; Lymphocytes # (A) 0.3 k/uL (1.0-4.8); Lymphocytes % (A) 5 %; MCH 33.3 pg (25.0-35.0); MCHC 31.8 g/dL (31.0-37.0); MCV 104.7 fL (80.0-100.0); Macrocytosis Slight; Mean Platelet Volume 8.7; Monocytes # (A) 0.3 k/uL (0-1.0); Monocytes % (A) 4 %; Neutrophils # (A) 6.8 k/uL (1.3-7.7); Neutrophils % (A) 90 %; Platelet Count 158 k/uL (150-450); RBC 3.93 m/uL (3.80-5.40); RDW 13.7 % (11.5-15.5); WBC 7.5 k/uL (3.8-10.6)
[2020-10-24 04:42] LABS: Albumin 3.2 g/dL (3.5-5.0); C Reactive Protein 50.4 mg/L (<10.0); Calcium 8.1 mg/dL (8.4-10.2); Potassium 5.3 mmol/L (3.5-5.1); Total Bilirubin 0.6 mg/dL (0.2-1.3); Total Protein 6.1 g/dL (6.3-8.2)
[2020-10-24] MEDS: NOREPINEPHRINE 4 MG in SODIUM CHLORIDE 0.9% 250 ML IV SCH ×2 (05:50→22:05)
[2020-10-24 05:51] LABS: Glucose,Whole Blood 215 mg/dL (75-99)
[2020-10-24] MEDS: INSULIN ASPART (NovoLOG) 100 UNIT/ML VIAL SQ SCH ×4 (05:55→21:33)
[2020-10-24] MEDS: methylPREDNISolone SOD SUCCI 125 MG/2 ML VIAL IV SCH ×4 (05:56→23:47)
[2020-10-24] MEDS: LEVOTHYROXINE 75 MCG TAB PO SCH (05:56)
[2020-10-24] MEDS: INSULIN DETEMIR (LEVEMIR) 100 UNIT/ML SYR SQ SCH (06:54)
[2020-10-24] MEDS: FLUTICASONE 220 MCG INHALER INHALATION SCH ×2 (07:23→21:41)
[2020-10-24] MEDS: PANTOPRAZOLE 40 MG/10 ML VIAL IVP SCH (08:01)
[2020-10-24] MEDS: FUROSEMIDE 10 MG/ML 4 ML VIAL IV SCH (08:03)
[2020-10-24] MEDS: CHOLECALCIFEROL 25 MCG (1000 IU) TABLET PO SCH (08:05)
[2020-10-24] MEDS: GABAPENTIN 300 MG CAP PO SCH ×2 (08:05→21:34)
[2020-10-24] MEDS: APIXABAN 5 MG TAB PO SCH ×2 (08:05→21:34)
[2020-10-24] MEDS: METOPROLOL TARTRATE 12.5 MG TAB PO SCH ×2 (08:05→21:34)
[2020-10-24] MEDS: CEFEPIME 2 GM in SODIUM CHLORIDE 0.9% 100 ML IVPB SCH ×2 (08:06→21:34)
[2020-10-24] MEDS: LOSARTAN 25 MG TAB PO SCH (08:06)
--- NOTE | 2020-10-24 08:27 | XR ---
EXAMINATION TYPE: XR chest 1V portable DATE OF EXAM: 10/24/2020 COMPARISON: Chest x-ray 10/23/2020 HISTORY: Abnormal chest x-ray TECHNIQUE: Single frontal view of the chest is obtained. FINDINGS: Findings are similar to prior exam. IMPRESSION: Correlate for pneumonia.
[2020-10-24] MEDS: MAGNESIUM OXIDE 400 MG TAB PO SCH (10:48)
[2020-10-24] MEDS ORDERED: INSULIN DETEMIR (LEVEMIR) 100 UNIT/ML SYR SQ ONE (11:09)
--- NOTE | 2020-10-24 11:32 | P.PN ---
Subjective Progress Note Date: 10/24/20 Principal diagnosis: CoVID 19 pneumonia 55-year-old female patient who was recently hospitalized from [facility] 10/19/2020 for COVID 19 pneumonia, acute exacerbation of COPD and CHF diastolic dysfunction. Patient has history of advanced COPD, she is on home oxygen usually wears 5 L/m on a regular basis, has a obstructive sleep apnea and reportedly has a Trilogy device at home. Patient recently moved from [place], was hospitalized in the beginning of September for acute exacerbation of COPD and diastolic CHF. She was out of the window for Remdesivir, she was treated with standard care including IV steroids, diuretics, breathing treatments and prophylactic anticoagulation. The medical history includes hypothyroidism, hyperlipidemia, diabetes mellitus type 2, morbid obesity, chronic and ongoing history of tobacco use. On 10/20/2020 patient was brought into the emergency department per EMS with difficulty breathing and chest discomfort. CXR showed mild cardiomegaly with mildly increased perihilar edema and infiltrates increased compared to be enlarged exam, HEENT showed sinus rhythm with PACs. Her blood gases in the emergency department showed pO2 of 49, pCO2 of 120, and pH of 7.2, patient had decreased consciousness and was in significant amount of respiratory distress, and she was emergently intubated and placed on mechanical ventilator. Repeat blood gases showed improvement in acute on chronic hypercapnic and hypoxic respiratory failure, with improvement of pO2 up to 134, pCO2 of 93, and pH of 7.33. She was also noted to be in new onset A. fib with RVR, and required Cardizem drip for brief amount of time and she is back in sinus currently. Patient was started on IV steroids, Lasix, breathing treatments. Lab work has been reviewed, showing no evidence of leukocytosis white blood cell, 7.3, with a hemoglobin of 15, proBNP of 1240, is 0.021, second troponin was 0.052. Lactic acid was within normal limits, patient has been afebrile since arrival to the emergency department, hemodynamically stable, this morning she seen in the emergency department, she remains sedated and on mechanical ventilator, on assist-control mode of ventilation with a rate of 30, tidal lungs 400, FiO2 of 80% and PEEP of 5, this morning's blood gases show improvement in pO2 and pCO2 concentrations and improvements in the acid base balance with pH up to 7.33 as mentioned above. On 10/21/2020, the patient is being seen for a follow-up. The patient remains intubated on a mechanical ventilator. This morning the patient is on propofol which is running at 60 mcg/kg per minute and the patient is well sedated for now and very much interested a mechanical ventilator. She is an assist-control mode at the rate of 24 with a tidal volume of 350 and FiO2 of 60% with a PEEP of 10. The morning blood gases showed a pH of 7.45 with a pCO2 of 71 and pO2 of 66. Peak airway pressure was around 42 and static airway pressure was 27-28. The chest x-ray is showing adequate expansion of both lungs. There is cardiomegaly. There is some mild interstitial prominence with questionable consolidation of the right lower lobe. ET tube is at the level of the aortic knob and the OG tube is in good location. She does remain bronchospastic and wheezy. Note that her blood pressure has stabilized. She was given a bolus of fluid with a liter of normal saline. No pressors was utilized. Diuretics were placed on hold. Her white second dose of 5.6 with a hemoglobin of 12.8. Rest of the electrolytes are still pending from this morning. Meanwhile, the patient is on bronchodilators with albuterol 2 puffs, and she is also on IV Solu Medrol 60 mg every 6 hours. In terms of her cardiac rhythm, the patient is back into normal sinus rhythm. Cardizem drip was weaned off it was discontinued yesterday and the patient is hemodynamically stable at this point in time. The fluid balance is in the order of +1.3 L since yesterday. No other significant events overnig ht. Enteral feeding has been started at 80 mL an hour of vital high protein.. Abdomen is soft. No significant edema in her extremities. No other significant events otherwise for now. 2020 the patient remains intubated on a mechanical ventilator. This morning she is on propofol running at 60 mcg/kg per minute and the patient is also on a mechanical ventilator on assist control mode at the rate of 16 with a tidal volume of 53 and FiO2 of 70% with a PEEP of 10. A FiO2 was brought up to 70% and the morning blood gases showed a pH of 7.37 with a pCO2 of 84 and pO2 of 59. The chest x-ray shows a retrocardiac infiltrate and there is also right lower lobe pulmonary infiltrate. Nevertheless does not extensive and upper lobes are quite clear. Note that the patient also had a Covid 19 related infection/pneumonia which probably is contributing to her ongoing hypoxemia. In any rate, the patient is still on a mechanical ventilator for now. She is quite synchronous with the mechanical ventilator. She is calm and comfortable. No significant orotracheal secretions. She is hemodynamically stable. His sputum analysis came back positive for some rare budding yeast which is expected otherwise the rest was consistent with a normal respiratory cherelle. There is of treatment, she remains on IV Solu-Medrol 60 mg every 6 hours. She is also on albuterol HFA 2 puffs scheduled every 4 hours, no antibiotics for now. Have her LEVEL WAS LOW AT 0.21 AND 0.11 RESPECTIVELY 2. In terms of diuretics, the patient was becoming hypotensive and I stopped the diuretics. She is currently IV fluids running at 20 mL an hour and she is also on no pressors for now. She is afebrile. She is tolerating her enteral feeding for nutritional support and she is on vital high protein at the rate of 20 mL an hour. White cell count today is at 7.3 with a hemoglobin of 13.3. Platelet is down to 145. Inflammatory markers show an LDH level of 1023 from yesterday and the CRP level is down to 57 from today. She is currently on Eliquis 5 mg by mouth twice a day. This was given to her because of paroxysmal atrial fibrillation with a crit at time of admission. Currently she is back to normal sinus rhythm for now. 10/23/2020, the patient is off the mechanical ventilator. I managed to wean off her sedation yesterday and subsequently extubated this patient to a IPAP. She is currently on the BiPAP and she's been on the BiPAP since extubation. She loves her BiPAP and she is able to tolerated it well. Her current setting is 15/6 cm of BiPAP at a FiO2 of 50%. A blood gas is to be done today. The chest x-ray from today is showing some atelectasis/infiltration the left lower lobe. There is also cardiomegaly. The right lung remains relatively clear and there is still some persistent infiltration of the right lower lobe which was present on earlier chest x-rays. I was in no major interval change in the chest x-ray findings. The patient is pulse oxing approximately 92% on the current BiPAP setting. She is on IV cefepime as a broad-spectrum antibiotic coverage and this was added yesterday due to concern of superinfection/pneumonia. Note that she was infected for Covid 19 earlier and the patient remains on IV Solu-Medrol 60 mg every 6 hours which is also helped her with her COPD exacerbation. She is currently on no sedation. She is currently on no pressors. IV fluids are running at the rate of KVO at 20 mL an hour. Diuretics has been placed on hold. In terms of her inflammatory markers, her CRP level was at 54 and her d-dimer was at 0.52. Sputum culture has been negative. She is afebrile. She is arousable. She is following commands. She is only alert to self. Cardiac rhythm is sinus and we have not witnessed any episodes of atrial fibrillation since ICU stay and the patient is taken 5 mg of Eliquis as long-term anticoagulants for now. The patient is seen today 10/24/2020 in follow-up in the intensive care unit. She was successfully extubated. She is currently alternating with BiPAP 15/6 and 50% FiO2 at nighttime. Currently on 15 L high flow nasal cannula. Awake, alert, no acute distress. She has 0.9 normal saline at a KVO. She is anti coagulated with Eliquis. Remains in sinus rhythm with PACs. Chest x-ray is stable with bilateral patchy infiltrates. Sputum culture revealed no growth. White count 7.5. Hemoglobin 13.1. Lymphocytes 0.3. D-dimer 0.73. Sodium 142. Potassium 5.3. Bicarb 52. Creatinine 0.93. LDH 1488. C-reactive protein 15.4. She remains on cefepime. Anticoagulated with Eliquis. Receiving Lasix daily. Adequate urine output. Continued on IV Solu-Medrol, vitamin supplements. Objective - Vital Signs Vital signs: Vital Signs Temp 98.6 F 10/24/20 08:00 Pulse 77 10/24/20 11:00 Resp 20 10/24/20 11:00 BP 99/73 10/20/20 08:39 Pulse Ox 92 L 10/24/20 11:00 Intake & Output 03/28/21 03/29/21 03/29/21 18:59 06:59 18:59 Intake Total 376 919 152 Output Total 2340 875 1000 Balance -1963 44 -848 Weight 142.5 kg Intake: IV 376 299 152 0.9 Flush 36 39 12 Cefepime 2 gm In Sodium 100 100 Chloride 0.9% 100 ml @ 25 mls/hr IVPB Q12HR [facility] Rx #:[id number] Sodium Chloride 0.9% 1, 240 260 40 000 ml @ 20 mls/hr IV . Q24H [facility] Rx#:[id number] Oral 620 Output: Urine 2340 875 1000 Other: Voiding Method Indwelling Catheter Indwelling Catheter # Bowel Movements 2 ABP, PAP, CO, CI - Last Documented Arterial Blood Pressure 139/58 - Exam GENERAL EXAM: Morbidly Obese 55-year-old white female, extubated to BiPAP current settings are 15/6 cm of water alternating with 15 L high flow nasal cannula HEAD: Normocephalic/atraumatic. EYES: Normal reaction of pupils, equal size. Conjunctiva pink, sclera white. NOSE: Clear with pink turbinates. THROAT: No erythema or exudates. NECK: No masses, no JVD, no thyroid enlargement, no adenopathy. CHEST: No chest wall deformity. Symmetrical expansion. LUNGS: Equal air entry with bibasilar crackles and diminished CVS: Regular rate and rhythm, normal S1 and S2, no gallops, no murmurs, no rubs ABDOMEN: Soft, nontender. No hepatosplenomegaly, normal bowel sounds, no guarding or rigidity. EXTREMITIES: No clubbing, no edema, no cyanosis, 2+ pulses and upper and lower extremities. MUSCULOSKELETAL: Muscle strength and tone normal. SPINE: No scoliosis or deformity SKIN: No rashes CENTRAL NERVOUS SYSTEM: Alert, oriented. No focal deficits, tone is normal in all 4 extremities. - Labs CBC & Chem 7: 10/24/20 04:10 10/24/20 04:10 Labs: Abnormal Lab Results - Last 24 Hours (Table) 10/23/20 10/23/20 10/23/20 Range/Units 13:05 16:57 23:01 MCV (80.0-100.0) fL Lymphocytes # (1.0-4.8) k/uL D-Dimer (<0.60) mg/L FEU Potassium (3.5-5.1) mmol/L Chloride (98-107) mmol/L Carbon Dioxide (22-30) mmol/L BUN (7-17) mg/dL Glucose (74-99) mg/dL POC Glucose (mg/dL) 189 H 170 H 204 H (75-99) mg/dL Calcium (8.4-10.2) mg/dL Magnesium (1.6-2.3) mg/dL AST (14-36) U/L ALT (4-34) U/L Lactate Dehydrogenase (313-618) U/L C-Reactive Protein (<10.0) mg/L Total Protein (6.3-8.2) g/dL Albumin (3.5-5.0) g/dL 10/24/20 10/24/20 10/24/20 Range/Units 04:10 04:10 04:10 MCV 104.7 H (80.0-100.0) fL Lymphocytes # 0.3 L (1.0-4.8) k/uL D-Dimer 0.73 H (<0.60) mg/L FEU Potassium 5.3 H (3.5-5.1) mmol/L Chloride 88 L (98-107) mmol/L Carbon Dioxide 52 H* (22-30) mmol/L BUN 53 H (7-17) mg/dL Glucose 205 H (74-99) mg/dL POC Glucose (mg/dL) (75-99) mg/dL Calcium 8.1 L (8.4-10.2) mg/dL Magnesium (1.6-2.3) mg/dL AST 42 H (14-36) U/L ALT 45 H (4-34) U/L Lactate Dehydrogenase 1488 H (313-618) U/L C-Reactive Protein 50.4 H (<10.0) mg/L Total Protein 6.1 L (6.3-8.2) g/dL Albumin 3.2 L (3.5-5.0) g/dL 10/24/20 10/24/20 Range/Units 05:49 08:06 MCV (80.0-100.0) fL Lymphocytes # (1.0-4.8) k/uL D-Dimer (<0.60) mg/L FEU Potassium (3.5-5.1) mmol/L Chloride (98-107) mmol/L Carbon Dioxide (22-30) mmol/L BUN (7-17) mg/dL Glucose (74-99) mg/dL POC Glucose (mg/dL) 215 H (75-99) mg/dL Calcium (8.4-10.2) mg/dL Magnesium 2.4 H (1.6-2.3) mg/dL AST (14-36) U/L ALT (4-34) U/L Lactate Dehydrogenase (313-618) U/L C-Reactive Protein (<10.0) mg/L Total Protein (6.3-8.2) g/dL Albumin (3.5-5.0) g/dL Microbiology - Last 24 Hours (Table) 10/20/20 05:00 Gram Stain - Final Sputum Sputum Culture - Final Assessment and Plan Assessment: 1 Acute on chronic hypoxic and hypercapnic respiratory failure related to acute exacerbation of COPD, diastolic CHF and possibly a new onset atrial fibrillation with rapid ventricular response and possibly component of COPD exacerbation and bilateral pulmonary infiltrates involving the left lower lobe and the right lower lobe and a pneumonia was also suspected. As such, respiratory failure was multifactorial. The patient was intubated and placed on a mechanical ventilator for around 24 hours and following that she was extubated to a BiPAP which is currently running a pressure 15/60 FiO2 of 50% alternating with 15 L high flow nasal cannula. She is quite comfortable. Alert, oriented. Predominant factor contributing to respiratory failure is probably COPD and pneumonia. Could be a component of CHF also. Covid 19 probably is not a major contributing factor this point in time. 2 New onset of A. fib with RVR, patient was briefly on Cardizem drip back in sinus right now and the patient is maintained on long-term anticoagulation with Eliquis 3 Hospitalization for COVID 19 pneumonia, from 10/16 through 10/19/2020 LDH is 1444 and the CRP 67. The patient is afebrile. 4 COPD with chronic hypoxic and hypercapnic respiratory failure, patient usually wears 5 L of oxygen at home on a regular basis, and reportedly has a Trilogy device at home 5 Chronic diastolic CHF, echocardiogram showed EF of 50-55%, valves could not be visualized related to body habitus 6 Obesity 7 Chronic and ongoing history of smoking 8 Obstructive sleep apnea and patient has a Trilogy device at home, but compliance is not known at this time Plan: The patient was seen and evaluated by Dr. Hickey Chest x-ray and labs reviewed Currently stable on 15 L high flow nasal cannula To be transferred [place] Continue the current treatment plan We will continue to follow I, the cosigning physician, performed a history & physical examination of the patient. Lungs sounds with crackles in the bilateral posterior bases, diminished . Maintaining good O2 saturations in the 90s on room air. I discussed the assessment and plan of care with my nurse practitioner, Myla Fraser. I attest to the above note as dictated by her.
[2020-10-24 11:47] LABS: Glucose,Whole Blood 248 mg/dL (75-99)
--- NOTE | 2020-10-24 14:35 | P.PN ---
Subjective Progress Note Date: 10/24/20 This is a 55-year-old morbidly obese female discharged yesterday. Patient had been hospitalized 10/16/20- 10/19/20 with COvid- 19 pneumonia , possible acute COPD exacerbation with chronic hypoxic/hypercapnic respiratory failure and multiple other medical issues. Patient had been maintained on COVID regimen, but was beyond the window for Remdesevir. Patient was maintaining O2 sats in the 90s on 4-5 L, baseline and discharged home. Apparently patient failed to use her CPAP last night and returned to the ER with A. fib RVR (initial EKG unavailable), severely hypoxic requiring intubation, placed on Cardizem drip. CXR reported perihilar pulmonary infiltrates, some basilar atelectasis with no change compared to prior exam . ABGs noted. Afebrile, normal lactic acid, normal WBC. Hemoglobin 15, platelets 180, d-dimer 0.62. Sodium 142, potassium 4.2, carbon dioxide 56, BUN 39, creatinine 0.8 glucose 199 magnesium 1.8, total bili 0.5, mildly elevated AST ALT 42, 65 LDH 1444. Troponin 0.021, 0.052, 0.079, CRP 67.1, BNP 1240. EKG for sinus rhythm with premature supraventricular complexes with occasional PVCs. 10/21/2020 remains vent dependent, FiO2 50%/+8 of PEEP, elevated airway pressures. Chest x-ray noted. Sedated on diprovan. Remains off of Levophed. Cardizem drip weaned off yesterday, telemetry sinus rhythm. 10/24/2020 status post extubation over the weekend, currently on 15 L high flow nasal cannula, maintaining O2 sats in the 90s. Maintained on 50% BiPAP throughout the night. Continues on cefepime, IV steroids. Chest x-ray reporting similar to prior, persistent patchy bilateral infiltrates. Increasing bicarb 52. Afebrile, normal WBC, fine sputum culture reporting no growth. Anticoagulated with Eliquis ,telemetry sinus rhythm with PVCs.Hyperglycemic, blood sugars in the low 200s this morning. Hemoglobin 13.1, platelets 158. D- dimer 0.73. Diuresing on Lasix IV push with 24-hour I&O reflecting a negative fluid balance .Potassium 5.3, creatinine 0.93, LDH increased 1488,CRP 50.4. Objective - Vital Signs Vital signs: Vital Signs Temp 98.6 F 10/24/20 08:00 Pulse 77 10/24/20 11:00 Resp 20 10/24/20 11:00 BP 99/73 10/20/20 08:39 Pulse Ox 92 L 10/24/20 11:00 Intake & Output 10/23/20 10/24/20 10/24/20 18:59 06:59 18:59 Intake Total 376 919 152 Output Total 2340 875 1000 [id number] Weight 142.5 kg Intake: IV 376 299 152 0.9 Flush 36 39 12 Cefepime 2 gm In Sodium 100 100 Chloride 0.9% 100 ml @ 25 mls/hr IVPB Q12HR [facility] Rx #:[id number] Sodium Chloride 0.9% 1, 240 260 40 000 ml @ 20 mls/hr IV . Q24H [facility] Rx#:[id number] Oral 620 Output: Urine 2340 875 1000 Other: Voiding Method Indwelling Catheter Indwelling Catheter # Bowel Movements 2 ABP, PAP, CO, CI - Last Documented Arterial Blood Pressure 139/58 - Exam - Exam VITAL SIGNS: As above GENERAL:Sitting up in bed, conversing on 15 L high flow nasal cannula HEENT: Atraumatic, normocephalic, pupils equal, conjunctiva normal, CARDIOVASCULAR: Regular S1 and S2, no murmurs, no rubs RESPIRATION: Diminished with fine bibasilar crackles NERVOUS SYSTEM: Alert and oriented Microbiology 10/20/20 05:00 Sputum Gram Stain - Final 10/20/20 05:00 Sputum Sputum Culture - Final - Labs CBC & Chem 7: 10/24/20 04:10 10/24/20 04:10 Labs: Abnormal Lab Results - Last 24 Hours (Table) 10/23/20 10/23/20 10/23/20 Range/Units 13:05 16:57 23:01 MCV (80.0-100.0) fL Lymphocytes # (1.0-4.8) k/uL D-Dimer (<0.60) mg/L FEU Potassium (3.5-5.1) mmol/L Chloride (98-107) mmol/L Carbon Dioxide (22-30) mmol/L BUN (7-17) mg/dL Glucose (74-99) mg/dL POC Glucose (mg/dL) 189 H 170 H 204 H (75-99) mg/dL Calcium (8.4-10.2) mg/dL Magnesium (1.6-2.3) mg/dL AST (14-36) U/L ALT (4-34) U/L Lactate Dehydrogenase (313-618) U/L C-Reactive Protein (<10.0) mg/L Total Protein (6.3-8.2) g/dL Albumin (3.5-5.0) g/dL 10/24/20 10/24/20 10/24/20 Range/Units 04:10 04:10 04:10 MCV 104.7 H (80.0-100.0) fL Lymphocytes # 0.3 L (1.0-4.8) k/uL D-Dimer 0.73 H (<0.60) mg/L FEU Potassium 5.3 H (3.5-5.1) mmol/L Chloride 88 L (98-107) mmol/L Carbon Dioxide 52 H* (22-30) mmol/L BUN 53 H (7-17) mg/dL Glucose 205 H (74-99) mg/dL POC Glucose (mg/dL) (75-99) mg/dL Calcium 8.1 L (8.4-10.2) mg/dL Magnesium (1.6-2.3) mg/dL AST 42 H (14-36) U/L ALT 45 H (4-34) U/L Lactate Dehydrogenase 1488 H (313-618) U/L C-Reactive Protein 50.4 H (<10.0) mg/L Total Protein 6.1 L (6.3-8.2) g/dL Albumin 3.2 L (3.5-5.0) g/dL 10/24/20 10/24/20 10/24/20 Range/Units 05:49 08:06 11:46 MCV (80.0-100.0) fL Lymphocytes # (1.0-4.8) k/uL D-Dimer (<0.60) mg/L FEU Potassium (3.5-5.1) mmol/L Chloride (98-107) mmol/L Carbon Dioxide (22-30) mmol/L BUN (7-17) mg/dL Glucose (74-99) mg/dL POC Glucose (mg/dL) 215 H 248 H (75-99) mg/dL Calcium (8.4-10.2) mg/dL Magnesium 2.4 H (1.6-2.3) mg/dL AST (14-36) U/L ALT (4-34) U/L Lactate Dehydrogenase (313-618) U/L C-Reactive Protein (<10.0) mg/L Total Protein (6.3-8.2) g/dL Albumin (3.5-5.0) g/dL Microbiology - Last 24 Hours (Table) 10/20/20 05:00 Gram Stain - Final Sputum Sputum Culture - Final Assessment and Plan Assessment: Acute on chronic hypoxic and hypercapnic respiratory failure, secondary to recent covid-Pneumonia hospitalization 10/16/20 through 10/19/2020 and acute COPD exacerbation, acute diastolic CHF exacerbation. Patient was discharged yesterday, proceeded home and apparently did not use CPAP, arrived back in the ER with A. fib with RVR, requiring intubation. Mechanical ventilator dependent. Paroxysmal A. fib with RVR, suspect possibly chronic secondary to the above, status post Cardizem drip, Converted to sinus rhythm Hypotension, status post brief pressor support Chronic diastolic CHF, NYHA class III, EF 50-55 % Obstructive sleep apnea on CPAP, noncompliant Diabetes mellitus type 2 hypothyroidism hypertension ongoing nicotine dependence. morbid obesity, BMI 62.3 Plan: Continue on current medication regime ,monitoring and symptomatic treatment. Continue on nebulized bronchodilators, IV steroids. Levemir dose increased with close monitoring of Accu-Cheks. Cleared by ux specialist for transfer out of ICU to telemetry unit. The impression and plan of care has been dictated as directed. : I performed a history and examination of this patient, discussed the same with the dictator. I agree with the dictator's note ,documented as a scribe. Any additional findings or plans will be noted.
[2020-10-24 17:06] LABS: Glucose,Whole Blood 258 mg/dL (75-99)
[2020-10-24 20:30] LABS: Glucose,Whole Blood 267 mg/dL (75-99)
[2020-10-24] MEDS ORDERED: INSULIN ASPART (NovoLOG) 100 UNIT/ML VIAL SQ ONE (21:18)
[2020-10-24] MEDS: ATORVASTATIN 20 MG TAB PO SCH (21:34)
[2020-10-24] MEDS: SODIUM CHLORIDE 0.9% 1,000 ML IV SCH (21:47)
[2020-10-24] MEDS: ENOXAPARIN 150 MG/ML SYRINGE SQ SCH (22:07)
[2020-10-25] MEDS: ALBUTEROL HFA INHALER INHALATION SCH ×5 (04:18→21:07)
[2020-10-25 06:23] LABS: Glucose,Whole Blood 180 mg/dL (75-99)
[2020-10-25] MEDS: LEVOTHYROXINE 75 MCG TAB PO SCH (06:28)
[2020-10-25] MEDS: INSULIN ASPART (NovoLOG) 100 UNIT/ML VIAL SQ SCH ×4 (06:29→21:02)
[2020-10-25] MEDS: methylPREDNISolone SOD SUCCI 125 MG/2 ML VIAL IV SCH ×4 (06:29→23:36)
[2020-10-25] MEDS ORDERED: INSULIN DETEMIR (LEVEMIR) 100 UNIT/ML SYR SQ SCH ×2 (07:00)
[2020-10-25] MEDS: FLUTICASONE 220 MCG INHALER INHALATION SCH ×2 (07:45→21:09)
[2020-10-25 08:04] LABS: Basophils # (A) 0.1 k/uL (0-0.2); Basophils % (A) 1 %; Eosinophils % (A) 0 %; HCT 41.9 % (34.0-46.0); Hypochromasia Slight; Lymphocytes # (A) 0.9 k/uL (1.0-4.8); Lymphocytes % (A) 10 %; MCH 32.4 pg (25.0-35.0); MCV 104.5 fL (80.0-100.0); Macrocytosis Slight; Mean Platelet Volume 8.5; Monocytes # (A) 0.3 k/uL (0-1.0); Monocytes % (A) 4 %; Neutrophils % (A) 84 %; Platelet Count 201 k/uL (150-450); RBC 4.01 m/uL (3.80-5.40); RDW 13.8 % (11.5-15.5); WBC 8.3 k/uL (3.8-10.6)
[2020-10-25 08:20] LABS: Albumin 3.2 g/dL (3.5-5.0); C Reactive Protein 30.8 mg/L (<10.0); Calcium 8.4 mg/dL (8.4-10.2); Potassium 5.2 mmol/L (3.5-5.1); Total Bilirubin 0.7 mg/dL (0.2-1.3); Total Protein 6.1 g/dL (6.3-8.2)
[2020-10-25] MEDS: CEFEPIME 2 GM in SODIUM CHLORIDE 0.9% 100 ML IVPB SCH ×2 (09:23→21:01)
[2020-10-25] MEDS: FUROSEMIDE 10 MG/ML 4 ML VIAL IV SCH (09:23)
[2020-10-25] MEDS: GABAPENTIN 300 MG CAP PO SCH ×2 (09:24→21:02)
[2020-10-25] MEDS: CHOLECALCIFEROL 25 MCG (1000 IU) TABLET PO SCH (09:24)
[2020-10-25] MEDS: APIXABAN 5 MG TAB PO SCH ×2 (09:24→21:02)
[2020-10-25] MEDS: MAGNESIUM OXIDE 400 MG TAB PO SCH (09:24)
[2020-10-25] MEDS: LOSARTAN 25 MG TAB PO SCH (09:24)
[2020-10-25] MEDS: METOPROLOL TARTRATE 12.5 MG TAB PO SCH ×2 (09:24→09:35)
[2020-10-25] MEDS: PANTOPRAZOLE 40 MG/10 ML VIAL IVP SCH (09:25)
[2020-10-25] MEDS: METOPROLOL TARTRATE 25 MG TAB PO SCH ×2 (09:35→21:33)
[2020-10-25 11:44] LABS: Glucose,Whole Blood 220 mg/dL (75-99)
--- NOTE | 2020-10-25 11:59 | P.PN ---
Subjective Progress Note Date: 10/25/20 This is a 55-year-old morbidly obese female discharged yesterday. Patient had been hospitalized 10/16/20- 10/19/20 with COvid- 19 pneumonia , possible acute COPD exacerbation with chronic hypoxic/hypercapnic respiratory failure and multiple other medical issues. Patient had been maintained on COVID regimen, but was beyond the window for Remdesevir. Patient was maintaining O2 sats in the 90s on 4-5 L, baseline and discharged home. Apparently patient failed to use her CPAP last night and returned to the ER with A. fib RVR (initial EKG unavailable), severely hypoxic requiring intubation, placed on Cardizem drip. CXR reported perihilar pulmonary infiltrates, some basilar atelectasis with no change compared to prior exam . ABGs noted. Afebrile, normal lactic acid, normal WBC. Hemoglobin 15, platelets 180, d-dimer 0.62. Sodium 142, potassium 4.2, carbon dioxide 56, BUN 39, creatinine 0.8 glucose 199 magnesium 1.8, total bili 0.5, mildly elevated AST ALT 42, 65 LDH 1444. Troponin 0.021, 0.052, 0.079, CRP 67.1, BNP 1240. EKG for sinus rhythm with premature supraventricular complexes with occasional PVCs. 10/21/2020 remains vent dependent, FiO2 50%/+8 of PEEP, elevated airway pressures. Chest x-ray noted. Sedated on diprovan. Remains off of Levophed. Cardizem drip weaned off yesterday, telemetry sinus rhythm. 10/24/2020 status post extubation over the weekend, currently on 15 L high flow nasal cannula, maintaining O2 sats in the 90s. Maintained on 50% BiPAP throughout the night. Continues on cefepime, IV steroids. Chest x-ray reporting similar to prior, persistent patchy bilateral infiltrates. Increasing bicarb 52. Afebrile, normal WBC, fine sputum culture reporting no growth. Anticoagulated with Eliquis ,telemetry sinus rhythm with PVCs.Hyperglycemic, blood sugars in the low 200s this morning. Hemoglobin 13.1, platelets 158. D- dimer 0.73. Diuresing on Lasix IV push with 24-hour I&O reflecting a negative fluid balance .Potassium 5.3, creatinine 0.93, LDH increased 1488,CRP 50.4. 10/25/20 currently on BiPAP, maintaining O2 sats in the 90s. During the veneer taper hours paroximal A. fib/flutter reoccurred with heart rate up into the 140s. Converted back into sinus rhythm. Labs pending. Denies chest pain, palpitations. Objective - Vital Signs Vital signs: Vital Signs Temp 98.9 F 10/25/20 08:00 Pulse 54 L 10/25/20 08:00 Resp 20 10/25/20 08:00 BP 169/84 10/25/20 08:00 Pulse Ox 91 L 10/25/20 08:00 Intake & Output 10/24/20 10/25/20 10/25/20 18:59 06:59 18:59 Intake Total 198 780 Output Total 1900 1025 650 Balance -1702 -1025 130 Weight 142.5 kg 146.553 kg Intake: IV 198 0.9 Flush 18 Cefepime 2 gm In Sodium 100 Chloride 0.9% 100 ml @ 25 mls/hr IVPB Q12HR [facility] Rx #:[id number] Sodium Chloride 0.9% 1, 80 000 ml @ 20 mls/hr IV . Q24H [facility] Rx#:[id number] Oral 0 780 Output: Urine 1900 1025 650 Other: Voiding Method Indwelling Catheter Indwelling Catheter # Bowel Movements 1 1 ABP, PAP, CO, CI - Last Documented Arterial Blood Pressure 147/70 - Exam - Exam VITAL SIGNS: As above GENERAL:Sitting up in bed, wearing BiPAP HEENT: Atraumatic, normocephalic, pupils equal, conjunctiva normal, CARDIOVASCULAR: Regular S1 and S2, no murmurs, no rubs RESPIRATION: Diminished with fine expiratory wheeze NERVOUS SYSTEM: Alert and oriented Microbiology 10/20/20 05:00 Sputum Gram Stain - Final 10/20/20 05:00 Sputum Sputum Culture - Final - Labs CBC & Chem 7: 10/25/20 07:35 10/25/20 07:42 Labs: Abnormal Lab Results - Last 24 Hours (Table) 10/24/20 10/24/20 10/24/20 Range/Units 11:46 17:03 20:29 MCV (80.0-100.0) fL Lymphocytes # (1.0-4.8) k/uL D-Dimer (<0.60) mg/L FEU Potassium (3.5-5.1) mmol/L Chloride (98-107) mmol/L Carbon Dioxide (22-30) mmol/L BUN (7-17) mg/dL Glucose (74-99) mg/dL POC Glucose (mg/dL) 248 H 258 H 267 H (75-99) mg/dL AST (14-36) U/L ALT (4-34) U/L Lactate Dehydrogenase (313-618) U/L C-Reactive Protein (<10.0) mg/L Total Protein (6.3-8.2) g/dL Albumin (3.5-5.0) g/dL 10/25/20 10/25/20 10/25/20 Range/Units 06:22 07:35 07:35 MCV 104.5 H (80.0-100.0) fL Lymphocytes # 0.9 L (1.0-4.8) k/uL D-Dimer 0.82 H (<0.60) mg/L FEU Potassium (3.5-5.1) mmol/L Chloride (98-107) mmol/L Carbon Dioxide (22-30) mmol/L BUN (7-17) mg/dL Glucose (74-99) mg/dL POC Glucose (mg/dL) 180 H (75-99) mg/dL AST (14-36) U/L ALT (4-34) U/L Lactate Dehydrogenase (313-618) U/L C-Reactive Protein (<10.0) mg/L Total Protein (6.3-8.2) g/dL Albumin (3.5-5.0) g/dL 10/25/20 10/25/20 Range/Units 07:42 11:43 MCV (80.0-100.0) fL Lymphocytes # (1.0-4.8) k/uL D-Dimer (<0.60) mg/L FEU Potassium 5.2 H (3.5-5.1) mmol/L Chloride 86 L (98-107) mmol/L Carbon Dioxide 56 H* (22-30) mmol/L BUN 52 H (7-17) mg/dL Glucose 224 H (74-99) mg/dL POC Glucose (mg/dL) 220 H (75-99) mg/dL AST 41 H (14-36) U/L ALT 43 H (4-34) U/L Lactate Dehydrogenase 1526 H (313-618) U/L C-Reactive Protein 30.8 H (<10.0) mg/L Total Protein 6.1 L (6.3-8.2) g/dL Albumin 3.2 L (3.5-5.0) g/dL Assessment and Plan Assessment: Acute on chronic hypoxic and hypercapnic respiratory failure, secondary to recent covid-Pneumonia hospitalization 10/16/20 through 10/19/2020 and acute COPD exacerbation, acute diastolic CHF exacerbation. Patient was discharged yesterday, proceeded home and apparently did not use CPAP, arrived back in the ER with A. fib with RVR, requiring intubation. Status post Mechanical ventilator. Currently wearing BiPAP alternating with 15 L high flow nasal cannula. Paroxysmal A-flutter, fib with RVR, suspect possibly chronic secondary to the above, status post Cardizem drip, Converted to sinus rhythm Hypotension, status post brief pressor support Chronic diastolic CHF, NYHA class III, EF 50-55 % Obstructive sleep apnea on CPAP, noncompliant Diabetes mellitus type 2 hypothyroidism hypertension ongoing nicotine dependence. morbid obesity, BMI 62.3 Plan: Continue on current medication regime ,monitoring and symptomatic treatment. Beta lacie dose increased .Continue on nebulized bronchodilators, IV steroids. Levemir dose further increased with close monitoring of Accu- Cheks. PT/OT , patient requesting to get up in chair, OOB.labs pending. The impression and plan of care has been dictated as directed. : I performed a history and examination of this patient, discussed the same with the dictator. I agree with the dictator's note ,documented as a scribe. Any additional findings or plans will be noted.
[2020-10-25] MEDS ORDERED: INSULIN DETEMIR (LEVEMIR) 100 UNIT/ML SYR SQ ONE (12:30)
[2020-10-25 16:22] LABS: Ferritin 1415.3 ng/mL (10.0-291.0)
[2020-10-25 16:51] LABS: Glucose,Whole Blood 363 mg/dL (75-99)
--- NOTE | 2020-10-25 18:15 | P.PN ---
Subjective Progress Note Date: 10/25/20 Principal diagnosis: Acute hypoxic referral failure secondary to covid 19 pneumonitis. 55-year-old female patient who was recently hospitalized from [facility] 10/19/2020 for COVID 19 pneumonia, acute exacerbation of COPD and CHF diastolic dysfunction. Patient has history of advanced COPD, she is on home oxygen usually wears 5 L/m on a regular basis, has a obstructive sleep apnea and reportedly has a Trilogy device at home. Patient recently moved from [place], was hospitalized in the beginning of September for acute exacerbation of COPD and diastolic CHF. She was out of the window for Remdesivir, she was treated with standard care including IV steroids, diuretics, breathing treatments and prophylactic anticoagulation. The medical history includes hypothyroidism, hyperlipidemia, diabetes mellitus type 2, morbid obesity, chronic and ongoing history of tobacco use. On 10/20/2020 patient was brought into the emergency department per EMS with difficulty breathing and chest discomfort. CXR showed mild cardiomegaly with mildly increased perihilar edema and infiltrates increased compared to be enlarged exam, HEENT showed sinus rhythm with PACs. Her blood gases in the emergency department showed pO2 of 49, pCO2 of 120, and pH of 7.2, patient had decreased consciousness and was in significant amount of respiratory distress, and she was emergently intubated and placed on mechanical ventilator. Repeat blood gases showed improvement in acute on chronic hypercapnic and hypoxic respiratory failure, with improvement of pO2 up to 134, pCO2 of 93, and pH of 7.33. She was also noted to be in new onset A. fib with RVR, and required Cardizem drip for brief amount of time and she is back in sinus currently. Patient was started on IV steroids, Lasix, breathing treatments. Lab work has been reviewed, showing no evidence of leukocytosis white blood cell, 7.3, with a hemoglobin of 15, proBNP of 1240, is 0.021, second troponin was 0.052. Lactic acid was within normal limits, patient has been afebrile since arrival to the emergency department, hemodynamically stable, this morning she seen in the emergency department, she remains sedated and on mechanical ventilator, on assist-control mode of ventilation with a rate of 30, tidal lungs 400, FiO2 of 80% and PEEP of 5, this morning's blood gases show improvement in pO2 and pCO2 concentrations and improvements in the acid base balance with pH up to 7.33 as mentioned above. On 10/21/2020, the patient is being seen for a follow-up. The patient remains intubated on a mechanical ventilator. This morning the patient is on propofol which is running at 60 mcg/kg per minute and the patient is well sedated for now and very much interested a mechanical ventilator. She is an assist-control mode at the rate of 24 with a tidal volume of 350 and FiO2 of 60% with a PEEP of 10. The morning blood gases showed a pH of 7.45 with a pCO2 of 71 and pO2 of 66. Peak airway pressure was around 42 and static airway pressure was 27-28. The chest x-ray is showing adequate expansion of both lungs. There is cardiomegaly. There is some mild interstitial prominence with questionable consolidation of the right lower lobe. ET tube is at the level of the aortic knob and the OG tube is in good location. She does remain bronchospastic and wheezy. Note that her blood pressure has stabilized. She was given a bolus of fluid with a liter of normal saline. No pressors was utilized. Diuretics were placed on hold. Her white second dose of 5.6 with a hemoglobin of 12.8. Rest of the electrolytes are still pending from this morning. Meanwhile, the patient is on bronchodilators with albuterol 2 puffs, and she is also on IV Solu Medrol 60 mg every 6 hours. In terms of her cardiac rhythm, the patient is back into normal sinus rhythm. Cardizem drip was weaned off it was discontinued yesterday and the patient is hemodynamically stable at this point in time. The fluid balance is in the order of +1.3 L since yesterday. No other significant events overnight. Enteral feeding has been started at 80 mL an hour of vital high protein.. Abdomen is soft. No significant edema in her extremities. No other significant events otherwise for now. 2020 the patient remains intubated on a mechanical ventilator. This morning she is on propofol running at 60 mcg/kg per minute and the patient is also on a mechanical ventilator on assist control mode at the rate of 16 with a tidal volume of 53 and FiO2 of 70% with a PEEP of 10. A FiO2 was brought up to 70% and the morning blood gases showed a pH of 7.37 with a pCO2 of 84 and pO2 of 59. The chest x-ray shows a retrocardiac infiltrate and there is also right lower lobe pulmonary infiltrate. Nevertheless does not extensive and upper lobes are quite clear. Note that the patient also had a Covid 19 related infection/pneumonia which probably is contributing to her ongoing hypoxemia. In any rate, the patient is still on a mechanical ventilator for now. She is quite synchronous with the mechanical ventilator. She is calm and comfortable. No si gnificant orotracheal secretions. She is hemodynamically stable. His sputum analysis came back positive for some rare budding yeast which is expected otherwise the rest was consistent with a normal respiratory cherelle. There is of treatment, she remains on IV Solu-Medrol 60 mg every 6 hours. She is also on albuterol HFA 2 puffs scheduled every 4 hours, no antibiotics for now. Have her LEVEL WAS LOW AT 0.21 AND 0.11 RESPECTIVELY 2. In terms of diuretics, the patient was becoming hypotensive and I stopped the diuretics. She is currently IV fluids running at 20 mL an hour and she is also on no pressors for now. She is afebrile. She is tolerating her enteral feeding for nutritional support and she is on vital high protein at the rate of 20 mL an hour. White cell count today is at 7.3 with a hemoglobin of 13.3. Platelet is down to 145. Inflammatory markers show an LDH level of 1023 from yesterday and the CRP level is down to 57 from today. She is currently on Eliquis 5 mg by mouth twice a day. This was given to her because of paroxysmal atrial fibrillation with a crit at time of admission. Currently she is back to normal sinus rhythm for now. 10/23/2020, the patient is off the mechanical ventilator. I managed to wean off her sedation yesterday and subsequently extubated this patient to a IPAP. She is currently on the BiPAP and she's been on the BiPAP since extubation. She loves her BiPAP and she is able to tolerated it well. Her current setting is 15/6 cm of BiPAP at a FiO2 of 50%. A blood gas is to be done today. The chest x-ray from today is showing some atelectasis/infiltration the left lower lobe. There is also cardiomegaly. The right lung remains relatively clear and there is still some persistent infiltration of the right lower lobe which was present on earlier chest x-rays. I was in no major interval change in the chest x-ray findings. The patient is pulse oxing approximately 92% on the current BiPAP setting. She is on IV cefepime as a broad-spectrum antibiotic coverage and this was added yesterday due to concern of superinfection/pneumonia. Note that she was infected for Covid 19 earlier and the patient remains on IV Solu-Medrol 60 mg every 6 hours which is also helped her with her COPD exacerbation. She is currently on no sedation. She is currently on no pressors. IV fluids are running at the rate of KVO at 20 mL an hour. Diuretics has been placed on hold. In terms of her inflammatory markers, her CRP level was at 54 and her d-dimer was at 0.52. Sputum culture has been negative. She is afebrile. She is arousable. She is following commands. She is only alert to self. Cardiac rhythm is sinus and we have not witnessed any episodes of atrial fibrillation since ICU stay and the patient is taken 5 mg of Eliquis as long-term anticoagulants for now. The patient is seen today 10/24/2020 in follow-up in the intensive care unit. She was successfully extubated. She is currently alternating with BiPAP 15/6 and 50% FiO2 at nighttime. Currently on 15 L high flow nasal cannula. Awake, alert, no acute distress. She has 0.9 normal saline at a KVO. She is anticoagulated with Eliquis. Remains in sinus rhythm with PACs. Chest x-ray is stable with bilateral patchy infiltrates. Sputum culture revealed no growth. White count 7.5. Hemoglobin 13.1. Lymphocytes 0.3. D-dimer 0.73. Sodium 142. Potassium 5.3. Bicarb 52. Creatinine 0.93. LDH 1488. C-reactive protein 15.4. She remains on cefepime. Anticoagulated with Eliquis. Receiving Lasix daily. Adequate urine output. Continued on IV Solu-Medrol, vitamin supplements. Patient was reevaluated today on , she is on 12 L high flow nasal can nula, up in the chair, in no distress, patient feels fine, tells me that she is feeling better today than she felt yesterday. Her O2 is being titrated down. All her labs were reviewed. LDH is 1526, C-reactive protein is 31. CBC is relatively normal. Basic metabolic profile showed elevated bicarb. I recently the patient has chronic hypercapnic respiratory failure with metabolic compensation. Not to mention that the patient also has some component of contraction metabolic alkalosis. Chest x-ray from yesterday continues to show bilateral pneumonia Objective - Vital Signs Vital signs: Vital Signs Temp 99.2 F 10/25/20 16:00 Pulse 62 10/25/20 16:00 Resp 20 10/25/20 16:00 BP 158/79 10/25/20 16:00 Pulse Ox 89 L 10/25/20 16:23 Intake & Output 10/24/20 10/25/20 10/25/20 18:59 06:59 18:59 Intake Total 198 1260 Output Total 1900 1025 650 Balance -1702 -1025 610 Weight 142.5 kg 146.553 kg Intake: IV 198 0.9 Flush 18 Cefepime 2 gm In Sodium 100 Chloride 0.9% 100 ml @ 25 mls/hr IVPB Q12HR [facility] Rx #:[id number] Sodium Chloride 0.9% 1, 80 000 ml @ 20 mls/hr IV . Q24H [facility] Rx#:[id number] Oral 0 1260 Output: Urine 1900 1025 650 Other: Voiding Method Indwelling Catheter Indwelling Catheter # Bowel Movements 1 1 1 ABP, PAP, CO, CI - Last Documented Arterial Blood Pressure 147/70 - Exam GENERAL EXAM: Morbidly Obese 55-year-old white female, on 12 L high flow nasal cannula HEENT: PERRLA, EOMI, anicteric, dry mucous membranes. NECK: No masses, no JVD, no thyroid enlargement, no adenopathy. CHEST: No chest wall deformity. LUNGS: Crackles at the bases noted. Symmetrical chest expansion. CVS: Regular rate and rhythm, normal S1 and S2, no gallops, no murmurs, no rubs ABDOMEN: Soft, nontender. No hepatosplenomegaly, normal bowel sounds, no guarding or rigidity. EXTREMITIES: No clubbing, no edema, no cyanosis, 2+ pulses and upper and lower extremities. MUSCULOSKELETAL: Muscle strength and tone normal. SKIN: No rashes CENTRAL NERVOUS SYSTEM: Alert and oriented 3 no gross focal deficits. - Labs CBC & Chem 7: 10/25/20 07:35 10/25/20 07:42 Labs: Abnormal Lab Results - Last 24 Hours (Table) 10/24/20 10/25/20 10/25/20 Range/Units 20:29 06:22 07:35 MCV 104.5 H (80.0-100.0) fL Lymphocytes # 0.9 L (1.0-4.8) k/uL D-Dimer (<0.60) mg/L FEU Potassium (3.5-5.1) mmol/L Chloride (98-107) mmol/L Carbon Dioxide (22-30) mmol/L BUN (7-17) mg/dL Glucose (74-99) mg/dL POC Glucose (mg/dL) 267 H 180 H (75-99) mg/dL Ferritin (10.0-291.0) ng/mL AST (14-36) U/L ALT (4-34) U/L Lactate Dehydrogenase (313-618) U/L C-Reactive Protein (<10.0) mg/L Total Protein (6.3-8.2) g/dL Albumin (3.5-5.0) g/dL 10/25/20 10/25/20 10/25/20 Range/Units 07:35 07:42 11:43 MCV (80.0-100.0) fL Lymphocytes # (1.0-4.8) k/uL D-Dimer 0.82 H (<0.60) mg/L FEU Potassium 5.2 H (3.5-5.1) mmol/L Chloride 86 L (98-107) mmol/L Carbon Dioxide 56 H* (22-30) mmol/L BUN 52 H (7-17) mg/dL Glucose 224 H (74-99) mg/dL POC Glucose (mg/dL) 220 H (75-99) mg/dL Ferritin 1415.3 H (10.0-291.0) ng/mL AST 41 H (14-36) U/L ALT 43 H (4-34) U/L Lactate Dehydrogenase 1526 H (313-618) U/L C-Reactive Protein 30.8 H (<10.0) mg/L Total Protein 6.1 L (6.3-8.2) g/dL Albumin 3.2 L (3.5-5.0) g/dL 10/25/20 Range/Units 16:46 MCV (80.0-100.0) fL Lymphocytes # (1.0-4.8) k/uL D-Dimer (<0.60) mg/L FEU Potassium (3.5-5.1) mmol/L Chloride (98-107) mmol/L Carbon Dioxide (22-30) mmol/L BUN (7-17) mg/dL Glucose (74-99) mg/dL POC Glucose (mg/dL) 363 H (75-99) mg/dL Ferritin (10.0-291.0) ng/mL AST (14-36) U/L ALT (4-34) U/L Lactate Dehydrogenase (313-618) U/L C-Reactive Protein (<10.0) mg/L Total Protein (6.3-8.2) g/dL Albumin (3.5-5.0) g/dL Assessment and Plan Assessment: Impression: Acute on chronic hypoxic and hypercapnic respiratory failure, multifactorial, secondary to acute exacerbation of COPD, acute on chronic diastolic congestive heart failure, new onset atrial fibrillation with RVR, and acute covid 19 pneumonia. New onset atrial fibrillation with RVR Recent hospitalization for Covid 19 pneumonia from 10/16 through 10/19. Chronic hypoxic respiratory failure and chronic hypercapnic respiratory failure secondary to COPD, patient has trilogy device at home. Morbid obesity. Ongoing tobacco dependence syndrome. Obstructive sleep apnea syndrome. Recommendation: Continue present course of treatment including bronchodilators, Continue to titrate oxygen down accordingly. BiPAP at bedside and use as needed. Chest x-ray from yesterday was reviewed Chest x-ray from yesterday was reviewed, continues to show bilateral pneumonia. Patient is not ready for any discharge planning. We will continue to follow Time with Patient: Less than 30
[2020-10-25] MEDS ORDERED: INSULIN ASPART (NovoLOG) 100 UNIT/ML VIAL SQ ONE ×2 (18:44→20:47)
[2020-10-25 20:34] LABS: Glucose,Whole Blood 299 mg/dL (75-99)
[2020-10-25] MEDS: ATORVASTATIN 20 MG TAB PO SCH (21:02)
[2020-10-25] MEDS: SODIUM CHLORIDE 0.9% 1,000 ML IV SCH (21:03)
[2020-10-26] MEDS: ALBUTEROL HFA INHALER INHALATION SCH ×6 (00:42→20:00)
[2020-10-26 06:02] LABS: Glucose,Whole Blood 240 mg/dL (75-99)
[2020-10-26] MEDS: methylPREDNISolone SOD SUCCI 125 MG/2 ML VIAL IV SCH ×3 (06:45→17:24)
[2020-10-26] MEDS: LEVOTHYROXINE 75 MCG TAB PO SCH (06:46)
[2020-10-26] MEDS: INSULIN ASPART (NovoLOG) 100 UNIT/ML VIAL SQ SCH ×5 (06:46→21:20)
[2020-10-26] MEDS ORDERED: INSULIN DETEMIR (LEVEMIR) 100 UNIT/ML SYR SQ SCH (07:00)
[2020-10-26] MEDS: FLUTICASONE 220 MCG INHALER INHALATION SCH ×2 (08:57→20:00)
[2020-10-26] MEDS: CEFEPIME 2 GM in SODIUM CHLORIDE 0.9% 100 ML IVPB SCH ×2 (09:04→21:19)
[2020-10-26] MEDS: GABAPENTIN 300 MG CAP PO SCH ×2 (09:05→21:19)
[2020-10-26] MEDS: LOSARTAN 25 MG TAB PO SCH (09:05)
[2020-10-26] MEDS: APIXABAN 5 MG TAB PO SCH ×2 (09:05→21:19)
[2020-10-26] MEDS: PANTOPRAZOLE 40 MG/10 ML VIAL IVP SCH (09:05)
[2020-10-26] MEDS: CHOLECALCIFEROL 25 MCG (1000 IU) TABLET PO SCH (09:05)
[2020-10-26] MEDS: METOPROLOL TARTRATE 25 MG TAB PO SCH ×2 (09:05→21:19)
[2020-10-26] MEDS: FUROSEMIDE 10 MG/ML 4 ML VIAL IV SCH (09:05)
[2020-10-26] MEDS: MAGNESIUM OXIDE 400 MG TAB PO SCH (09:05)
--- NOTE | 2020-10-26 09:48 | XR ---
EXAMINATION TYPE: XR chest 1V portable DATE OF EXAM: 10/26/2020 COMPARISON: Chest x-ray 10/24/2020 HISTORY: Covid pneumonia TECHNIQUE: Single frontal view of the chest is obtained. FINDINGS: Patchy densities present bilaterally. Patient is rotated. Prominence of pulmonary artery m ay be indicative of pulmonary artery hypertension. Heart is thought to be enlarged. No evident pneumo thorax or pleural effusion. Aorta is dense. IMPRESSION: Correlate for pneumonia, pulmonary artery hypertension, cardiomegaly.
[2020-10-26 12:22] LABS: Glucose,Whole Blood 380 mg/dL (75-99)
[2020-10-26] MEDS ORDERED: INSULIN DETEMIR (LEVEMIR) 100 UNIT/ML SYR SQ ONE (13:00)
[2020-10-26] MEDS: SODIUM CHLORIDE 0.9% 1,000 ML IV SCH (13:10)
--- NOTE | 2020-10-26 15:56 | P.PN ---
Subjective Progress Note Date: 10/26/20 This is a 55-year-old morbidly obese female discharged yesterday. Patient had been hospitalized 10/16/20- 10/19/20 with COvid- 19 pneumonia , possible acute COPD exacerbation with chronic hypoxic/hypercapnic respiratory failure and multiple other medical issues. Patient had been maintained on COVID regimen, but was beyond the window for Remdesevir. Patient was maintaining O2 sats in the 90s on 4-5 L, baseline and discharged home. Apparently patient failed to use her CPAP last night and returned to the ER with A. fib RVR (initial EKG unavailable), severely hypoxic requiring intubation, placed on Cardizem drip. CXR reported perihilar pulmonary infiltrates, some basilar atelectasis with no change compared to prior exam . ABGs noted. Afebrile, normal lactic acid, normal WBC. Hemoglobin 15, platelets 180, d-dimer 0.62. Sodium 142, potassium 4.2, carbon dioxide 56, BUN 39, creatinine 0.8 glucose 199 magnesium 1.8, total bili 0.5, mildly elevated AST ALT 42, 65 LDH 1444. Troponin 0.021, 0.052, 0.079, CRP 67.1, BNP 1240. EKG for sinus rhythm with premature supraventricular complexes with occasional PVCs. 10/21/2020 remains vent dependent, FiO2 50%/+8 of PEEP, elevated airway pressures. Chest x-ray noted. Sedated on diprovan. Remains off of Levophed. Cardizem drip weaned off yesterday, telemetry sinus rhythm. 10/24/2020 status post extubation over the weekend, currently on 15 L high flow nasal cannula, maintaining O2 sats in the 90s. Maintained on 50% BiPAP throughout the night. Continues on cefepime, IV steroids. Chest x-ray reporting similar to prior, persistent patchy bilateral infiltrates. Increasing bicarb 52. Afebrile, normal WBC, fine sputum culture reporting no growth. Anticoagulated with Eliquis ,telemetry sinus rhythm with PVCs.Hyperglycemic, blood sugars in the low 200s this morning. Hemoglobin 13.1, platelets 158. D- dimer 0.73. Diuresing on Lasix IV push with 24-hour I&O reflecting a negative fluid balance .Potassium 5.3, creatinine 0.93, LDH increased 1488,CRP 50.4. 10/25/20 currently on BiPAP, maintaining O2 sats in the 90s. During the market development manager hours paroximal A. fib/flutter reoccurred with heart rate up into the 140s. Converted back into sinus rhythm. Labs pending. Denies chest pain, palpitations. 10/26/2020 sitting up in chair, maintaining O2 sats in the 90s on 15 L nasal cannula. Remains in sinus rhythm with no further runs of A. fib/flutter during the night reported per telemetry. Diet intake improved, denies loss of taste., Blood sugars uncontrolled. Objective - Vital Signs Vital signs: Vital Signs Temp 98.1 F 10/26/20 09:03 Pulse 60 10/26/20 09:03 Resp 20 10/26/20 09:03 BP 127/72 10/26/20 09:03 Pulse Ox 92 L 10/26/20 09:03 Intake & Output 10/25/20 10/26/20 10/26/20 18:59 06:59 18:59 Intake Total 1260 650 Output Total 1225 650 Balance 35 0 Weight 157 kg Intake: IV 300 Cefepime 2 gm In Sodium 100 Chloride 0.9% 100 ml @ 25 mls/hr IVPB Q12HR [facility] Rx #:[id number] Sodium Chloride 0.9% 1, 200 000 ml @ 20 mls/hr IV . Q24H [facility] Rx#:[id number] Oral 1260 350 Output: Urine 1225 650 Other: Voiding Method Indwelling Catheter Indwelling Catheter Indwelling Catheter # Bowel Movements 1 ABP, PAP, CO, CI - Last Documented Arterial Blood Pressure 147/70 - Exam - Exam VITAL SIGNS: As above GENERAL:Sitting up in chair, wearing high flow HEENT: Atraumatic, normocephalic, pupils equal, conjunctiva normal, CARDIOVASCULAR: Regular S1 and S2, no murmurs, no rubs RESPIRATION: Diminished with fine expiratory wheeze NERVOUS SYSTEM: Alert and oriented 3 - Labs CBC & Chem 7: 10/25/20 07:35 10/25/20 07:42 Labs: Abnormal Lab Results - Last 24 Hours (Table) 10/25/20 10/25/20 10/25/20 Range/Units 07:42 16:46 20:32 POC Glucose (mg/dL) 363 H 299 H (75-99) mg/dL Ferritin 1415.3 H (10.0-291.0) ng/mL Creatine Kinase (30-135) U/L 10/26/20 10/26/20 10/26/20 Range/Units 06:00 07:06 12:19 POC Glucose (mg/dL) 240 H 380 H (75-99) mg/dL Ferritin (10.0-291.0) ng/mL Creatine Kinase 315 H (30-135) U/L Assessment and Plan Assessment: Acute on chronic hypoxic and hypercapnic respiratory failure, secondary to recent covid-Pneumonia hospitalization 10/16/20 through 10/19/2020 and acute COPD exacerbation, acute diastolic CHF exacerbation. Patient was discharged yesterday, proceeded home and apparently did not use CPAP, arrived back in the ER with A. fib with RVR, requiring intubation. Status post Mechanical ventilator. BiPAP alternating with 15 L high flow nasal cannula. Paroxysmal A-flutter, fib with RVR, suspect possibly chronic secondary to the above, status post Cardizem drip, Converted to sinus rhythm Hypotension, status post brief pressor support Chronic diastolic CHF, NYHA class III, EF 50-55 % Obstructive sleep apnea on CPAP, noncompliant Diabetes mellitus type 2, hyperglycemic hypothyroidism hypertension ongoing nicotine dependence. morbid obesity, BMI 62.3 Plan: Continue on current medication regime ,monitoring and symptomatic treatment. Maintain nebulized bronchodilators, IV steroids. Levemir dose increased. Close monitoring of Accu-Cheks. PT/OT. Patient asking to go home, discussed plan of care including weaning of oxygen in progress. The impression and plan of care has been dictated as directed. : I performed a history and examination of this patient, discussed the same with the dictator. I agree with the dictator's note ,documented as a scribe. Any additional findings or plans will be noted.
[2020-10-26 17:06] LABS: Glucose,Whole Blood 362 mg/dL (75-99)
[2020-10-26 17:06] LABS: Glucose,Whole Blood 351 mg/dL (75-99)
[2020-10-26 17:14] LABS: Ferritin 721.6 ng/mL (10.0-291.0)
--- NOTE | 2020-10-26 19:11 | P.PN ---
Subjective Progress Note Date: 10/26/20 Principal diagnosis: Acute hypoxic referral failure secondary to covid 19 pneumonitis. 55-year-old female patient who was recently hospitalized from [facility] 10/19/2020 for COVID 19 pneumonia, acute exacerbation of COPD and CHF diastolic dysfunction. Patient has history of advanced COPD, she is on home oxygen usually wears 5 L/m on a regular basis, has a obstructive sleep apnea and reportedly has a Trilogy device at home. Patient recently moved from [place], was hospitalized in the beginning of September for acute exacerbation of COPD and diastolic CHF. She was out of the window for Remdesivir, she was treated with standard care including IV steroids, diuretics, breathing treatments and prophylactic anticoagulation. The medical history includes hypothyroidism, hyperlipidemia, diabetes mellitus type 2, morbid obesity, chronic and ongoing history of tobacco use. On 10/20/2020 patient was brought into the emergency department per EMS with difficulty breathing and chest discomfort. CXR showed mild cardiomegaly with mildly increased perihilar edema and infiltrates increased compared to be enlarged exam, HEENT showed sinus rhythm with PACs. Her blood gases in the emergency department showed pO2 of 49, pCO2 of 120, and pH of 7.2, patient had decreased consciousness and was in significant amount of respiratory distress, and she was emergently intubated and placed on mechanical ventilator. Repeat blood gases showed improvement in acute on chronic hypercapnic and hypoxic respiratory failure, with improvement of pO2 up to 134, pCO2 of 93, and pH of 7.33. She was also noted to be in new onset A. fib with RVR, and required Cardizem drip for brief amount of time and she is back in sinus currently. Patient was started on IV steroids, Lasix, breathing treatments. Lab work has been reviewed, showing no evidence of leukocytosis white blood cell, 7.3, with a hemoglobin of 15, proBNP of 1240, is 0.021, second troponin was 0.052. Lactic acid was within normal limits, patient has been afebrile since arrival to the emergency department, hemodynamically stable, this morning she seen in the emergency department, she remains sedated and on mechanical ventilator, on assist-control mode of ventilation with a rate of 30, tidal lungs 400, FiO2 of 80% and PEEP of 5, this morning's blood gases show improvement in pO2 and pCO2 concentrations and improvements in the acid base balance with pH up to 7.33 as mentioned above. On 10/21/2020, the patient is being seen for a follow-up. The patient remains intubated on a mechanical ventilator. This morning the patient is on propofol which is running at 60 mcg/kg per minute and the patient is well sedated for now and very much interested a mechanical ventilator. She is an assist-control mode at the rate of 24 with a tidal volume of 350 and FiO2 of 60% with a PEEP of 10. The morning blood gases showed a pH of 7.45 with a pCO2 of 71 and pO2 of 66. Peak airway pressure was around 42 and static airway pressure was 27-28. The chest x-ray is showing adequate expansion of both lungs. There is cardiomegaly. There is some mild interstitial prominence with questionable consolidation of the right lower lobe. ET tube is at the level of the aortic knob and the OG tube is in good location. She does remain bronchospastic and wheezy. Note that her blood pressure has stabilized. She was given a bolus of fluid with a liter of normal saline. No pressors was utilized. Diuretics were placed on hold. Her white second dose of 5.6 with a hemoglobin of 12.8. Rest of the electrolytes are still pending from this morning. Meanwhile, the patient is on bronchodilators with albuterol 2 puffs, and she is also on IV Solu Medrol 60 mg every 6 hours. In terms of her cardiac rhythm, the patient is back into normal sinus rhythm. Cardizem drip was weaned off it was discontinued yesterday and the patient is hemodynamically stable at this point in time. The fluid balance is in the order of +1.3 L since yesterday. No other significant events overnight. Enteral feeding has been started at 80 mL an hour of vital high protein.. Abdomen is soft. No significant edema in her extremities. No other significant events otherwise for now. 2020 the patient remains intubated on a mechanical ventilator. This morning she is on propofol running at 60 mcg/kg per minute and the patient is also on a mechanical ventilator on assist control mode at the rate of 16 with a tidal volume of 53 and FiO2 of 70% with a PEEP of 10. A FiO2 was brought up to 70% and the morning blood gases showed a pH of 7.37 with a pCO2 of 84 and pO2 of 59. The chest x-ray shows a retrocardiac infiltrate and there is also right lower lobe pulmonary infiltrate. Nevertheless does not extensive and upper lobes are quite clear. Note that the patient also had a Covid 19 related infection/pneumonia which probably is contributing to her ongoing hypoxemia. In any rate, the patient is still on a mechanical ventilator for now. She is quite synchronous with the mechanical ventilator. She is calm and comfortable. No si gnificant orotracheal secretions. She is hemodynamically stable. His sputum analysis came back positive for some rare budding yeast which is expected otherwise the rest was consistent with a normal respiratory cherelle. There is of treatment, she remains on IV Solu-Medrol 60 mg every 6 hours. She is also on albuterol HFA 2 puffs scheduled every 4 hours, no antibiotics for now. Have her LEVEL WAS LOW AT 0.21 AND 0.11 RESPECTIVELY 2. In terms of diuretics, the patient was becoming hypotensive and I stopped the diuretics. She is currently IV fluids running at 20 mL an hour and she is also on no pressors for now. She is afebrile. She is tolerating her enteral feeding for nutritional support and she is on vital high protein at the rate of 20 mL an hour. White cell count today is at 7.3 with a hemoglobin of 13.3. Platelet is down to 145. Inflammatory markers show an LDH level of 1023 from yesterday and the CRP level is down to 57 from today. She is currently on Eliquis 5 mg by mouth twice a day. This was given to her because of paroxysmal atrial fibrillation with a crit at time of admission. Currently she is back to normal sinus rhythm for now. 10/23/2020, the patient is off the mechanical ventilator. I managed to wean off her sedation yesterday and subsequently extubated this patient to a IPAP. She is currently on the BiPAP and she's been on the BiPAP since extubation. She loves her BiPAP and she is able to tolerated it well. Her current setting is 15/6 cm of BiPAP at a FiO2 of 50%. A blood gas is to be done today. The chest x-ray from today is showing some atelectasis/infiltration the left lower lobe. There is also cardiomegaly. The right lung remains relatively clear and there is still some persistent infiltration of the right lower lobe which was present on earlier chest x-rays. I was in no major interval change in the chest x-ray findings. The patient is pulse oxing approximately 92% on the current BiPAP setting. She is on IV cefepime as a broad-spectrum antibiotic coverage and this was added yesterday due to concern of superinfection/pneumonia. Note that she was infected for Covid 19 earlier and the patient remains on IV Solu-Medrol 60 mg every 6 hours which is also helped her with her COPD exacerbation. She is currently on no sedation. She is currently on no pressors. IV fluids are running at the rate of KVO at 20 mL an hour. Diuretics has been placed on hold. In terms of her inflammatory markers, her CRP level was at 54 and her d-dimer was at 0.52. Sputum culture has been negative. She is afebrile. She is arousable. She is following commands. She is only alert to self. Cardiac rhythm is sinus and we have not witnessed any episodes of atrial fibrillation since ICU stay and the patient is taken 5 mg of Eliquis as long-term anticoagulants for now. The patient is seen today 10/24/2020 in follow-up in the intensive care unit. She was successfully extubated. She is currently alternating with BiPAP 15/6 and 50% FiO2 at nighttime. Currently on 15 L high flow nasal cannula. Awake, alert, no acute distress. She has 0.9 normal saline at a KVO. She is anticoagulated with Eliquis. Remains in sinus rhythm with PACs. Chest x-ray is stable with bilateral patchy infiltrates. Sputum culture revealed no growth. White count 7.5. Hemoglobin 13.1. Lymphocytes 0.3. D-dimer 0.73. Sodium 142. Potassium 5.3. Bicarb 52. Creatinine 0.93. LDH 1488. C-reactive protein 15.4. She remains on cefepime. Anticoagulated with Eliquis. Receiving Lasix daily. Adequate urine output. Continued on IV Solu-Medrol, vitamin supplements. Patient was reevaluated today on 10/25/2020, she is on 12 L high flow nasal ca nnula, up in the chair, in no distress, patient feels fine, tells me that she is feeling better today than she felt yesterday. Her O2 is being titrated down. All her labs were reviewed. LDH is 1526, C-reactive protein is 31. CBC is relatively normal. Basic metabolic profile showed elevated bicarb. I recently the patient has chronic hypercapnic respiratory failure with metabolic compensation. Not to mention that the patient also has some component of contraction metabolic alkalosis. Chest x-ray from yesterday continues to show bilateral pneumonia Patient was reevaluated today on 10/26/2020, remains on high flow nasal cannula, she is now on 15 L, O2 sats rations ranging between 93 up to 95%. Patient is sitting at a bedside chair, does not seem to be in any distress. Hardly any cough, no chest pain, no fever, no chills. CBC is relatively normal. Electrolytes continued to show elevated bicarb. BUN is 52 creatinine 0.85. LDH remains high at 1526, and C-reactive protein is 31. Objective - Vital Signs Vital signs: Vital Signs Temp 98.4 F 10/26/20 17:23 Pulse 56 L 10/26/20 17:23 Resp 20 10/26/20 17:23 BP 128/66 10/26/20 17:23 Pulse Ox 93 L 10/26/20 17:23 Intake & Output 10/26/20 10/26/20 10/27/20 06:59 18:59 06:59 Intake Total 650 260 Output Total 650 Balance 0 260 Weight 157 kg Intake: IV 300 260 Cefepime 2 gm In Sodium 100 100 Chloride 0.9% 100 ml @ 25 mls/hr IVPB Q12HR [facility] Rx #:[id number] Sodium Chloride 0.9% 1, 200 160 000 ml @ 20 mls/hr IV . Q24H ONI[facility] Rx#:[id number] Oral 350 Output: Urine 650 Other: Voiding Method Indwelling Catheter Indwelling Catheter ABP, PAP, CO, CI - Last Documented Arterial Blood Pressure 147/70 - Exam GENERAL EXAM: Morbidly Obese 55-year-old white female, on 15 L high flow nasal cannula HEENT: PERRLA, EOMI, anicteric, dry mucous membranes. NECK: No masses, no JVD, no thyroid enlargement, no adenopathy. CHEST: No chest wall deformity. LUNGS: Crackles at the bases noted. Symmetrical chest expansion. CVS: Regular rate and rhythm, normal S1 and S2, no gallops, no murmurs, no rubs ABDOMEN: Soft, nontender. No hepatosplenomegaly, normal bowel sounds, no guarding or rigidity. EXTREMITIES: No clubbing, no edema, no cyanosis, 2+ pulses and upper and lower extremities. MUSCULOSKELETAL: Muscle strength and tone normal. SKIN: No rashes CENTRAL NERVOUS SYSTEM: Alert and oriented 3 no gross focal deficits. - Labs CBC & Chem 7: 10/25/20 07:35 10/25/20 07:42 Labs: Abnormal Lab Results - Last 24 Hours (Table) 10/25/20 10/26/20 10/26/20 Range/Units 20:32 06:00 07:06 POC Glucose (mg/dL) 299 H 240 H (75-99) mg/dL Ferritin 721.6 H (10.0-291.0) ng/mL Creatine Kinase 315 H (30-135) U/L 10/26/20 10/26/20 10/26/20 Range/Units 12:19 17:03 17:04 POC Glucose (mg/dL) 380 H 362 H 351 H (75-99) mg/dL Ferritin (10.0-291.0) ng/mL Creatine Kinase (30-135) U/L Assessment and Plan Assessment: Impression: Acute on chronic hypoxic and hypercapnic respiratory failure, multifactorial, secondary to acute exacerbation of COPD, acute on chronic diastolic congestive heart failure, new onset atrial fibrillation with RVR, and acute covid 19 pneumonia. New onset atrial fibrillation with RVR Recent hospitalization for Covid 19 pneumonia from 10/16 through 10/19. Chronic hypoxic respiratory failure and chronic hypercapnic respiratory failure secondary to COPD, patient has trilogy device at home. Morbid obesity. Ongoing tobacco dependence syndrome. Obstructive sleep apnea syndrome. Recommendation: Continue present course of treatment including bronchodilators, Continue to titrate oxygen down accordingly. BiPAP at bedside and use as needed. Chest x-ray findings from yesterday were discussed with the patient. Patient is not ready for any discharge planning. We will continue to follow Time with Patient: Less than 30
[2020-10-26 20:01] LABS: Glucose,Whole Blood 367 mg/dL (75-99)
[2020-10-26] MEDS: ATORVASTATIN 20 MG TAB PO SCH (21:19)
[2020-10-26] MEDS: INSULIN DETEMIR (LEVEMIR) 100 UNIT/ML SYR SQ SCH (21:20)
[2020-10-27 00:18] LABS: Glucose,Whole Blood 324 mg/dL (75-99)
[2020-10-27] MEDS: methylPREDNISolone SOD SUCCI 125 MG/2 ML VIAL IV SCH ×5 (00:44→23:37)
[2020-10-27] MEDS: ALBUTEROL HFA INHALER INHALATION SCH ×6 (00:54→20:53)
[2020-10-27] MEDS: LEVOTHYROXINE 75 MCG TAB PO SCH (07:04)
[2020-10-27 07:26] LABS: Glucose,Whole Blood 238 mg/dL (75-99)
[2020-10-27] MEDS: FLUTICASONE 220 MCG INHALER INHALATION SCH ×2 (08:19→20:53)
[2020-10-27] MEDS: INSULIN DETEMIR (LEVEMIR) 100 UNIT/ML SYR SQ SCH ×2 (08:36→20:55)
[2020-10-27] MEDS: INSULIN ASPART (NovoLOG) 100 UNIT/ML VIAL SQ SCH ×7 (08:37→20:55)
[2020-10-27] MEDS: PANTOPRAZOLE 40 MG/10 ML VIAL IVP SCH (08:38)
[2020-10-27] MEDS: FUROSEMIDE 10 MG/ML 4 ML VIAL IV SCH (08:38)
[2020-10-27] MEDS: CEFEPIME 2 GM in SODIUM CHLORIDE 0.9% 100 ML IVPB SCH ×2 (08:38→20:28)
[2020-10-27] MEDS: GABAPENTIN 300 MG CAP PO SCH ×2 (08:39→20:28)
[2020-10-27] MEDS: CHOLECALCIFEROL 25 MCG (1000 IU) TABLET PO SCH (08:39)
[2020-10-27] MEDS: APIXABAN 5 MG TAB PO SCH ×2 (08:39→20:28)
[2020-10-27] MEDS: METOPROLOL TARTRATE 25 MG TAB PO SCH (08:39)
[2020-10-27] MEDS: LOSARTAN 25 MG TAB PO SCH (08:39)
[2020-10-27] MEDS: MAGNESIUM OXIDE 400 MG TAB PO SCH (08:39)
--- NOTE | 2020-10-27 10:50 | P.PN ---
Subjective Progress Note Date: 10/27/20 This is a 55-year-old morbidly obese female discharged yesterday. Patient had been hospitalized 10/16/20- 10/19/20 with COvid- 19 pneumonia , possible acute COPD exacerbation with chronic hypoxic/hypercapnic respiratory failure and multiple other medical issues. Patient had been maintained on COVID regimen, but was beyond the window for Remdesevir. Patient was maintaining O2 sats in the 90s on 4-5 L, baseline and discharged home. Apparently patient failed to use her CPAP last night and returned to the ER with A. fib RVR (initial EKG unavailable), severely hypoxic requiring intubation, placed on Cardizem drip. CXR reported perihilar pulmonary infiltrates, some basilar atelectasis with no change compared to prior exam . ABGs noted. Afebrile, normal lactic acid, normal WBC. Hemoglobin 15, platelets 180, d-dimer 0.62. Sodium 142, potassium 4.2, carbon dioxide 56, BUN 39, creatinine 0.8 glucose 199 magnesium 1.8, total bili 0.5, mildly elevated AST ALT 42, 65 LDH 1444. Troponin 0.021, 0.052, 0.079, CRP 67.1, BNP 1240. EKG for sinus rhythm with premature supraventricular complexes with occasional PVCs. 10/21/2020 remains vent dependent, FiO2 50%/+8 of PEEP, elevated airway pressures. Chest x-ray noted. Sedated on diprovan. Remains off of Levophed. Cardizem drip weaned off yesterday, telemetry sinus rhythm. 10/24/2020 status post extubation over the weekend, currently on 15 L high flow nasal cannula, maintaining O2 sats in the 90s. Maintained on 50% BiPAP throughout the night. Continues on cefepime, IV steroids. Chest x-ray reporting similar to prior, persistent patchy bilateral infiltrates. Increasing bicarb 52. Afebrile, normal WBC, fine sputum culture reporting no growth. Anticoagulated with Eliquis ,telemetry sinus rhythm with PVCs.Hyperglycemic, blood sugars in the low 200s this morning. Hemoglobin 13.1, platelets 158. D- dimer 0.73. Diuresing on Lasix IV push with 24-hour I&O reflecting a negative fluid balance .Potassium 5.3, creatinine 0.93, LDH increased 1488,CRP 50.4. 10/25/20 currently on BiPAP, maintaining O2 sats in the 90s. During the tower observer hours paroximal A. fib/flutter reoccurred with heart rate up into the 140s. Converted back into sinus rhythm. Labs pending. Denies chest pain, palpitations. 10/26/2020 sitting up in chair, maintaining O2 sats in the 90s on 15 L nasal cannula. Remains in sinus rhythm with no further runs of A. fib/flutter during the night reported per telemetry. Diet intake improved, denies loss of taste., Blood sugars uncontrolled. 10/28/2019 maintained on cefepime, IV steroids and albuterol inhaler. Blood sugars elevated , improving this morning .Required BiPAP throughout the night, currently maintaining O2 sats of 94 on 12 L high flow nasal cannula. Denies chest pain, palpitations. Objective - Vital Signs Vital signs: Vital Signs Temp 98.1 F 10/27/20 04:00 Pulse 111 H 10/27/20 04:00 Resp 18 10/27/20 04:00 BP 124/72 10/27/20 04:00 Pulse Ox 94 L 10/27/20 08:19 Intake & Output 10/26/20 10/27/20 10/27/20 18:59 06:59 18:59 Intake Total 260 240 Output Total 1501 900 Balance -1241 -660 Weight 159.5 kg Intake: IV 260 Cefepime 2 gm In Sodium 100 Chloride 0.9% 100 ml @ 25 mls/hr IVPB Q12HR [facility] Rx #:[id number] Sodium Chloride 0.9% 1, 160 000 ml @ 20 mls/hr IV . Q24H ON[facility] Rx#:[id number] Oral 240 Output: Urine 1500 900 Stool 1 Other: Voiding Method Indwelling Catheter Indwelling Catheter ABP, PAP, CO, CI - Last Documented Arterial Blood Pressure 147/70 - Exam - Exam VITAL SIGNS: As above GENERAL:Sitting up in chair, wearing high flow HEENT: Atraumatic, normocephalic, pupils equal, conjunctiva normal, CARDIOVASCULAR: Regular S1 and S2, no murmurs, no rubs RESPIRATION: Diminished with fine expiratory wheeze NERVOUS SYSTEM: Alert and oriented 3 - Labs CBC & Chem 7: 10/25/20 07:35 10/25/20 07:42 Labs: Abnormal Lab Results - Last 24 Hours (Table) 10/26/20 10/26/20 10/26/20 Range/Units 07:06 12:19 17:03 POC Glucose (mg/dL) 380 H 362 H (75-99) mg/dL Ferritin 721.6 H (10.0-291.0) ng/mL 10/26/20 10/26/20 10/27/20 Range/Units 17:04 19:59 00:16 POC Glucose (mg/dL) 351 H 367 H 324 H (75-99) mg/dL Ferritin (10.0-291.0) ng/mL 10/27/20 Range/Units 07:25 POC Glucose (mg/dL) 238 H (75-99) mg/dL Ferritin (10.0-291.0) ng/mL Assessment and Plan Assessment: Acute on chronic hypoxic and hypercapnic respiratory failure, secondary to recent covid-Pneumonia hospitalization 10/16/20 through 10/19/2020 and acute COPD exacerbation, acute diastolic CHF exacerbation. Patient was discharged yesterday, proceeded home and apparently did not use CPAP, arrived back in the ER with A. fib with RVR, requiring intubation. Status post Mechanical ventilator. BiPAP alternating with high flow nasal cannula. Paroxysmal A-flutter, fib with RVR, suspect possibly chronic secondary to the above, status post Cardizem drip, Converted to sinus rhythm Hypotension, status post brief pressor support Chronic diastolic CHF, NYHA class III, EF 50-55 % Obstructive sleep apnea on CPAP, noncompliant Diabetes mellitus type 2, hyperglycemic hypothyroidism hypertension ongoing nicotine dependence. morbid obesity, BMI 62.3 Plan: Continue on current medication regime ,monitoring and symptomatic treatment. Maintain nebulized bronchodilators, IV steroids. Levemir dose recently adjusted, continue with close monitoring of Accu-Cheks. PT/OT. Bipap prn,weaning of oxygen in progress. The impression and plan of care has been dictated as directed. : I performed a history and examination of this patient, discussed the same with the dictator. I agree with the dictator's note ,documented as a scribe. Any additional findings or plans will be noted.
[2020-10-27 11:28] VITALS: BMI 58.5
[2020-10-27] MEDS ORDERED: METOPROLOL TARTRATE 25 MG TAB PO STA (11:33)
[2020-10-27] MEDS ORDERED: DILTIAZEM DRIP BOLUS FROM BAG 1 MG SOLN IV ONE (11:35)
[2020-10-27 11:49] LABS: Glucose,Whole Blood 350 mg/dL (75-99)
[2020-10-27 11:55] LABS: African American GFR (CKD) >90 (>60 ml/min/1.73 sqM); Blood Urea Nitrogen 53 mg/dL (7-17); Calcium 8.2 mg/dL (8.4-10.2); Chloride 83 mmol/L (98-107); Glucose 352 mg/dL (74-99); Non-African American GFR(CKD) 82 (>60 ml/min/1.73 sqM); Potassium 5.4 mmol/L (3.5-5.1); Sodium 134 mmol/L (137-145)
[2020-10-27] MEDS: DILTIAZEM 125 MG in SODIUM CHLORIDE 0.9% 100 ML IV SCH (12:43)
[2020-10-27 13:04] LABS: Anion Gap 8 mmol/L
[2020-10-27 13:06] LABS: Carbon Dioxide 43 mmol/L (22-30)
--- NOTE | 2020-10-27 14:23 | P.PN ---
Subjective Progress Note Date: 10/27/20 CHIEF COMPLAINT: New-onset atrial fibrillation HISTORY OF PRESENT ILLNESS: 10/20/2020 This is a 55-year-old female with a past medical history significant for COPD with home oxygen, diabetes mellitus, congestive heart failure, sleep apnea, thyroid disorder, and nicotine dependence. Patient does not follow with a legal transcriptionist as she recently moved from [place]. It is noted that the patient was recently hospitalized in September due to COPD and CHF. We have been asked to see the patient in consultation for new onset atrial fibrillation. Patient presented to the emergency room due to shortness of breath. In the emergency room the patient developed increasing respiratory distress and was intubated. Patient is positive for Covid 19 (tested on 10/16/2020). Patient was in sinus mechanism upon presentation to the ER. She developed atrial fibrillation and was on a Cardizem drip for a short period of time. She has since converted back to sinus mechanism. Patient is currently receiving Lovenox 150 mg every 12 hours EKG reveals sinus mechanism with PVCs Chest xray perihilar pulmonary infiltrates. Probably some basilar atelectasis. Laboratory data: WBC 7.3. Hemoglobin 15.0. Platelet count 180. Sodium 142. Potassium 4.2. BUN 39. Creatinine 0.80. Lactic acid 1.5. AST 42. ALT 65. BNP 1240. Troponin 0.021. 0.052. 0.079. Current home cardiac medications include losartan 12.5 mg daily, Lasix 40 mg daily, Lipitor 20 mg daily Echocardiogram completed on 10/04/2020 revealed ejection fraction 50-55% 10/21/2020 Patient is maintaining sinus mechanism on telemetry. Heart rate in the 70s. Patient was receiving Lovenox 150 mg twice a day but her dose was decreased down to 40 mg daily today by pulmonary. She remains on mechanical ventilation. FiO2 50%. Blood pressure 120/63. 10/22/2020 patient remains in the ICU on mechanical ventilation. She's maintaining sinus mechanism on telemetry. Heart rate in the 60s. She has been started on Eliquis for anticoagulation. 10/23/2020 Patient remains in the intensive care unit. She was extubated yesterday. She is currently on a BiPAP. She is maintaining sinus mechanism. She remains on Eliquis for anticoagulation. Blood pressure 117/58. 10/27/2020 Cardiology was reconsulted secondary to A. fib with RVR. Patient has been transferred out of the ICU to the selective care unit. Telemetry reveals atrial fibrillation with a heart rate in the 140s. Patient is currently receiving me toprolol 25 mg twice a day PHYSICAL EXAM: Thorough physical exam not completed secondary to limited evaluation/examination and due to Covid19 ASSESSMENT: Acute on chronic hypoxic and hypercapnic respiratory failure requiring mechanical ventilation Covid 19 New onset paroxysmal atrial fibrillation with RVR Chronic diastolic congestive heart failure, EF 50-55% Hypertension Hyperlipidemia Obstructive sleep apnea Nicotine dependence PLAN: Continue Eliquis 5 mg twice a day Increase metoprolol to 50 mg twice a day. given additional 25 mg 1 dose now Begin Cardizem drip at 5 mg an hour after IV bolus of 5 mg Continue telemetry monitoring Further recommendations for inpatient course Nurse practitioner note has been reviewed by physician. Signing provider agrees with the documented findings, assessment, and plan of care. Objective - Vital Signs Vital signs: Vital Signs Temp 97.4 F L 10/27/20 08:00 Pulse 120 H 10/27/20 08:00 Resp 18 10/27/20 08:00 BP 147/74 10/27/20 08:00 Pulse Ox 94 L 10/27/20 08:19 Intake & Output 10/26/20 10/27/20 10/27/20 18:59 06:59 18:59 Intake Total 260 240 240 Output Total 1501 900 Balance -1241 -660 240 Weight 159.5 kg 159.5 kg Intake: IV 260 Cefepime 2 gm In Sodium 100 Chloride 0.9% 100 ml @ 25 mls/hr IVPB Q12HR [facility] Rx #:[id number] Sodium Chloride 0.9% 1, 160 000 ml @ 20 mls/hr IV . Q24H [facility] Rx#:[id number] Oral 240 240 Output: Urine 1500 900 Stool 1 Other: Voiding Method Indwelling Catheter Indwelling Catheter Indwelling Catheter ABP, PAP, CO, CI - Last Documented Arterial Blood Pressure 147/70 - Labs CBC & Chem 7: 10/25/20 07:35 10/27/20 10:42 Labs: Abnormal Lab Results - Last 24 Hours (Table) 10/26/20 10/26/20 10/26/20 Range/Units 07:06 17:03 17:04 Sodium (137-145) mmol/L Potassium (3.5-5.1) mmol/L Chloride (98-107) mmol/L Carbon Dioxide (22-30) mmol/L BUN (7-17) mg/dL Glucose (74-99) mg/dL POC Glucose (mg/dL) 362 H 351 H (75-99) mg/dL Calcium (8.4-10.2) mg/dL Ferritin 721.6 H (10.0-291.0) ng/mL 10/26/20 10/27/20 10/27/20 Range/Units 19:59 00:16 07:25 Sodium (137-145) mmol/L Potassium (3.5-5.1) mmol/L Chloride (98-107) mmol/L Carbon Dioxide (22-30) mmol/L BUN (7-17) mg/dL Glucose (74-99) mg/dL POC Glucose (mg/dL) 367 H 324 H 238 H (75-99) mg/dL Calcium (8.4-10.2) mg/dL Ferritin (10.0-291.0) ng/mL 10/27/20 10/27/20 Range/Units 10:42 11:48 Sodium 134 L (137-145) mmol/L Potassium 5.4 H (3.5-5.1) mmol/L Chloride 83 L (98-107) mmol/L Carbon Dioxide 43 H* (22-30) mmol/L BUN 53 H (7-17) mg/dL Glucose 352 H (74-99) mg/dL POC Glucose (mg/dL) 350 H (75-99) mg/dL Calcium 8.2 L (8.4-10.2) mg/dL Ferritin (10.0-291.0) ng/mL
[2020-10-27] MEDS ORDERED: MAGNESIUM HYDROXIDE 2,400 MG/10 ML CUP PO PRN (15:02)
--- NOTE | 2020-10-27 16:42 | P.PN ---
Subjective Progress Note Date: 10/27/20 Principal diagnosis: Acute hypoxic referral failure secondary to covid 19 pneumonitis. 55-year-old female patient who was recently hospitalized from [facility] 10/19/2020 for COVID 19 pneumonia, acute exacerbation of COPD and CHF diastolic dysfunction. Patient has history of advanced COPD, she is on home oxygen usually wears 5 L/m on a regular basis, has a obstructive sleep apnea and reportedly has a Trilogy device at home. Patient recently moved from [place], was hospitalized in the beginning of September for acute exacerbation of COPD and diastolic CHF. She was out of the window for Remdesivir, she was treated with standard care including IV steroids, diuretics, breathing treatments and prophylactic anticoagulation. The medical history includes hypothyroidism, hyperlipidemia, diabetes mellitus type 2, morbid obesity, chronic and ongoing history of tobacco use. On 10/20/2020 patient was brought into the emergency department per EMS with difficulty breathing and chest discomfort. CXR showed mild cardiomegaly with mildly increased perihilar edema and infiltrates increased compared to be enlarged exam, HEENT showed sinus rhythm with PACs. Her blood gases in the emergency department showed pO2 of 49, pCO2 of 120, and pH of 7.2, patient had decreased consciousness and was in significant amount of respiratory distress, and she was emergently intubated and placed on mechanical ventilator. Repeat blood gases showed improvement in acute on chronic hypercapnic and hypoxic respiratory failure, with improvement of pO2 up to 134, pCO2 of 93, and pH of 7.33. She was also noted to be in new onset A. fib with RVR, and required Cardizem drip for brief amount of time and she is back in sinus currently. Patient was started on IV steroids, Lasix, breathing treatments. Lab work has been reviewed, showing no evidence of leukocytosis white blood cell, 7.3, with a hemoglobin of 15, proBNP of 1240, is 0.021, second troponin was 0.052. Lactic acid was within normal limits, patient has been afebrile since arrival to the emergency department, hemodynamically stable, this morning she seen in the emergency department, she remains sedated and on mechanical ventilator, on assist-control mode of ventilation with a rate of 30, tidal lungs 400, FiO2 of 80% and PEEP of 5, this morning's blood gases show improvement in pO2 and pCO2 concentrations and improvements in the acid base balance with pH up to 7.33 as mentioned above. On 10/21/2020, the patient is being seen for a follow-up. The patient remains intubated on a mechanical ventilator. This morning the patient is on propofol which is running at 60 mcg/kg per minute and the patient is well sedated for now and very much interested a mechanical ventilator. She is an assist-control mode at the rate of 24 with a tidal volume of 350 and FiO2 of 60% with a PEEP of 10. The morning blood gases showed a pH of 7.45 with a pCO2 of 71 and pO2 of 66. Peak airway pressure was around 42 and static airway pressure was 27-28. The chest x-ray is showing adequate expansion of both lungs. There is cardiomegaly. There is some mild interstitial prominence with questionable consolidation of the right lower lobe. ET tube is at the level of the aortic knob and the OG tube is in good location. She does remain bronchospastic and wheezy. Note that her blood pressure has stabilized. She was given a bolus of fluid with a liter of normal saline. No pressors was utilized. Diuretics were placed on hold. Her white second dose of 5.6 with a hemoglobin of 12.8. Rest of the electrolytes are still pending from this morning. Meanwhile, the patient is on bronchodilators with albuterol 2 puffs, and she is also on IV Solu Medrol 60 mg every 6 hours. In terms of her cardiac rhythm, the patient is back into normal sinus rhythm. Cardizem drip was weaned off it was discontinued yesterday and the patient is hemodynamically stable at this point in time. The fluid balance is in the order of +1.3 L since yesterday. No other significant events overnight. Enteral feeding has been started at 80 mL an hour of vital high protein.. Abdomen is soft. No significant edema in her extremities. No other significant events otherwise for now. 2020 the patient remains intubated on a mechanical ventilator. This morning she is on propofol running at 60 mcg/kg per minute and the patient is also on a mechanical ventilator on assist control mode at the rate of 16 with a tidal volume of 53 and FiO2 of 70% with a PEEP of 10. A FiO2 was brought up to 70% and the morning blood gases showed a pH of 7.37 with a pCO2 of 84 and pO2 of 59. The chest x-ray shows a retrocardiac infiltrate and there is also right lower lobe pulmonary infiltrate. Nevertheless does not extensive and upper lobes are quite clear. Note that the patient also had a Covid 19 related infection/pneumonia which probably is contributing to her ongoing hypoxemia. In any rate, the patient is still on a mechanical ventilator for now. She is quite synchronous with the mechanical ventilator. She is calm and comfortable. No si gnificant orotracheal secretions. She is hemodynamically stable. His sputum analysis came back positive for some rare budding yeast which is expected otherwise the rest was consistent with a normal respiratory cherelle. There is of treatment, she remains on IV Solu-Medrol 60 mg every 6 hours. She is also on albuterol HFA 2 puffs scheduled every 4 hours, no antibiotics for now. Have her LEVEL WAS LOW AT 0.21 AND 0.11 RESPECTIVELY 2. In terms of diuretics, the patient was becoming hypotensive and I stopped the diuretics. She is currently IV fluids running at 20 mL an hour and she is also on no pressors for now. She is afebrile. She is tolerating her enteral feeding for nutritional support and she is on vital high protein at the rate of 20 mL an hour. White cell count today is at 7.3 with a hemoglobin of 13.3. Platelet is down to 145. Inflammatory markers show an LDH level of 1023 from yesterday and the CRP level is down to 57 from today. She is currently on Eliquis 5 mg by mouth twice a day. This was given to her because of paroxysmal atrial fibrillation with a crit at time of admission. Currently she is back to normal sinus rhythm for now. 10/23/2020, the patient is off the mechanical ventilator. I managed to wean off her sedation yesterday and subsequently extubated this patient to a IPAP. She is currently on the BiPAP and she's been on the BiPAP since extubation. She loves her BiPAP and she is able to tolerated it well. Her current setting is 15/6 cm of BiPAP at a FiO2 of 50%. A blood gas is to be done today. The chest x-ray from today is showing some atelectasis/infiltration the left lower lobe. There is also cardiomegaly. The right lung remains relatively clear and there is still some persistent infiltration of the right lower lobe which was present on earlier chest x-rays. I was in no major interval change in the chest x-ray findings. The patient is pulse oxing approximately 92% on the current BiPAP setting. She is on IV cefepime as a broad-spectrum antibiotic coverage and this was added yesterday due to concern of superinfection/pneumonia. Note that she was infected for Covid 19 earlier and the patient remains on IV Solu-Medrol 60 mg every 6 hours which is also helped her with her COPD exacerbation. She is currently on no sedation. She is currently on no pressors. IV fluids are running at the rate of KVO at 20 mL an hour. Diuretics has been placed on hold. In terms of her inflammatory markers, her CRP level was at 54 and her d-dimer was at 0.52. Sputum culture has been negative. She is afebrile. She is arousable. She is following commands. She is only alert to self. Cardiac rhythm is sinus and we have not witnessed any episodes of atrial fibrillation since ICU stay and the patient is taken 5 mg of Eliquis as long-term anticoagulants for now. The patient is seen today 10/24/2020 in follow-up in the intensive care unit. She was successfully extubated. She is currently alternating with BiPAP 15/6 and 50% FiO2 at nighttime. Currently on 15 L high flow nasal cannula. Awake, alert, no acute distress. She has 0.9 normal saline at a KVO. She is anticoagulated with Eliquis. Remains in sinus rhythm with PACs. Chest x-ray is stable with bilateral patchy infiltrates. Sputum culture revealed no growth. White count 7.5. Hemoglobin 13.1. Lymphocytes 0.3. D-dimer 0.73. Sodium 142. Potassium 5.3. Bicarb 52. Creatinine 0.93. LDH 1488. C-reactive protein 15.4. She remains on cefepime. Anticoagulated with Eliquis. Receiving Lasix daily. Adequate urine output. Continued on IV Solu-Medrol, vitamin supplements. Patient was reevaluated today on 10/25/2020, she is on 12 L high flow nasal ca nnula, up in the chair, in no distress, patient feels fine, tells me that she is feeling better today than she felt yesterday. Her O2 is being titrated down. All her labs were reviewed. LDH is 1526, C-reactive protein is 31. CBC is relatively normal. Basic metabolic profile showed elevated bicarb. I recently the patient has chronic hypercapnic respiratory failure with metabolic compensation. Not to mention that the patient also has some component of contraction metabolic alkalosis. Chest x-ray from yesterday continues to show bilateral pneumonia Patient was reevaluated today on 10/26/2020, remains on high flow nasal cannula, she is now on 15 L, O2 sats rations ranging between 93 up to 95%. Patient is sitting at a bedside chair, does not seem to be in any distress. Hardly any cough, no chest pain, no fever, no chills. CBC is relatively normal. Electrolytes continued to show elevated bicarb. BUN is 52 creatinine 0.85. LDH remains high at 1526, and C-reactive protein is 31. Patient was reevaluated today on 10/27/2020, remains on the regular medical floor, remains relatively hypoxic, requiring 12 L of high flow nasal cannula to maintain O2 saturation above 91%. Surprisingly, patient is doing clinically well overall, hardly any cough, no wheezing, she does have some shortness of breath with any activity. Absent today were reviewed, blood sugar seems to be running high at 350, that being addressed by the admitting physician. Her BUN is 53 creatinine 0.80, no inflammatory markers were done today. Objective - Vital Signs Vital signs: Vital Signs Temp 97.4 F L 10/27/20 08:00 Pulse 113 H 10/27/20 12:00 Resp 20 10/27/20 12:00 BP 101/52 10/27/20 12:00 Pulse Ox 91 L 10/27/20 12:00 Intake & Output 10/26/20 10/27/20 10/27/20 18:59 06:59 18:59 Intake Total 260 240 480 Output Total 0711 822 7224 Balance -1241 -660 -570 Weight 159.5 kg 159.5 kg Intake: IV 260 Cefepime 2 gm In Sodium 100 Chloride 0.9% 100 ml @ 25 mls/hr IVPB Q12HR ONI[facility] Rx #:[id number] Sodium Chloride 0.9% 1, 160 000 ml @ 20 mls/hr IV . Q24H ONIEL Rx#:[id number] Oral 240 480 Output: Urine 5187 536 9904 Stool 1 Other: Voiding Method Indwelling Catheter Indwelling Catheter Indwelling Catheter ABP, PAP, CO, CI - Last Documented Arterial Blood Pressure 147/70 - Exam GENERAL EXAM: Morbidly Obese 55-year-old white female, on 12 liters high flow nasal cannula HEENT: PERRLA, EOMI, anicteric, dry mucous membranes. NECK: No masses, no JVD, no thyroid enlargement, no adenopathy. CHEST: No chest wall deformity. LUNGS: Crackles at the bases noted. Symmetrical chest expansion. CVS: Regular rate and rhythm, normal S1 and S2, no gallops, no murmurs, no rubs ABDOMEN: Soft, nontender. No hepatosplenomegaly, normal bowel sounds, no guarding or rigidity. EXTREMITIES: No clubbing, no edema, no cyanosis, 2+ pulses and upper and lower extremities. MUSCULOSKELETAL: Muscle strength and tone normal. SKIN: No rashes CENTRAL NERVOUS SYSTEM: Alert and oriented 3 no gross focal deficits. - Labs CBC & Chem 7: 10/25/20 07:35 10/27/20 10:42 Labs: Abnormal Lab Results - Last 24 Hours (Table) 10/26/20 10/26/20 10/26/20 Range/Units 07:06 17:03 17:04 Sodium (137-145) mmol/L Potassium (3.5-5.1) mmol/L Chloride (98-107) mmol/L Carbon Dioxide (22-30) mmol/L BUN (7-17) mg/dL Glucose (74-99) mg/dL POC Glucose (mg/dL) 362 H 351 H (75-99) mg/dL Calcium (8.4-10.2) mg/dL Ferritin 721.6 H (10.0-291.0) ng/mL 10/26/20 10/27/20 10/27/20 Range/Units 19:59 00:16 07:25 Sodium (137-145) mmol/L Potassium (3.5-5.1) mmol/L Chloride (98-107) mmol/L Carbon Dioxide (22-30) mmol/L BUN (7-17) mg/dL Glucose (74-99) mg/dL POC Glucose (mg/dL) 367 H 324 H 238 H (75-99) mg/dL Calcium (8.4-10.2) mg/dL Ferritin (10.0-291.0) ng/mL 10/27/20 10/27/20 Range/Units 10:42 11:48 Sodium 134 L (137-145) mmol/L Potassium 5.4 H (3.5-5.1) mmol/L Chloride 83 L (98-107) mmol/L Carbon Dioxide 43 H* (22-30) mmol/L BUN 53 H (7-17) mg/dL Glucose 352 H (74-99) mg/dL POC Glucose (mg/dL) 350 H (75-99) mg/dL Calcium 8.2 L (8.4-10.2) mg/dL Ferritin (10.0-291.0) ng/mL Assessment and Plan Assessment: Impression: Acute on chronic hypoxic and hypercapnic respiratory failure, multifactorial, secondary to acute exacerbation of COPD, acute on chronic diastolic congestive heart failure, new onset atrial fibrillation with RVR, and acute covid 19 pneumonia. New onset atrial fibrillation with RVR Recent hospitalization for Covid 19 pneumonia from 10/16 through 10/19. Chronic hypoxic respiratory failure and chronic hypercapnic respiratory failure secondary to COPD, patient has trilogy device at home. Morbid obesity. Ongoing tobacco dependence syndrome. Obstructive sleep apnea syndrome. Recommendation: Continue present course of treatment including bronchodilators, Continue to titrate oxygen down accordingly. BiPAP at bedside and use as needed. Patient is not ready to be discharged unless her oxygen requirement is significantly down We will continue to follow Time with Patient: Less than 30
[2020-10-27 17:18] LABS: Glucose,Whole Blood 277 mg/dL (75-99)
[2020-10-27] MEDS: SODIUM CHLORIDE 0.9% 1,000 ML IV SCH (19:02)
[2020-10-27 20:20] LABS: Glucose,Whole Blood 293 mg/dL (75-99)
[2020-10-27] MEDS: METOPROLOL TARTRATE 50 MG TAB PO SCH (20:28)
[2020-10-27] MEDS: ATORVASTATIN 20 MG TAB PO SCH (20:28)
[2020-10-27] MEDS ORDERED: ONDANSETRON 4 MG/2 ML VIAL IVP PRN (21:17)
[2020-10-27] MEDS: BISMUTH SUBSALICYLATE 4,192 MG/240 ML BOTTLE PO PRN (22:06)
[2020-10-27 22:44] LABS: LD Isoenzymes 1 22 % (19-38); LD Isoenzymes 2 35 % (30-43); LD Isoenzymes 3 25 % (16-26); LD Isoenzymes 4 11 % (3-12); LD Isoenzymes 5 7 % (3-14); Lactacte Dehydrogenase(LD) ISO 383 U/L (120-250)
[2020-10-28] MEDS: ALBUTEROL HFA INHALER INHALATION SCH ×7 (00:34→23:00)
[2020-10-28] MEDS: methylPREDNISolone SOD SUCCI 125 MG/2 ML VIAL IV SCH ×3 (05:26→17:15)
[2020-10-28] MEDS: LEVOTHYROXINE 75 MCG TAB PO SCH (05:27)
[2020-10-28 06:54] LABS: Glucose,Whole Blood 170 mg/dL (75-99)
[2020-10-28] MEDS: INSULIN DETEMIR (LEVEMIR) 100 UNIT/ML SYR SQ SCH ×2 (07:27→21:18)
[2020-10-28] MEDS: INSULIN ASPART (NovoLOG) 100 UNIT/ML VIAL SQ SCH ×7 (07:27→21:19)
[2020-10-28] MEDS: FLUTICASONE 220 MCG INHALER INHALATION SCH ×2 (07:46→21:51)
[2020-10-28] MEDS: LOSARTAN 25 MG TAB PO SCH (09:22)
[2020-10-28] MEDS: CHOLECALCIFEROL 25 MCG (1000 IU) TABLET PO SCH (09:23)
[2020-10-28] MEDS: GABAPENTIN 300 MG CAP PO SCH ×2 (09:23→21:18)
[2020-10-28] MEDS: MAGNESIUM OXIDE 400 MG TAB PO SCH (09:23)
[2020-10-28] MEDS: APIXABAN 5 MG TAB PO SCH ×2 (09:23→21:18)
[2020-10-28] MEDS: METOPROLOL TARTRATE 25 MG TAB PO SCH ×2 (09:23→21:18)
[2020-10-28] MEDS: CEFEPIME 2 GM in SODIUM CHLORIDE 0.9% 100 ML IVPB SCH ×2 (09:24→21:18)
[2020-10-28] MEDS: FUROSEMIDE 10 MG/ML 4 ML VIAL IV SCH (09:30)
[2020-10-28] MEDS: PANTOPRAZOLE 40 MG/10 ML VIAL IVP SCH (09:30)
[2020-10-28 11:03] LABS: Basophils % (A) 0 %; Eosinophils % (A) 0 %; HCT 41.5 % (34.0-46.0); HGB 13.7 gm/dL (11.4-16.0); Lymphocytes # (A) 0.6 k/uL (1.0-4.8); Lymphocytes % (A) 5 %; MCH 33.8 pg (25.0-35.0); MCHC 33.1 g/dL (31.0-37.0); MCV 102.2 fL (80.0-100.0); Macrocytosis Slight; Mean Platelet Volume 8.8; Monocytes # (A) 0.4 k/uL (0-1.0); Monocytes % (A) 3 %; Neutrophils # (A) 10.7 k/uL (1.3-7.7); Neutrophils % (A) 91 %; Platelet Count 283 k/uL (150-450); RBC 4.06 m/uL (3.80-5.40); WBC 11.7 k/uL (3.8-10.6)
[2020-10-28] MEDS: SODIUM CHLORIDE 0.9% 1,000 ML IV SCH (11:10)
[2020-10-28] MEDS: METOPROLOL TARTRATE 50 MG TAB PO SCH (11:13)
[2020-10-28] MEDS: BISMUTH SUBSALICYLATE 4,192 MG/240 ML BOTTLE PO PRN (11:19)
[2020-10-28 11:33] LABS: Toxic Granulation Present
--- NOTE | 2020-10-28 11:47 | US ---
EXAMINATION TYPE: US lower ext pseudo artery RT DATE OF EXAM: 10/28/2020 COMPARISON: NONE CLINICAL HISTORY: POSSIBLE HEMATOMA . Poor historian. Right groin puncture chavo seen. Bruising in r ight groin. Palpable. LIMITED due to patient body habitus and swelling EXAM PERFORMED: Grayscale and color Doppler duplex imaging performed of the groin, post cardiac theresa ter to assess for pseudoaneurysm. SIDE PERFORMED: Right Color and Waveform Doppler performed to assess for the presence of pseudoaneurysm; Is there ultrasound evidence of a pseudoaneurysm: no Is there evidence of AV shunting: no Is there a fluid collection present: yes. Two fluid collections visualized in right groin. 1- 6.3 x 4.0 x 2.0 cm. 2- 6.0 x 5.7 x 1.9 cm. Limited ultrasound performed in the right groin. IMPRESSION: Probable postprocedure hematomas
[2020-10-28 11:52] LABS: Glucose,Whole Blood 265 mg/dL (75-99)
--- NOTE | 2020-10-28 12:57 | P.PN ---
Subjective Progress Note Date: 10/28/20 CHIEF COMPLAINT: New-onset atrial fibrillation HISTORY OF PRESENT ILLNESS: 10/20/2020 This is a 55-year-old female with a past medical history significant for COPD with home oxygen, diabetes mellitus, congestive heart failure, sleep apnea, thyroid disorder, and nicotine dependence. Patient does not follow with a cardiopulmonary technologist chief as she recently moved from [place]. It is noted that the patient was recently hospitalized in September due to COPD and CHF. We have been asked to see the patient in consultation for new onset atrial fibrillation. Patient presented to the emergency room due to shortness of breath. In the emergency room the patient developed increasing respiratory distress and was intubated. Patient is positive for Covid 19 (tested on 10/16/2020). Patient was in sinus mechanism upon presentation to the ER. She developed atrial fibrillation and was on a Cardizem drip for a short period of time. She has since converted back to sinus mechanism. Patient is currently receiving Lovenox 150 mg every 12 hours EKG reveals sinus mechanism with PVCs Chest xray perihilar pulmonary infiltrates. Probably some basilar atelectasis. Laboratory data: WBC 7.3. Hemoglobin 15.0. Platelet count 180. Sodium 142. Potassium 4.2. BUN 39. Creatinine 0.80. Lactic acid 1.5. AST 42. ALT 65. BNP 1240. Troponin 0.021. 0.052. 0.079. Current home cardiac medications include losartan 12.5 mg daily, Lasix 40 mg daily, Lipitor 20 mg daily Echocardiogram completed on 10/04/2020 revealed ejection fraction 50-55% 10/21/2020 Patient is maintaining sinus mechanism on telemetry. Heart rate in the 70s. Patient was receiving Lovenox 150 mg twice a day but her dose was decreased down to 40 mg daily today by pulmonary. She remains on mechanical ventilation. FiO2 50%. Blood pressure 120/63. 10/22/2020 patient remains in the ICU on mechanical ventilation. She's maintaining sinus mechanism on telemetry. Heart rate in the 60s. She has been started on Eliquis for anticoagulation. 10/23/2020 Patient remains in the intensive care unit. She was extubated yesterday. She is currently on a BiPAP. She is maintaining sinus mechanism. She remains on Eliquis for anticoagulation. Blood pressure 117/58. 10/27/2020 Cardiology was reconsulted secondary to A. fib with RVR. Patient has been transferred out of the ICU to the selective care unit. Telemetry reveals atrial fibrillation with a heart rate in the 140s. Patient is currently receiving me toprolol 25 mg twice a day 10/28/2020 Patient remains in atrial fibrillation with RVR. She is currently on a Cardizem drip at 5 mg an hour. Patient is also receiving metoprolol 50 mg twice a day. Patient is currently on 12 L high flow nasal cannula. She is receiving Eliquis for anticoagulation PHYSICAL EXAM: Thorough physical exam not completed secondary to limited evaluation/examination and due to Covid19 ASSESSMENT: Acute on chronic hypoxic and hypercapnic respiratory failure requiring mechanical ventilation Covid 19 New onset paroxysmal atrial fibrillation with RVR Chronic diastolic congestive heart failure, EF 50-55% Hypertension Hyperlipidemia Obstructive sleep apnea Nicotine dependence PLAN: Continue Eliquis 5 mg twice a day Increase metoprolol to 75 mg twice a day Continue Cardizem drip. May discontinue Cardizem drip this afternoon if patients heart rate is controlled. Continue telemetry monitoring Further recommendations for inpatient course Nurse practitioner note has been reviewed by physician. Signing provider agrees with the documented findings, assessment, and plan of care. Objective - Vital Signs Vital signs: Vital Signs Temp 98.3 F 10/28/20 08:15 Pulse 100 10/28/20 08:15 Resp 18 10/28/20 08:15 BP 134/86 10/28/20 08:15 Pulse Ox 92 L 10/28/20 08:15 Intake & Output 10/27/20 10/28/20 10/28/20 18:59 06:59 18:59 Intake Total 480 38.833 240 Output Total 1050 825 151 Balance -570 -786.167 89 Weight 159.5 kg 141 kg Intake: Intake, IV Titration 38.833 Amount Diltiazem 125 mg In 38.833 Sodium Chloride 0.9% 100 ml @ 5 MG/HR 5 mls/hr IV .Q24H [facility] Rx#:[id number] Oral 480 240 Output: Urine 1050 825 150 Stool 1 Other: Voiding Method Indwelling Catheter Indwelling Catheter Indwelling Catheter # Bowel Movements 1 ABP, PAP, CO, CI - Last Documented Arterial Blood Pressure 147/70 - Labs CBC & Chem 7: 10/28/20 10:02 10/27/20 10:42 Labs: Abnormal Lab Results - Last 24 Hours (Table) 10/22/20 10/27/20 10/27/20 Range/Units 05:02 10:42 17:17 WBC (3.8-10.6) k/uL MCV (80.0-100.0) fL Neutrophils # (1.3-7.7) k/uL Lymphocytes # (1.0-4.8) k/uL Carbon Dioxide 43 H* (22-30) mmol/L POC Glucose (mg/dL) 277 H (75-99) mg/dL LD Isoenzymes 383 H (120-250) U/L 10/27/20 10/28/20 10/28/20 Range/Units 20:19 06:53 10:02 WBC 11.7 H (3.8-10.6) k/uL MCV 102.2 H (80.0-100.0) fL Neutrophils # 10.7 H (1.3-7.7) k/uL Lymphocytes # 0.6 L (1.0-4.8) k/uL Carbon Dioxide (22-30) mmol/L POC Glucose (mg/dL) 293 H 170 H (75-99) mg/dL LD Isoenzymes (120-250) U/L 10/28/20 Range/Units 11:48 WBC (3.8-10.6) k/uL MCV (80.0-100.0) fL Neutrophils # (1.3-7.7) k/uL Lymphocytes # (1.0-4.8) k/uL Carbon Dioxide (22-30) mmol/L POC Glucose (mg/dL) 265 H (75-99) mg/dL LD Isoenzymes (120-250) U/L
--- NOTE | 2020-10-28 13:17 | P.PN ---
Subjective Progress Note Date: 10/28/20 This is a 55-year-old morbidly obese female discharged yesterday. Patient had been hospitalized 10/16/20- 10/19/20 with COvid- 19 pneumonia , possible acute COPD exacerbation with chronic hypoxic/hypercapnic respiratory failure and multiple other medical issues. Patient had been maintained on COVID regimen, but was beyond the window for Remdesevir. Patient was maintaining O2 sats in the 90s on 4-5 L, baseline and discharged home. Apparently patient failed to use her CPAP last night and returned to the ER with A. fib RVR (initial EKG unavailable), severely hypoxic requiring intubation, placed on Cardizem drip. CXR reported perihilar pulmonary infiltrates, some basilar atelectasis with no change compared to prior exam . ABGs noted. Afebrile, normal lactic acid, normal WBC. Hemoglobin 15, platelets 180, d-dimer 0.62. Sodium 142, potassium 4.2, carbon dioxide 56, BUN 39, creatinine 0.8 glucose 199 magnesium 1.8, total bili 0.5, mildly elevated AST ALT 42, 65 LDH 1444. Troponin 0.021, 0.052, 0.079, CRP 67.1, BNP 1240. EKG for sinus rhythm with premature supraventricular complexes with occasional PVCs. 10/21/2020 remains vent dependent, FiO2 50%/+8 of PEEP, elevated airway pressures. Chest x-ray noted. Sedated on diprovan. Remains off of Levophed. Cardizem drip weaned off yesterday, telemetry sinus rhythm. 10/24/2020 status post extubation over the weekend, currently on 15 L high flow nasal cannula, maintaining O2 sats in the 90s. Maintained on 50% BiPAP throughout the night. Continues on cefepime, IV steroids. Chest x-ray reporting similar to prior, persistent patchy bilateral infiltrates. Increasing bicarb 52. Afebrile, normal WBC, fine sputum culture reporting no growth. Anticoagulated with Eliquis ,telemetry sinus rhythm with PVCs.Hyperglycemic, blood sugars in the low 200s this morning. Hemoglobin 13.1, platelets 158. D- dimer 0.73. Diuresing on Lasix IV push with 24-hour I&O reflecting a negative fluid balance .Potassium 5.3, creatinine 0.93, LDH increased 1488,CRP 50.4. 10/25/20 currently on BiPAP, maintaining O2 sats in the 90s. 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 fib/flutter reoccurred with heart rate up into the 140s. Converted back into sinus rhythm. Labs pending. Denies chest pain, palpitations. 10/26/2020 sitting up in chair, maintaining O2 sats in the 90s on 15 L nasal cannula. Remains in sinus rhythm with no further runs of A. fib/flutter during the night reported per telemetry. Diet intake improved, denies loss of taste., Blood sugars uncontrolled. 10/28/2019 maintained on cefepime, IV steroids and albuterol inhaler. Blood sugars elevated , improving this morning .Required BiPAP throughout the night, currently maintaining O2 sats of 94 on 12 L high flow nasal cannula. Denies chest pain, palpitations. 10/28/2020 Continues on albuterol inhaler, antibiotics, IV steroids ,12 L high flow nasal cannula, maintaining O2 sats in the 90s. BiPAP during the night .Recurrent atrial fibrillation yesterday requiring Cardizem drip. Telemetry reporting atrial fibrillation with ventricular rate controlled currently at 100. Denies chest pain, palpitations. Afebrile, WBC 11.7. Objective - Vital Signs Vital signs: Vital Signs Temp 98.3 F 10/28/20 08:15 Pulse 100 10/28/20 08:15 Resp 18 10/28/20 08:15 BP 134/86 10/28/20 08:15 Pulse Ox 92 L 10/28/20 08:15 Intake & Output 10/27/20 10/28/20 10/28/20 18:59 06:59 18:59 Intake Total 480 38.833 240 Output Total 1050 825 151 Balance -570 -786.167 89 Weight 159.5 kg 141 kg Intake: Intake, IV Titration 38.833 Amount Diltiazem 125 mg In 38.833 Sodium Chloride 0.9% 100 ml @ 5 MG/HR 5 mls/hr IV .Q24H [facility] Rx#:[id number] Oral 480 240 Output: Urine 1050 825 150 Stool 1 Other: Voiding Method Indwelling Catheter Indwelling Catheter Indwelling Catheter # Bowel Movements 1 ABP, PAP, CO, CI - Last Documented Arterial Blood Pressure 147/70 - Exam - Exam VITAL SIGNS: As above GENERAL:Sitting up in bed, wearing high flow HEENT: Atraumatic, normocephalic, pupils equal, conjunctiva normal, CARDIOVASCULAR: Regular S1 and S2, no murmurs, no rubs RESPIRATION: Diminished with fine expiratory wheeze NERVOUS SYSTEM: Alert and oriented 3 - Labs CBC & Chem 7: 10/28/20 10:02 10/27/20 10:42 Labs: Abnormal Lab Results - Last 24 Hours (Table) 10/22/20 10/27/20 10/27/20 Range/Units 05:02 10:42 17:17 WBC (3.8-10.6) k/uL MCV (80.0-100.0) fL Neutrophils # (1.3-7.7) k/uL Lymphocytes # (1.0-4.8) k/uL Carbon Dioxide 43 H* (22-30) mmol/L POC Glucose (mg/dL) 277 H (75-99) mg/dL LD Isoenzymes 383 H (120-250) U/L 10/27/20 10/28/20 10/28/20 Range/Units 20:19 06:53 10:02 WBC 11.7 H (3.8-10.6) k/uL MCV 102.2 H (80.0-100.0) fL Neutrophils # 10.7 H (1.3-7.7) k/uL Lymphocytes # 0.6 L (1.0-4.8) k/uL Carbon Dioxide (22-30) mmol/L POC Glucose (mg/dL) 293 H 170 H (75-99) mg/dL LD Isoenzymes (120-250) U/L 10/28/20 Range/Units 11:48 WBC (3.8-10.6) k/uL MCV (80.0-100.0) fL Neutrophils # (1.3-7.7) k/uL Lymphocytes # (1.0-4.8) k/uL Carbon Dioxide (22-30) mmol/L POC Glucose (mg/dL) 265 H (75-99) mg/dL LD Isoenzymes (120-250) U/L Assessment and Plan Assessment: Acute on chronic hypoxic and hypercapnic respiratory failure, secondary to recent covid-Pneumonia hospitalization 10/16/20 through 10/19/2020 and acute COPD exacerbation, acute diastolic CHF exacerbation. Patient was discharged yesterday, proceeded home and apparently did not use CPAP, arrived back in the ER with A. fib with RVR, requiring intubation. Status post Mechanical ventilator. BiPAP alternating with high flow nasal cannula. Paroxysmal A-flutter, fib with RVR, suspect possibly chronic secondary to the above, returned on Cardizem drip Hypotension, status post brief pressor support Chronic diastolic CHF, NYHA class III, EF 50-55 % Obstructive sleep apnea on CPAP, noncompliant Diabetes mellitus type 2, hyperglycemic, multifactorial including steroid- induced hypothyroidism hypertension ongoing nicotine dependence. morbid obesity, BMI 62.3 Plan: Continue on current medication regime ,monitoring and symptomatic treatment. Maintain nebulized bronchodilators, IV steroids. Levemir dose further adjusted, continue with close monitoring of Accu-Cheks. may have to consider insulin drip. PT/OT. Continued weaning of FIO2, Bipap prn and at night. The impression and plan of care has been dictated as directed. : I performed a history and examination of this patient, discussed the same with the dictator. I agree with the dictator's note ,documented as a scribe. Any additional findings or plans will be noted.
[2020-10-28] MEDS ORDERED: INSULIN DETEMIR (LEVEMIR) 100 UNIT/ML SYR SQ ONE (13:20)
[2020-10-28 16:48] LABS: Glucose,Whole Blood 310 mg/dL (75-99)
--- NOTE | 2020-10-28 17:17 | P.PN ---
Subjective Progress Note Date: 10/28/20 Principal diagnosis: Acute hypoxic respiratory failure secondary to covid 19 pneumonitis. 55-year-old female patient who was recently hospitalized from [facility] 10/19/2020 for COVID 19 pneumonia, acute exacerbation of COPD and CHF diastolic dysfunction. Patient has history of advanced COPD, she is on home oxygen usually wears 5 L/m on a regular basis, has a obstructive sleep apnea and reportedly has a Trilogy device at home. Patient recently moved from [place], was hospitalized in the beginning of September for acute exacerbation of COPD and diastolic CHF. She was out of the window for Remdesivir, she was treated with standard care including IV steroids, diuretics, breathing treatments and prophylactic anticoagulation. The medical history includes hypothyroidism, hyperlipidemia, diabetes mellitus type 2, morbid obesity, chronic and ongoing history of tobacco use. On 10/20/2020 patient was brought into the emergency department per EMS with difficulty breathing and chest discomfort. CXR showed mild cardiomegaly with mildly increased perihilar edema and infiltrates increased compared to be enlarged exam, HEENT showed sinus rhythm with PACs. Her blood gases in the emergency department showed pO2 of 49, pCO2 of 120, and pH of 7.2, patient had decreased consciousness and was in significant amount of respiratory distress, and she was emergently intubated and placed on mechanical ventilator. Repeat blood gases showed improvement in acute on chronic hypercapnic and hypoxic respiratory failure, with improvement of pO2 up to 134, pCO2 of 93, and pH of 7.33. She was also noted to be in new onset A. fib with RVR, and required Cardizem drip for brief amount of time and she is back in sinus currently. Patient was started on IV steroids, Lasix, breathing treatments. Lab work has been reviewed, showing no evidence of leukocytosis white blood cell, 7.3, with a hemoglobin of 15, proBNP of 1240, is 0.021, second troponin was 0.052. Lactic acid was within normal limits, patient has been afebrile since arrival to the emergency department, hemodynamically stable, this morning she seen in the emergency department, she remains sedated and on mechanical ventilator, on assist-control mode of ventilation with a rate of 30, tidal lungs 400, FiO2 of 80% and PEEP of 5, this morning's blood gases show improvement in pO2 and pCO2 concentrations and improvements in the acid base balance with pH up to 7.33 as mentioned above. On 10/21/2020, the patient is being seen for a follow-up. The patient remains intubated on a mechanical ventilator. This morning the patient is on propofol which is running at 60 mcg/kg per minute and the patient is well sedated for now and very much interested a mechanical ventilator. She is an assist-control mode at the rate of 24 with a tidal volume of 350 and FiO2 of 60% with a PEEP of 10. The morning blood gases showed a pH of 7.45 with a pCO2 of 71 and pO2 of 66. Peak airway pressure was around 42 and static airway pressure was 27-28. The chest x-ray is showing adequate expansion of both lungs. There is cardiomegaly. There is some mild interstitial prominence with questionable consolidation of the right lower lobe. ET tube is at the level of the aortic knob and the OG tube is in good location. She does remain bronchospastic and wheezy. Note that her blood pressure has stabilized. She was given a bolus of fluid with a liter of normal saline. No pressors was utilized. Diuretics were placed on hold. Her white second dose of 5.6 with a hemoglobin of 12.8. Rest of the electrolytes are still pending from this morning. Meanwhile, the patient is on bronchodilators with albuterol 2 puffs, and she is also on IV Solu Medrol 60 mg every 6 hours. In terms of her cardiac rhythm, the patient is back into normal sinus rhythm. Cardizem drip was weaned off it was discontinued yesterday and the patient is hemodynamically stable at this point in time. The fluid balance is in the order of +1.3 L since yesterday. No other significant events overnight. Enteral feeding has been started at 80 mL an hour of vital high protein.. Abdomen is soft. No significant edema in her extremities. No other significant events otherwise for now. 2020 the patient remains intubated on a mechanical ventilator. This morning she is on propofol running at 60 mcg/kg per minute and the patient is also on a mechanical ventilator on assist control mode at the rate of 16 with a tidal volume of 53 and FiO2 of 70% with a PEEP of 10. A FiO2 was brought up to 70% and the morning blood gases showed a pH of 7.37 with a pCO2 of 84 and pO2 of 59. The chest x-ray shows a retrocardiac infiltrate and there is also right lower lobe pulmonary infiltrate. Nevertheless does not extensive and upper lobes are quite clear. Note that the patient also had a Covid 19 related infection/pneumonia which probably is contributing to her ongoing hypoxemia. In any rate, the patient is still on a mechanical ventilator for now. She is quite synchronous with the mechanical ventilator. She is calm and comfortable. No significant orotracheal secretions. She is hemodynamically stable. His sputum analysis came back positive for some rare budding yeast which is expected otherwise the rest was consistent with a normal respiratory cherelle. There is of treatment, she remains on IV Solu-Medrol 60 mg every 6 hours. She is also on albuterol HFA 2 puffs scheduled every 4 hours, no antibiotics for now. Have her LEVEL WAS LOW AT 0.21 AND 0.11 RESPECTIVELY 2. In terms of diuretics, the patient was becoming hypotensive and I stopped the diuretics. She is currently IV fluids running at 20 mL an hour and she is also on no pressors for now. She is afebrile. She is tolerating her enteral feeding for nutritional support and she is on vital high protein at the rate of 20 mL an hour. White cell count today is at 7.3 with a hemoglobin of 13.3. Platelet is down to 145. Inflammatory markers show an LDH level of 1023 from yesterday and the CRP level is down to 57 from today. She is currently on Eliquis 5 mg by mouth twice a day. This was given to her because of paroxysmal atrial fibrillation with a crit at time of admission. Currently she is back to normal sinus rhythm for now. 10/23/2020, the patient is off the mechanical ventilator. I managed to wean off her sedation yesterday and subsequently extubated this patient to a IPAP. She is currently on the BiPAP and she's been on the BiPAP since extubation. She loves her BiPAP and she is able to tolerated it well. Her current setting is 15/6 cm of BiPAP at a FiO2 of 50%. A blood gas is to be done today. The chest x-ray from today is showing some atelectasis/infiltration the left lower lobe. There is also cardiomegaly. The right lung remains relatively clear and there is still some persistent infiltration of the right lower lobe which was present on earlier chest x-rays. I was in no major interval change in the chest x-ray findings. The patient is pulse oxing approximately 92% on the current BiPAP setting. She is on IV cefepime as a broad-spectrum antibiotic coverage and this was added yesterday due to concern of superinfection/pneumonia. Note that she was infected for Covid 19 earlier and the patient remains on IV Solu-Medrol 60 mg every 6 hours which is also helped her with her COPD exacerbation. She is currently on no sedation. She is currently on no pressors. IV fluids are running at the rate of KVO at 20 mL an hour. Diuretics has been placed on hold. In terms of her inflammatory markers, her CRP level was at 54 and her d-dimer was at 0.52. Sputum culture has been negative. She is afebrile. She is arousable. She is following commands. She is only alert to self. Cardiac rhythm is sinus and we have not witnessed any episodes of atrial fibrillation since ICU stay and the patient is taken 5 mg of Eliquis as long-term anticoagulants for now. The patient is seen today 10/24/2020 in follow-up in the intensive care unit. She was successfully extubated. She is currently alternating with BiPAP 15/6 and 50% FiO2 at nighttime. Currently on 15 L high flow nasal cannula. Awake, alert, no acute distress. She has 0.9 normal saline at a KVO. She is anticoagulated with Eliquis. Remains in sinus rhythm with PACs. Chest x-ray is stable with bilateral patchy infiltrates. Sputum culture revealed no growth. White count 7.5. Hemoglobin 13.1. Lymphocytes 0.3. D-dimer 0.73. Sodium 142. Potassium 5.3. Bicarb 52. Creatinine 0.93. LDH 1488. C-reactive protein 15.4. She remains on cefepime. Anticoagulated with Eliquis. Receiving Lasix daily. Adequate urine output. Continued on IV Solu-Medrol, vitamin supplements. Patient was reevaluated today on 10/25/2020, she is on 12 L high flow nasal cannula, up in the chair, in no distress, patient feels fine, tells me that she is feeling better today than she felt yesterday. Her O2 is being titrated down. All her labs were reviewed. LDH is 1526, C-reactive protein is 31. CBC is relatively normal. Basic metabolic profile showed elevated bicarb. I recently the patient has chronic hypercapnic respiratory failure with metabolic compensation. Not to mention that the patient also has some component of contraction metabolic alkalosis. Chest x-ray from yesterday continues to show bilateral pneumonia Patient was reevaluated today on 10/26/2020, remains on high flow nasal cannula, she is now on 15 L, O2 sats rations ranging between 93 up to 95%. Patient is sitting at a bedside chair, does not seem to be in any distress. Hardly any c ough, no chest pain, no fever, no chills. CBC is relatively normal. Electrolytes continued to show elevated bicarb. BUN is 52 creatinine 0.85. LDH remains high at 1526, and C-reactive protein is 31. Patient was reevaluated today on 10/27/2020, remains on the regular medical floor, remains relatively hypoxic, requiring 12 L of high flow nasal cannula to maintain O2 saturation above 91%. Surprisingly, patient is doing clinically well overall, hardly any cough, no wheezing, she does have some shortness of breath with any activity. Absent today were reviewed, blood sugar seems to be running high at 350, that being addressed by the admitting physician. Her BUN is 53 creatinine 0.80, no inflammatory markers were done today. Patient was reevaluated today on 10/28/2020, patient is presently on 8 L high flow nasal cannula, and she has 95% saturation. Patient is doing great, sitting at a bedside chair, in no distress. There was a concern earlier today about possible right groin hematoma, however clinically it is not significant I examined her groin, there may be a small hematoma, but not clinically significant mostly because her hemoglobin is stable, duplex scan showed no evidence of pseudoaneurysm. There was no evidence of AV shunting. Small tiny fluid collections noted in the groin, but again no clinical significance. Pulmonary- hubbard the patient is doing well, asymptomatic. Objective - Vital Signs Vital signs: Vital Signs Temp 99.0 F 10/28/20 11:20 Pulse 89 10/28/20 11:20 Resp 18 10/28/20 11:20 BP 131/78 10/28/20 11:20 Pulse Ox 95 10/28/20 11:20 Intake & Output 10/27/20 10/28/20 10/28/20 18:59 06:59 18:59 Intake Total 480 38.833 480 Output Total 8153 864 6246 Balance -570 -786.167 -621 Weight 159.5 kg 141 kg Intake: Intake, IV Titration 38.833 Amount Diltiazem 125 mg In 38.833 Sodium Chloride 0.9% 100 ml @ 5 MG/HR 5 mls/hr IV .Q24H [facility] Rx#:[id number] Oral 480 480 Output: Urine 6612 368 5861 Stool 1 Other: Voiding Method Indwelling Catheter Indwelling Catheter Indwelling Catheter # Bowel Movements 1 ABP, PAP, CO, CI - Last Documented Arterial Blood Pressure 147/70 - Exam GENERAL EXAM: Morbidly Obese 55-year-old white female, on 12 liters high flow nasal cannula HEENT: PERRLA, EOMI, anicteric, dry mucous membranes. NECK: No masses, no JVD, no thyroid enlargement, no adenopathy. CHEST: No chest wall deformity. LUNGS: Crackles at the bases noted. Symmetrical chest expansion. CVS: Regular rate and rhythm, normal S1 and S2, no gallops, no murmurs, no rubs ABDOMEN: Soft, nontender. No hepatosplenomegaly, normal bowel sounds, no guarding or rigidity. EXTREMITIES: No clubbing, no edema, no cyanosis, 2+ pulses and upper and lower extremities. MUSCULOSKELETAL: Muscle strength and tone normal. SKIN: No rashes, right groin was examined, no evidence of significant large hematoma, there is however some bruising in the right groin from previous flower tral access to the right femoral vein. CENTRAL NERVOUS SYSTEM: Alert and oriented 3 no gross focal deficits. - Labs CBC & Chem 7: 10/28/20 10:02 10/27/20 10:42 Labs: Abnormal Lab Results - Last 24 Hours (Table) 10/22/20 10/27/20 10/27/20 Range/Units 05:02 17:17 20:19 WBC (3.8-10.6) k/uL MCV (80.0-100.0) fL Neutrophils # (1.3-7.7) k/uL Lymphocytes # (1.0-4.8) k/uL POC Glucose (mg/dL) 277 H 293 H (75-99) mg/dL LD Isoenzymes 383 H (120-250) U/L 10/28/20 10/28/2021 Range/Units 06:53 10:02 11:48 WBC 11.7 H (3.8-10.6) k/uL MCV 102.2 H (80.0-100.0) fL Neutrophils # 10.7 H (1.3-7.7) k/uL Lymphocytes # 0.6 L (1.0-4.8) k/uL POC Glucose (mg/dL) 170 H 265 H (75-99) mg/dL LD Isoenzymes (120-250) U/L 10/28/20 Range/Units 16:46 WBC (3.8-10.6) k/uL MCV (80.0-100.0) fL Neutrophils # (1.3-7.7) k/uL Lymphocytes # (1.0-4.8) k/uL POC Glucose (mg/dL) 310 H (75-99) mg/dL LD Isoenzymes (120-250) U/L Assessment and Plan Assessment: Impression: Acute on chronic hypoxic and hypercapnic respiratory failure, multifactorial, secondary to acute exacerbation of COPD, acute on chronic diastolic congestive heart failure, new onset atrial fibrillation with RVR, and acute covid 19 pneumonia. New onset atrial fibrillation with RVR Recent hospitalization for Covid 19 pneumonia from 10/16 through 10/19. Chronic hypoxic respiratory failure and chronic hypercapnic respiratory failure secondary to COPD, patient has trilogy device at home. Morbid obesity. Ongoing tobacco dependence syndrome. Obstructive sleep apnea syndrome. Small right groin hematoma possibly a iatrogenic related to previous central line placement in the right groin. Recommendation: Continue present course of treatment including bronchodilators, Continue to titrate oxygen down accordingly. Patient is now on 8 L high flow nasal carrier. Use BiPAP as needed Once the patient is titrated down to 4 or 5 L nasal cannula, could consider discharge planning We will continue to follow Time with Patient: Less than 30
[2020-10-28] MEDS: DILTIAZEM 125 MG in SODIUM CHLORIDE 0.9% 100 ML IV SCH (18:32)
[2020-10-28 20:23] LABS: Glucose,Whole Blood 302 mg/dL (75-99)
[2020-10-28] MEDS: ATORVASTATIN 20 MG TAB PO SCH (21:18)
--- NOTE | 2020-10-28 21:47 | CONS ---
DATE OF CONSULTATION: 10/28/2020 Nerissa is a 55-year-old female. I was consulted for hematoma, right groin. The patient was in the Intensive Care Unit. The patient has been intubated and she has a history of sleep apnea, super obesity and acute and chronic kidney injury, atrial fibrillation, diabetes mellitus. The patient had an ultrasound done today. The patient's right groin shows no evidence of pseudoaneurysm. There are 2 small hematomas. One measures 1.6 x 4 x 2 cm and the second hematoma measures 2.6 x 5.7 x 2 cm. At this point this hematoma is not expanding. There is some ecchymosis noted around the groin area. On examination, neck is supple. No bruit. Chest has a few crackles at the lung bases. Abdomen is protuberant. No mass palpable. Right groin has some ecchymosis and some hardening of the skin. Ultrasound shows two small hematomas. At this point, there is no evidence of any progression and no evidence of communication with the femoral artery. At this point there is no role for surgical intervention. We will follow with you. MMODL / IJN: [id number] / OZZIE
[2020-10-29] MEDS: BISMUTH SUBSALICYLATE 4,192 MG/240 ML BOTTLE PO PRN ×2 (00:55→10:20)
[2020-10-29] MEDS: methylPREDNISolone SOD SUCCI 125 MG/2 ML VIAL IV SCH ×5 (00:55→22:51)
[2020-10-29] MEDS: ALBUTEROL HFA INHALER INHALATION SCH ×5 (03:36→19:55)
[2020-10-29 06:33] LABS: Glucose,Whole Blood 296 mg/dL (75-99)
[2020-10-29] MEDS ORDERED: INSULIN DETEMIR (LEVEMIR) 100 UNIT/ML SYR SQ SCH (07:00)
[2020-10-29] MEDS: LEVOTHYROXINE 75 MCG TAB PO SCH (07:06)
[2020-10-29] MEDS: INSULIN ASPART (NovoLOG) 100 UNIT/ML VIAL SQ SCH ×7 (07:07→20:39)
[2020-10-29] MEDS: FLUTICASONE 220 MCG INHALER INHALATION SCH ×2 (08:26→19:58)
[2020-10-29 10:07] LABS: Basophils % (A) 0 %; Eosinophils % (A) 0 %; HCT 39.9 % (34.0-46.0); Lymphocytes # (A) 0.6 k/uL (1.0-4.8); Lymphocytes % (A) 6 %; MCH 33.4 pg (25.0-35.0); MCHC 32.6 g/dL (31.0-37.0); MCV 102.7 fL (80.0-100.0); Macrocytosis Slight; Mean Platelet Volume 8.6; Monocytes # (A) 0.3 k/uL (0-1.0); Monocytes % (A) 3 %; Neutrophils # (A) 9.8 k/uL (1.3-7.7); Neutrophils % (A) 90 %; Platelet Count 281 k/uL (150-450); RBC 3.88 m/uL (3.80-5.40); WBC 10.8 k/uL (3.8-10.6)
[2020-10-29] MEDS: APIXABAN 5 MG TAB PO SCH ×2 (10:18→20:39)
[2020-10-29] MEDS: LOSARTAN 25 MG TAB PO SCH (10:18)
[2020-10-29] MEDS: GABAPENTIN 300 MG CAP PO SCH ×2 (10:19→20:39)
[2020-10-29] MEDS: METOPROLOL TARTRATE 50 MG TAB PO SCH ×2 (10:19→20:41)
[2020-10-29] MEDS: CHOLECALCIFEROL 25 MCG (1000 IU) TABLET PO SCH (10:19)
[2020-10-29] MEDS: MAGNESIUM OXIDE 400 MG TAB PO SCH (10:19)
[2020-10-29] MEDS: PANTOPRAZOLE 40 MG/10 ML VIAL IVP SCH (10:20)
[2020-10-29] MEDS: FUROSEMIDE 10 MG/ML 4 ML VIAL IV SCH (10:20)
[2020-10-29 10:23] LABS: African American GFR (CKD) >90 (>60 ml/min/1.73 sqM); Blood Urea Nitrogen 54 mg/dL (7-17); Calcium 8.2 mg/dL (8.4-10.2); Chloride 83 mmol/L (98-107); Glucose 385 mg/dL (74-99); Non-African American GFR(CKD) 88 (>60 ml/min/1.73 sqM); Sodium 132 mmol/L (137-145)
[2020-10-29 10:30] LABS: Anion Gap 8 mmol/L
[2020-10-29 10:35] LABS: Carbon Dioxide 41 mmol/L (22-30)
[2020-10-29] MEDS: CEFEPIME 2 GM in SODIUM CHLORIDE 0.9% 100 ML IVPB SCH ×3 (12:21→20:40)
[2020-10-29 12:22] LABS: Glucose,Whole Blood 292 mg/dL (75-99)
[2020-10-29] MEDS: SODIUM CHLORIDE 0.9% 1,000 ML IV SCH (12:39)
--- NOTE | 2020-10-29 13:14 | P.PN ---
Subjective Progress Note Date: 10/29/20 CHIEF COMPLAINT: New-onset atrial fibrillation HISTORY OF PRESENT ILLNESS: 10/20/2020 This is a 55-year-old female with a past medical history significant for COPD with home oxygen, diabetes mellitus, congestive heart failure, sleep apnea, thyroid disorder, and nicotine dependence. Patient does not follow with a intervention analyst as she recently moved from [place]. It is noted that the patient was recently hospitalized in September due to COPD and CHF. We have been asked to see the patient in consultation for new onset atrial fibrillation. Patient presented to the emergency room due to shortness of breath. In the emergency room the patient developed increasing respiratory distress and was intubated. Patient is positive for Covid 19 (tested on 10/16/2020). Patient was in sinus mechanism upon presentation to the ER. She developed atrial fibrillation and was on a Cardizem drip for a short period of time. She has since converted back to sinus mechanism. Patient is currently receiving Lovenox 150 mg every 12 hours EKG reveals sinus mechanism with PVCs Chest xray perihilar pulmonary infiltrates. Probably some basilar atelectasis. Laboratory data: WBC 7.3. Hemoglobin 15.0. Platelet count 180. Sodium 142. Potassium 4.2. BUN 39. Creatinine 0.80. Lactic acid 1.5. AST 42. ALT 65. BNP 1240. Troponin 0.021. 0.052. 0.079. Current home cardiac medications include losartan 12.5 mg daily, Lasix 40 mg daily, Lipitor 20 mg daily Echocardiogram completed on 10/04/2020 revealed ejection fraction 50-55% 10/21/2020 Patient is maintaining sinus mechanism on telemetry. Heart rate in the 70s. Patient was receiving Lovenox 150 mg twice a day but her dose was decreased down to 40 mg daily today by pulmonary. She remains on mechanical ventilation. FiO2 50%. Blood pressure 120/63. 10/22/2020 patient remains in the ICU on mechanical ventilation. She's maintaining sinus mechanism on telemetry. Heart rate in the 60s. She has been started on Eliquis for anticoagulation. 10/23/2020 Patient remains in the intensive care unit. She was extubated yesterday. She is currently on a BiPAP. She is maintaining sinus mechanism. She remains on Eliquis for anticoagulation. Blood pressure 117/58. 10/27/2020 Cardiology was reconsulted secondary to A. fib with RVR. Patient has been transferred out of the ICU to the selective care unit. Telemetry reveals atrial fibrillation with a heart rate in the 140s. Patient is currently receiving me toprolol 25 mg twice a day 10/28/2020 Patient remains in atrial fibrillation with RVR. She is currently on a Cardizem drip at 5 mg an hour. Patient is also receiving metoprolol 50 mg twice a day. Patient is currently on 12 L high flow nasal cannula. She is receiving Eliquis for anticoagulation 10/29/2020 Patient remains in atrial fibrillation with mildly uncontrolled ventricular rates. She remains on a Cardizem drip at 5 mg an hour. Patient's beta lacie was increased yesterday to 75 mg twice a day. She is on 8 liters high flow nasal cannula with oxygen saturations greater than 92%. Blood pressure 126/83. She is afebrile. PHYSICAL EXAM: Thorough physical exam not completed secondary to limited evaluation/examination and due to Covid19 ASSESSMENT: Acute on chronic hypoxic and hypercapnic respiratory failure requiring mechanical ventilation Covid 19 New onset paroxysmal atrial fibrillation with RVR Chronic diastolic congestive heart failure, EF 50-55% Hypertension Hyperlipidemia Obstructive sleep apnea Nicotine dependence PLAN: Continue Eliquis 5 mg twice a day Increase metoprolol to 100 mg twice a day Continue Cardizem drip. May discontinue Cardizem drip this afternoon if patients heart rate is controlled. Continue telemetry monitoring Further recommendations pending patient course Nurse practitioner note has been reviewed by physician. Signing provider agrees with the documented findings, assessment, and plan of care. Objective - Vital Signs Vital signs: Vital Signs Temp 97.9 F 10/29/20 10:10 Pulse 107 H 10/29/20 10:10 Resp 20 10/29/20 10:10 BP 126/83 10/29/20 10:10 Pulse Ox 94 L 10/29/20 10:10 Intake & Output 10/28/20 10/29/20 10/29/20 18:59 06:59 18:59 Intake Total 806.167 420 Output Total 1352 250 576 Balance -545.833 -250 -156 Intake: Intake, IV Titration 86.167 Amount Diltiazem 125 mg In 86.167 Sodium Chloride 0.9% 100 ml @ 5 MG/HR 5 mls/hr IV .Q24H [facility] Rx#:[id number] Oral 720 420 Output: Urine 1350 250 575 Stool 2 1 Other: Voiding Method Indwelling Catheter Indwelling Catheter Indwelling Catheter # Bowel Movements 1 1 ABP, PAP, CO, CI - Last Documented Arterial Blood Pressure 147/70 - Labs CBC & Chem 7: 10/29/20 08:53 10/29/20 08:53 Labs: Abnormal Lab Results - Last 24 Hours (Table) 10/28/20 10/28/20 10/29/20 Range/Units 16:46 20:22 06:32 WBC (3.8-10.6) k/uL MCV (80.0-100.0) fL Neutrophils # (1.3-7.7) k/uL Lymphocytes # (1.0-4.8) k/uL Sodium (137-145) mmol/L Chloride (98-107) mmol/L Carbon Dioxide (22-30) mmol/L BUN (7-17) mg/dL Glucose (74-99) mg/dL POC Glucose (mg/dL) 310 H 302 H 296 H (75-99) mg/dL Calcium (8.4-10.2) mg/dL 10/29/20 10/29/20 10/29/20 Range/Units 08:53 08:53 12:19 WBC 10.8 H (3.8-10.6) k/uL MCV 102.7 H (80.0-100.0) fL Neutrophils # 9.8 H (1.3-7.7) k/uL Lymphocytes # 0.6 L (1.0-4.8) k/uL Sodium 132 L (137-145) mmol/L Chloride 83 L (98-107) mmol/L Carbon Dioxide 41 H* (22-30) mmol/L BUN 54 H (7-17) mg/dL Glucose 385 H (74-99) mg/dL POC Glucose (mg/dL) 292 H (75-99) mg/dL Calcium 8.2 L (8.4-10.2) mg/dL
[2020-10-29] MEDS: DILTIAZEM 125 MG in SODIUM CHLORIDE 0.9% 100 ML IV SCH (14:14)
--- NOTE | 2020-10-29 15:57 | P.PN ---
Subjective Progress Note Date: 10/29/20 Principal diagnosis: Acute hypoxic respiratory failure secondary to covid 19 pneumonitis. 55-year-old female patient who was recently hospitalized from [facility] 10/19/2020 for COVID 19 pneumonia, acute exacerbation of COPD and CHF diastolic dysfunction. Patient has history of advanced COPD, she is on home oxygen usually wears 5 L/m on a regular basis, has a obstructive sleep apnea and reportedly has a Trilogy device at home. Patient recently moved from [place], was hospitalized in the beginning of September for acute exacerbation of COPD and diastolic CHF. She was out of the window for Remdesivir, she was treated with standard care including IV steroids, diuretics, breathing treatments and prophylactic anticoagulation. The medical history includes hypothyroidism, hyperlipidemia, diabetes mellitus type 2, morbid obesity, chronic and ongoing history of tobacco use. On 10/20/2020 patient was brought into the emergency department per EMS with difficulty breathing and chest discomfort. CXR showed mild cardiomegaly with mildly increased perihilar edema and infiltrates increased compared to be enlarged exam, HEENT showed sinus rhythm with PACs. Her blood gases in the emergency department showed pO2 of 49, pCO2 of 120, and pH of 7.2, patient had decreased consciousness and was in significant amount of respiratory distress, and she was emergently intubated and placed on mechanical ventilator. Repeat blood gases showed improvement in acute on chronic hypercapnic and hypoxic respiratory failure, with improvement of pO2 up to 134, pCO2 of 93, and pH of 7.33. She was also noted to be in new onset A. fib with RVR, and required Cardizem drip for brief amount of time and she is back in sinus currently. Patient was started on IV steroids, Lasix, breathing treatments. Lab work has been reviewed, showing no evidence of leukocytosis white blood cell, 7.3, with a hemoglobin of 15, proBNP of 1240, is 0.021, second troponin was 0.052. Lactic acid was within normal limits, patient has been afebrile since arrival to the emergency department, hemodynamically stable, this morning she seen in the emergency department, she remains sedated and on mechanical ventilator, on assist-control mode of ventilation with a rate of 30, tidal lungs 400, FiO2 of 80% and PEEP of 5, this morning's blood gases show improvement in pO2 and pCO2 concentrations and improvements in the acid base balance with pH up to 7.33 as mentioned above. On 10/21/2020, the patient is being seen for a follow-up. The patient remains intubated on a mechanical ventilator. This morning the patient is on propofol which is running at 60 mcg/kg per minute and the patient is well sedated for now and very much interested a mechanical ventilator. She is an assist-control mode at the rate of 24 with a tidal volume of 350 and FiO2 of 60% with a PEEP of 10. The morning blood gases showed a pH of 7.45 with a pCO2 of 71 and pO2 of 66. Peak airway pressure was around 42 and static airway pressure was 27-28. The chest x-ray is showing adequate expansion of both lungs. There is cardiomegaly. There is some mild interstitial prominence with questionable consolidation of the right lower lobe. ET tube is at the level of the aortic knob and the OG tube is in good location. She does remain bronchospastic and wheezy. Note that her blood pressure has stabilized. She was given a bolus of fluid with a liter of normal saline. No pressors was utilized. Diuretics were placed on hold. Her white second dose of 5.6 with a hemoglobin of 12.8. Rest of the electrolytes are still pending from this morning. Meanwhile, the patient is on bronchodilators with albuterol 2 puffs, and she is also on IV Solu Medrol 60 mg every 6 hours. In terms of her cardiac rhythm, the patient is back into normal sinus rhythm. Cardizem drip was weaned off it was discontinued yesterday and the patient is hemodynamically stable at this point in time. The fluid balance is in the order of +1.3 L since yesterday. No other significant events overnight. Enteral feeding has been started at 80 mL an hour of vital high protein.. Abdomen is soft. No significant edema in her extremities. No other significant events otherwise for now. 2020 the patient remains intubated on a mechanical ventilator. This morning she is on propofol running at 60 mcg/kg per minute and the patient is also on a mechanical ventilator on assist control mode at the rate of 16 with a tidal volume of 53 and FiO2 of 70% with a PEEP of 10. A FiO2 was brought up to 70% and the morning blood gases showed a pH of 7.37 with a pCO2 of 84 and pO2 of 59. The chest x-ray shows a retrocardiac infiltrate and there is also right lower lobe pulmonary infiltrate. Nevertheless does not extensive and upper lobes are quite clear. Note that the patient also had a Covid 19 related infection/pneumonia which probably is contributing to her ongoing hypoxemia. In any rate, the patient is still on a mechanical ventilator for now. She is quite synchronous with the mechanical ventilator. She is calm and comfortable. No significant orotracheal secretions. She is hemodynamically stable. His sputum analysis came back positive for some rare budding yeast which is expected otherwise the rest was consistent with a normal respiratory cherelle. There is of treatment, she remains on IV Solu-Medrol 60 mg every 6 hours. She is also on albuterol HFA 2 puffs scheduled every 4 hours, no antibiotics for now. Have her LEVEL WAS LOW AT 0.21 AND 0.11 RESPECTIVELY 2. In terms of diuretics, the patient was becoming hypotensive and I stopped the diuretics. She is currently IV fluids running at 20 mL an hour and she is also on no pressors for now. She is afebrile. She is tolerating her enteral feeding for nutritional support and she is on vital high protein at the rate of 20 mL an hour. White cell count today is at 7.3 with a hemoglobin of 13.3. Platelet is down to 145. Inflammatory markers show an LDH level of 1023 from yesterday and the CRP level is down to 57 from today. She is currently on Eliquis 5 mg by mouth twice a day. This was given to her because of paroxysmal atrial fibrillation with a crit at time of admission. Currently she is back to normal sinus rhythm for now. 10/23/2020, the patient is off the mechanical ventilator. I managed to wean off her sedation yesterday and subsequently extubated this patient to a IPAP. She is currently on the BiPAP and she's been on the BiPAP since extubation. She loves her BiPAP and she is able to tolerated it well. Her current setting is 15/6 cm of BiPAP at a FiO2 of 50%. A blood gas is to be done today. The chest x-ray from today is showing some atelectasis/infiltration the left lower lobe. There is also cardiomegaly. The right lung remains relatively clear and there is still some persistent infiltration of the right lower lobe which was present on earlier chest x-rays. I was in no major interval change in the chest x-ray findings. The patient is pulse oxing approximately 92% on the current BiPAP setting. She is on IV cefepime as a broad-spectrum antibiotic coverage and this was added yesterday due to concern of superinfection/pneumonia. Note that she was infected for Covid 19 earlier and the patient remains on IV Solu-Medrol 60 mg every 6 hours which is also helped her with her COPD exacerbation. She is currently on no sedation. She is currently on no pressors. IV fluids are running at the rate of KVO at 20 mL an hour. Diuretics has been placed on hold. In terms of her inflammatory markers, her CRP level was at 54 and her d-dimer was at 0.52. Sputum culture has been negative. She is afebrile. She is arousable. She is following commands. She is only alert to self. Cardiac rhythm is sinus and we have not witnessed any episodes of atrial fibrillation since ICU stay and the patient is taken 5 mg of Eliquis as long-term anticoagulants for now. The patient is seen today 10/24/2020 in follow-up in the intensive care unit. She was successfully extubated. She is currently alternating with BiPAP 15/6 and 50% FiO2 at nighttime. Currently on 15 L high flow nasal cannula. Awake, alert, no acute distress. She has 0.9 normal saline at a KVO. She is anticoagulated with Eliquis. Remains in sinus rhythm with PACs. Chest x-ray is stable with bilateral patchy infiltrates. Sputum culture revealed no growth. White count 7.5. Hemoglobin 13.1. Lymphocytes 0.3. D-dimer 0.73. Sodium 142. Potassium 5.3. Bicarb 52. Creatinine 0.93. LDH 1488. C-reactive protein 15.4. She remains on cefepime. Anticoagulated with Eliquis. Receiving Lasix daily. Adequate urine output. Continued on IV Solu-Medrol, vitamin supplements. Patient was reevaluated today on 10/25/2020, she is on 12 L high flow nasal cannula, up in the chair, in no distress, patient feels fine, tells me that she is feeling better today than she felt yesterday. Her O2 is being titrated down. All her labs were reviewed. LDH is 1526, C-reactive protein is 31. CBC is relatively normal. Basic metabolic profile showed elevated bicarb. I recently the patient has chronic hypercapnic respiratory failure with metabolic compensation. Not to mention that the patient also has some component of contraction metabolic alkalosis. Chest x-ray from yesterday continues to show bilateral pneumonia Patient was reevaluated today on 10/26/2020, remains on high flow nasal cannula, she is now on 15 L, O2 sats rations ranging between 93 up to 95%. Patient is sitting at a bedside chair, does not seem to be in any distress. Hardly any c ough, no chest pain, no fever, no chills. CBC is relatively normal. Electrolytes continued to show elevated bicarb. BUN is 52 creatinine 0.85. LDH remains high at 1526, and C-reactive protein is 31. Patient was reevaluated today on 10/27/2020, remains on the regular medical floor, remains relatively hypoxic, requiring 12 L of high flow nasal cannula to maintain O2 saturation above 91%. Surprisingly, patient is doing clinically well overall, hardly any cough, no wheezing, she does have some shortness of breath with any activity. Absent today were reviewed, blood sugar seems to be running high at 350, that being addressed by the admitting physician. Her BUN is 53 creatinine 0.80, no inflammatory markers were done today. Patient was reevaluated today on 10/28/2020, patient is presently on 8 L high flow nasal cannula, and she has 95% saturation. Patient is doing great, sitting at a bedside chair, in no distress. There was a concern earlier today about possible right groin hematoma, however clinically it is not significant I examined her groin, there may be a small hematoma, but not clinically significant mostly because her hemoglobin is stable, duplex scan showed no evidence of pseudoaneurysm. There was no evidence of AV shunting. Small tiny fluid collections noted in the groin, but again no clinical significance. Pulmonary- hubbard the patient is doing well, asymptomatic. Reevaluated today on 10/29/2020. Patient is sitting in a bedside chair, complaining about her Rosado catheter, denies any shortness of breath, she is now on 8 L high flow nasal cannula, and her O2 saturation is 94%. Patient is normally on 6 L at home prior to her presentation on this admission. Patient again is asymptomatic. Her WBC count is 10.8 hemoglobin is 13 electrolytes are normal bicarb is 41 BUN is 54 creatinine is 0.76. Sugar is elevated at 385 being addressed by the admitting physician Objective - Vital Signs Vital signs: Vital Signs Temp 97.9 F 10/29/20 10:10 Pulse 107 H 10/29/20 10:10 Resp 20 10/29/20 10:10 BP 126/83 10/29/20 10:10 Pulse Ox 94 L 10/29/20 10:10 Intake & Output 10/28/20 10/29/20 10/29/20 18:59 06:59 18:59 Intake Total 806.167 998.5 Output Total 1352 250 576 Balance -545.833 -250 422.5 Intake: Intake, IV Titration 86.167 98.5 Amount Diltiazem 125 mg In 86.167 98.5 Sodium Chloride 0.9% 100 ml @ 5 MG/HR 5 mls/hr IV .Q24H [facility] Rx#:[id number] Oral 720 900 Output: Urine 1350 250 575 Stool 2 1 Other: Voiding Method Indwelling Catheter Indwelling Catheter Indwelling Catheter # Bowel Movements 1 1 ABP, PAP, CO, CI - Last Documented Arterial Blood Pressure 147/70 - Exam GENERAL EXAM: Morbidly Obese 55-year-old white female, on 8 liters high flow nasal cannula HEENT: PERRLA, EOMI, anicteric, dry mucous membranes. NECK: No masses, no JVD, no thyroid enlargement, no adenopathy. CHEST: No chest wall deformity. LUNGS: Crackles at the bases noted. Symmetrical chest expansion. CVS: Regular rate and rhythm, normal S1 and S2, no gallops, no murmurs, no rubs ABDOMEN: Soft, nontender. No hepatosplenomegaly, normal bowel sounds, no guarding or rigidity. EXTREMITIES: No clubbing, no edema, no cyanosis, 2+ pulses and upper and lower extremities. MUSCULOSKELETAL: Muscle strength and tone normal. SKIN: No rashes, CENTRAL NERVOUS SYSTEM: Alert and oriented 3 no gross focal deficits. - Labs CBC & Chem 7: 10/29/20 08:53 10/29/20 08:53 Labs: Abnormal Lab Results - Last 24 Hours (Table) 10/28/20 10/28/20 10/29/20 Range/Units 16:46 20:22 06:32 WBC (3.8-10.6) k/uL MCV (80.0-100.0) fL Neutrophils # (1.3-7.7) k/uL Lymphocytes # (1.0-4.8) k/uL Sodium (137-145) mmol/L Chloride (98-107) mmol/L Carbon Dioxide (22-30) mmol/L BUN (7-17) mg/dL Glucose (74-99) mg/dL POC Glucose (mg/dL) 310 H 302 H 296 H (75-99) mg/dL Calcium (8.4-10.2) mg/dL 10/29/20 10/29/20 10/29/20 Range/Units 08:53 08:53 12:19 WBC 10.8 H (3.8-10.6) k/uL MCV 102.7 H (80.0-100.0) fL Neutrophils # 9.8 H (1.3-7.7) k/uL Lymphocytes # 0.6 L (1.0-4.8) k/uL Sodium 132 L (137-145) mmol/L Chloride 83 L (98-107) mmol/L Carbon Dioxide 41 H* (22-30) mmol/L BUN 54 H (7-17) mg/dL Glucose 385 H (74-99) mg/dL POC Glucose (mg/dL) 292 H (75-99) mg/dL Calcium 8.2 L (8.4-10.2) mg/dL Assessment and Plan Assessment: Impression: Acute on chronic hypoxic and hypercapnic respiratory failure, multifactorial, secondary to acute exacerbation of COPD, acute on chronic diastolic congestive heart failure, new onset atrial fibrillation with RVR, and acute covid 19 pneumonia. New onset atrial fibrillation with RVR Recent hospitalization for Covid 19 pneumonia from 10/16 through 10/19. Chronic hypoxic respiratory failure and chronic hypercapnic respiratory failure secondary to COPD, patient has trilogy device at home. Morbid obesity. Ongoing tobacco dependence syndrome. Obstructive sleep apnea syndrome. Small right groin hematoma possibly a iatrogenic related to previous central line placement in the right groin. Recommendation: Continue present course of treatment including bronchodilators, Continue to titrate oxygen down accordingly. Keep BiPAP at bedside and use as needed. Once the patient is titrated down to 4 or 5 L nasal cannula, patient is normally on 5-6 L nasal cannula at home. Possible discharge planning early next week. We will continue to follow Time with Patient: Less than 30
--- NOTE | 2020-10-29 16:12 | P.PN ---
Subjective Progress Note Date: 10/29/20 Principal diagnosis: Acute hypoxic respiratory failure secondary to covid 19 pneumonitis. 55-year-old morbidly obese female discharged yesterday. Patient had been hospitalized 10/16/20- 10/19/20 with COvid- 19 pneumonia , possible acute COPD exacerbation with chronic hypoxic/hypercapnic respiratory failure and multiple other medical issues. Patient had been maintained on COVID regimen, but was beyond the window for Remdesevir. Patient was maintaining O2 sats in the 90s on 4-5 L, baseline and discharged home. Apparently patient failed to use her CPAP last night and returned to the ER with A. fib RVR (initial EKG unavailable), severely hypoxic requiring intubation, placed on Cardizem drip. CXR reported perihilar pulmonary infiltrates, some basilar atelectasis with no change compared to prior exam . ABGs noted. Afebrile, normal lactic acid, normal WBC. Hemoglobin 15, platelets 180, d-dimer 0.62. Sodium 142, potassium 4.2, carbon dioxide 56, BUN 39, creatinine 0.8 glucose 199 magnesium 1.8, total bili 0.5, mildly elevated AST ALT 42, 65 LDH 1444. Troponin 0.021, 0.052, 0.079, CRP 67.1, BNP 1240. EKG for sinus rhythm with premature supraventricular complexes with occasional PVCs. 10/29/2020. Patient is sitting in a bedside chair, complaining about her Rosado catheter, denies any shortness of breath, she is now on 8 L high flow nasal cannula, and her O2 saturation is 94%. Patient is normally on 6 L at home prior to her presentation on this admission. Patient again is asymptomatic. Lab review reveals WBC count is 10.8 hemoglobin is 13 electrolytes are normal bicarb is 41 BUN is 54 creatinine is 0.76. Sugar is elevated at 385; patient is currently on Levemir 35 units subcu every morning along with 47 units subcu daily at bedtime; we will increase morning dose of Levemir to 45 units subcu every morning and continue to monitor blood sugars closely Patient remains on metoprolol, IV Cardizem and Ahlquist for atrial fibrillation Objective - Vital Signs Vital signs: Vital Signs Temp 98.4 F 10/28/20 15:10 Pulse 95 10/29/20 04:00 Resp 20 10/29/20 04:00 BP 116/77 10/29/20 04:00 Pulse Ox 97 10/29/20 04:00 Intake & Output 10/28/20 10/29/20 10/29/20 18:59 06:59 18:59 Intake Total 806.167 420 Output Total 1352 250 575 Balance -545.833 -250 -155 Intake: Intake, IV Titration 86.167 Amount Diltiazem 125 mg In 86.167 Sodium Chloride 0.9% 100 ml @ 5 MG/HR 5 mls/hr IV .Q24H [facility] Rx#:[id number] Oral 720 420 Output: Urine 1350 250 575 Stool 2 Other: Voiding Method Indwelling Catheter Indwelling Catheter # Bowel Movements 1 1 ABP, PAP, CO, CI - Last Documented Arterial Blood Pressure 147/70 - Exam GENERAL EXAM: Morbidly Obese 55-year-old white female, on 8 liters high flow nasal cannula HEENT: PERRLA, EOMI, anicteric, dry mucous membranes. NECK: No masses, no JVD, no thyroid enlargement, no adenopathy. CHEST: No chest wall deformity. LUNGS: Crackles at the bases noted. Symmetrical chest expansion. CVS: Regular rate and rhythm, normal S1 and S2, no gallops, no murmurs, no rubs ABDOMEN: Soft, nontender. No hepatosplenomegaly, normal bowel sounds, no guarding or rigidity. EXTREMITIES: No clubbing, no edema, no cyanosis, 2+ pulses and upper and lower extremities. MUSCULOSKELETAL: Muscle strength and tone normal. SKIN: No rashes, CENTRAL NERVOUS SYSTEM: Alert and oriented 3 no gross focal deficits. - Labs CBC & Chem 7: 10/29/20 08:53 10/29/20 08:53 Labs: Abnormal Lab Results - Last 24 Hours (Table) 10/28/20 10/28/20 10/28/20 Range/Units 10:02 11:48 16:46 WBC 11.7 H (3.8-10.6) k/uL MCV 102.2 H (80.0-100.0) fL Neutrophils # 10.7 H (1.3-7.7) k/uL Lymphocytes # 0.6 L (1.0-4.8) k/uL POC Glucose (mg/dL) 265 H 310 H (75-99) mg/dL 10/28/20 10/29/20 10/29/20 Range/Units 20:22 06:32 08:53 WBC 10.8 H (3.8-10.6) k/uL MCV 102.7 H (80.0-100.0) fL Neutrophils # 9.8 H (1.3-7.7) k/uL Lymphocytes # 0.6 L (1.0-4.8) k/uL POC Glucose (mg/dL) 302 H 296 H (75-99) mg/dL Assessment and Plan Assessment: Acute on chronic hypoxic and hypercapnic respiratory failure, secondary to recent covid-Pneumonia hospitalization 10/16/20 through 10/19/2020 and acute COPD exacerbation, acute diastolic CHF exacerbation. Patient was discharged yesterday, proceeded home and apparently did not use CPAP, arrived back in the ER with A. fib with RVR, requiring intubation. Status post Mechanical ventilator. BiPAP alternating with high flow nasal cannula. Paroxysmal A-flutter, fib with RVR, suspect possibly chronic secondary to the above, returned on Cardizem drip Hypotension, status post brief pressor support Chronic diastolic CHF, NYHA class III, EF 50-55 % Obstructive sleep apnea on CPAP, noncompliant Diabetes mellitus type 2, hyperglycemic, multifactorial including steroid- induced hypothyroidism hypertension Recommendation: Continue present course of treatment including bronchodilators, Continue to titrate oxygen down accordingly. Keep BiPAP at bedside and use as needed. Once the patient is titrated down to 4 or 5 L nasal cannula, patient is normally on 5-6 L nasal cannula at home. Possible discharge planning early next week. We will continue to follow
[2020-10-29 17:11] LABS: Glucose,Whole Blood 246 mg/dL (75-99)
[2020-10-29 20:25] LABS: Glucose,Whole Blood 236 mg/dL (75-99)
[2020-10-29] MEDS: ATORVASTATIN 20 MG TAB PO SCH (20:39)
[2020-10-29] MEDS: INSULIN DETEMIR (LEVEMIR) 100 UNIT/ML SYR SQ SCH (20:39)
[2020-10-30] MEDS: ALBUTEROL HFA INHALER INHALATION SCH ×7 (04:28→19:59)
[2020-10-30 06:47] LABS: Glucose,Whole Blood 210 mg/dL (75-99)
[2020-10-30] MEDS: methylPREDNISolone SOD SUCCI 125 MG/2 ML VIAL IV SCH ×2 (06:51→13:09)
[2020-10-30] MEDS: LEVOTHYROXINE 75 MCG TAB PO SCH (06:52)
[2020-10-30] MEDS: INSULIN ASPART (NovoLOG) 100 UNIT/ML VIAL SQ SCH ×7 (06:52→20:59)
[2020-10-30] MEDS ORDERED: INSULIN DETEMIR (LEVEMIR) 100 UNIT/ML SYR SQ SCH ×2 (07:00→21:00)
[2020-10-30] MEDS: FLUTICASONE 220 MCG INHALER INHALATION SCH ×2 (08:31→19:59)
[2020-10-30] MEDS: LOSARTAN 25 MG TAB PO SCH (08:56)
[2020-10-30] MEDS: METOPROLOL TARTRATE 50 MG TAB PO SCH ×3 (08:56→20:58)
[2020-10-30] MEDS: GABAPENTIN 300 MG CAP PO SCH ×2 (08:56→20:58)
[2020-10-30] MEDS: APIXABAN 5 MG TAB PO SCH ×2 (08:56→20:58)
[2020-10-30] MEDS: CEFEPIME 2 GM in SODIUM CHLORIDE 0.9% 100 ML IVPB SCH ×2 (08:57→20:59)
[2020-10-30] MEDS: MAGNESIUM OXIDE 400 MG TAB PO SCH (08:57)
[2020-10-30] MEDS: CHOLECALCIFEROL 25 MCG (1000 IU) TABLET PO SCH (08:57)
[2020-10-30] MEDS: PANTOPRAZOLE 40 MG/10 ML VIAL IVP SCH (08:57)
[2020-10-30] MEDS: FUROSEMIDE 10 MG/ML 4 ML VIAL IV SCH (08:58)
[2020-10-30] MEDS: BISMUTH SUBSALICYLATE 4,192 MG/240 ML BOTTLE PO PRN ×2 (09:08→17:56)
--- NOTE | 2020-10-30 11:43 | P.PN ---
Subjective Progress Note Date: 10/30/20 CHIEF COMPLAINT: New-onset atrial fibrillation HISTORY OF PRESENT ILLNESS: 10/20/2020 This is a 55-year-old female with a past medical history significant for COPD with home oxygen, diabetes mellitus, congestive heart failure, sleep apnea, thyroid disorder, and nicotine dependence. Patient does not follow with a header set up operator as she recently moved from [place]. It is noted that the patient was recently hospitalized in September due to COPD and CHF. We have been asked to see the patient in consultation for new onset atrial fibrillation. Patient presented to the emergency room due to shortness of breath. In the emergency room the patient developed increasing respiratory distress and was intubated. Patient is positive for Covid 19 (tested on 10/16/2020). Patient was in sinus mechanism upon presentation to the ER. She developed atrial fibrillation and was on a Cardizem drip for a short period of time. She has since converted back to sinus mechanism. Patient is currently receiving Lovenox 150 mg every 12 hours EKG reveals sinus mechanism with PVCs Chest xray perihilar pulmonary infiltrates. Probably some basilar atelectasis. Laboratory data: WBC 7.3. Hemoglobin 15.0. Platelet count 180. Sodium 142. Potassium 4.2. BUN 39. Creatinine 0.80. Lactic acid 1.5. AST 42. ALT 65. BNP 1240. Troponin 0.021. 0.052. 0.079. Current home cardiac medications include losartan 12.5 mg daily, Lasix 40 mg daily, Lipitor 20 mg daily Echocardiogram completed on 10/04/2020 revealed ejection fraction 50-55% 10/21/2020 Patient is maintaining sinus mechanism on telemetry. Heart rate in the 70s. Patient was receiving Lovenox 150 mg twice a day but her dose was decreased down to 40 mg daily today by pulmonary. She remains on mechanical ventilation. FiO2 50%. Blood pressure 120/63. 10/22/2020 patient remains in the ICU on mechanical ventilation. She's maintaining sinus mechanism on telemetry. Heart rate in the 60s. She has been started on Eliquis for anticoagulation. 10/23/2020 Patient remains in the intensive care unit. She was extubated yesterday. She is currently on a BiPAP. She is maintaining sinus mechanism. She remains on Eliquis for anticoagulation. Blood pressure 117/58. 10/27/2020 Cardiology was reconsulted secondary to A. fib with RVR. Patient has been transferred out of the ICU to the selective care unit. Telemetry reveals atrial fibrillation with a heart rate in the 140s. Patient is currently receiving me toprolol 25 mg twice a day 10/28/2020 Patient remains in atrial fibrillation with RVR. She is currently on a Cardizem drip at 5 mg an hour. Patient is also receiving metoprolol 50 mg twice a day. Patient is currently on 12 L high flow nasal cannula. She is receiving Eliquis for anticoagulation 10/29/2020 Patient remains in atrial fibrillation with mildly uncontrolled ventricular rates. She remains on a Cardizem drip at 5 mg an hour. Patient's beta lacie was increased yesterday to 75 mg twice a day. She is on 8 liters high flow nasal cannula with oxygen saturations greater than 92%. Blood pressure 126/83. She is afebrile. 10/30/2020 Patient remains in atrial fibrillation with mildly uncontrolled ventricular rate. Patient remains on a Cardizem drip. She is also receiving metoprolol. Blood pressure 140/77. PHYSICAL EXAM: Thorough physical exam not completed secondary to limited evaluation/examination and due to Covid19 ASSESSMENT: Acute on chronic hypoxic and hypercapnic respiratory failure requiring mechanical ventilation Covid 19 New onset paroxysmal atrial fibrillation with RVR Chronic diastolic congestive heart failure, EF 50-55% Hypertension Hyperlipidemia Obstructive sleep apnea Nicotine dependence PLAN: Continue Eliquis 5 mg twice a day Increase metoprolol to 100 mg TID Continue Cardizem drip. May discontinue Cardizem drip this afternoon if patients heart rate is controlled. Continue telemetry monitoring Further recommendations pending patient course Nurse practitioner note has been reviewed by physician. Signing provider agrees with the documented findings, assessment, and plan of care. Objective - Vital Signs Vital signs: Vital Signs Temp 98.0 F 10/30/20 08:50 Pulse 96 10/30/20 08:50 Resp 18 10/30/20 08:50 BP 140/77 10/30/20 08:50 Pulse Ox 95 10/30/20 08:50 Intake & Output 10/29/20 10/30/20 10/30/20 18:59 06:59 18:59 Intake Total 1538.5 100 240 Output Total 577 400 1 Balance 961.5 -300 239 Intake: Intake, IV Titration 98.5 100 Amount Cefepime 2 gm In Sodium 100 Chloride 0.9% 100 ml @ 25 mls/hr IVPB Q12HR [facility] Rx #:[id number] Diltiazem 125 mg In 98.5 Sodium Chloride 0.9% 100 ml @ 5 MG/HR 5 mls/hr IV .Q24H [facility] Rx#:[id number] Oral 1440 240 Output: Urine 575 400 Stool 2 1 Other: Voiding Method Indwelling Catheter Indwelling Catheter Indwelling Catheter # Bowel Movements 1 1 ABP, PAP, CO, CI - Last Documented Arterial Blood Pressure 147/70 - Labs CBC & Chem 7: 10/29/20 08:53 10/29/20 08:53 Labs: Abnormal Lab Results - Last 24 Hours (Table) 10/29/20 10/29/20 10/29/20 Range/Units 12:19 17:08 20:05 POC Glucose (mg/dL) 292 H 246 H 236 H (75-99) mg/dL 10/30/20 Range/Units 06:44 POC Glucose (mg/dL) 210 H (75-99) mg/dL
[2020-10-30 11:46] LABS: Glucose,Whole Blood 281 mg/dL (75-99)
[2020-10-30] MEDS: DILTIAZEM 125 MG in SODIUM CHLORIDE 0.9% 100 ML IV SCH (13:18)
[2020-10-30] MEDS: SODIUM CHLORIDE 0.9% 1,000 ML IV SCH (13:18)
[2020-10-30] MEDS ORDERED: METOPROLOL TARTRATE 25 MG TAB PO SCH (14:00)
--- NOTE | 2020-10-30 15:09 | P.PN ---
Subjective Progress Note Date: 10/30/20 Principal diagnosis: Acute hypoxic respiratory failure secondary to covid 19 pneumonitis. 55-year-old morbidly obese female discharged yesterday. Patient had been hospitalized 10/16/20- 10/19/20 with COvid- 19 pneumonia , possible acute COPD exacerbation with chronic hypoxic/hypercapnic respiratory failure and multiple other medical issues. Patient had been maintained on COVID regimen, but was beyond the window for Remdesevir. Patient was maintaining O2 sats in the 90s on 4-5 L, baseline and discharged home. Apparently patient failed to use her CPAP last night and returned to the ER with A. fib RVR (initial EKG unavailable), severely hypoxic requiring intubation, placed on Cardizem drip. CXR reported perihilar pulmonary infiltrates, some basilar atelectasis with no change compared to prior exam . ABGs noted. Afebrile, normal lactic acid, normal WBC. Hemoglobin 15, platelets 180, d-dimer 0.62. Sodium 142, potassium 4.2, carbon dioxide 56, BUN 39, creatinine 0.8 glucose 199 magnesium 1.8, total bili 0.5, mildly elevated AST ALT 42, 65 LDH 1444. Troponin 0.021, 0.052, 0.079, CRP 67.1, BNP 1240. EKG for sinus rhythm with premature supraventricular complexes with occasional PVCs. 10/29/2020. Patient is sitting in a bedside chair, complaining about her Rosado catheter, denies any shortness of breath, she is now on 8 L high flow nasal cannula, and her O2 saturation is 94%. Patient is normally on 6 L at home prior to her presentation on this admission. Patient again is asymptomatic. Lab review reveals WBC count is 10.8 hemoglobin is 13 electrolytes are normal bicarb is 41 BUN is 54 creatinine is 0.76. Sugar is elevated at 385; patient is currently on Levemir 35 units subcu every morning along with 47 units subcu daily at bedtime; we will increase morning dose of Levemir to 45 units subcu every morning and continue to monitor blood sugars closely Patient remains on metoprolol, IV Cardizem and Ahlquist for atrial fibrillation 10/30/2020 Patient is seen and evaluated sitting up in bedside chair; reports improvement in breathing; currently saturating above 95% on 8 L Patient remains in atrial fibrillation with RVR; cardiology continuing Cardizem drip with plans to increase metoprolol up to 100 mg 3 times a day; Cardizem drip will be discontinued later today if heart rate is controlled with increased metoprolol; patient is started on Eliquis 5 mg twice a day for anticoagulation Patient's blood sugars remain elevated ranging between 210-292; Levemir was increased to 45 units subcu every morning with 47 units daily at bedtime; we will escalate therapy and changed to 50 units twice a day; continue to monitor Accu-Cheks Objective - Vital Signs Vital signs: Vital Signs Temp 98.2 F 10/29/20 20:00 Pulse 89 10/30/20 04:00 Resp 18 10/30/20 04:00 BP 125/78 10/30/20 04:00 Pulse Ox 95 10/30/20 04:00 Intake & Output 10/29/20 10/30/20 10/30/20 18:59 06:59 18:59 Intake Total 1538.5 100 Output Total 577 400 Balance 961.5 -300 Intake: Intake, IV Titration 98.5 100 Amount Cefepime 2 gm In Sodium 100 Chloride 0.9% 100 ml @ 25 mls/hr IVPB Q12HR [facility] Rx #:[id number] Diltiazem 125 mg In 98.5 Sodium Chloride 0.9% 100 ml @ 5 MG/HR 5 mls/hr IV .Q24H [facility] Rx#:[id number] Oral 1440 Output: Urine 575 400 Stool 2 Other: Voiding Method Indwelling Catheter Indwelling Catheter # Bowel Movements 1 1 ABP, PAP, CO, CI - Last Documented Arterial Blood Pressure 147/70 - Exam GENERAL EXAM: Morbidly Obese 55-year-old white female, on 8 liters high flow nasal cannula HEENT: PERRLA, EOMI, anicteric, dry mucous membranes. NECK: No masses, no JVD, no thyroid enlargement, no adenopathy. CHEST: No chest wall deformity. LUNGS: Crackles at the bases noted. Symmetrical chest expansion. CVS: Regular rate and rhythm, normal S1 and S2, no gallops, no murmurs, no rubs ABDOMEN: Soft, nontender. No hepatosplenomegaly, normal bowel sounds, no guarding or rigidity. EXTREMITIES: No clubbing, no edema, no cyanosis, 2+ pulses and upper and lower extremities. MUSCULOSKELETAL: Muscle strength and tone normal. SKIN: No rashes, CENTRAL NERVOUS SYSTEM: Alert and oriented 3 no gross focal deficits. - Labs CBC & Chem 7: 10/29/20 08:53 10/29/20 08:53 Labs: Abnormal Lab Results - Last 24 Hours (Table) 10/29/20 10/29/20 10/29/20 Range/Units 08:53 08:53 12:19 WBC 10.8 H (3.8-10.6) k/uL MCV 102.7 H (80.0-100.0) fL Neutrophils # 9.8 H (1.3-7.7) k/uL Lymphocytes # 0.6 L (1.0-4.8) k/uL Sodium 132 L (137-145) mmol/L Chloride 83 L (98-107) mmol/L Carbon Dioxide 41 H* (22-30) mmol/L BUN 54 H (7-17) mg/dL Glucose 385 H (74-99) mg/dL POC Glucose (mg/dL) 292 H (75-99) mg/dL Calcium 8.2 L (8.4-10.2) mg/dL 10/29/20 10/29/20 10/30/20 Range/Units 17:08 20:05 06:44 WBC (3.8-10.6) k/uL MCV (80.0-100.0) fL Neutrophils # (1.3-7.7) k/uL Lymphocytes # (1.0-4.8) k/uL Sodium (137-145) mmol/L Chloride (98-107) mmol/L Carbon Dioxide (22-30) mmol/L BUN (7-17) mg/dL Glucose (74-99) mg/dL POC Glucose (mg/dL) 246 H 236 H 210 H (75-99) mg/dL Calcium (8.4-10.2) mg/dL Assessment and Plan Assessment: Acute on chronic hypoxic and hypercapnic respiratory failure, secondary to recent covid-Pneumonia hospitalization 10/16/20 through 10/19/2020 and acute COPD exacerbation, acute diastolic CHF exacerbation. Patient was discharged yesterday, proceeded home and apparently did not use CPAP, arrived back in the ER with A. fib with RVR, requiring intubation. Status post Mechanical ventilator. BiPAP alternating with high flow nasal cannula. Paroxysmal A-flutter, fib with RVR, suspect possibly chronic secondary to the above, returned on Cardizem drip Hypotension, status post brief pressor support Chronic diastolic CHF, NYHA class III, EF 50-55 % Obstructive sleep apnea on CPAP, noncompliant Diabetes mellitus type 2, hyperglycemic, multifactorial including steroid- induced hypothyroidism hypertension Recommendation: Continue present course of treatment including bronchodilators, Continue to titrate oxygen down accordingly. Keep BiPAP at bedside and use as needed. Once the patient is titrated down to 4 or 5 L nasal cannula, patient is normally on 5-6 L nasal cannula at home. Possible discharge planning early next week. We will continue to follow
--- NOTE | 2020-10-30 16:12 | P.PN ---
Subjective Progress Note Date: 10/30/20 Principal diagnosis: Acute hypoxic respiratory failure secondary to covid 19 pneumonitis. 55-year-old female patient who was recently hospitalized from [facility] 10/19/2020 for COVID 19 pneumonia, acute exacerbation of COPD and CHF diastolic dysfunction. Patient has history of advanced COPD, she is on home oxygen usually wears 5 L/m on a regular basis, has a obstructive sleep apnea and reportedly has a Trilogy device at home. Patient recently moved from [place], was hospitalized in the beginning of September for acute exacerbation of COPD and diastolic CHF. She was out of the window for Remdesivir, she was treated with standard care including IV steroids, diuretics, breathing treatments and prophylactic anticoagulation. The medical history includes hypothyroidism, hyperlipidemia, diabetes mellitus type 2, morbid obesity, chronic and ongoing history of tobacco use. On 10/20/2020 patient was brought into the emergency department per EMS with difficulty breathing and chest discomfort. CXR showed mild cardiomegaly with mildly increased perihilar edema and infiltrates increased compared to be enlarged exam, HEENT showed sinus rhythm with PACs. Her blood gases in the emergency department showed pO2 of 49, pCO2 of 120, and pH of 7.2, patient had decreased consciousness and was in significant amount of respiratory distress, and she was emergently intubated and placed on mechanical ventilator. Repeat blood gases showed improvement in acute on chronic hypercapnic and hypoxic respiratory failure, with improvement of pO2 up to 134, pCO2 of 93, and pH of 7.33. She was also noted to be in new onset A. fib with RVR, and required Cardizem drip for brief amount of time and she is back in sinus currently. Patient was started on IV steroids, Lasix, breathing treatments. Lab work has been reviewed, showing no evidence of leukocytosis white blood cell, 7.3, with a hemoglobin of 15, proBNP of 1240, is 0.021, second troponin was 0.052. Lactic acid was within normal limits, patient has been afebrile since arrival to the emergency department, hemodynamically stable, this morning she seen in the emergency department, she remains sedated and on mechanical ventilator, on assist-control mode of ventilation with a rate of 30, tidal lungs 400, FiO2 of 80% and PEEP of 5, this morning's blood gases show improvement in pO2 and pCO2 concentrations and improvements in the acid base balance with pH up to 7.33 as mentioned above. On 10/21/2020, the patient is being seen for a follow-up. The patient remains intubated on a mechanical ventilator. This morning the patient is on propofol which is running at 60 mcg/kg per minute and the patient is well sedated for now and very much interested a mechanical ventilator. She is an assist-control mode at the rate of 24 with a tidal volume of 350 and FiO2 of 60% with a PEEP of 10. The morning blood gases showed a pH of 7.45 with a pCO2 of 71 and pO2 of 66. Peak airway pressure was around 42 and static airway pressure was 27-28. The chest x-ray is showing adequate expansion of both lungs. There is cardiomegaly. There is some mild interstitial prominence with questionable consolidation of the right lower lobe. ET tube is at the level of the aortic knob and the OG tube is in good location. She does remain bronchospastic and wheezy. Note that her blood pressure has stabilized. She was given a bolus of fluid with a liter of normal saline. No pressors was utilized. Diuretics were placed on hold. Her white second dose of 5.6 with a hemoglobin of 12.8. Rest of the electrolytes are still pending from this morning. Meanwhile, the patient is on bronchodilators with albuterol 2 puffs, and she is also on IV Solu Medrol 60 mg every 6 hours. In terms of her cardiac rhythm, the patient is back into normal sinus rhythm. Cardizem drip was weaned off it was discontinued yesterday and the patient is hemodynamically stable at this point in time. The fluid balance is in the order of +1.3 L since yesterday. No other significant events overnight. Enteral feeding has been started at 80 mL an hour of vital high protein.. Abdomen is soft. No significant edema in her extremities. No other significant events otherwise for now. 2020 the patient remains intubated on a mechanical ventilator. This morning she is on propofol running at 60 mcg/kg per minute and the patient is also on a mechanical ventilator on assist control mode at the rate of 16 with a tidal volume of 53 and FiO2 of 70% with a PEEP of 10. A FiO2 was brought up to 70% and the morning blood gases showed a pH of 7.37 with a pCO2 of 84 and pO2 of 59. The chest x-ray shows a retrocardiac infiltrate and there is also right lower lobe pulmonary infiltrate. Nevertheless does not extensive and upper lobes are quite clear. Note that the patient also had a Covid 19 related infection/pneumonia which probably is contributing to her ongoing hypoxemia. In any rate, the patient is still on a mechanical ventilator for now. She is quite synchronous with the mechanical ventilator. She is calm and comfortable. No significant orotracheal secretions. She is hemodynamically stable. His sputum analysis came back positive for some rare budding yeast which is expected otherwise the rest was consistent with a normal respiratory cherelle. There is of treatment, she remains on IV Solu-Medrol 60 mg every 6 hours. She is also on albuterol HFA 2 puffs scheduled every 4 hours, no antibiotics for now. Have her LEVEL WAS LOW AT 0.21 AND 0.11 RESPECTIVELY 2. In terms of diuretics, the patient was becoming hypotensive and I stopped the diuretics. She is currently IV fluids running at 20 mL an hour and she is also on no pressors for now. She is afebrile. She is tolerating her enteral feeding for nutritional support and she is on vital high protein at the rate of 20 mL an hour. White cell count today is at 7.3 with a hemoglobin of 13.3. Platelet is down to 145. Inflammatory markers show an LDH level of 1023 from yesterday and the CRP level is down to 57 from today. She is currently on Eliquis 5 mg by mouth twice a day. This was given to her because of paroxysmal atrial fibrillation with a crit at time of admission. Currently she is back to normal sinus rhythm for now. 10/23/2020, the patient is off the mechanical ventilator. I managed to wean off her sedation yesterday and subsequently extubated this patient to a IPAP. She is currently on the BiPAP and she's been on the BiPAP since extubation. She loves her BiPAP and she is able to tolerated it well. Her current setting is 15/6 cm of BiPAP at a FiO2 of 50%. A blood gas is to be done today. The chest x-ray from today is showing some atelectasis/infiltration the left lower lobe. There is also cardiomegaly. The right lung remains relatively clear and there is still some persistent infiltration of the right lower lobe which was present on earlier chest x-rays. I was in no major interval change in the chest x-ray findings. The patient is pulse oxing approximately 92% on the current BiPAP setting. She is on IV cefepime as a broad-spectrum antibiotic coverage and this was added yesterday due to concern of superinfection/pneumonia. Note that she was infected for Covid 19 earlier and the patient remains on IV Solu-Medrol 60 mg every 6 hours which is also helped her with her COPD exacerbation. She is currently on no sedation. She is currently on no pressors. IV fluids are running at the rate of KVO at 20 mL an hour. Diuretics has been placed on hold. In terms of her inflammatory markers, her CRP level was at 54 and her d-dimer was at 0.52. Sputum culture has been negative. She is afebrile. She is arousable. She is following commands. She is only alert to self. Cardiac rhythm is sinus and we have not witnessed any episodes of atrial fibrillation since ICU stay and the patient is taken 5 mg of Eliquis as long-term anticoagulants for now. The patient is seen today 10/24/2020 in follow-up in the intensive care unit. She was successfully extubated. She is currently alternating with BiPAP 15/6 and 50% FiO2 at nighttime. Currently on 15 L high flow nasal cannula. Awake, alert, no acute distress. She has 0.9 normal saline at a KVO. She is anticoagulated with Eliquis. Remains in sinus rhythm with PACs. Chest x-ray is stable with bilateral patchy infiltrates. Sputum culture revealed no growth. White count 7.5. Hemoglobin 13.1. Lymphocytes 0.3. D-dimer 0.73. Sodium 142. Potassium 5.3. Bicarb 52. Creatinine 0.93. LDH 1488. C-reactive protein 15.4. She remains on cefepime. Anticoagulated with Eliquis. Receiving Lasix daily. Adequate urine output. Continued on IV Solu-Medrol, vitamin supplements. Patient was reevaluated today on 10/25/2020, she is on 12 L high flow nasal cannula, up in the chair, in no distress, patient feels fine, tells me that she is feeling better today than she felt yesterday. Her O2 is being titrated down. All her labs were reviewed. LDH is 1526, C-reactive protein is 31. CBC is relatively normal. Basic metabolic profile showed elevated bicarb. I recently the patient has chronic hypercapnic respiratory failure with metabolic compensation. Not to mention that the patient also has some component of contraction metabolic alkalosis. Chest x-ray from yesterday continues to show bilateral pneumonia Patient was reevaluated today on 10/26/2020, remains on high flow nasal cannula, she is now on 15 L, O2 sats rations ranging between 93 up to 95%. Patient is sitting at a bedside chair, does not seem to be in any distress. Hardly any c ough, no chest pain, no fever, no chills. CBC is relatively normal. Electrolytes continued to show elevated bicarb. BUN is 52 creatinine 0.85. LDH remains high at 1526, and C-reactive protein is 31. Patient was reevaluated today on 10/27/2020, remains on the regular medical floor, remains relatively hypoxic, requiring 12 L of high flow nasal cannula to maintain O2 saturation above 91%. Surprisingly, patient is doing clinically well overall, hardly any cough, no wheezing, she does have some shortness of breath with any activity. Absent today were reviewed, blood sugar seems to be running high at 350, that being addressed by the admitting physician. Her BUN is 53 creatinine 0.80, no inflammatory markers were done today. Patient was reevaluated today on 10/28/2020, patient is presently on 8 L high flow nasal cannula, and she has 95% saturation. Patient is doing great, sitting at a bedside chair, in no distress. There was a concern earlier today about possible right groin hematoma, however clinically it is not significant I examined her groin, there may be a small hematoma, but not clinically significant mostly because her hemoglobin is stable, duplex scan showed no evidence of pseudoaneurysm. There was no evidence of AV shunting. Small tiny fluid collections noted in the groin, but again no clinical significance. Pulmonary- hubbard the patient is doing well, asymptomatic. Reevaluated today on 10/29/2020. Patient is sitting in a bedside chair, complaining about her Rosado catheter, denies any shortness of breath, she is now on 8 L high flow nasal cannula, and her O2 saturation is 94%. Patient is normally on 6 L at home prior to her presentation on this admission. Patient again is asymptomatic. Her WBC count is 10.8 hemoglobin is 13 electrolytes are normal bicarb is 41 BUN is 54 creatinine is 0.76. Sugar is elevated at 385 being addressed by the admitting physician Patient was reevaluated today on 10/30/2020, patient is steadily improving, feeling better today, she is now on 8 L high flow nasal cannula and her O2 saturations 96%. Patient has oxygen at home and she is normally on 6 L. She is obviously not far enough from her baseline. Patient is asymptomatic. Denies any cough no wheezing, denies any shortness of breath at rest, but she does have dyspnea on exertion which is chronic. CBC is relatively normal lites are normal bicarb is down to 41 BUN is 54 creatinine 0.76, sugars are running a bit high at 281, patient remains on bronchodilators, she is also on eliquis, cefepime, bronchodilators, is also on Lasix at 40 mg IV push daily and on methylp rednisolone which I will transition today to prednisone. Objective - Vital Signs Vital signs: Vital Signs Temp 98.7 F 10/30/20 12:35 Pulse 84 10/30/20 12:35 Resp 16 10/30/20 12:35 BP 115/70 10/30/20 12:35 Pulse Ox 96 10/30/20 12:35 Intake & Output 10/29/20 10/30/20 10/30/20 18:59 06:59 18:59 Intake Total 1538.5 100 480 Output Total 708 592 6254 Balance 961.5 -300 -1171 Intake: Intake, IV Titration 98.5 100 Amount Cefepime 2 gm In Sodium 100 Chloride 0.9% 100 ml @ 25 mls/hr IVPB Q12HR ONIEL Rx #:[id number] Diltiazem 125 mg In 98.5 Sodium Chloride 0.9% 100 ml @ 5 MG/HR 5 mls/hr IV .Q24H ONILE Rx#:[id number] Oral 1440 480 Output: Urine 914 562 7705 Stool 2 1 Other: Voiding Method Indwelling Catheter Indwelling Catheter Indwelling Catheter # Bowel Movements 1 1 ABP, PAP, CO, CI - Last Documented Arterial Blood Pressure 147/70 - Exam GENERAL EXAM: Morbidly Obese 55-year-old white female, on 8 liters high flow nasal cannula HEENT: PERRLA, EOMI, anicteric, dry mucous membranes. NECK: No masses, no JVD, no thyroid enlargement, no adenopathy. CHEST: No chest wall deformity. LUNGS: Crackles at the bases noted. Symmetrical chest expansion. CVS: Regular rate and rhythm, normal S1 and S2, no gallops, no murmurs, no rubs ABDOMEN: Soft, nontender. No hepatosplenomegaly, normal bowel sounds, no guarding or rigidity. EXTREMITIES: No clubbing, no edema, no cyanosis, 2+ pulses and upper and lower extremities. MUSCULOSKELETAL: Muscle strength and tone normal. SKIN: No rashes, CENTRAL NERVOUS SYSTEM: Alert and oriented 3 no gross focal deficits. - Labs CBC & Chem 7: 10/29/20 08:53 10/29/20 08:53 Labs: Abnormal Lab Results - Last 24 Hours (Table) 10/29/20 10/29/20 10/30/20 Range/Units 17:08 20:05 06:44 POC Glucose (mg/dL) 246 H 236 H 210 H (75-99) mg/dL 10/30/20 Range/Units 11:45 POC Glucose (mg/dL) 281 H (75-99) mg/dL Assessment and Plan Assessment: Impression: Acute on chronic hypoxic and hypercapnic respiratory failure, multifactorial, secondary to acute exacerbation of COPD, acute on chronic diastolic congestive heart failure, new onset atrial fibrillation with RVR, and acute covid 19 pneumonia. New onset atrial fibrillation with RVR Recent hospitalization for Covid 19 pneumonia from 10/16 through 10/19. Chronic hypoxic respiratory failure and chronic hypercapnic respiratory failure secondary to COPD, patient has trilogy device at home. Morbid obesity. Ongoing tobacco dependence syndrome. Obstructive sleep apnea syndrome. Small right groin hematoma possibly a iatrogenic related to previous central line placement in the right groin. Recommendation: Continue present course of treatment including bronchodilators, Continue to titrate oxygen down accordingly. Keep BiPAP at bedside and use as needed. Discontinue methylprednisolone and start prednisone at 30 mg daily Discontinue IV Protonix and placed on oral Protonix CC IV Lasix and placed on oral Lasix 40 mg by mouth daily. Continue to titrate oxygen and when she is down to 5 or 6 L consider discharge planning, patient has been on oxygen at home at 5-6 L/m We will continue to follow Time with Patient: Less than 30
[2020-10-30 16:48] LABS: Glucose,Whole Blood 324 mg/dL (75-99)
[2020-10-30 20:25] LABS: Glucose,Whole Blood 262 mg/dL (75-99)
[2020-10-30] MEDS: ATORVASTATIN 20 MG TAB PO SCH (20:58)
[2020-10-30] MEDS ORDERED: ALBUTEROL HFA INHALER INHALATION PRN (21:32)
[2020-10-31] MEDS ORDERED: INSULIN DETEMIR (LEVEMIR) 100 UNIT/ML SYR SQ SCH (07:00)
[2020-10-31] MEDS: INSULIN ASPART (NovoLOG) 100 UNIT/ML VIAL SQ SCH ×6 (07:04→17:13)
[2020-10-31 07:05] LABS: Glucose,Whole Blood 102 mg/dL (75-99)
[2020-10-31] MEDS: LEVOTHYROXINE 75 MCG TAB PO SCH (07:06)
[2020-10-31] MEDS ORDERED: PANTOPRAZOLE 40 MG TABLET PO SCH (07:30)
[2020-10-31 08:15] LABS: Basophils % (A) 0 %; Eosinophils % (A) 0 %; HCT 46.4 % (34.0-46.0); HGB 15.1 gm/dL (11.4-16.0); Lymphocytes # (A) 1.1 k/uL (1.0-4.8); Lymphocytes % (A) 8 %; MCH 33.6 pg (25.0-35.0); MCHC 32.6 g/dL (31.0-37.0); MCV 102.8 fL (80.0-100.0); Macrocytosis Slight; Mean Platelet Volume 8.5; Monocytes # (A) 0.6 k/uL (0-1.0); Monocytes % (A) 4 %; Neutrophils # (A) 11.6 k/uL (1.3-7.7); Neutrophils % (A) 86 %; Platelet Count 313 k/uL (150-450); RBC 4.51 m/uL (3.80-5.40); RDW 13.1 % (11.5-15.5); WBC 13.4 k/uL (3.8-10.6)
[2020-10-31 08:37] LABS: African American GFR (CKD) >90 (>60 ml/min/1.73 sqM); Blood Urea Nitrogen 66 mg/dL (7-17); Calcium 8.6 mg/dL (8.4-10.2); Chloride 88 mmol/L (98-107); Glucose 100 mg/dL (74-99); Non-African American GFR(CKD) 79 (>60 ml/min/1.73 sqM); Sodium 138 mmol/L (137-145)
[2020-10-31 08:44] LABS: Anion Gap 7 mmol/L
[2020-10-31 08:57] LABS: Carbon Dioxide 43 mmol/L (22-30)
[2020-10-31] MEDS ORDERED: FUROSEMIDE 40 MG TAB PO SCH (09:00)
[2020-10-31] MEDS ORDERED: predniSONE 10 MG TAB PO SCH (09:00)
[2020-10-31] MEDS: FLUTICASONE 220 MCG INHALER INHALATION SCH (09:03)
[2020-10-31] MEDS: ALBUTEROL HFA INHALER INHALATION SCH ×3 (09:03→15:36)
[2020-10-31] MEDS: CEFEPIME 2 GM in SODIUM CHLORIDE 0.9% 100 ML IVPB SCH (09:38)
[2020-10-31] MEDS: APIXABAN 5 MG TAB PO SCH (09:38)
[2020-10-31] MEDS: METOPROLOL TARTRATE 50 MG TAB PO SCH ×2 (09:39→16:35)
[2020-10-31] MEDS: GABAPENTIN 300 MG CAP PO SCH (09:39)
[2020-10-31] MEDS: MAGNESIUM OXIDE 400 MG TAB PO SCH (09:39)
[2020-10-31] MEDS: CHOLECALCIFEROL 25 MCG (1000 IU) TABLET PO SCH (09:39)
[2020-10-31] MEDS: LOSARTAN 25 MG TAB PO SCH (09:39)
[2020-10-31] MEDS: BISMUTH SUBSALICYLATE 4,192 MG/240 ML BOTTLE PO PRN (09:47)
[2020-10-31] MEDS: DILTIAZEM 125 MG in SODIUM CHLORIDE 0.9% 100 ML IV SCH (10:58)
[2020-10-31] MEDS: SODIUM CHLORIDE 0.9% 1,000 ML IV SCH (10:58)
--- NOTE | 2020-10-31 11:49 | P.DS ---
Providers Date of admission: 10/20/20 03:35 Expected date of discharge: 10/31/20 Attending physician: Sergo Valencia MD Consults: 10/20/20 03:40 Consult Physician Routine Consulting Provider: Rasheed Tolentino Consult Reason/Comments: Hypercarbia Do you want consulting provider notified?: Already Contacted 10/27/20 11:17 Consult Physician Routine Consulting Provider: Boby Rodney Consult Reason/Comments: A-Fib RVR Do you want consulting provider notified?: Yes 10/28/20 09:54 Consult Physician Routine Consulting Provider: Nixon Patel Consult Reason/Comments: GROIN HEMATOMA Do you want consulting provider notified?: Yes Primary care physician: Sergo Valencia MD Hospital Course: Final Diagnoses: Acute on chronic hypoxic and hypercapnic respiratory failure, secondary to recent covid-Pneumonia hospitalization 10/16/20 through 10/19/2020 and acute COPD exacerbation, acute diastolic CHF exacerbation. Patient was discharged yesterday, proceeded home and apparently did not use CPAP, arrived back in the ER with A. fib with RVR, requiring intubation. Status post Mechanical ventilator. Paroxysmal A-flutter, fib with RVR, suspect possibly chronic secondary to the above, status post Cardizem drip Hypotension, status post brief pressor support, resolved Chronic diastolic CHF, NYHA class III, EF 50-55 % Obstructive sleep apnea on CPAP, noncompliant Diabetes mellitus type 2, hyperglycemic, multifactorial including steroid- induced hypothyroidism hypertension ongoing nicotine dependence. morbid obesity, BMI 62.3 Hospital course:This is a 55-year-old morbidly obese female discharged yesterday. Patient had been hospitalized 10/16/20- 10/19/20 with COvid- 19 pneumonia , possible acute COPD exacerbation with chronic hypoxic/hypercapnic respiratory failure and multiple other medical issues. Patient had been maintained on COVID regimen, but was beyond the window for Remdesevir. Patient was maintaining O2 sats in the 90s on 4-5 L, baseline and discharged home. Apparently patient failed to use her CPAP last night and returned to the ER with A. fib RVR (initial EKG unavailable), severely hypoxic requiring intubation, placed on Cardizem drip. CXR reported perihilar pulmonary infiltrates, some basilar atelectasis with no change compared to prior exam . ABGs noted. Afebrile, normal lactic acid, normal WBC. Hemoglobin 15, platelets 180, d-dimer 0.62. Sodium 142, potassium 4.2, carbon dioxide 56, BUN 39, creatinine 0.8 glucose 199 magnesium 1.8, total bili 0.5, mildly elevated AST ALT 42, 65 LDH 1444. Troponin 0.021, 0.052, 0.079, CRP 67.1, BNP 1240. EKG for sinus rhythm with premature supraventricular complexes with occasional PVCs. 10/21/2020 remains vent dependent, FiO2 50%/+8 of PEEP, elevated airway pressures. Chest x-ray noted. Sedated on diprovan. Remains off of Levophed. Cardizem drip weaned off yesterday, telemetry sinus rhythm. 10/24/2020 status post extubation over the weekend, currently on 15 L high flow nasal cannula, maintaining O2 sats in the 90s. Maintained on 50% BiPAP throughout the night. Continues on cefepime, IV steroids. Chest x-ray reporting similar to prior, persistent patchy bilateral infiltrates. Increasing bicarb 52. Afebrile, normal WBC, fine sputum culture reporting no growth. Anticoagulated with Eliquis ,telemetry sinus rhythm with PVCs.Hyperglycemic, blood sugars in the low 200s this morning. Hemoglobin 13.1, platelets 158. D- dimer 0.73. Diuresing on Lasix IV push with 24-hour I&O reflecting a negative fluid balance .Potassium 5.3, creatinine 0.93, LDH increased 1488,CRP 50.4. 10/25/20 currently on BiPAP, maintaining O2 sats in the 90s. During the hall tender hours paroximal A. fib/flutter reoccurred with heart rate up into the 140s. Converted back into sinus rhythm. Labs pending. Denies chest pain, palpitations. 10/26/2020 sitting up in chair, maintaining O2 sats in the 90s on 15 L nasal cannula. Remains in sinus rhythm with no further runs of A. fib/flutter during the night reported per telemetry. Diet intake improved, denies loss of taste., Blood sugars uncontrolled. 10/28/2019 maintained on cefepime, IV steroids and albuterol inhaler. Blood sugars elevated , improving this morning .Required BiPAP throughout the night, currently maintaining O2 sats of 94 on 12 L high flow nasal cannula. Denies chest pain, palpitations. 10/28/2020 Continues on albuterol inhaler, antibiotics, IV steroids ,12 L high flow nasal cannula, maintaining O2 sats in the 90s. BiPAP during the night .Recurrent atrial fibrillation yesterday requiring Cardizem drip. Telemetry reporting atrial fibrillation with ventricular rate controlled currently at 100. Denies chest pain, palpitations. Afebrile, WBC 11.7. Significant clinical improvement. Maintaining O2 sats in the 90s on 6 L nasal cannula. Transitioned to oral steroids yesterday. Patient will be discharged on Lantus twice a day and will require further dose adjustments pending comp letion of steroid taper to be addressed in follow-up visit with PCP.Cleared by all consults for discharge. Patient will be discharged home today in a stable condition with guarded prognosis. The impression and plan of care has been dictated as directed. : I performed a history and examination of this patient, discussed the same with the dictator. I agree with the dictator's note ,documented as a scribe. Any additional findings or plans will be noted. Patient Condition at Discharge: Stable Plan - Discharge Summary Discharge Rx Participant: No New Discharge Prescriptions: New Metoprolol Tartrate [Lopressor] 100 mg PO TID #180 tab Pantoprazole [Protonix] 40 mg PO AC-BRKFST #30 tablet. Apixaban [Eliquis] 5 mg PO BID #60 tab predniSONE 10 mg PO DIRECTED #18 tab Insulin Glargine [Lantus] 50 unit SQ BID #1 vial Continue Losartan [Cozaar] 12.5 mg PO DAILY #30 tab Ipratropium-Albuterol Nebulize [Duoneb 0.5 mg-3 mg/3 ml Soln] 3 ml INHALATION RT-QID #120 neb Levothyroxine Sodium [Euthyrox] 150 mcg PO DAILY #30 tab Atorvastatin [Lipitor] 20 mg PO HS #30 tab Magnesium Oxide 400 mg PO DAILY #30 tab Omeprazole 40 mg PO DAILY #30 cap Albuterol Sulfate [Ventolin HFA] 2 puff INHALATION RT-QID PRN #1 inhaler PRN Reason: Shortness Of Breath Furosemide [Lasix] 40 mg PO DAILY #30 tablet Gabapentin [Neurontin] 300 mg PO BID #6 cap Zinc Sulfate [Orazinc] 220 mg PO DAILY cap Budesonide-Formot 160-4.5 Mcg [Symbicort 160-4.5 Mcg Inhaler] 2 puff INHALATION RT-BID #1 inh Cholecalciferol [Vitamin D3 (25 Mcg = 1000 Iu)] 25 mcg PO DAILY tablet Ipratropium-Albuterol Nebulize [Duoneb 0.5 mg-3 mg/3 ml Soln] 3 ml INHALATION RT-Q4H PRN PRN Reason: Shortness Of Breath Ascorbic Acid [Vitamin C] 1,000 mg PO DAILY tab Discharge Medication List Albuterol Sulfate [Ventolin HFA] 2 puff INHALATION RT-QID PRN #1 inhaler 10/05/20 [Rx] Atorvastatin [Lipitor] 20 mg PO HS #30 tab 10/05/20 [Rx] Ipratropium-Albuterol Nebulize [Duoneb 0.5 mg-3 mg/3 ml Soln] 3 ml INHALATION RT-QID #120 neb 10/05/20 [Rx] Levothyroxine Sodium [Euthyrox] 150 mcg PO DAILY #30 tab 10/05/20 [Rx] Losartan [Cozaar] 12.5 mg PO DAILY #30 tab 10/05/20 [Rx] Magnesium Oxide 400 mg PO DAILY #30 tab 10/05/20 [Rx] Omeprazole 40 mg PO DAILY #30 cap 10/05/20 [Rx] Ipratropium-Albuterol Nebulize [Duoneb 0.5 mg-3 mg/3 ml Soln] 3 ml INHALATION RT-Q4H PRN 10/16/20 [History] Ascorbic Acid [Vitamin C] 1,000 mg PO DAILY tab 10/19/20 [Rx] Budesonide-Formot 160-4.5 Mcg [Symbicort 160-4.5 Mcg Inhaler] 2 puff INHALATION RT-BID #1 inh 10/19/20 [Rx] Cholecalciferol [Vitamin D3 (25 Mcg = 1000 Iu)] 25 mcg PO DAILY tablet 10/19/20 [Rx] Furosemide [Lasix] 40 mg PO DAILY #30 tablet 10/19/20 [Rx] Gabapentin [Neurontin] 300 mg PO BID #6 cap 10/19/20 [Rx] Zinc Sulfate [Orazinc] 220 mg PO DAILY cap 10/19/20 [Rx] Apixaban [Eliquis] 5 mg PO BID #60 tab 10/21/20 [Rx] Insulin Glargine [Lantus] 50 unit SQ BID #1 vial 10/31/20 [Rx] Metoprolol Tartrate [Lopressor] 100 mg PO TID #180 tab 10/31/20 [Rx] Pantoprazole [Protonix] 40 mg PO AC-BRKFST #30 tablet. 10/31/20 [Rx] predniSONE 10 mg PO DIRECTED #18 tab 10/31/20 [Rx] Follow up Appointment(s)/Referral(s): Matthew Lopez MD [STAFF PHYSICIAN] - 2 Weeks Sergo Valencia MD [Primary Care Provider] - 3 Days [facility], [NON-STAFF] - Activity/Diet/Wound Care/Special Instructions: 6 L nasal cannula .
[2020-10-31 12:09] LABS: Glucose,Whole Blood 145 mg/dL (75-99)
--- NOTE | 2020-10-31 14:20 | P.PN ---
Subjective 10/20/2020 This is a 55-year-old female with a past medical history significant for COPD with home oxygen, diabetes mellitus, congestive heart failure, sleep apnea, thyroid disorder, and nicotine dependence. 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 It is noted that the patient was recently hospitalized in September due to COPD and CHF. We have been asked to see the patient in consultation for new onset atrial fibrillation. Patient presented to the emergency room due to shortness of breath. In the [facility] room the patient developed increasing respiratory distress and was intubated. Patient is positive for Covid 19 (tested on 10/16/2020). Patient was in sinus mechanism upon presentation to the ER. She developed atrial fibrillation and was on a Cardizem drip for a short period of time. She has si nce converted back to sinus mechanism. EKG reveals sinus mechanism with PVCs Chest xray perihilar pulmonary infiltrates. Probably some basilar atelectasis. Current home cardiac medications include losartan 12.5 mg daily, Lasix 40 mg daily, Lipitor 20 mg daily. Echocardiogram completed on 10/04/2020 revealed ejection fraction 50-55% Patient remained in sinus rhythm and was started on Eliquis for anticoagulation. On 10/27/2020 Cardiology was reconsulted secondary to A. fib with RVR. Patient has been transferred out of the ICU to the selective care unit. Telemetry reveals atrial fibrillation with a heart rate in the 140s.She was started on a Cardizem drip at 5 mg an hour. Patient is also receiving metoprolol 50 mg twice a day. Patient is currently on 12 L high flow nasal cannula. 10/29/2020: Patient remains in atrial fibrillation with mildly uncontrolled ventricular rates. She remains on a Cardizem drip at 5 mg an hour. Patient's beta lacie was increased yesterday to 75 mg twice a day. She is on 8 liters high flow nasal cannula with oxygen saturations greater than 92%. Blood pressure 126/83. She is afebrile. 10/31/2020 Patient remains in atrial fibrillation. Cardizem drip was discontinued yesterday. Blood pressure 124/72 HR 80s-90s, occasional HR is 100. She is on 8L high flow nasal cannula SpO2 >94%. She is currently being maintained on Eliquis milligrams twice a day, atorvastatin 20 mg daily, Lasix 40 mg daily, losartan 12.5 mg daily, metoprolol titrate 100 mg 3 times a day. Laboratory data reviewed, WBC 13.4, hemoglobin 15.1, platelets 313, sodium 138, potassium 5.0, creatinine 0.83, BUN 66. PHYSICAL EXAM: Thorough physical exam not completed secondary to limited evaluation/examination and due to Covid19 ASSESSMENT: Acute on chronic hypoxic and hypercapnic respiratory failure requiring mechanical ventilation Covid 19 New onset paroxysmal atrial fibrillation with RVR Chronic diastolic congestive heart failure, EF 50-55% Hypertension Hyperlipidemia Obstructive sleep apnea Nicotine dependence PLAN: Continue Eliquis 5 mg twice a day Will continue metoprolol 100mg TID Continue telemetry monitoring Further recommendations pending patient course Nurse practitioner note has been reviewed by physician. Signing provider agrees with the documented findings, assessment, and plan of care. Objective - Vital Signs Vital signs: Vital Signs Temp 98.3 F 10/31/20 08:00 Pulse 86 10/31/20 08:00 Resp 20 10/31/20 08:00 BP 124/72 10/31/20 08:00 Pulse Ox 99 10/31/20 08:00 Intake & Output 10/30/20 10/31/20 10/31/20 18:59 06:59 18:59 Intake Total 980 720 Output Total 2352 2 200 Balance -1372 -2 520 Intake: Oral 980 720 Output: Urine 2350 200 Uretheral (Rosado) 350 Stool 2 2 Other: Voiding Method Indwelling Catheter Indwelling Catheter # Voids 1 # Bowel Movements 1 ABP, PAP, CO, CI - Last Documented Arterial Blood Pressure 147/70 - Labs CBC & Chem 7: 10/31/20 07:29 10/31/20 07:29 Labs: Abnormal Lab Results - Last 24 Hours (Table) 10/30/20 10/30/20 10/31/20 Range/Units 16:47 20:23 07:03 WBC (3.8-10.6) k/uL Hct (34.0-46.0) % MCV (80.0-100.0) fL Neutrophils # (1.3-7.7) k/uL Chloride (98-107) mmol/L Carbon Dioxide (22-30) mmol/L BUN (7-17) mg/dL Glucose (74-99) mg/dL POC Glucose (mg/dL) 324 H 262 H 102 H (75-99) mg/dL 10/31/20 10/31/20 10/31/20 Range/Units 07:29 07:29 12:03 WBC 13.4 H (3.8-10.6) k/uL Hct 46.4 H (34.0-46.0) % MCV 102.8 H (80.0-100.0) fL Neutrophils # 11.6 H (1.3-7.7) k/uL Chloride 88 L (98-107) mmol/L Carbon Dioxide 43 H* (22-30) mmol/L BUN 66 H (7-17) mg/dL Glucose 100 H (74-99) mg/dL POC Glucose (mg/dL) 145 H (75-99) mg/dL
[2020-10-31 14:22] VITALS: TEMP 98
[2020-10-31 15:49] VITALS: BP 122/65; PULSE 85; RESP 18
[2020-10-31 17:14] LABS: Glucose,Whole Blood 193 mg/dL (75-99)
--- NOTE | 2020-10-31 18:21 | P.PN ---
Subjective Progress Note Date: 10/31/20 Principal diagnosis: Acute hypoxemic respiratory failure. The patient is seen today 10/24/2020 in follow-up in the intensive care unit. She was successfully extubated. She is currently alternating with BiPAP 15/6 and 50% FiO2 at nighttime. Currently on 15 L high flow nasal cannula. Awake, alert, no acute distress. She has 0.9 normal saline at a KVO. She is anticoagulated with Eliquis. Remains in sinus rhythm with PACs. Chest x-ray is stable with bilateral patchy infiltrates. Sputum culture revealed no growth. White count 7.5. Hemoglobin 13.1. Lymphocytes 0.3. D-dimer 0.73. Sodium 142. Potassium 5.3. Bicarb 52. Creatinine 0.93. LDH 1488. C-reactive protein 15.4. She remains on cefepime. Anticoagulated with Eliquis. Receiving Lasix daily. Adequate urine output. Continued on IV Solu-Medrol, vitamin supplements. Patient was reevaluated today on 10/25/2020, she is on 12 L high flow nasal cannula, up in the chair, in no distress, patient feels fine, tells me that she is feeling better today than she felt yesterday. Her O2 is being titrated down. All her labs were reviewed. LDH is 1526, C-reactive protein is 31. CBC is relatively normal. Basic metabolic profile showed elevated bicarb. I recently the patient has chronic hypercapnic respiratory failure with metabolic compensation. Not to mention that the patient also has some component of contraction metabolic alkalosis. Chest x-ray from yesterday continues to show bilateral pneumonia Patient was reevaluated today on 10/26/2020, remains on high flow nasal cannula, she is now on 15 L, O2 sats rations ranging between 93 up to 95%. Patient is sitting at a bedside chair, does not seem to be in any distress. Hardly any cough, no chest pain, no fever, no chills. CBC is relatively normal. Electrolytes continued to show elevated bicarb. BUN is 52 creatinine 0.85. LDH remains high at 1526, and C-reactive protein is 31. Patient was reevaluated today on 10/27/2020, remains on the regular medical floor, remains relatively hypoxic, requiring 12 L of high flow nasal cannula to ma intain O2 saturation above 91%. Surprisingly, patient is doing clinically well overall, hardly any cough, no wheezing, she does have some shortness of breath with any activity. Absent today were reviewed, blood sugar seems to be running high at 350, that being addressed by the admitting physician. Her BUN is 53 creatinine 0.80, no inflammatory markers were done today. Patient was reevaluated today on 10/28/2020, patient is presently on 8 L high flow nasal cannula, and she has 95% saturation. Patient is doing great, sitting at a bedside chair, in no distress. There was a concern earlier today about possible right groin hematoma, however clinically it is not significant I examined her groin, there may be a small hematoma, but not clinically significant mostly because her hemoglobin is stable, duplex scan showed no evidence of pseudoaneurysm. There was no evidence of AV shunting. Small tiny fluid collections noted in the groin, but again no clinical significance. Pulmonary- hubbard the patient is doing well, asymptomatic. Reevaluated today on 10/29/2020. Patient is sitting in a bedside chair, complaining about her Rosado catheter, denies any shortness of breath, she is now on 8 L high flow nasal cannula, and her O2 saturation is 94%. Patient is normally on 6 L at home prior to her presentation on this admission. Patient again is asymptomatic. Her WBC count is 10.8 hemoglobin is 13 electrolytes are normal bicarb is 41 BUN is 54 creatinine is 0.76. Sugar is elevated at 385 b eing addressed by the admitting physician Patient was reevaluated today on 10/30/2020, patient is steadily improving, feeling better today, she is now on 8 L high flow nasal cannula and her O2 saturations 96%. Patient has oxygen at home and she is normally on 6 L. She is obviously not far enough from her baseline. Patient is asymptomatic. Denies any cough no wheezing, denies any shortness of breath at rest, but she does have dyspnea on exertion which is chronic. CBC is relatively normal lites are normal bicarb is down to 41 BUN is 54 creatinine 0.76, sugars are running a bit high at 281, patient remains on bronchodilators, she is also on eliquis, cefepime, bronchodilators, is also on Lasix at 40 mg IV push daily and on methylprednisolone which I will transition today to prednisone. Progress note dated 10/31/2020. Currently, the patient is on O2 6 L by nasal cannula. Typically she is on 5 L at home. The patient denies being short of breath. She denies cough, fever, chills, chest pain, or chest discomfort. She also denies coughing up any phlegm. The patient is being considered for possible discharge in the next 24- 48 hours. Currently, white count is 13.4, hemoglobin 15.1, hematocrit 46.4, and platelet count 313,000. Sodium 138, potassium 5, chlorides 88, CO2 43, anion gap 7, BUN 66, and creatinine 0.83. Objective - Vital Signs Vital signs: Vital Signs Temp 98 F 10/31/20 15:47 Pulse 85 10/31/20 15:47 Resp 18 10/31/20 15:47 BP 122/65 10/31/20 15:47 Pulse Ox 96 10/31/20 15:47 Intake & Output 10/30/20 10/31/20 10/31/20 18:59 06:59 18:59 Intake Total 980 960 Output Total 2352 2 200 Balance -1372 -2 760 Intake: Oral 980 960 Output: Urine 2350 200 Uretheral (Rosado) 350 Stool 2 2 Other: Voiding Method Indwelling Catheter Indwelling Catheter Indwelling Catheter # Voids 1 3 # Bowel Movements 1 ABP, PAP, CO, CI - Last Documented Arterial Blood Pressure 147/70 - Exam No acute distress, oriented 3. Patient on nasal O2 at 6 L. She is very obese. HEENT examination is grossly unremarkable. Neck supple. Full range of motion. No adenopathy thyromegaly or neck vein di stention. Cardiovascular examination reveals regular rhythm rate. S1-S2 normal. No S3 or S4. No discernible murmur noted. Heart sounds are distant. Lungs reveal scattered rhonchi. No wheezes or crackles. Breath sounds equal bilaterally. Breath sounds are diminished throughout. Abdomen soft bowel sounds are heard. No masses or tenderness. Extremities are intact. No cyanosis clubbing or edema. Skin is without rash or lesion. Neurologic examination is brief but nonfocal. - Labs CBC & Chem 7: 10/31/20 07:29 10/31/20 07:29 Labs: Abnormal Lab Results - Last 24 Hours (Table) 10/30/20 10/31/20 10/31/20 Range/Units 20:23 07:03 07:29 WBC 13.4 H (3.8-10.6) k/uL Hct 46.4 H (34.0-46.0) % MCV 102.8 H (80.0-100.0) fL Neutrophils # 11.6 H (1.3-7.7) k/uL Chloride (98-107) mmol/L Carbon Dioxide (22-30) mmol/L BUN (7-17) mg/dL Glucose (74-99) mg/dL POC Glucose (mg/dL) 262 H 102 H (75-99) mg/dL 10/31/20 10/31/20 10/31/20 Range/Units 07:29 12:03 17:03 WBC (3.8-10.6) k/uL Hct (34.0-46.0) % MCV (80.0-100.0) fL Neutrophils # (1.3-7.7) k/uL Chloride 88 L (98-107) mmol/L Carbon Dioxide 43 H* (22-30) mmol/L BUN 66 H (7-17) mg/dL Glucose 100 H (74-99) mg/dL POC Glucose (mg/dL) 145 H 193 H (75-99) mg/dL Assessment and Plan Assessment: Acute on chronic hypoxemic and hypercapnic respiratory failure, secondary to COPD, diastolic CHF, new onset atrial fibrillation, and COVID 19 pneumonitis. New-onset atrial fibrillation with RVR. Recent hospitalization for COVID 19 pneumonia, from October 16 to October 19. Chronic hypoxemic respiratory failure secondary to COPD, and possible pickwickian syndrome. Morbid obesity. Ongoing tobacco dependence syndrome. Plan: Plan dated 10/31/2020. The patient will continue on various treatments including bronchodilators, and we will continue to titrate down the oxygen dose. Saturations are probably acceptable in this patient between 88 and 92%. She should continue to use her BiPAP device as needed. In addition, other medications are reviewed. She is started on prednisone 30 mg a day, and she will follow-up in the office. Additional recommendations and suggestions are forthcoming. Prognosis is guarded. The patient states that she has 3 different individuals who will be able to help her at home. Time with Patient: Less than 30
--- NOTE | 2020-11-01 13:11 | CDI ---
Documentation Clarification Form Date: 11/01/20 From: Barbara Chamberlain Phone: Admit Date: 10/20/2020 03:35:00 AM Patient Name: Nerissa Marshall Visit Number: [id number] Discharge Date: 10/31/2020 07:49:00 PM ATTENTION: The Clinical Documentation Specialists (CDI) and [facility] Coding Staff appreciate your assistance in clarifying documentation. Please respond to the clarification below the line at the bottom and electronically sign. The CDI & [facility] Coding staff will review the response and follow-up if needed. Please note: Queries are made part of the Legal Health Record. If you have any questions, please contact the author of this message via ITS. Dr. Matthew Lopez, Atrial Flutter is documented in your consult.. Additional clarification regarding the type of Atrial Flutter is requested. History/Risk factors: COVID pneumonia w acute and chronic hypoxic & hypercapnia respiratory failure, acute & chronic diastolic CHF, morbid obesity Clinical Indicators: New onset paroxysmal atrial fibrillation-flutter with RVR 3/30 EKG: atrial flutter with variable AV block with premature aberrantly conducted complexes, vent rate-110 bpm, QRS-72 ms, QT/QTc-320/433 ms Treatment: Cardizem drip switched to Apixaban Please clarify the type of Atrial Flutter, if known: [ ] Typical/Type I [ ] Atypical/Type II [ ] Other, please specify [ ] Unable to determine unable to determine MTDD
== END 2020-10-31 19:49 | disposition home health service (06) | DRG 208 ==
LOC: EC 23:02 → 3SCARD 10-20 03:35 → 2SICU 10-20 04:50 → 3SCARD 10-24 14:37
PROVIDERS: ADMIT Family Medicine; ATTEND Family Medicine
PROC: 5A1945Z Respiratory Ventilation, 24-96 Consecutive Hours (ICD-10-PCS; principal; 2020-10-20)
PROC: 0BH17EZ Insertion of Endotracheal Airway into Trachea, Via Natural or Artificial Opening (ICD-10-PCS; principal; 2020-10-20)
PROC: 5A09357 Assistance with Respiratory Ventilation, Less than 24 Consecutive Hours, Continuous Positive Airway Pressure (ICD-10-PCS; 2020-10-20)
PROC: 3E0G76Z Introduction of Nutritional Substance into Upper GI, Via Natural or Artificial Opening (ICD-10-PCS; 2020-10-20)
PROC: 0D9670Z Drainage of Stomach with Drainage Device, Via Natural or Artificial Opening (ICD-10-PCS; 2020-10-20)
PROC: 4A133B1 Monitoring of Arterial Pressure, Peripheral, Percutaneous Approach (ICD-10-PCS; 2020-10-20)
PROC: 06HM33Z Insertion of Infusion Device into Right Femoral Vein, Percutaneous Approach (ICD-10-PCS; 2020-10-20)
PROC: 3E033XZ Introduction of Vasopressor into Peripheral Vein, Percutaneous Approach (ICD-10-PCS; 2020-10-20)
PROC: 4A133J1 Monitoring of Arterial Pulse, Peripheral, Percutaneous Approach (ICD-10-PCS; 2020-10-20)
PROC: 03HY32Z Insertion of Monitoring Device into Upper Artery, Percutaneous Approach (ICD-10-PCS; 2020-10-20)
PROC: 5A0955A Assistance with Respiratory Ventilation, Greater than 96 Consecutive Hours, High Flow/Velocity Cannula (ICD-10-PCS; 2020-10-23)
PROC: 05HD33Z Insertion of Infusion Device into Right Cephalic Vein, Percutaneous Approach (ICD-10-PCS; 2020-10-25)
PROC: 05HD33Z Insertion of Infusion Device into Right Cephalic Vein, Percutaneous Approach (ICD-10-PCS; 2020-10-28)
DX: U07.1 COVID-19 (principal); J12.82 Pneumonia due to coronavirus disease 2019; J96.21 Acute and chronic respiratory failure with hypoxia; J96.22 Acute and chronic respiratory failure with hypercapnia; I50.33 Acute on chronic diastolic (congestive) heart failure; J15.9 Unspecified bacterial pneumonia; J44.1 Chronic obstructive pulmonary disease with (acute) exacerbation; E66.2 Morbid (severe) obesity with alveolar hypoventilation; Z68.43 Body mass index [BMI] 50.0-59.9, adult; J44.0 Chronic obstructive pulmonary disease with (acute) lower respiratory infection; N17.9 Acute kidney failure, unspecified; E87.3 Alkalosis; I48.92 Unspecified atrial flutter; I95.9 Hypotension, unspecified; I11.0 Hypertensive heart disease with heart failure; E11.65 Type 2 diabetes mellitus with hyperglycemia; I48.0 Paroxysmal atrial fibrillation; I49.3 Ventricular premature depolarization; I49.1 Atrial premature depolarization; T38.0X5A Adverse effect of glucocorticoids and synthetic analogues, initial encounter; E03.9 Hypothyroidism, unspecified; E78.5 Hyperlipidemia, unspecified; G47.33 Obstructive sleep apnea (adult) (pediatric); K76.9 Liver disease, unspecified; Z91.19 Patient's noncompliance with other medical treatment and regimen; F17.200 Nicotine dependence, unspecified, uncomplicated; Z71.6 Tobacco abuse counseling; Z79.51 Long term (current) use of inhaled steroids; Z79.890 Hormone replacement therapy; Z79.899 Other long term (current) drug therapy; Z90.49 Acquired absence of other specified parts of digestive tract; Z98.891 History of uterine scar from previous surgery; Z87.19 Personal history of other diseases of the digestive system; Z98.890 Other specified postprocedural states; Z87.39 Personal history of other diseases of the musculoskeletal system and connective tissue; Z71.3 Dietary counseling and surveillance; Z88.5 Allergy status to narcotic agent
CPT/HCPCS: 31500; 36410; 36415; 36600; 71045; 76937; 80048; 80053; 80061; 82550; 82728; 82803; 82805; 83036; 83605; 83615; 83625; 83735; 83880; 84145; 84484; 85025; 85379; 85384; 85610; 85730; 86140; 87070; 87205; 93005; 93975; 94002; 94003; 94640; 94660; 94760; 96374; 96375; 99291

== ENCOUNTER 2020-11-04 18:53 | Inpatient (IN) | payer OTHER ==
[2020-11-04 20:06] LABS: ABG Base Excess 13.6 mmol/L; ABG Oxygen Saturation 98.9 % (94-97); ABG PH 7.22 (7.35-7.45); ABG PO2 154 mmHg (83-108); ABG TCO2 45 mmol/L (19-24); Allen Test Performed? Yes
[2020-11-04 20:07] LABS: ABG PCO2 102 mmHg (35-45)
[2020-11-04 20:08] LABS: ABG HCO3 41 mmol/L (21-25)
[2020-11-04] MEDS ORDERED: NALOXONE 0.4 MG/ML 1 ML VIAL IV PRN (20:23)
[2020-11-04] MEDS ORDERED: ACETAMINOPHEN TAB 325 MG TAB PO PRN (20:23)
[2020-11-04] MEDS ORDERED: ONDANSETRON 4 MG/2 ML VIAL IVP PRN (20:23)
[2020-11-04] MEDS ORDERED: MAG HYDROX/AL HYDROX/SIMETH 30 ML CUP PO PRN (20:23)
--- NOTE | 2020-11-04 20:23 | ED ---
SOB HPI - General Chief Complaint: Shortness of Breath Stated Complaint: covid+/KELLY Time Seen by Provider: 11/04/20 19:01 Source: patient Mode of arrival: EMS Limitations: no limitations - History of Present Illness Initial Comments: Patient presents with worsening shortness of breath. She was recently diagnosed: Good. She was in the hospital. She was intubated then. Now she is having more shortness of breath today. She has no belly or back pain. She hasn't had any sick contacts and has not traveled anywhere. She does have swelling the legs. She has no headache. She has no focal weakness. - Related Data Home Medications Medication Instructions Recorded Confirmed Ipratropium-Albuterol Nebulize 3 ml INHALATION RT-Q4H PRN 10/16/20 10/20/20 [Duoneb 0.5 mg-3 mg/3 ml Soln] Previous Rx's Medication Instructions Recorded Albuterol Sulfate [Ventolin HFA] 2 puff INHALATION RT-QID PRN #1 10/05/20 inhaler Atorvastatin [Lipitor] 20 mg PO HS #30 tab 10/05/20 Ipratropium-Albuterol Nebulize 3 ml INHALATION RT-QID #120 neb 10/05/20 [Duoneb 0.5 mg-3 mg/3 ml Soln] Levothyroxine Sodium [Euthyrox] 150 mcg PO DAILY #30 tab 10/05/20 Losartan [Cozaar] 12.5 mg PO DAILY #30 tab 10/05/20 Magnesium Oxide 400 mg PO DAILY #30 tab 10/05/20 Omeprazole 40 mg PO DAILY #30 cap 10/05/20 Ascorbic Acid [Vitamin C] 1,000 mg PO DAILY tab 10/19/20 Budesonide-Formot 160-4.5 Mcg 2 puff INHALATION RT-BID #1 inh 10/19/20 [Symbicort 160-4.5 Mcg Inhaler] Cholecalciferol [Vitamin D3 (25 25 mcg PO DAILY tablet 10/19/20 Mcg = 1000 Iu)] Furosemide [Lasix] 40 mg PO DAILY #30 tablet 10/19/20 Gabapentin [Neurontin] 300 mg PO BID #6 cap 10/19/20 Zinc Sulfate [Orazinc] 220 mg PO DAILY cap 10/19/20 Apixaban [Eliquis] 5 mg PO BID #60 tab 10/21/20 Insulin Glargine [Lantus] 50 unit SQ BID #1 vial 10/31/20 Metoprolol Tartrate [Lopressor] 100 mg PO TID #180 tab 10/31/20 Pantoprazole [Protonix] 40 mg PO AC-BRKFST #30 tablet. 10/31/20 predniSONE 10 mg PO DIRECTED #18 tab 10/31/20 Allergies Allergy/AdvReac Type Severity Reaction Status Date / Time hydrocodone [From [place]] AdvReac Rash/Hives Verified 11/04/20 19:04 Review of Systems ROS Statement: Those systems with pertinent positive or pertinent negative responses have been documented in the HPI. ROS Other: All systems not noted in ROS Statement are negative. Past Medical History Past Medical History: Chest Pain / Angina, COPD, Diabetes Mellitus, Liver Disease, Sleep Apnea/CPAP/BIPAP, Thyroid Disorder Additional Past Medical History / Comment(s): CHF, cpap at night, gout History of Any Multi-Drug Resistant Organisms: None Reported Past Surgical History: Section, Cholecystectomy Past Anesthesia/Blood Transfusion Reactions: No Reported Reaction Past Psychological History: No Psychological Hx Reported Smoking Status: Current every day smoker Past Alcohol Use History: None Reported Past Drug Use History: None Reported General Exam Limitations: no limitations General appearance: lethargic Head exam: Present: atraumatic Eye exam: Present: normal appearance, PERRL ENT exam: Present: normal exam Neck exam: Present: normal inspection. Absent: tenderness Respiratory exam: Present: wheezes, rales Cardiovascular Exam: Present: regular rate GI/Abdominal exam: Present: soft. Absent: tenderness Extremities exam: Present: pedal edema. Absent: tenderness Back exam: Present: normal inspection. Absent: tenderness Neurological exam: Present: alert, oriented X3 Psychiatric exam: Present: normal affect Skin exam: Present: warm, dry, intact Course Vital Signs 11/04/20 19:00 Temperature 98.4 F Pulse Rate 91 Respiratory 28 H Rate Blood Pressure 113/68 O2 Sat by Pulse 100 Oximetry Medical Decision Making - Medical Decision Making Patient presents short of breath. She is hypercapnic. She is placed on BiPAP. I consult the pulmonology. She will be admitted to the hospital. - Lab Data Lab Results 11/04/20 Range/Units 19:57 Sample Site Right Brachial ABG pH 7.22 L (7.35-7.45) ABG pCO2 102 H* (35-45) mmHg ABG pO2 154 H (83-108) mmHg ABG HCO3 41 H* (21-25) mmol/L ABG Total CO2 45 H (19-24) mmol/L ABG O2 Saturation 98.9 H (94-97) % ABG Base Excess 13.6 mmol/L Chu Test Yes FiO2 401 % 11/04/20 20:22 Twelve-lead EKG shows ventricular rate 97 bpm, there are no P waves, QRS complexes are normal, there are no ST elevation or depression, interpreted by me as atrial fibrillation. Disposition Clinical Impression: Systolic congestive heart failure, COPD (chronic obstructive pulmonary disease) Disposition: ADMITTED IP TO THIS HOSP Condition: Fair Is patient prescribed a controlled substance at d/c from ED?: No Referrals: Sergo Valencia MD [Primary Care Provider] - 1-2 days
[2020-11-04] MEDS ORDERED: ALBUTEROL HFA INHALER INHALATION PRN (20:25)
[2020-11-04] MEDS ORDERED: IPRATROPIUM-ALBUTEROL 3 ML NEB INHALATION PRN (20:25)
--- NOTE | 2020-11-04 21:05 | XR ---
EXAMINATION TYPE: XR chest 2V DATE OF EXAM: 11/04/2020 COMPARISON: 10/26/2020 INDICATION: Chest pain TECHNIQUE: Frontal and lateral views of the chest are obtained. Grid line artifact appears to be pre sent. FINDINGS: The heart size is moderately prominent. The pulmonary vasculature is normal. Mild increased lung markings are present. These are nonspecific. Consider atypical pneumonia. There m ay be some fullness in the left suprahilar region. Follow-up is recommended.. IMPRESSION: 1. Cardiomegaly. 2. Possible left suprahilar masslike area. Follow-up is recommended. 3. Scattered nonspecific infiltrates. Correlate for atypical pneumonia.
[2020-11-05] MEDS: APIXABAN 5 MG TAB PO SCH ×3 (01:29→21:03)
[2020-11-05] MEDS: ATORVASTATIN 20 MG TAB PO SCH ×2 (01:29→21:03)
[2020-11-05] MEDS: METOPROLOL TARTRATE 50 MG TAB PO SCH ×4 (01:29→21:03)
[2020-11-05] MEDS: GABAPENTIN 300 MG CAP PO SCH ×3 (01:30→21:03)
--- NOTE | 2020-11-05 02:27 | ED ---
Medical Decision Making - Lab Data Lab Results 11/04/20 Range/Units 19:57 Sample Site Right Brachial ABG pH 7.22 L (7.35-7.45) ABG pCO2 102 H* (35-45) mmHg ABG pO2 154 H (83-108) mmHg ABG HCO3 41 H* (21-25) mmol/L ABG Total CO2 45 H (19-24) mmol/L ABG O2 Saturation 98.9 H (94-97) % ABG Base Excess 13.6 mmol/L Chu Test Yes FiO2 401 % Disposition Clinical Impression: Systolic congestive heart failure, COPD (chronic obstructive pulmonary disease) Disposition: ADMITTED IP TO THIS [facility] Condition: Fair Procedures - EJ/Peripheral Line No standard instances Consent Obtained: verbal consent Indications: nurses unable to establish peripheral IV Skin Cleansed in Sterile Fashion: Yes Size: 20 Dressing Placed: Tegaderm, tape Patient Tolerated Procedure: well, no complications Additional Comments: One attempt - Phlebotomy Reason for Blood Draw by MD: RN/lab unable Obtained Bloods via: peripheral vein stick Estimated cc's Blood Obtained: 8 Additional Comments: one attempt
[2020-11-05 02:59] LABS: Basophils % (A) 0 %; Eosinophils # (A) 0.2 k/uL (0-0.7); Eosinophils % (A) 2 %; HCT 38.4 % (34.0-46.0); HGB 12.4 gm/dL (11.4-16.0); Hypochromasia Slight; Lymphocytes # (A) 1.3 k/uL (1.0-4.8); Lymphocytes % (A) 14 %; MCH 33.8 pg (25.0-35.0); MCHC 32.3 g/dL (31.0-37.0); MCV 104.4 fL (80.0-100.0); Macrocytosis Slight; Mean Platelet Volume 8.1; Monocytes # (A) 0.4 k/uL (0-1.0); Monocytes % (A) 4 %; Neutrophils # (A) 7.2 k/uL (1.3-7.7); Neutrophils % (A) 79 %; Platelet Count 288 k/uL (150-450); RBC 3.68 m/uL (3.80-5.40); RDW 13.2 % (11.5-15.5); WBC 9.1 k/uL (3.8-10.6)
[2020-11-05 03:51] LABS: INR 0.9 (<1.2); Prothrombin Time 9.9 sec (9.0-12.0)
[2020-11-05 04:02] LABS: Partial Thromboplastin Time 19.6 sec (22.0-30.0)
[2020-11-05] MEDS: LEVOTHYROXINE 75 MCG TAB PO SCH (07:03)
[2020-11-05] MEDS ORDERED: IPRATROPIUM-ALBUTEROL 3 ML NEB INHALATION SCH ×2 (08:00→12:00)
[2020-11-05] MEDS: PANTOPRAZOLE 40 MG TABLET PO SCH (08:16)
[2020-11-05] MEDS: MAGNESIUM OXIDE 400 MG TAB PO SCH (08:16)
[2020-11-05] MEDS: LOSARTAN 25 MG TAB PO SCH (08:17)
[2020-11-05] MEDS: CHOLECALCIFEROL 25 MCG (1000 IU) TABLET PO SCH (08:19)
[2020-11-05] MEDS ORDERED: FUROSEMIDE 40 MG TAB PO SCH (09:00)
[2020-11-05] MEDS ORDERED: predniSONE 20 MG TAB PO SCH (09:00)
--- NOTE | 2020-11-05 09:09 | P.CRDCN ---
History of Present Illness Consult date: 11/05/20 Chief complaint: Shortness of breath History of present illness: This is a pleasant 55-year-old female patient with a corset to see here in the e mergency department for further evaluation of shortness of breath. The patient does have a past medical history significant for chronic obstructive pulmonary disease on home oxygen as well as permanent atrial fibrillation as well as morbid obesity and hypertension and dyslipidemia. She presented to the emergency department complaining of increasing shortness of breath but no symptoms of chest pain or chest discomfort and no dizziness or lightheadedness or any feeling of heart racing or fluttering or syncope. The patient is morbidly obese. She was diagnosed recently also with right groin hematoma and she was seen by a vascular surgeon who recommended only conservative medical approach. When she was seen this morning in the ER she is a very stable and she requested to go home. On examination she does have diminished breathing sounds bilaterally but no crackles or wheezing. She is in atrial fibrillation was controlled heart rate. She is on oral anticoagulation. From a cardiovascular standpoint of view, the patient potentially can be discharged home later on today. She will follow-up with her primary keeper helper as an outpatient. Please note that recent echocardiogram from this year revealed normal left ventricular systolic function without any significant valvular abnormalities. Past Medical History Past Medical History: Chest Pain / Angina, COPD, Diabetes Mellitus, Liver Disease, Sleep Apnea/CPAP/BIPAP, Thyroid Disorder Additional Past Medical History / Comment(s): CHF, cpap at night, gout History of Any Multi-Drug Resistant Organisms: None Reported Past Surgical History: Section, Cholecystectomy Past Anesthesia/Blood Transfusion Reactions: No Reported Reaction Past Psychological History: No Psychological Hx Reported Smoking Status: Current every day smoker Past Alcohol Use History: None Reported Past Drug Use History: None Reported Medications and Allergies Home Medications Medication Instructions Recorded Confirmed Type Albuterol Sulfate [Ventolin HFA] 2 puff INHALATION RT-QID PRN #1 10/05/20 11/04/20 Rx inhaler Atorvastatin [Lipitor] 20 mg PO HS #30 tab 10/05/20 11/04/20 Rx Ipratropium-Albuterol Nebulize 3 ml INHALATION RT-QID #120 neb 10/05/20 11/04/20 Rx [Duoneb 0.5 mg-3 mg/3 ml Soln] Levothyroxine Sodium [Euthyrox] 150 mcg PO DAILY #30 tab 10/05/20 11/04/20 Rx Magnesium Oxide 400 mg PO DAILY #30 tab 10/05/20 11/04/20 Rx Omeprazole 40 mg PO DAILY #30 cap 10/05/20 11/04/20 Rx Ipratropium-Albuterol Nebulize 3 ml INHALATION RT-Q4H PRN 10/16/20 11/04/20 History [Duoneb 0.5 mg-3 mg/3 ml Soln] Ascorbic Acid [Vitamin C] 1,000 mg PO DAILY tab 10/19/20 11/04/20 Rx Budesonide-Formot 160-4.5 Mcg 2 puff INHALATION RT-BID #1 inh 10/19/20 11/04/20 Rx [Symbicort 160-4.5 Mcg Inhaler] Cholecalciferol [Vitamin D3 (25 25 mcg PO DAILY tablet 10/19/20 11/04/20 Rx Mcg = 1000 Iu)] Furosemide [Lasix] 40 mg PO DAILY #30 tablet 10/19/20 11/04/20 Rx Zinc Sulfate [Orazinc] 220 mg PO DAILY cap 10/19/20 11/04/20 Rx Apixaban [Eliquis] 5 mg PO BID #60 tab 10/21/20 11/04/20 Rx Insulin Glargine [Lantus] 50 unit SQ BID #1 vial 10/31/20 11/04/20 Rx Metoprolol Tartrate [Lopressor] 100 mg PO TID #180 tab 10/31/20 11/04/20 Rx Pantoprazole [Protonix] 40 mg PO AC-ELOYFST #30 tablet. 10/31/20 11/04/20 Rx Butalb/Acetaminophen/Caffeine 1 cap PO TID PRN 11/04/20 11/04/20 History [Fioricet 50-300-40 mg Capsule] Losartan Potassium [Cozaar] 25 mg PO DAILY 11/04/20 11/04/20 History acetaZOLAMIDE [acetaZOLAMIDE ER] 500 mg PO DAILY 11/04/20 11/04/20 History metFORMIN HCL 500 mg PO DAILY 11/04/20 11/04/20 History predniSONE See Taper PO DIRECTED 11/04/20 11/04/20 History Allergies Allergy/AdvReac Type Severity Reaction Status Date / Time hydrocodone [From [place]] AdvReac Rash/Hives Verified 11/04/20 19:04 Physical Exam Vitals: Vital Signs Temp Pulse Resp BP Pulse Ox 11/05/20 08:19 79 16 94 L 11/05/20 08:02 89 16 121/98 90 L 11/05/20 07:26 84 16 113/92 100 11/05/20 04:59 98.1 F 86 18 100/75 96 11/05/20 03:00 74 18 110/69 100 11/05/20 01:00 97.9 F 77 18 109/53 100 11/04/20 23:00 79 18 92/58 100 11/04/20 19:00 98.4 F 91 28 H 113/68 100 Intake and Output 11/04/20 11/05/20 11/05/20 22:59 06:59 14:59 Other: Weight 157.397 kg - Constitutional General appearance: no acute distress - Respiratory Respiratory: bilateral: diminished - Cardiovascular Rhythm: irregularly irregular Results 11/05/20 02:22 Cardiac Enzymes 11/05/20 11/05/20 Range/Units 02:12 05:31 Troponin I 0.020 0.021 (0.000-0.034) ng/mL Coagulation 11/05/20 Range/Units 02:22 PT 9.9 (9.0-12.0) sec APTT 19.6 L (22.0-30.0) sec CBC 11/05/20 Range/Units 02:22 WBC 9.1 (3.8-10.6) k/uL RBC 3.68 L (3.80-5.40) m/uL Hgb 12.4 (11.4-16.0) gm/dL Hct 38.4 (34.0-46.0) % Plt Count 288 (150-450) k/uL Current Medications Generic Name Dose Route Start Last Admin Trade Name Freq PRN Reason Stop Dose Admin Acetaminophen 650 mg 11/04/20 20:23 Acetaminophen Tab 325 Mg Tab PO Q6HR PRN Mild Pain or Fever > 100.5 Al Hydroxide/Mg Hydroxide 15 ml 11/04/20 20:23 Mag Hydrox/Al Hydrox/Simeth 30 Ml Cup PO Q6HR PRN Indigestion Albuterol Sulfate 2 puff 11/04/20 20:25 11/05/20 07:22 Albuterol Hfa Inhaler INHALATION 2 puff RT-QID PRN Administration Shortness Of Breath Apixaban 5 mg 11/04/20 21:00 11/05/20 08:16 Apixaban 5 Mg Tab PO 5 mg BID ONIEL Administration Atorvastatin Calcium 20 mg 11/04/20 21:00 11/05/20 01:29 Atorvastatin 20 Mg Tab PO 20 mg HS ONIEL Administration Cholecalciferol 25 mcg 11/05/20 09:00 11/05/20 08:19 Cholecalciferol 25 Mcg (1000 Iu) Tablet PO 25 mcg DAILY ONIEL Administration Furosemide 40 mg 11/05/20 09:00 11/05/20 08:17 Furosemide 40 Mg Tab PO 40 mg DAILY ONIEL Administration Gabapentin 300 mg 11/04/20 21:00 11/05/20 01:30 Gabapentin 300 Mg Cap PO 300 mg BID ONIEL Administration Levothyroxine Sodium 150 mcg 11/05/20 06:30 11/05/20 07:03 Levothyroxine 75 Mcg Tab PO 150 mcg DAILY@0630 ONIEL Administration Losartan Potassium 12.5 mg 11/05/20 09:00 11/05/20 08:17 Losartan 25 Mg Tab PO 12.5 mg DAILY ONIEL Administration Magnesium Oxide 400 mg 11/05/20 09:00 11/05/20 08:16 Magnesium Oxide 400 Mg Tab PO 400 mg DAILY ONIEL Administration Metoprolol Tartrate 100 mg 11/04/20 22:00 11/05/20 08:16 Metoprolol Tartrate 50 Mg Tab PO 100 mg TID ONIEL Administration Naloxone HCl 0.2 mg 11/04/20 20:23 Naloxone 0.4 Mg/Ml 1 Ml Vial IV Q2M PRN Opioid Reversal Ondansetron HCl 4 mg 11/04/20 20:23 Ondansetron 4 Mg/2 Ml Vial IVP Q8HR PRN Nausea And Vomiting Pantoprazole Sodium 40 mg 11/05/20 07:30 11/05/20 08:16 Pantoprazole 40 Mg Tablet PO 40 mg AC-BRKFST ONIEL Administration Prednisone 10 mg 11/06/20 09:00 Prednisone 10 Mg Tab PO 11/08/20 09:01 DAILY ONIEL Intake and Output 11/04/20 11/05/20 11/05/20 22:59 06:59 14:59 Other: Weight 157.397 kg 04/10/21 02:22 Assessment and Plan Assessment: Assessment #1 shortness of breath #2 chronic obstructive pulmonary disease #3 morbid obesity #4 atrial fibrillation was controlled heart rate #5 multiple comorbid conditions Plan #1 continue the current medical regimen #2 the patient is in A. fib with controlled heart rate #3 the patient is on oral anticoagulation #4 from the cardiac standpoint she can be discharged
[2020-11-05] MEDS ORDERED: IPRATROPIUM-ALBUTEROL 3 ML NEB INHALATION PRN (10:16)
--- NOTE | 2020-11-05 10:16 | P.CNPUL ---
History of Present Illness Consult date: 11/05/20 Requesting physician: Shelton Ledesma Reason for consult: dyspnea Chief complaint: Shortness of breath History of present illness: This is a pleasant morbidly obese 55-year-old female patient with a known history of obstructive sleep apnea, chronic obstructive pulmonary disease and reportedly has a Trilogy device, chronic diastolic congestive heart failure, diabetes mellitus, liver disease, chronic and ongoing tobacco dependence, atrial fibrillation and anticoagulated with Eliquis. She had recently moved here from [place] and has been admitted to this hospital 3 times since October 05, 2020 and the first time she was positive for CoVID 19. She was just discharged again on 10/31/2020 mainly for hypercapnic respiratory failure with altered mental status and diastolic congestive heart failure. She presented here again early this morning with worsening shortness of breath. Chest x-ray reveals cardiomegaly. Possible left suprahilar masslike area. Scattered nonspecific infiltrates correlate for atypical pneumonia. Ramos virus not detected. ProBNP 2220. Troponins negative 2. White count 9.1. Hemoglobin 12.4. MCV 104.4. Arterial blood gases on 40% FiO2 revealed a pO2 of 154, pCO2 102, pH 7.22. Is currently on the BiPAP 14/6 and 40% FiO2. This will be decreased to 3 5%. No IV fluids running currently. She is seen in the emergency room. Awake and alert in no acute distress. Breathing a bit easier while on the BiPAP. Initiated on bronchodilators. Still completing a prednisone taper from previous admission. She is anticoagulated with Eliquis. Oral diuretics. Review of Systems REVIEW OF SYSTEMS: CONSTITUTIONAL: Denies any recent significant weight loss or weight gain. EYES: Denies change in vision. EARS, NOSE, MOUTH, THROAT: Denies headaches, denies sore throat. CARDIOVASCULAR: Denies chest pain, palpitations or syncopal episodes. RESPIRATORY: Positive for shortness of breath, cough, congestion no hemoptysis. GASTROINTESTINAL: Denies change in appetite, denies abdominal pain GENITOURINARY: Denies hematuria, denies infections. MUSKULOSKELETAL: Denies pain, denies swelling. INTEGUMENTARY: Denies rash, denies eczema. NEUROLOGICAL: Denies recent memory loss, no recent seizure activity. PSYCHIATRIC: Denies anxiety, denies depression. HEMATOLOGIC/LYMPHATIC: Denies anemia, denies enlarged lymph nodes. Past Medical History Past Medical History: Chest Pain / Angina, COPD, Diabetes Mellitus, Liver Disease, Sleep Apnea/CPAP/BIPAP, Thyroid Disorder Additional Past Medical History / Comment(s): CHF, cpap at night, gout History of Any Multi-Drug Resistant Organisms: None Reported Past Surgical History: Section, Cholecystectomy Past Anesthesia/Blood Transfusion Reactions: No Reported Reaction Past Psychological History: No Psychological Hx Reported Smoking Status: Current every day smoker Past Alcohol Use History: None Reported Past Drug Use History: None Reported Medications and Allergies Home Medications Medication Instructions Recorded Confirmed Type Albuterol Sulfate [Ventolin HFA] 2 puff INHALATION RT-QID PRN #1 10/05/20 11/04/20 Rx inhaler Atorvastatin [Lipitor] 20 mg PO HS #30 tab 10/05/20 11/04/20 Rx Ipratropium-Albuterol Nebulize 3 ml INHALATION RT-QID #120 neb 10/05/20 11/04/20 Rx [Duoneb 0.5 mg-3 mg/3 ml Soln] Levothyroxine Sodium [Euthyrox] 150 mcg PO DAILY #30 tab 10/05/20 11/04/20 Rx Magnesium Oxide 400 mg PO DAILY #30 tab 10/05/20 11/04/20 Rx Omeprazole 40 mg PO DAILY #30 cap 10/05/20 11/04/20 Rx Ipratropium-Albuterol Nebulize 3 ml INHALATION RT-Q4H PRN 10/16/20 11/04/20 History [Duoneb 0.5 mg-3 mg/3 ml Soln] Ascorbic Acid [Vitamin C] 1,000 mg PO DAILY tab 10/19/20 11/04/20 Rx Budesonide-Formot 160-4.5 Mcg 2 puff INHALATION RT-BID #1 inh 10/19/20 11/04/20 Rx [Symbicort 160-4.5 Mcg Inhaler] Cholecalciferol [Vitamin D3 (25 25 mcg PO DAILY tablet 10/19/20 11/04/20 Rx Mcg = 1000 Iu)] Furosemide [Lasix] 40 mg PO DAILY #30 tablet 10/19/20 11/04/20 Rx Zinc Sulfate [Orazinc] 220 mg PO DAILY cap 10/19/20 11/04/20 Rx Apixaban [Eliquis] 5 mg PO BID #60 tab 10/21/20 11/04/20 Rx Insulin Glargine [Lantus] 50 unit SQ BID #1 vial 10/31/20 11/04/20 Rx Metoprolol Tartrate [Lopressor] 100 mg PO TID #180 tab 10/31/20 11/04/20 Rx Pantoprazole [Protonix] 40 mg PO AC-BRKFST #30 tablet. 10/31/20 11/04/20 Rx Butalb/Acetaminophen/Caffeine 1 cap PO TID PRN 11/04/20 11/04/20 History [Fioricet 50-300-40 mg Capsule] Losartan Potassium [Cozaar] 25 mg PO DAILY 11/04/20 11/04/20 History acetaZOLAMIDE [acetaZOLAMIDE ER] 500 mg PO DAILY 11/04/20 11/04/20 History metFORMIN HCL 500 mg PO DAILY 11/04/20 11/04/20 History predniSONE See Taper PO DIRECTED 11/04/20 11/04/20 History Allergies Allergy/AdvReac Type Severity Reaction Status Date / Time hydrocodone [From [place]] AdvReac Rash/Hives Verified 11/04/20 19:04 Physical Exam Vitals: Vital Signs Temp Pulse Resp BP Pulse Ox 11/05/20 08:19 79 16 94 L 11/05/20 08:02 89 16 121/98 90 L 11/05/20 07:26 84 16 113/92 100 11/05/20 04:59 98.1 F 86 18 100/75 96 11/05/20 03:00 74 18 110/69 100 11/05/20 01:00 97.9 F 77 18 109/53 100 11/04/20 23:00 79 18 92/58 100 11/04/20 19:00 98.4 F 91 28 H 113/68 100 Intake and Output 11/04/20 11/05/20 11/05/20 22:59 06:59 14:59 Other: Weight 157.397 kg GENERAL EXAM: Alert, morbidly obese 55-year-old female, on BiPAP 09/01 at 35% FiO2 comfortable in no apparent distress. HEAD: Normocephalic. EYES: Normal reaction of pupils, equal size. NOSE: Clear with pink turbinates. THROAT: Crowding of the posterior pharynx. No erythema or exudates. NECK: Short. No masses, no JVD. CHEST: No chest wall deformity. LUNGS: Equal air entry with few crackles in the posterior bases. CVS: S1 and S2 normal with no audible murmur, regular rhythm. ABDOMEN: Obese, unable to appreciate any organomegaly, normal bowel sounds, no guarding or rigidity. SPINE: No scoliosis or deformity SKIN: No rashes CENTRAL NERVOUS SYSTEM: No focal deficits, tone is normal in all 4 extremities. EXTREMITIES: Changes of chronic venous stasis. There is 1+ peripheral edema. No clubbing, no cyanosis. Peripheral pulses are intact. Results - Laboratory Findings CBC and BMP: 11/05/20 02:22 ABG ABG pH 7.22 (7.35-7.45) L 11/04/20 19:57 ABG pCO2 102 mmHg (35-45) H* 11/04/20 19:57 ABG pO2 154 mmHg (83-108) H 11/04/20 19:57 ABG O2 Saturation 98.9 % (94-97) H 11/04/20 19:57 PT/INR, D-dimer PT 9.9 sec (9.0-12.0) 11/05/20 02:22 INR 0.9 (<1.2) 11/05/20 02:22 Abnormal lab findings: Abnormal Labs 11/04/20 11/05/20 11/05/20 19:57 02:22 02:22 RBC 3.68 L MCV 104.4 H APTT 19.6 L ABG pH 7.22 L ABG pCO2 102 H* ABG pO2 154 H ABG HCO3 41 H* ABG Total CO2 45 H ABG O2 Saturation 98.9 H - Diagnostic Findings Chest x-ray: image reviewed Assessment and Plan Assessment: 1 Acute hypoxic/hypercapnic respiratory failure secondary to an acute ex acerbation of chronic diastolic congestive heart failure acute exacerbation of chronic obstructive pulmonary disease 2 Recent admission for acute hypoxemic/hypercapnic respiratory failure requiring intubation mechanical ventilatory support, during admission of 10/20/2020 through 10/31/2020 3 Recent admission for CoVID 19 pneumonia 4 Morbid obesity 5 Obstructive sleep apnea, pickwickian syndrome, obesity/hypoventilation syndrome, unclear of which device the patient has at home 6 History of atrial fibrillation with rapid ventricular response, anticoagulated with Eliquis 7 Chronic obstructive pulmonary disease normally wearing oxygen at home 8 Chronic diastolic congestive heart failure, previous echocardiogram revealed ejection fraction of 50-55% 9 Chronic and ongoing tobacco dependence Plan: The patient was seen and evaluated by Dr. Estrada Chest x-ray, ABGs and labs reviewed Decrease FiO2 35%. Continue BiPAP 14/6 Discontinue prednisone, initiate IV Solu-Medrol Discontinue oral lasix, initiate IV Lasix Follow-up chest x-ray in the a.m. May need subacute rehabilitation based on multiple admissions to the hospital/social situation We will continue to follow and make further recommendations based on her clinical status I, the cosigning physician, performed a history & physical examination of the patient. Lungs sounds crackles in the bilateral posterior bases. Maintaining good O2 saturations in the 90s on 35% FiO2 via the BiPAP 14/6. I discussed the assessment and plan of care with my nurse practitioner, Myla Fraser. I attest to the above consultation as dictated by her. Time with Patient: Greater than 30
[2020-11-05] MEDS ORDERED: BUTALB/APAP/CAFF 50-325-40MG TAB PO PRN (12:44)
[2020-11-05 13:12] LABS: Albumin 3.4 g/dL (3.5-5.0); Total Bilirubin 0.6 mg/dL (0.2-1.3); Total Protein 6.4 g/dL (6.3-8.2)
[2020-11-05 13:33] LABS: Magnesium 2.2 mg/dL (1.6-2.3); Potassium 4.9 mmol/L (3.5-5.1)
--- NOTE | 2020-11-05 14:59 | HP ---
HISTORY AND PHYSICAL DATE OF SERVICE: 11/05/2020 CHIEF COMPLAINT: Shortness of breath and acute respiratory failure. HISTORY OF PRESENT ILLNESS: This 55-year-old woman, being followed by Dr. Valencia in the outpatient setting, was recently admitted to [facility] with significant respiratory difficulties. The patient had acute hypoxic respiratory failure secondary to COVID-19 pneumonia and as well as some diastolic CHF exacerbation. Patient improved significantly. The patient went home and currently the patient was admitted with significant shortness of breath and the patient was found in cardiac failure. A chest x-ray was done which showed significant CHF and the patient was admitted for further evaluation and treatment. The patient was started on BiPAP also. Multiple consultants including Dr. Estrada is also following the patient closely. PAST MEDICAL HISTORY: Reviewed. History of recent COVID-19 as mentioned earlier, COPD, diabetes mellitus type 2, liver disease, hypothyroidism, CHF. MEDICATIONS: Home medications prior to admission include Cozaar, prednisone, Protonix, omeprazole, zinc oxide, Lopressor, magnesium oxide, levothyroxine, Lantus, Lasix, other medication. Doses are reviewed. ALLERGIES: [place]CO. FAMILY HISTORY: No history of heart disease or strokes in the family. SOCIAL HISTORY: History of smoking. No history of alcohol. REVIEW OF SYSTEMS: ENT: No diminished vision or hearing. CARDIOVASCULAR: No angina or palpitations. RESPIRATORY: As mentioned earlier. GI: No nausea or vomiting. : No dysuria. NERVOUS SYSTEM: No numbness or weakness. ALLERGY/IMMUNOLOGY: No asthma or hayfever. MUSCULOSKELETAL: As mentioned earlier. HEMATOLOGY: No history of anemia. ENDOCRINE: As mentioned earlier. CONSTITUTIONAL: As mentioned earlier. DERMATOLOGY: Negative. RHEUMATOLOGY: Negative. PSYCHIATRY: As mentioned earlier. PHYSICAL EXAMINATION: GENERAL: Patient is alert and oriented times three. VITAL SIGNS: Pulse 90, blood pressure 106/71, respirations 20, temperature normal, pulse ox 92% on 3 liters. HEENT: Conjunctivae normal. NECK: No jugular venous distention. No carotid bruits. No lymph node enlargement. RESPIRATORY: Breath sounds diminished at the bases. No rhonchi, no crackles. HEART: S1 and S2, muffled. ABDOMEN: Soft, no tenderness. No masses palpable. EXTREMITIES: No edema, no swelling. NERVOUS: Higher functions as mentioned earlier. Moves all four limbs. No focal motor or sensory deficits. LYMPHATICS: No lymph nodes palpable in the neck or axillae. SKIN: No rashes. JOINTS: No active deforming arthropathy. LAB STUDIES: WBC 9, hemoglobin 12.4. ABGs noted. ASSESSMENT: 1. Shortness of breath, possibly multifactorial, congestive heart failure acute exacerbation, acute on chronic diastolic dysfunction, and chronic obstructive pulmonary disease acute exacerbation with acute hypoxic hypercarbic respiratory failure. 2. Recent COVID-19 infection. 3. History of chronic obstructive pulmonary disease. 4. Diabetes mellitus type 2. 5. History of liver disease. 6. Sleep apnea. 7. Hypothyroidism history. 8. History of congestive heart failure .. 9. History of gout. 10.History of cholecystectomy. 11.History of continued ongoing nicotine dependence. 12.Super morbid obesity BMI 59.6. 13.FULL CODE. RECOMMENDATIONS AND DISCUSSION: In this 55-year-old woman who presented with multiple complex medical issues, we will monitor the patient closely. Continue the current medications, continue symptomatic treatment. Recommend a course of IV steroids, bronchodilators. Continue to monitor. COVID-19 is negative. NT proBNP is elevated. I would also recommend Cardiology consultation and recommend IV Lasix. Prognosis is extremely guarded because of multiple complex medical conditions. Further recommendations to follow. I would also recommend a D-dimer and if it is possible a CT angio also. MMODL / IJN: [id number] /
[2020-11-05] MEDS: methylPREDNISolone SOD SUCCI 125 MG/2 ML VIAL IV SCH ×2 (15:33→20:59)
[2020-11-05] MEDS ORDERED: ALBUTEROL HFA INHALER INHALATION PRN (15:57)
[2020-11-05] MEDS: ALBUTEROL HFA INHALER INHALATION SCH ×2 (16:22→19:10)
[2020-11-05] MEDS: SYMBICORT 160-4.5 MCG INHALER INHALATION SCH (19:10)
[2020-11-05] MEDS ORDERED: BUDESONIDE 1 MG/2 ML NEBU INHALATION SCH (20:00)
[2020-11-05] MEDS ORDERED: FORMOTEROL FUMARATE 20 MCG/2 ML NEBU INHALATION SCH (20:00)
[2020-11-05 20:55] LABS: Glucose,Whole Blood 431 mg/dL (75-99)
[2020-11-05] MEDS: FUROSEMIDE 10 MG/ML 4 ML VIAL IV SCH (21:08)
[2020-11-05] MEDS: INSULIN ASPART (NovoLOG) 100 UNIT/ML VIAL SQ SCH (21:28)
[2020-11-06 00:16] LABS: Glucose,Whole Blood 356 mg/dL (75-99)
[2020-11-06] MEDS: methylPREDNISolone SOD SUCCI 125 MG/2 ML VIAL IV SCH ×5 (00:30→23:22)
[2020-11-06] MEDS: LEVOTHYROXINE 75 MCG TAB PO SCH (05:00)
[2020-11-06 05:50] LABS: Glucose,Whole Blood 212 mg/dL (75-99)
[2020-11-06] MEDS: PANTOPRAZOLE 40 MG TABLET PO SCH (06:32)
[2020-11-06] MEDS: INSULIN ASPART (NovoLOG) 100 UNIT/ML VIAL SQ SCH ×4 (06:33→21:10)
[2020-11-06 08:34] LABS: Basophils % (A) 0 %; Eosinophils % (A) 0 %; HCT 39.8 % (34.0-46.0); HGB 12.9 gm/dL (11.4-16.0); Hypochromasia Slight; Lymphocytes # (A) 1.1 k/uL (1.0-4.8); Lymphocytes % (A) 11 %; MCH 33.4 pg (25.0-35.0); MCHC 32.3 g/dL (31.0-37.0); MCV 103.6 fL (80.0-100.0); Macrocytosis Slight; Mean Platelet Volume 8.1; Monocytes # (A) 0.4 k/uL (0-1.0); Monocytes % (A) 4 %; Neutrophils # (A) 8.7 k/uL (1.3-7.7); Neutrophils % (A) 84 %; Platelet Count 278 k/uL (150-450); RBC 3.84 m/uL (3.80-5.40); RDW 13.2 % (11.5-15.5); WBC 10.4 k/uL (3.8-10.6)
[2020-11-06 08:53] LABS: Calcium 9.1 mg/dL (8.4-10.2); Potassium 4.8 mmol/L (3.5-5.1)
[2020-11-06] MEDS: APIXABAN 5 MG TAB PO SCH ×2 (08:55→20:17)
[2020-11-06] MEDS: LOSARTAN 25 MG TAB PO SCH (08:55)
[2020-11-06] MEDS: FUROSEMIDE 10 MG/ML 4 ML VIAL IV SCH ×2 (08:56→20:17)
[2020-11-06] MEDS: CHOLECALCIFEROL 25 MCG (1000 IU) TABLET PO SCH (08:56)
[2020-11-06] MEDS: metFORMIN 500 MG TAB PO SCH (08:56)
[2020-11-06] MEDS: ZINC SULFATE 220 MG CAP PO SCH (08:56)
[2020-11-06] MEDS: MAGNESIUM OXIDE 400 MG TAB PO SCH (08:56)
[2020-11-06] MEDS: ASCORBIC ACID 500 MG TAB PO SCH (08:56)
[2020-11-06] MEDS: GABAPENTIN 300 MG CAP PO SCH ×2 (08:56→20:17)
[2020-11-06] MEDS: METOPROLOL TARTRATE 50 MG TAB PO SCH ×3 (08:56→20:17)
[2020-11-06] MEDS: PATIENT'S OWN (Acetazolamide [Acetazolamide Er] 500 MG Capsule.Er) PO SCH (08:57)
[2020-11-06] MEDS ORDERED: NON FORMULARY DRUG (Omeprazole [Omeprazole] 40 MG Capsule.Dr) PO SCH (09:00)
[2020-11-06] MEDS ORDERED: predniSONE 10 MG TAB PO SCH (09:00)
--- NOTE | 2020-11-06 10:08 | P.PN ---
Subjective Progress Note Date: 11/06/20 This is a 55-year-old female with documented history of COPD, on home O2, persistent atrial fibrillation, morbid obesity, hypertension, diabetes, liver disease, hyperlipidemia, nicotine dependence, obstructive sleep apnea for which the patient uses CPAP at night. Patient recently moved here from [place], has been admitted 3 times since October 05, first time she was positive for cocaine 19. She presented to the hospital with symptoms of progressively worsening shortness of breath. The patient was seen in consultation yesterday by Dr. Reyes. She was seen and examined this morning, continues to feel short of breath at times. Blood pressure 98/60, heart rate in the 80s, 91% on 3 L. Temperature 99.0 this morning. White blood cell count 10.4, hemoglobin 12.9, platelet count 278. Sodium 140, potassium 4.8, BUN 51, creatinine 0.9. Objective - Vital Signs Vital signs: Vital Signs Temp 99 F 11/06/20 08:52 Pulse 88 11/06/20 08:52 Resp 18 11/06/20 08:52 BP 98/65 11/06/20 08:52 Pulse Ox 91 L 11/06/20 08:52 Intake & Output 11/05/20 11/06/20 11/06/20 18:59 06:59 18:59 Intake Total 120 240 Output Total 675 Balance -555 240 Weight 161.5 kg Intake: Oral 120 240 Output: Urine 675 Other: Voiding Method External Catheter - Exam PHYSICAL EXAMINATION: GENERAL: 55-year-old female in no acute distress at the time of my examination HEENT: Head is atraumatic, normocephalic. Pupils equal, round. Sclera anicteric. Conjunctiva are clear. Mucous membranes of the mouth are moist. Neck is supple. There is no elevated jugular venous pressure. No carotid bruit is heard. HEART EXAMINATION: Heart S1 and S2 irregularly irregular CHEST EXAMINATION: Lungs are clear with crackles heard at the bases . No chest wall tenderness is noted on palpation or with deep breathing. ABDOMEN: [ Soft, obese, nontender. Bowel sounds are heard. EXTREMITIES: 2+ peripheral pulses with 1+ evidence of peripheral edema , evidence of chronic venous stasis . NEUROLOGIC patient is awake, alert and oriented 3 . . - Labs CBC & Chem 7: 11/06/20 08:04 11/06/20 08:04 Labs: Abnormal Lab Results - Last 24 Hours (Table) 11/05/20 11/05/20 11/05/20 Range/Units 04:34 14:12 20:54 MCV (80.0-100.0) fL Neutrophils # (1.3-7.7) k/uL D-Dimer 0.64 H (<0.60) mg/L FEU Chloride 95 L (98-107) mmol/L Carbon Dioxide 40 H (22-30) mmol/L BUN 54 H (7-17) mg/dL Glucose 144 H (74-99) mg/dL POC Glucose (mg/dL) 431 H (75-99) mg/dL AST 54 H (14-36) U/L ALT 215 H (4-34) U/L Albumin 3.4 L (3.5-5.0) g/dL 11/06/20 11/06/20 11/06/20 Range/Units 00:15 05:48 08:04 MCV 103.6 H (80.0-100.0) fL Neutrophils # 8.7 H (1.3-7.7) k/uL D-Dimer (<0.60) mg/L FEU Chloride (98-107) mmol/L Carbon Dioxide (22-30) mmol/L BUN (7-17) mg/dL Glucose (74-99) mg/dL POC Glucose (mg/dL) 356 H 212 H (75-99) mg/dL AST (14-36) U/L ALT (4-34) U/L Albumin (3.5-5.0) g/dL 11/06/20 Range/Units 08:04 MCV (80.0-100.0) fL Neutrophils # (1.3-7.7) k/uL D-Dimer (<0.60) mg/L FEU Chloride 92 L (98-107) mmol/L Carbon Dioxide 41 H* (22-30) mmol/L BUN 51 H (7-17) mg/dL Glucose 174 H (74-99) mg/dL POC Glucose (mg/dL) (75-99) mg/dL AST (14-36) U/L ALT (4-34) U/L Albumin (3.5-5.0) g/dL Assessment and Plan Plan: Assessment and plan #1 shortness of breath with evidence of acute hypoxic respiratory failure, secondary to COPD exacerbation #2 recent admission for Covid 19 pneumonia #3 morbid obesity #4 obstructive sleep apnea, pickwickian syndrome #5 persistent atrial fibrillation, anticoagulated with Eliquis #6 COPD, home O2 #7 chronic diastolic congestive heart failure with a documented ejection fraction of 50-55% #8 nicotine dependence Plan From cardiology's perspective, we will recommend to continue the patient on her current medication regime. Resume oral Lasix at 40 mg one tablet by mouth twice a day if okay with pulmonary. Further recommendations to follow. DNP note has been reviewed, I agree with a documented findings and plan of care. Patient was seen and examined.
[2020-11-06] MEDS: ALBUTEROL HFA INHALER INHALATION SCH ×4 (10:26→20:35)
[2020-11-06] MEDS: SYMBICORT 160-4.5 MCG INHALER INHALATION SCH ×2 (10:27→20:36)
[2020-11-06] MEDS: TIOTROPIUM 2.5 MCG INHALER INHALATION SCH (10:32)
[2020-11-06 12:09] LABS: Glucose,Whole Blood 141 mg/dL (75-99)
--- NOTE | 2020-11-06 14:12 | PN ---
PROGRESS NOTE DATE OF SERVICE: 11/06/2020 INTERVAL HISTORY: This 55-year-old woman was admitted with shortness of breath is mostly CHF acute exacerbation. Patient has COPD exacerbation. Patient also has sleep apnea. Also patient has hypoxic hypercarbic respiratory failure. CO2 is elevated. The patient was recently admitted to hospital with prolonged course of COVID-19 infection. Patient has very poor social support at this time. Patient is not using CPAP at home. PAST MEDICAL HISTORY: Reviewed. REVIEW OF SYSTEMS: CARDIOVASCULAR: No angina. RESPIRATORY: No cough. GI: As mentioned earlier. : No dysuria. NERVOUS SYSTEM: No numbness or weakness. MEDICATIONS: Reviewed include Tylenol, Fioricet, Maalox, Ventolin, Eliquis, vitamins, Lipitor. Doses are reviewed. PHYSICAL EXAMINATION: GENERAL: Patient is alert and oriented times three. VITAL SIGNS: Pulse 87, blood pressure n, respirations 18, temperature 97.7, pulse ox 90% on 3 liters. HEENT: Conjunctivae normal. NECK: No jugular venous distention. No carotid bruits. RESPIRATORY: Breath sounds diminished at the bases. A few scattered rhonchi and crackles. HEART: S1 and S2, muffled. ABDOMEN: Soft, no tenderness. No masses palpable. EXTREMITIES: No edema, no swelling. NERVOUS: No focal deficits. LABS: At this time shows WBC 10.4 and sodium 140, potassium 4.8, BUN is 15, creatinine 0.95. ASSESSMENT: 1. Shortness of breath possibly multifactorial, congestive heart failure acute exacerbation, acute on chronic diastolic dysfunction, chronic obstructive pulmonary disease acute exacerbation, acute hypoxic respiratory failure. 2. Recent COVID-19 infection. 3. History of chronic obstructive pulmonary disease. 4. History of possible sleep apnea. 5. Diabetes mellitus type 2. 6. History of liver disease. 7. History of hypothyroidism. 8. History of congestive heart failure .. 9. History of gout. 10.History of cholecystectomy. 11.Gait dysfunction. 12.History of continued ongoing nicotine dependence. 13.Super morbid obesity BMI 59.6. 14.FULL CODE. RECOMMENDATIONS AND DISCUSSION: In this 55-year-old woman who presented with multiple complex medical issues, we will monitor the patient closely. Continue the current medications, continue with aggressive bronchodilators. The patient is on apixaban. Recommend to continue the Lasix IV at this time and as well as steroids. Monitor blood sugars closely. PT/OT evaluation. I would also recommend possibly ECF rehab also at this time because of multiple complex medical issues and repeated hospital admissions. Overall prognosis extremely guarded in this morbidly obese individual with multiple comorbidities with recent COVID-19 infection. Further recommendations to follow. MMODL / IJN: [id number] / MTDD
--- NOTE | 2020-11-06 16:53 | P.PN ---
Subjective Progress Note Date: 11/06/20 This is a pleasant morbidly obese 55-year-old female patient with a known history of obstructive sleep apnea, chronic obstructive pulmonary disease and reportedly has a Trilogy device, chronic diastolic congestive heart failure, diabetes mellitus, liver disease, chronic and ongoing tobacco dependence, atrial fibrillation and anticoagulated with Eliquis. She had recently moved here from [place] and has been admitted to this hospital 3 times since October 05, 2020 and the first time she was positive for CoVID 19. She was just discharged again on 10/31/2020 mainly for hypercapnic respiratory failure with altered mental status and diastolic congestive heart failure. She presented here again early this morning with worsening shortness of breath. Chest x-ray reveals cardiomegaly. Possible left suprahilar masslike area. Scattered nonspecific infiltrates correlate for atypical pneumonia. Ramos virus not detected. ProBNP 2220. Troponins negative 2. White count 9.1. Hemoglobin 12.4. MCV 104.4. Arterial blood gases on 40% FiO2 revealed a pO2 of 154, pCO2 102, pH 7.22. Is currently on the BiPAP 14/6 and 40% FiO2. This will be decreased to 35%. No IV fluids running currently. She is seen in the emergency room. Awake and alert in no acute distress. Breathing a bit easier while on the BiPAP. Initiated on bronchodilators. Still completing a prednisone taper from previous admission. She is anticoagulated with Eliquis. Oral diuretics. The patient is seen today 11/06/2020 in follow-up on the selective care unit. She is currently sitting up in a chair at the bedside. Awake and alert in no acute distress. Oriented 3. She is currently maintaining O2 saturations in the 90s on 3 L/m per nasal cannula. Utilizing BiPAP at nighttime and during the day while napping. White count 10.4. Hemoglobin 12.9. Leukocytes 1.1. Sodium 140. Potassium 4.8. Bicarb 41. Creatinine 0.95. She remains on Symbicort, Spiriva, IV Solu-Medrol. Remains on IV diuretics. Anticoagulated with Eliquis. Objective - Vital Signs Vital signs: Vital Signs Temp 97.7 F 11/06/20 16:00 Pulse 82 11/06/20 16:00 Resp 20 11/06/20 16:00 BP 91/55 11/06/20 16:00 Pulse Ox 91 L 11/06/20 16:00 Intake & Output 11/05/20 11/06/20 11/06/20 18:59 06:59 18:59 Intake Total 120 840 Output Total 675 Balance -555 840 Weight 161.5 kg Intake: Oral 120 840 Output: Urine 675 Other: Voiding Method External Catheter External Catheter # Bowel Movements 1 - Exam GENERAL EXAM: Alert, morbidly obese 55-year-old female, on 3 L nasal cannula, alternating with BiPAP 14/6 at 35% FiO2, comfortable in no apparent distress. HEAD: Normocephalic. EYES: Normal reaction of pupils, equal size. NOSE: Clear with pink turbinates. THROAT: Crowding of the posterior pharynx. No erythema or exudates. NECK: Short. No masses, no JVD. CHEST: No chest wall deformity. LUNGS: Equal air entry with few crackles in the posterior bases. CVS: S1 and S2 normal with no audible murmur, regular rhythm. ABDOMEN: Obese, unable to appreciate any organomegaly, normal bowel sounds, no guarding or rigidity. SPINE: No scoliosis or deformity SKIN: No rashes CENTRAL NERVOUS SYSTEM: No focal deficits, tone is normal in all 4 extremities. EXTREMITIES: Changes of chronic venous stasis. There is 1+ peripheral edema. No clubbing, no cyanosis. Peripheral pulses are intact. - Labs CBC & Chem 7: 11/06/20 08:04 11/06/20 08:04 Labs: Abnormal Lab Results - Last 24 Hours (Table) 11/05/20 11/06/20 11/06/20 Range/Units 20:54 00:15 05:48 MCV (80.0-100.0) fL Neutrophils # (1.3-7.7) k/uL Chloride (98-107) mmol/L Carbon Dioxide (22-30) mmol/L BUN (7-17) mg/dL Glucose (74-99) mg/dL POC Glucose (mg/dL) 431 H 356 H 212 H (75-99) mg/dL 11/06/20 11/06/20 11/06/20 Range/Units 08:04 08:04 12:00 MCV 103.6 H (80.0-100.0) fL Neutrophils # 8.7 H (1.3-7.7) k/uL Chloride 92 L (98-107) mmol/L Carbon Dioxide 41 H* (22-30) mmol/L BUN 51 H (7-17) mg/dL Glucose 174 H (74-99) mg/dL POC Glucose (mg/dL) 141 H (75-99) mg/dL Assessment and Plan Assessment: 1 Acute hypoxic/hypercapnic respiratory failure secondary to an acute exacerbation of chronic diastolic congestive heart failure acute exacerbation of chronic obstructive pulmonary disease 2 Recent admission for acute hypoxemic/hypercapnic respiratory failure requiring intubation mechanical ventilatory support, during admission of 10/20/2020 through 10/31/2020 3 Recent admission for CoVID 19 pneumonia 4 Morbid obesity 5 Obstructive sleep apnea, pickwickian syndrome, obesity/hypoventilation syndrome, unclear of which device the patient has at home 6 History of atrial fibrillation with rapid ventricular response, anticoagulated with Eliquis 7 Chronic obstructive pulmonary disease normally wearing oxygen at home 8 Chronic diastolic congestive heart failure, previous echocardiogram revealed ejection fraction of 50-55% 9 Chronic and ongoing tobacco dependence Plan: The patient was seen and evaluated by Dr. Estrada Improving currently on 3 L nasal cannula Remains on IV Solu-Medrol, bronchodilators, IV diuretics Up in a chair at the bedside. May need subacute rehabilitation based on multiple admissions to the hospital/social situation We will continue to follow and make further recommendations based on her clinical status I, the cosigning physician, performed a history & physical examination of the patient. Lungs sounds crackles in the bilateral posterior bases. Maintaining good O2 saturations in the 90s on 3 L/m per nasal cannula alternating with 35% FiO2 via the BiPAP 09/01. I discussed the assessment and plan of care with my nurse practitioner, Myla Fraser. I attest to the above note as dictated by her.
[2020-11-06 17:06] LABS: Glucose,Whole Blood 343 mg/dL (75-99)
[2020-11-06] MEDS: ATORVASTATIN 20 MG TAB PO SCH (20:17)
[2020-11-06 21:01] LABS: Glucose,Whole Blood 450 mg/dL (75-99)
[2020-11-06 21:51] VITALS: RESP 18
[2020-11-07] MEDS: LEVOTHYROXINE 75 MCG TAB PO SCH (05:16)
[2020-11-07] MEDS: PANTOPRAZOLE 40 MG TABLET PO SCH (05:16)
[2020-11-07] MEDS: methylPREDNISolone SOD SUCCI 125 MG/2 ML VIAL IV SCH (05:17)
[2020-11-07] MEDS: INSULIN ASPART (NovoLOG) 100 UNIT/ML VIAL SQ SCH ×4 (06:34→21:11)
[2020-11-07 06:43] LABS: Glucose,Whole Blood 223 mg/dL (75-99)
[2020-11-07] MEDS: PATIENT'S OWN (Acetazolamide [Acetazolamide Er] 500 MG Capsule.Er) PO SCH (09:04)
[2020-11-07] MEDS: ASCORBIC ACID 500 MG TAB PO SCH (09:08)
[2020-11-07] MEDS: CHOLECALCIFEROL 25 MCG (1000 IU) TABLET PO SCH (09:08)
[2020-11-07] MEDS: GABAPENTIN 300 MG CAP PO SCH ×2 (09:08→20:55)
[2020-11-07] MEDS: METOPROLOL TARTRATE 50 MG TAB PO SCH ×3 (09:08→20:55)
[2020-11-07] MEDS: metFORMIN 500 MG TAB PO SCH (09:09)
[2020-11-07] MEDS: MAGNESIUM OXIDE 400 MG TAB PO SCH (09:09)
[2020-11-07] MEDS: APIXABAN 5 MG TAB PO SCH ×2 (09:09→20:55)
[2020-11-07] MEDS: ZINC SULFATE 220 MG CAP PO SCH (09:09)
[2020-11-07] MEDS: FUROSEMIDE 10 MG/ML 4 ML VIAL IV SCH ×2 (09:09→20:55)
[2020-11-07] MEDS: SYMBICORT 160-4.5 MCG INHALER INHALATION SCH ×2 (09:10→19:27)
[2020-11-07] MEDS: ALBUTEROL HFA INHALER INHALATION SCH ×4 (09:10→19:27)
--- NOTE | 2020-11-07 10:27 | P.PN ---
Subjective Progress Note Date: 11/07/20 This is a pleasant morbidly obese 55-year-old female patient with a known history of obstructive sleep apnea, chronic obstructive pulmonary disease and reportedly has a Trilogy device, chronic diastolic congestive heart failure, diabetes mellitus, liver disease, chronic and ongoing tobacco dependence, atrial fibrillation and anticoagulated with Eliquis. She had recently moved here from [place] and has been admitted to this hospital 3 times since October 05, 2020 and the first time she was positive for CoVID 19. She was just discharged again on 10/31/2020 mainly for hypercapnic respiratory failure with altered mental status and diastolic congestive heart failure. She presented here again early this morning with worsening shortness of breath. Chest x-ray reveals cardiomegaly. Possible left suprahilar masslike area. Scattered nonspecific infiltrates correlate for atypical pneumonia. Ramos virus not detected. ProBNP 2220. Troponins negative 2. White count 9.1. Hemoglobin 12.4. MCV 104.4. Arterial blood gases on 40% FiO2 revealed a pO2 of 154, pCO2 102, pH 7.22. Is currently on the BiPAP 14/6 and 40% FiO2. This will be decreased to 35%. No IV fluids running currently. She is seen in the emergency room. Awake and alert in no acute distress. Breathing a bit easier while on the BiPAP. Initiated on bronchodilators. Still completing a prednisone taper from previous admission. She is anticoagulated with Eliquis. Oral diuretics. The patient is seen today 11/06/2020 in follow-up on the selective care unit. She is currently sitting up in a chair at the bedside. Awake and alert in no acute distress. Oriented 3. She is currently maintaining O2 saturations in the 90s on 3 L/m per nasal cannula. Utilizing BiPAP at nighttime and during the day while napping. White count 10.4. Hemoglobin 12.9. Leukocytes 1.1. Sodium 140. Potassium 4.8. Bicarb 41. Creatinine 0.95. She remains on Symbicort, Spiriva, IV Solu-Medrol. Remains on IV diuretics. Anticoagulated with Eliquis. 11/07/2020 the patient is being seen for a follow-up. The patient is currently on 3 L about 2 by nasal cannula. The patient remains on a combination of Spiriva and Symbicort and the patient is also on IV Solu Medrol and the patient is also being diuresis with IV Lasix. Doing well. The patient's serum blood sugar has been quite elevated related to steroid intake and the patient is currently on sliding scale coverage. The patient is on Eliquis 5 mg by mouth twice a day. Rest of the home medications are all resumed. The patient remains on Lasix 40 mg IV every 12 hours. His blood sugar continues to be quite elevated and the patient has to be back on insulin and she takes Lantus insulin at home along with metformin. Otherwise, the patient remains on diuretics. The patient remains on IV Solu-Medrol. The patient continues to have edema lower extremities bilaterally. She is still on Lasix. Oxygen is at 3 L and the patient or the BiPAP overnight at a pressure of 14/6 cm of water with an FiO2 of 30 percent Objective - Vital Signs Vital signs: Vital Signs Temp 98.0 F 11/07/20 03:47 Pulse 98 11/07/20 03:47 Resp 18 11/07/20 03:48 BP 121/86 11/07/20 03:47 Pulse Ox 93 L 11/07/20 03:48 Intake & Output 11/06/20 11/07/20 11/07/20 18:59 06:59 18:59 Intake Total 1080 10 240 Output Total 450 1250 Balance 630 -1240 240 Weight 162 kg Intake: IV 10 0.9 10 Oral 1080 240 Output: Urine 450 1250 Other: Voiding Method External Catheter External Catheter # Voids 1 # Bowel Movements 1 1 - Exam GENERAL EXAM: Alert, morbidly obese 55-year-old female, on 3 L nasal cannula, alternating with BiPAP 14/6 at 35% FiO2, comfortable in no apparent distress. HEAD: Normocephalic. EYES: Normal reaction of pupils, equal size. NOSE: Clear with pink turbinates. THROAT: Crowding of the posterior pharynx. No erythema or exudates. NECK: Short. No masses, no JVD. CHEST: No chest wall deformity. LUNGS: Equal air entry with few crackles in the posterior bases. CVS: S1 and S2 normal with no audible murmur, regular rhythm. ABDOMEN: Obese, unable to appreciate any organomegaly, normal bowel sounds, no guarding or rigidity. SPINE: No scoliosis or deformity SKIN: No rashes CENTRAL NERVOUS SYSTEM: No focal deficits, tone is normal in all 4 extremities. EXTREMITIES: Changes of chronic venous stasis. There is 1+ peripheral edema. No clubbing, no cyanosis. Peripheral pulses are intact. - Labs CBC & Chem 7: 11/06/20 08:04 11/06/20 08:04 Labs: Abnormal Lab Results - Last 24 Hours (Table) 11/06/20 11/06/20 11/06/20 Range/Units 12:00 16:53 20:59 POC Glucose (mg/dL) 141 H 343 H 450 H (75-99) mg/dL 11/07/20 Range/Units 06:29 POC Glucose (mg/dL) 223 H (75-99) mg/dL Assessment and Plan Plan: 1 Acute hypoxic/hypercapnic respiratory failure secondary to an acute exacerbation of chronic diastolic congestive heart failure acute exacerbation of chronic obstructive pulmonary disease, currently on Lasix for a negative every 12 hours. 2 Recent admission for acute hypoxemic/hypercapnic respiratory failure requiring intubation mechanical ventilatory support, during admission of 10/20/2020 through 10/31/2020 3 Recent admission for CoVID 19 pneumonia 4 Morbid obesity 5 Obstructive sleep apnea, pickwickian syndrome, obesity/hypoventilation syndrome, unclear of which device the patient has at home 6 History of atrial fibrillation with rapid ventricular response, anticoagulated with Eliquis 7 Chronic obstructive pulmonary disease normally wearing oxygen at home 8 Chronic diastolic congestive heart failure, previous echocardiogram revealed ejection fraction of 50-55% 9 Chronic and ongoing tobacco dependence 10 diabetes mellitus. His hyperglycemia Plan: Improving currently on 3 L nasal cannula The IV Solu-Medrol and put the patient prednisone burst taper starting with 40 mg Start the patient 20 units of Lantus insulin along with a slight scale coverage Continue IV Lasix with 40 mg every 12 hours Continue Symbicort Monitor fluid balance Monitor electrolytes Up in a chair at the bedside. The patient has a trilogy ventilator at home. May need subacute rehabilitation based on multiple admissions to the hospital/social situation We will continue to follow and make further recommendations based on her clinical status Critically care services we'll sign off.
[2020-11-07] MEDS ORDERED: INSULIN DETEMIR (LEVEMIR) 100 UNIT/ML SYR SQ SCH (10:45)
[2020-11-07 11:31] LABS: Glucose,Whole Blood 367 mg/dL (75-99)
--- NOTE | 2020-11-07 16:36 | P.PN ---
Subjective Progress Note Date: 11/07/20 This is a 55-year-old female with multiple recent hospital admissions. since her move here from [place] with past medical history of chronic hypoxic and hypercapnic respiratory failure,Covid-19 pneumonia, COPD, chronic diastolic CHF,A. fib with RVR, diabetes mellitus , ongoing nicotine dependence and multiple other medical issues. This visit patient returns as she is unable to perform ADLs, shortness of breath. Patient is maintaining O2 sats in the 90s on 3 L nasal cannula, on nebulized bronchodilators, IV steroids and IV push Lasix. Hyperglycemic. Anticoagulated on Eliquis. T-max 99. Objective - Vital Signs Vital signs: Vital Signs Temp 99.1 F 11/07/20 08:00 Pulse 87 11/07/20 12:00 Resp 18 11/07/20 12:00 BP 119/69 11/07/20 12:00 Pulse Ox 92 L 11/07/20 12:00 Intake & Output 11/06/20 11/07/20 11/07/20 18:59 06:59 18:59 Intake Total 1080 10 480 Output Total 450 1250 Balance 630 -1240 480 Weight 162 kg Intake: IV 10 0.9 10 Oral 1080 480 Output: Urine 450 1250 Other: Voiding Method External Catheter External Catheter # Voids 1 # Bowel Movements 1 1 - Exam - Exam VITAL SIGNS: As above GENERAL: Obese, Sitting up in bed,NAD, wearing 4-5 L nasal cannula HEENT: Atraumatic, normocephalic, pupils equal, conjunctiva normal, CARDIOVASCULAR: Regular S1 and S2, no murmurs, no rubs RESPIRATION: Diminished with occasional bibasilar crackles EXTREMITIES: Chronic venous stasis. Positive edema. NERVOUS SYSTEM: Alert and oriented 3 - Labs CBC & Chem 7: 11/06/20 08:04 11/06/20 08:04 Labs: Abnormal Lab Results - Last 24 Hours (Table) 11/06/20 11/06/20 11/07/20 Range/Units 16:53 20:59 06:29 POC Glucose (mg/dL) 343 H 450 H 223 H (75-99) mg/dL 11/07/20 Range/Units 11:29 POC Glucose (mg/dL) 367 H (75-99) mg/dL Assessment and Plan Assessment: Acute on chronic hypoxic and hypercapnic respiratory failure, secondary to acute CHF exacerbation, acute COPD exacerbation. Wears O2 at home Recent hospitalization with acute hypoxic, hypercapnic respiratory failure with A. fib with RVR, requiring intubation 10/20-10/31/20. Recent covid-Pneumonia hospitalization 10/16/20 through 10/19/2020. History of Paroxysmal A-flutter, fib with RVR, suspect possibly chronic secondary to hypoxia Chronic diastolic CHF, NYHA class III, EF 50-55 % Obstructive sleep apnea on CPAP, noncompliant Diabetes mellitus type 2, hyperglycemic, multifactorial including steroid- induced hypothyroidism hypertension ongoing nicotine dependence. morbid obesity, BMI 62.3 Medical debility, generalized weakness, unable to perform ADLs, requiring assistance Plan: Continue on current medication regime ,monitoring and symptomatic treatment. Maintain diuretics, nebulized bronchodilators, Symbicort. IV steroids converted to oral. Levemir insulin twice a day with close monitoring of Accu-Cheks. PT/OT evaluated recommending subacute rehab. Social work assisting with subacute rehab placement. Patient will be discharged to subacute rehab pending final DC recommendations and clearance from pulmonary, pending patient transitioned to oral diuretics. The impression and plan of care has been dictated as directed. : I performed a history and examination of this patient, discussed the same with the dictator. I agree with the dictator's note ,documented as a scribe. Any additional findings or plans will be noted.
[2020-11-07 17:07] LABS: Glucose,Whole Blood 265 mg/dL (75-99)
[2020-11-07] MEDS: TIOTROPIUM 2.5 MCG INHALER INHALATION SCH (18:32)
[2020-11-07] MEDS: ATORVASTATIN 20 MG TAB PO SCH (20:55)
[2020-11-07] MEDS: INSULIN DETEMIR (LEVEMIR) 100 UNIT/ML SYR SQ SCH (20:56)
[2020-11-07 20:57] LABS: Glucose,Whole Blood 360 mg/dL (75-99)
[2020-11-08] MEDS: PANTOPRAZOLE 40 MG TABLET PO SCH (05:29)
[2020-11-08] MEDS: LEVOTHYROXINE 75 MCG TAB PO SCH (05:29)
[2020-11-08 06:12] LABS: Glucose,Whole Blood 90 mg/dL (75-99)
[2020-11-08] MEDS: INSULIN ASPART (NovoLOG) 100 UNIT/ML VIAL SQ SCH ×2 (06:36→13:33)
[2020-11-08] MEDS: INSULIN DETEMIR (LEVEMIR) 100 UNIT/ML SYR SQ SCH (07:03)
[2020-11-08 08:06] LABS: Basophils % (A) 0 %; Eosinophils # (A) 0.1 k/uL (0-0.7); Eosinophils % (A) 1 %; HCT 38.9 % (34.0-46.0); HGB 12.7 gm/dL (11.4-16.0); Lymphocytes # (A) 1.5 k/uL (1.0-4.8); Lymphocytes % (A) 16 %; MCH 32.9 pg (25.0-35.0); MCHC 32.5 g/dL (31.0-37.0); MCV 101.2 fL (80.0-100.0); Macrocytosis Slight; Mean Platelet Volume 7.6; Monocytes # (A) 0.5 k/uL (0-1.0); Monocytes % (A) 5 %; Neutrophils # (A) 7.7 k/uL (1.3-7.7); Neutrophils % (A) 77 %; Platelet Count 317 k/uL (150-450); RBC 3.85 m/uL (3.80-5.40); RDW 13.6 % (11.5-15.5); WBC 9.9 k/uL (3.8-10.6)
[2020-11-08 08:37] LABS: Calcium 9.2 mg/dL (8.4-10.2); Potassium 4.5 mmol/L (3.5-5.1)
[2020-11-08] MEDS: ALBUTEROL HFA INHALER INHALATION SCH ×2 (08:42→12:07)
[2020-11-08] MEDS: SYMBICORT 160-4.5 MCG INHALER INHALATION SCH (08:42)
[2020-11-08] MEDS: TIOTROPIUM 2.5 MCG INHALER INHALATION SCH (08:42)
[2020-11-08] MEDS ORDERED: predniSONE 20 MG TAB PO SCH (09:00)
[2020-11-08] MEDS: PATIENT'S OWN (Acetazolamide [Acetazolamide Er] 500 MG Capsule.Er) PO SCH (09:32)
[2020-11-08] MEDS: METOPROLOL TARTRATE 50 MG TAB PO SCH (09:41)
[2020-11-08] MEDS: MAGNESIUM OXIDE 400 MG TAB PO SCH (09:41)
[2020-11-08] MEDS: FUROSEMIDE 10 MG/ML 4 ML VIAL IV SCH (09:41)
[2020-11-08] MEDS: GABAPENTIN 300 MG CAP PO SCH (09:41)
[2020-11-08] MEDS: APIXABAN 5 MG TAB PO SCH (09:41)
[2020-11-08] MEDS: ZINC SULFATE 220 MG CAP PO SCH (09:41)
[2020-11-08] MEDS: metFORMIN 500 MG TAB PO SCH (09:41)
[2020-11-08] MEDS: CHOLECALCIFEROL 25 MCG (1000 IU) TABLET PO SCH (09:41)
[2020-11-08] MEDS: ASCORBIC ACID 500 MG TAB PO SCH (09:41)
--- NOTE | 2020-11-08 10:49 | P.DS ---
Providers Date of admission: 11/04/20 20:50 Expected date of discharge: 11/15/20 Attending physician: Sergo Valencia MD Consults: 11/04/20 20:24 Consult Physician Routine Consulting Provider: Marcus Vásquez Consult Reason/Comments: heart failure Do you want consulting provider notified?: Yes Consult Physician Routine Consulting Provider: Rasheed Tolentino Consult Reason/Comments: copd Do you want consulting provider notified?: Yes Primary care physician: Sergo Valencia MD Hospital Course: Final Diagnoses: Acute on chronic hypoxic and hypercapnic respiratory failure, secondary to acute CHF exacerbation, acute COPD exacerbation. Wears O2 at home Recent hospitalization with acute hypoxic, hypercapnic respiratory failure with A. fib with RVR, requiring intubation 10/20-10/31/20. Recent covid-Pneumonia hospitalization 10/16/20 through 10/19/2020. History of Paroxysmal A-flutter, fib with RVR, suspect possibly chronic secondary to hypoxia Chronic diastolic CHF, NYHA class III, EF 50-55 % Obstructive sleep apnea on CPAP, noncompliant Diabetes mellitus type 2, hyperglycemic, multifactorial including steroid- induced hypothyroidism hypertension ongoing nicotine dependence. morbid obesity, BMI 62.3 Medical debility, generalized weakness, unable to perform ADLs, requiring assistance Hospital course:This is a 55-year-old female with multiple recent hospital admissions. since her move here from [place] with past medical history of chronic hypoxic and hypercapnic respiratory failure,Covid-19 pneumonia, COPD, chronic diastolic CHF,A. fib with RVR, diabetes mellitus , ongoing nicotine dependence and multiple other medical issues. This visit patient returns as she is unable to perform ADLs, shortness of breath. Patient is maintaining O2 sats in the 90s on 3 L nasal cannula, on nebulized bronchodilators, IV steroids and IV push Lasix. Hyperglycemic. Anticoagulated on Eliquis. T-max 99. Evaluated by pulmonary and cardiology. Diuresed well on Lasix IV push with 24- hour I&O reflecting a negative fluid balance. BUN 64, creatinine 0.98. Blood sugars ranging from 90 to mid 300s . Currently maintained on Levemir 20 twice a day .Significant clinical improvement. Patient will be discharged to subacute rehab today, in a stable condition with guarded prognosis, pending final DC recommendations and clearance from pulmonary. The impression and plan of care has been dictated as directed. : I performed a history and examination of this patient, discussed the same with the dictator. I agree with the dictator's note ,documented as a scribe. Any additional findings or plans will be noted. Patient Condition at Discharge: Stable Plan - Discharge Summary New Discharge Prescriptions: New INSULIN LISPRO (HumaLOG) [humaLOG] 0 unit SQ ACHS #1 vial Insulin Detemir (Levemir) [Levemir] 20 unit SQ BID@0700,2100 syr Gabapentin [Neurontin] 300 mg PO BID #6 cap predniSONE 10 mg PO DIRECTED #30 tab Tiotropium 2.5 Mcg/Puff [Spiriva Respimat 2.5 Mcg] 2 puff INHALATION RT-DAILY puff Albuterol Inhaler [Ventolin Hfa Inhaler] 2 puff INHALATION RT-Q2H PRN puff PRN Reason: Shortness Of Breath Or Wheezing Albuterol Inhaler [Ventolin Hfa Inhaler] 2 puff INHALATION RT-QID puff Continue Levothyroxine Sodium [Euthyrox] 150 mcg PO DAILY #30 tab Atorvastatin [Lipitor] 20 mg PO HS #30 tab Magnesium Oxide 400 mg PO DAILY #30 tab Omeprazole 40 mg PO DAILY #30 cap Albuterol Sulfate [Ventolin HFA] 2 puff INHALATION RT-QID PRN #1 inhaler PRN Reason: Shortness Of Breath Zinc Sulfate [Orazinc] 220 mg PO DAILY cap Budesonide-Formot 160-4.5 Mcg [Symbicort 160-4.5 Mcg Inhaler] 2 puff INHALATION RT-BID #1 inh Cholecalciferol [Vitamin D3 (25 Mcg = 1000 Iu)] 25 mcg PO DAILY tablet Metoprolol Tartrate [Lopressor] 100 mg PO TID #180 tab Pantoprazole [Protonix] 40 mg PO AC-BRKFST #30 tablet. acetaZOLAMIDE [acetaZOLAMIDE ER] 500 mg PO DAILY metFORMIN HCL 500 mg PO DAILY Butalb/Acetaminophen/Caffeine [Fioricet 50-300-40 mg Capsule] 1 cap PO TID PRN #9 cap PRN Reason: Migraine Headache Ascorbic Acid [Vitamin C] 1,000 mg PO DAILY tab Apixaban [Eliquis] 5 mg PO BID #60 tab Changed Furosemide [Lasix] 40 mg PO BID #30 tablet Discontinued Ipratropium-Albuterol Nebulize [Duoneb 0.5 mg-3 mg/3 ml Soln] 3 ml INHALATION RT-QID #120 neb predniSONE See Taper PO DIRECTED Losartan Potassium [Cozaar] 25 mg PO DAILY Ipratropium-Albuterol Nebulize [Duoneb 0.5 mg-3 mg/3 ml Soln] 3 ml INHALATION RT-Q4H PRN PRN Reason: Shortness Of Breath Insulin Glargine [Lantus] 50 unit SQ BID #1 vial Discharge Medication List Albuterol Sulfate [Ventolin HFA] 2 puff INHALATION RT-QID PRN #1 inhaler 10/05/20 [Rx] Atorvastatin [Lipitor] 20 mg PO HS #30 tab 10/05/20 [Rx] Levothyroxine Sodium [Euthyrox] 150 mcg PO DAILY #30 tab 10/05/20 [Rx] Magnesium Oxide 400 mg PO DAILY #30 tab 10/05/20 [Rx] Omeprazole 40 mg PO DAILY #30 cap 10/05/20 [Rx] Ascorbic Acid [Vitamin C] 1,000 mg PO DAILY tab 10/19/20 [Rx] Budesonide-Formot 160-4.5 Mcg [Symbicort 160-4.5 Mcg Inhaler] 2 puff INHALATION RT-BID #1 inh 10/19/20 [Rx] Cholecalciferol [Vitamin D3 (25 Mcg = 1000 Iu)] 25 mcg PO DAILY tablet 10/19/20 [Rx] Zinc Sulfate [Orazinc] 220 mg PO DAILY cap 10/19/20 [Rx] Apixaban [Eliquis] 5 mg PO BID #60 tab 10/21/20 [Rx] Metoprolol Tartrate [Lopressor] 100 mg PO TID #180 tab 10/31/20 [Rx] Pantoprazole [Protonix] 40 mg PO AC-BRKFST #30 tablet. 10/31/20 [Rx] acetaZOLAMIDE [acetaZOLAMIDE ER] 500 mg PO DAILY 11/04/20 [History] metFORMIN HCL 500 mg PO DAILY 11/04/20 [History] Albuterol Inhaler [Ventolin Hfa Inhaler] 2 puff INHALATION RT-Q2H PRN puff 11/08/20 [Rx] Albuterol Inhaler [Ventolin Hfa Inhaler] 2 puff INHALATION RT-QID puff 11/08/20 [Rx] Butalb/Acetaminophen/Caffeine [Fioricet 50-300-40 mg Capsule] 1 cap PO TID PRN #9 cap 11/08/20 [Rx] Furosemide [Lasix] 40 mg PO BID #30 tablet 11/08/20 [Rx] Gabapentin [Neurontin] 300 mg PO BID #6 cap 11/08/20 [Rx] INSULIN LISPRO (HumaLOG) [humaLOG] 0 unit SQ ACHS #1 vial 11/08/20 [Rx] Insulin Detemir (Levemir) [Levemir] 20 unit SQ BID@0700,2100 syr 11/08/20 [Rx] Tiotropium 2.5 Mcg/Puff [Spiriva Respimat 2.5 Mcg] 2 puff INHALATION RT-DAILY puff 11/08/20 [Rx] predniSONE 10 mg PO DIRECTED #30 tab 11/08/20 [Rx] Follow up Appointment(s)/Referral(s): Sergo Valencia MD [Primary Care Provider] - 1 Week (After discharge from subacute rehab) Piero Estrada DO [Doctor of Osteopathic Medicine] - 1 Week Activity/Diet/Wound Care/Special Instructions: ECF CBC, BMP in 3 days Discharge Disposition: TRANSFER TO SNF/ECF
[2020-11-08 11:44] LABS: Glucose,Whole Blood 160 mg/dL (75-99)
[2020-11-08 12:54] VITALS: BP 112/88; PULSE 74; TEMP 97.8
== END 2020-11-08 15:25 | disposition home health service (06) | DRG 291 ==
LOC: EC 18:53 → 3SCARD 20:50
PROVIDERS: ADMIT Family Medicine; ATTEND Family Medicine
PROC: 5A09357 Assistance with Respiratory Ventilation, Less than 24 Consecutive Hours, Continuous Positive Airway Pressure (ICD-10-PCS; principal; 2020-11-04)
DX: I11.0 Hypertensive heart disease with heart failure (principal); G93.41 Metabolic encephalopathy; J96.21 Acute and chronic respiratory failure with hypoxia; J96.22 Acute and chronic respiratory failure with hypercapnia; J44.1 Chronic obstructive pulmonary disease with (acute) exacerbation; Z68.44 Body mass index [BMI] 60.0-69.9, adult; E66.2 Morbid (severe) obesity with alveolar hypoventilation; I48.19 Other persistent atrial fibrillation; F17.200 Nicotine dependence, unspecified, uncomplicated; M10.9 Gout, unspecified; E11.65 Type 2 diabetes mellitus with hyperglycemia; R26.9 Unspecified abnormalities of gait and mobility; Z20.822 Contact with and (suspected) exposure to COVID-19; T38.0X5A Adverse effect of glucocorticoids and synthetic analogues, initial encounter; K76.9 Liver disease, unspecified; E78.5 Hyperlipidemia, unspecified; I50.43 Acute on chronic combined systolic (congestive) and diastolic (congestive) heart failure; E03.9 Hypothyroidism, unspecified; Z90.49 Acquired absence of other specified parts of digestive tract; Z98.890 Other specified postprocedural states; Z86.16 Personal history of COVID-19; Z87.01 Personal history of pneumonia (recurrent); Z88.5 Allergy status to narcotic agent; Z79.01 Long term (current) use of anticoagulants; Z79.890 Hormone replacement therapy; Z79.4 Long term (current) use of insulin; Z79.51 Long term (current) use of inhaled steroids; Z79.899 Other long term (current) drug therapy; Z99.81 Dependence on supplemental oxygen; Z91.19 Patient's noncompliance with other medical treatment and regimen
CPT/HCPCS: 36600; 71046; 80048; 80053; 82805; 83735; 83880; 84484; 85025; 85379; 85610; 85730; 87635; 93005; 94640; 94660; 99285

== ENCOUNTER 2020-11-12 23:51 | Inpatient (IN) | payer OTHER ==
--- NOTE | 2020-11-13 00:12 | ED ---
SOB HPI - General Stated Complaint: SOB Time Seen by Provider: 11/12/20 23:58 Source: EMS Mode of arrival: EMS Limitations: no limitations - History of Present Illness Initial Comments: Patient arrives here as a transfer from [facility]. The patient had gone there tonight with complaint that she was short of breath. The patient does have history of both COPD and CHF. The patient's workup at the other hospital revealed that she was retaining CO2. They performed a blood gas that showed a pCO2 of 110. PH is 7.19. In addition, patient had a minimal elevated troponin 0.12 and they had started the patient on heparin there treating suspected NSTEMI. MD Complaint: shortness of breath -: days(s) Severity scale (1-10): 0 Consistency: constant Improves With: nothing Worsens With: nothing Known History Of: COPD, congestive heart failure Treatments Prior to Arrival: oxygen, NIPPV, other - Related Data Home Oxygen Therapy: Yes Home Medications Medication Instructions Recorded Confirmed acetaZOLAMIDE [acetaZOLAMIDE ER] 500 mg PO DAILY 11/04/20 11/04/20 metFORMIN HCL 500 mg PO DAILY 11/04/20 11/04/20 Previous Rx's Medication Instructions Recorded Atorvastatin [Lipitor] 20 mg PO HS #30 tab 10/05/20 Levothyroxine Sodium [Euthyrox] 150 mcg PO DAILY #30 tab 10/05/20 Magnesium Oxide 400 mg PO DAILY #30 tab 10/05/20 Omeprazole 40 mg PO DAILY #30 cap 10/05/20 Ascorbic Acid [Vitamin C] 1,000 mg PO DAILY tab 10/19/20 Budesonide-Formot 160-4.5 Mcg 2 puff INHALATION RT-BID #1 inh 10/19/20 [Symbicort 160-4.5 Mcg Inhaler] Cholecalciferol [Vitamin D3 (25 25 mcg PO DAILY tablet 10/19/20 Mcg = 1000 Iu)] Zinc Sulfate [Orazinc] 220 mg PO DAILY cap 10/19/20 Apixaban [Eliquis] 5 mg PO BID #60 tab 10/21/20 Metoprolol Tartrate [Lopressor] 100 mg PO TID #180 tab 10/31/20 Albuterol Sulfate [Ventolin HFA] 2 puff INHALATION RT-QID #1 inhaler 11/08/20 Butalb/APAP/Caff 50-325-40Mg 1 each PO TID PRN tab 11/08/20 [Fioricet 50-325-40] Furosemide [Lasix] 40 mg PO BID #30 tablet 11/08/20 Gabapentin [Neurontin] 300 mg PO BID #6 cap 11/08/20 Insulin Glargine [Lantus] 20 unit SQ BID #1 vial 11/08/20 Tiotropium 2.5 Mcg/Puff [Spiriva 2 puff INHALATION DAILY #1 inh 11/08/20 Respimat 2.5 Mcg] predniSONE 10 mg PO DIRECTED #30 tab 11/08/20 Allergies Allergy/AdvReac Type Severity Reaction Status Date / Time hydrocodone [From [place]] AdvReac Rash/Hives Verified 11/04/20 19:04 Review of Systems ROS Statement: Those systems with pertinent positive or pertinent negative responses have been documented in the HPI. ROS Other: All systems not noted in ROS Statement are negative. Constitutional: Reports: weakness. Denies: fever, chills Respiratory: Reports: dyspnea. Denies: cough, hemoptysis Cardiovascular: Reports: orthopnea, edema. Denies: chest pain, palpitations, syncope Gastrointestinal: Reports: nausea. Denies: abdominal pain, vomiting, diarrhea Genitourinary: Denies: dysuria, hematuria Musculoskeletal: Denies: back pain Skin: Denies: rash Neurological: Denies: headache, weakness Past Medical History Past Medical History: Chest Pain / Angina, COPD, Diabetes Mellitus, Liver Disea se, Sleep Apnea/CPAP/BIPAP, Thyroid Disorder Additional Past Medical History / Comment(s): CHF, cpap at night, gout History of Any Multi-Drug Resistant Organisms: None Reported Past Surgical History: Section, Cholecystectomy Past Anesthesia/Blood Transfusion Reactions: No Reported Reaction Past Psychological History: No Psychological Hx Reported Smoking Status: Current every day smoker Past Alcohol Use History: None Reported Past Drug Use History: None Reported General Exam Limitations: no limitations General appearance: alert, in no apparent distress, obese Head exam: Present: atraumatic, normocephalic Eye exam: Present: normal appearance. Absent: scleral icterus, conjunctival injection Neck exam: Present: normal inspection, full ROM Respiratory exam: Present: rales, decreased breath sounds. Absent: wheezes, rho nchi, stridor, accessory muscle use Cardiovascular Exam: Present: regular rate, irregular rhythm, normal heart sounds. Absent: systolic murmur, diastolic murmur, rubs, gallop GI/Abdominal exam: Present: soft. Absent: distended, tenderness, guarding, rebound Extremities exam: Present: normal capillary refill, pedal edema. Absent: calf tenderness Neurological exam: Present: alert, oriented X3. Absent: motor sensory deficit Skin exam: Present: warm, dry, intact, other (Venous stasis changes bilateral lower extremities). Absent: rash Course Vital Signs 11/12/20 23:54 Temperature 97.3 F L Pulse Rate 99 Respiratory 20 Rate Blood Pressure 124/89 O2 Sat by Pulse 100 Oximetry Medical Decision Making - Lab Data Result diagrams: 11/13/20 00:05 11/13/20 00:37 Lab Results 11/13/20 11/13/20 11/13/20 Range/Units 00:05 00:05 00:05 WBC 6.3 (3.8-10.6) k/uL RBC 3.80 (3.80-5.40) m/uL Hgb 12.3 (11.4-16.0) gm/dL Hct 40.0 (34.0-46.0) % MCV 105.3 H (80.0-100.0) fL MCH 32.4 (25.0-35.0) pg MCHC 30.7 L (31.0-37.0) g/dL RDW 14.8 (11.5-15.5) % Plt Count 130 L D (150-450) k/uL MPV 8.2 Neutrophils % 78 % Lymphocytes % 15 % Monocytes % 4 % Eosinophils % 2 % Basophils % 0 % Neutrophils # 4.9 (1.3-7.7) k/uL Lymphocytes # 1.0 (1.0-4.8) k/uL Monocytes # 0.3 (0-1.0) k/uL Eosinophils # 0.1 (0-0.7) k/uL Basophils # 0.0 (0-0.2) k/uL Hypochromasia Slight Macrocytosis Moderate PT 10.8 (9.0-12.0) sec INR 1.0 (<1.2) APTT 37.2 H (22.0-30.0) sec VBG pH 7.21 L (7.31-7.41) VBG pCO2 113 H* (37-51) mmHg VBG HCO3 43 H (24-28) mmol/L Sodium (137-145) mmol/L Potassium (3.5-5.1) mmol/L Chloride (98-107) mmol/L Carbon Dioxide (22-30) mmol/L Anion Gap mmol/L BUN (7-17) mg/dL Creatinine (0.52-1.04) mg/dL Est GFR (CKD-EPI)AfAm (>60 ml/min/1.73 sqM) Est GFR (CKD-EPI)NonAf (>60 ml/min/1.73 sqM) Glucose (74-99) mg/dL Plasma Lactic Acid James (0.7-2.0) mmol/L Calcium (8.4-10.2) mg/dL Total Bilirubin (0.2-1.3) mg/dL AST (14-36) U/L ALT (4-34) U/L Alkaline Phosphatase (38-126) U/L Troponin I (0.000-0.034) ng/mL Total Protein (6.3-8.2) g/dL Albumin (3.5-5.0) g/dL 11/13/20 11/13/20 11/13/20 Range/Units 00:37 00:37 00:37 WBC (3.8-10.6) k/uL RBC (3.80-5.40) m/uL Hgb (11.4-16.0) gm/dL Hct (34.0-46.0) % MCV (80.0-100.0) fL MCH (25.0-35.0) pg MCHC (31.0-37.0) g/dL RDW (11.5-15.5) % Plt Count (150-450) k/uL MPV Neutrophils % % Lymphocytes % % Monocytes % % Eosinophils % % Basophils % % Neutrophils # (1.3-7.7) k/uL Lymphocytes # (1.0-4.8) k/uL Monocytes # (0-1.0) k/uL Eosinophils # (0-0.7) k/uL Basophils # (0-0.2) k/uL Hypochromasia Macrocytosis PT (9.0-12.0) sec INR (<1.2) APTT (22.0-30.0) sec VBG pH (7.31-7.41) VBG pCO2 (37-51) mmHg VBG HCO3 (24-28) mmol/L Sodium 138 (137-145) mmol/L Potassium 3.9 (3.5-5.1) mmol/L Chloride 89 L (98-107) mmol/L Carbon Dioxide 43 H* (22-30) mmol/L Anion Gap 6 mmol/L BUN 49 H (7-17) mg/dL Creatinine 1.22 H (0.52-1.04) mg/dL Est GFR (CKD-EPI)AfAm 57 (>60 ml/min/1.73 sqM) Est GFR (CKD-EPI)NonAf 49 (>60 ml/min/1.73 sqM) Glucose 131 H (74-99) mg/dL Plasma Lactic Acid James 0.9 (0.7-2.0) mmol/L Calcium 8.8 (8.4-10.2) mg/dL Total Bilirubin 0.6 (0.2-1.3) mg/dL AST 37 H (14-36) U/L ALT 83 H (4-34) U/L Alkaline Phosphatase 84 (38-126) U/L Troponin I 0.039 H* (0.000-0.034) ng/mL Total Protein 6.0 L (6.3-8.2) g/dL Albumin 3.5 (3.5-5.0) g/dL - EKG Data -: EKG Interpreted by [place] EKG shows normal: axis (Normal), intervals (Normal), QRS complexes (Normal) Rate: normal (Rate 93 bpm) Interpretation: other (Atrial fibrillation with PVC.) Disposition Clinical Impression: COPD exacerbation, Elevated troponin I level, Hypercarbia Disposition: ADMITTED IP TO THIS HOSP Condition: Serious Referrals: Sergo Valencia MD [Primary Care Provider] - 1-2 days
[2020-11-13] MEDS ORDERED: NALOXONE 0.4 MG/ML 1 ML VIAL IV PRN (00:26)
[2020-11-13 00:30] LABS: VBG PH 7.21 (7.31-7.41)
[2020-11-13 00:40] LABS: Partial Thromboplastin Time 37.2 sec (22.0-30.0); Prothrombin Time 10.8 sec (9.0-12.0)
[2020-11-13 00:57] LABS: Basophils % (A) 0 %; Eosinophils # (A) 0.1 k/uL (0-0.7); Eosinophils % (A) 2 %; HGB 12.3 gm/dL (11.4-16.0); Hypochromasia Slight; Lymphocytes % (A) 15 %; MCH 32.4 pg (25.0-35.0); MCHC 30.7 g/dL (31.0-37.0); MCV 105.3 fL (80.0-100.0); Macrocytosis Moderate; Mean Platelet Volume 8.2; Monocytes # (A) 0.3 k/uL (0-1.0); Monocytes % (A) 4 %; Neutrophils # (A) 4.9 k/uL (1.3-7.7); Neutrophils % (A) 78 %; RDW 14.8 % (11.5-15.5); WBC 6.3 k/uL (3.8-10.6)
[2020-11-13 01:02] LABS: Platelet Count 130 k/uL (150-450)
[2020-11-13 01:18] LABS: Albumin 3.5 g/dL (3.5-5.0); Calcium 8.8 mg/dL (8.4-10.2); Potassium 3.9 mmol/L (3.5-5.1); Total Bilirubin 0.6 mg/dL (0.2-1.3)
[2020-11-13] MEDS ORDERED: HEPARIN SODIUM 1,000 UN/ML (10ML VL) IV PRN (01:44)
[2020-11-13] MEDS ORDERED: HEPARIN SOD,PORK IN 0.45% NACL 25,000 UNIT in 0.45% NACL 1 250ML.BAG IV SCH (01:45)
[2020-11-13 06:21] LABS: Glucose,Whole Blood 167 mg/dL (75-99)
[2020-11-13] MEDS: SODIUM CHLORIDE 0.9% 1,000 ML IV SCH ×2 (10:21→14:07)
[2020-11-13] MEDS ORDERED: BUTALB/APAP/CAFF 50-325-40MG TAB PO PRN (11:38)
--- NOTE | 2020-11-13 11:39 | P.CNPUL ---
History of Present Illness Consult date: 11/13/20 Reason for consult: dyspnea History of present illness: 55-year-old female patient, known to us from previous hospital admissions. She is morbidly obese, she has COPD and she has obesity hypoventilation syndrome/obstructive sleep apnea maintained on a true ALLERGY ventilator at home in addition to previous history of diastolic heart failure, diabetes mellitus, liver cirrhosis and chronic atrial fibrillation. The patient has been hospitalized for an acute on top of chronic hypercapnic respiratory failure and hypoxic respiratory failure and fluid overload and she also was diagnosed having COVID-19 infection as the patient checked positive. Note that she has moved here from [place] and she has been admitted to the hospital multiple times over this past few months. The patient came into the emergency department as a transfer from [facility] where she came therefore worsening shortness of breath. The patient was also lethargic and somnolent. The blood gases was done and the patient showed an acute on top of chronic hypercapnic respiratory failure . Troponin was slightly elevated at 0.12 and the patient w as started on IV heparin for a suspected non-STEMI. The patient was found to have stable hemodynamics and math, she was afebrile, her creatinine was 1.2 with a mean of 49 and a white cell count was at 6.3 with a platelet count of 1:30, the lactic acid level was low at 0.9. Note that this was noted through blood gases and this was a venous blood gas with a pH came back at 7.21 with a pCO2 113. This morning, the patient is currently on 5 L of oxygen by nasal cannula. This is her baseline. Troponins are being monitored and level dropped down to 0.02. Serum bicarbonate of 43. The patient is on IV fluid in the 100 mL an hour. She is also on Lasix orally 40 mg by mouth twice a day. Outpatient medications have not been resumed yet. Review of Systems CONSTITUTIONAL: Denies any recent significant weight loss or weight gain. EYES: Denies change in vision. EARS, NOSE, MOUTH, THROAT: Denies headaches, denies sore throat. CARDIOVASCULAR: Denies chest pain, palpitations or syncopal episodes. RESPIRATORY: Positive for shortness of breath, cough, congestion no hemoptysis. GASTROINTESTINAL: Denies change in appetite, denies abdominal pain GENITOURINARY: Denies hematuria, denies infections. MUSKULOSKELETAL: Denies pain, denies swelling. INTEGUMENTARY: Denies rash, denies eczema. NEUROLOGICAL: Denies recent memory loss, no recent seizure activity. PSYCHIATRIC: Denies anxiety, denies depression. HEMATOLOGIC/LYMPHATIC: Denies anemia, denies enlarged lymph nodes. Past Medical History Past Medical History: Chest Pain / Angina, COPD, Diabetes Mellitus, Liver Disease, Sleep Apnea/CPAP/BIPAP, Thyroid Disorder Additional Past Medical History / Comment(s): CHF, cpap at night, gout History of Any Multi-Drug Resistant Organisms: None Reported Past Surgical History: Section, Cholecystectomy Past Anesthesia/Blood Transfusion Reactions: No Reported Reaction Past Psychological History: No Psychological Hx Reported Smoking Status: Current every day smoker Past Alcohol Use History: None Reported Past Drug Use History: None Reported Medications and Allergies Home Medications Medication Instructions Recorded Confirmed Type Atorvastatin [Lipitor] 20 mg PO HS #30 tab 10/05/20 11/13/20 Rx Levothyroxine Sodium [Euthyrox] 150 mcg PO DAILY #30 tab 10/05/20 11/13/20 Rx Magnesium Oxide 400 mg PO DAILY #30 tab 10/05/20 11/13/20 Rx Omeprazole 40 mg PO DAILY #30 cap 10/05/20 11/13/20 Rx Ascorbic Acid [Vitamin C] 1,000 mg PO DAILY tab 10/19/20 11/13/20 Rx Budesonide-Formot 160-4.5 Mcg 2 puff INHALATION RT-BID #1 inh 10/19/20 11/13/20 Rx [Symbicort 160-4.5 Mcg Inhaler] Cholecalciferol [Vitamin D3 (25 25 mcg PO DAILY tablet 10/19/20 11/13/20 Rx Mcg = 1000 Iu)] Zinc Sulfate [Orazinc] 220 mg PO DAILY cap 10/19/20 11/13/20 Rx Apixaban [Eliquis] 5 mg PO BID #60 tab 10/21/20 11/13/20 Rx Metoprolol Tartrate [Lopressor] 100 mg PO TID #180 tab 10/31/20 11/13/20 Rx acetaZOLAMIDE [acetaZOLAMIDE ER] 500 mg PO DAILY 11/04/20 11/13/20 History metFORMIN HCL 500 mg PO DAILY 11/04/20 11/13/20 History Albuterol Sulfate [Ventolin HFA] 2 puff INHALATION RT-QID #1 inhaler 04/13/21 04/18/21 Rx Furosemide [Lasix] 40 mg PO BID #30 tablet 11/08/20 11/13/20 Rx Gabapentin [Neurontin] 300 mg PO BID #6 cap 11/08/20 11/13/20 Rx Insulin Glargine [Lantus] 20 unit SQ BID #1 vial 11/08/20 11/13/20 Rx Butalb/APAP/Caff 50-325-40Mg 1 tab PO TID PRN 11/13/20 11/13/20 History [Fioricet 50-325-40] Tiotropium 2.5 Mcg/Puff [Spiriva 2 puff INHALATION RT-DAILY 11/13/20 11/13/20 History Respimat 2.5 Mcg] predniSONE See Taper PO DAILY 11/13/20 11/13/20 History Allergies Allergy/AdvReac Type Severity Reaction Status Date / Time hydrocodone [From [place]] AdvReac Rash/Hives Verified 11/13/20 09:21 Physical Exam Vitals: Vital Signs Temp Pulse Pulse Resp BP BP Pulse Ox 11/13/20 08:40 97.6 F 72 21 133/72 100 11/13/20 02:00 98.1 F 93 19 113/84 91 L 11/12/20 23:54 97.3 F L 99 20 124/89 100 Intake and Output 11/12/20 11/13/20 11/13/20 22:59 06:59 14:59 Intake Total 0 Balance 0 Intake: Oral 0 Other: Voiding Method External Catheter # Voids 1 Weight 118 kg GENERAL EXAM: Alert, morbidly obese 55-year-old female, on his of oxygen by nasal cannula. Overnight, the patient was given BiPAP at a pressure of 12/5 with pulse of 35%. She is awake and alert, no signs of CO2 narcosis. HEAD: Normocephalic. EYES: Normal reaction of pupils, equal size. NOSE: Clear with pink turbinates. THROAT: Crowding of the posterior pharynx. No erythema or exudates. NECK: Short. No masses, no JVD. CHEST: No chest wall deformity. LUNGS: Equal air entry with few crackles in the posterior bases., The patient has a vesicular eruption over the right anterior and lateral chest area consistent with shingles CVS: S1 and S2 normal with no audible murmur, regular rhythm. ABDOMEN: Obese, unable to appreciate any organomegaly, normal bowel sounds, no guarding or rigidity. SPINE: No scoliosis or deformity SKIN: No rashes CENTRAL NERVOUS SYSTEM: No focal deficits, tone is normal in all 4 extremities. EXTREMITIES: Changes of chronic venous stasis. There is 1+ peripheral edema. No clubbing, no cyanosis. Peripheral pulses are intact. Results - Laboratory Findings CBC and BMP: 11/13/20 00:05 11/13/20 00:37 PT/INR, D-dimer PT 10.8 sec (9.0-12.0) 11/13/20 00:05 INR 1.0 (<1.2) 11/13/20 00:05 Abnormal lab findings: Abnormal Labs 11/13/20 11/13/20 11/13/20 00:05 00:05 00:05 MCV 105.3 H MCHC 30.7 L Plt Count 130 L D APTT 37.2 H VBG pH 7.21 L VBG pCO2 113 H* VBG HCO3 43 H Chloride Carbon Dioxide BUN Creatinine Glucose POC Glucose (mg/dL) AST ALT Troponin I Total Protein 11/13/20 11/13/20 11/13/20 00:37 00:37 06:17 MCV MCHC Plt Count APTT VBG pH VBG pCO2 VBG HCO3 Chloride 89 L Carbon Dioxide 43 H* BUN 49 H Creatinine 1.22 H Glucose 131 H POC Glucose (mg/dL) 167 H AST 37 H ALT 83 H Troponin I 0.039 H* Total Protein 6.0 L Assessment and Plan Plan: 1 Acute hypoxic/hypercapnic respiratory failure secondary to an acute exacerbation of chronic diastolic congestive heart failure acute exacerbation of chronic obstructive pulmonary disease, currently on Lasix orally. 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 The admission seems to be more so the social admission as the patient is having some difficulties with her home situation and she will not be able to stay with her sister. She does have some lower extremity edema. She declines taken IV Lasix. The chest x-ray needs to be done. The patient was treated with BiPAP overnight she is currently back on 5 L of oxygen by nasal cannula. No signs of any CO2 narcosis. 2 Recent admission for acute hypoxemic/hypercapnic respiratory failure requiring intubation mechanical ventilatory support, during admission of 10/20/2020 through 10/31/2020 3 Recent admission for CoVID 19 pneumonia, recovered 4 Morbid obesity 5 Obstructive sleep apnea, pickwickian syndrome, obesity/hypoventilation syndrome, unclear of which device the patient has at home 6 History of atrial fibrillation with rapid ventricular response, anticoagulated with Eliquis 7 Chronic obstructive pulmonary disease normally wearing oxygen at home 8 Chronic diastolic congestive heart failure, previous echocardiogram revealed ejection fraction of 50-55% 9 Chronic and ongoing tobacco dependence 10 diabetes mellitus. 11 shingles involving the right chest area.\ Plan: Improving currently on 5 L nasal cannula and gradually wean it off Lasix orally 40 mg by mouth twice a day Continue Symbicort Monitor fluid balance Monitor electrolytes Up in a chair at the bedside. The patient has a trilogy ventilator at home. Will use the BiPAP here in the hospital at a pressure of 12/5 with an FiO2 of 35%. Resume home medications Add Valtrex 1 g 3 times a day for shingles We will sign off the case. The patient will need a older adult social work specialist consultation for placement issues.
[2020-11-13 11:47] LABS: Glucose,Whole Blood 153 mg/dL (75-99)
--- NOTE | 2020-11-13 12:18 | XR ---
EXAMINATION TYPE: XR chest 1V portable DATE OF EXAM: 11/13/2020 CLINICAL HISTORY: Difficulty breathing progress study. TECHNIQUE: Single AP portable upright view of the chest is obtained. COMPARISON: Chest x-ray from 9 days earlier and older studies. CTA chest October 03, 2020. FINDINGS: Cardiomegaly redemonstrated. Persistent left hilar masslike consolidation. No suspicious m asses or nodules noted on recent CT at this level. Multilevel spurring in the spine redemonstrated. IMPRESSION: Cardiomegaly with persistent left hilar pneumonic consolidation. Underlying pulmonary art kevin hypertension noted seen best on CT. No new infiltrate identified. No significant change from most recent x-ray.
--- NOTE | 2020-11-13 12:34 | P.CRDCN ---
History of Present Illness Consult date: 11/13/20 Requesting physician: Shelton Ledesma Reason for Consult (text): NSTEMI Chief complaint: abdominal pain History of present illness: A pleasant 55-year-old female patient with a history of COPD CHF, atrial fibrillation, hypertension, hyperlipidemia and morbid obesity. She has had multiple admissions over the last month. This admission she apparently was brought into the emergency department [facility] with complaints of abdominal pain. Upon examination the patient was found to be minimally responsive, hypoxic and hypercapnic. We are asked to the patient in consultation due to elevated troponins of 0.112 at [facility]. She was subsequently transferred to the emergency department here at [facility]. She does have a history of COVID 19 infection on 10/16/2020. Subsequent troponins done here have been 0.039 0.027. She was initially placed on BiPAP but has currently been on nasal cannula oxygen. She was initiated on IV heparin. Echocardiogram done during a previous admission showed a low normal LV systolic function with ejection fraction of 50-55%. Upon examination the patient sitting up in a chair. She is overall feeling okay. She denies any com plaints of abdominal discomfort. She feels her breathing is good. She has been having some issues at home. Apparently she is from [place] and has been living with her sister here in [place] since her left her. Her sister has kicked her out and she is currently homeless. Past Medical History Past Medical History: Chest Pain / Angina, COPD, Diabetes Mellitus, Liver Disease, Sleep Apnea/CPAP/BIPAP, Thyroid Disorder Additional Past Medical History / Comment(s): CHF, cpap at night, gout History of Any Multi-Drug Resistant Organisms: None Reported Past Surgical History: Section, Cholecystectomy Past Anesthesia/Blood Transfusion Reactions: No Reported Reaction Past Psychological History: No Psychological Hx Reported Smoking Status: Current every day smoker Past Alcohol Use History: None Reported Past Drug Use History: None Reported Medications and Allergies Home Medications Medication Instructions Recorded Confirmed Type Atorvastatin [Lipitor] 20 mg PO HS #30 tab 10/05/20 11/13/20 Rx Levothyroxine Sodium [Euthyrox] 150 mcg PO DAILY #30 tab 10/05/20 11/13/20 Rx Magnesium Oxide 400 mg PO DAILY #30 tab 10/05/20 11/13/20 Rx Omeprazole 40 mg PO DAILY #30 cap 10/05/20 11/13/20 Rx Ascorbic Acid [Vitamin C] 1,000 mg PO DAILY tab 10/19/20 11/13/20 Rx Budesonide-Formot 160-4.5 Mcg 2 puff INHALATION RT-BID #1 inh 10/19/20 11/13/20 Rx [Symbicort 160-4.5 Mcg Inhaler] Cholecalciferol [Vitamin D3 (25 25 mcg PO DAILY tablet 10/19/20 11/13/20 Rx Mcg = 1000 Iu)] Zinc Sulfate [Orazinc] 220 mg PO DAILY cap 10/19/20 11/13/20 Rx Apixaban [Eliquis] 5 mg PO BID #60 tab 10/21/20 11/13/20 Rx Metoprolol Tartrate [Lopressor] 100 mg PO TID #180 tab 10/31/20 11/13/20 Rx acetaZOLAMIDE [acetaZOLAMIDE ER] 500 mg PO DAILY 11/04/20 11/13/20 History metFORMIN HCL 500 mg PO DAILY 11/04/20 11/13/20 History Albuterol Sulfate [Ventolin HFA] 2 puff INHALATION RT-QID #1 inhaler 11/08/20 11/13/20 Rx Furosemide [Lasix] 40 mg PO BID #30 tablet 11/08/20 11/13/20 Rx Gabapentin [Neurontin] 300 mg PO BID #6 cap 11/08/20 11/13/20 Rx Insulin Glargine [Lantus] 20 unit SQ BID #1 vial 11/08/20 11/13/20 Rx Butalb/APAP/Caff 50-325-40Mg 1 tab PO TID PRN 11/13/20 11/13/20 History [Fioricet 50-325-40] Tiotropium 2.5 Mcg/Puff [Spiriva 2 puff INHALATION RT-DAILY 11/13/20 11/13/20 History Respimat 2.5 Mcg] predniSONE See Taper PO DAILY 11/13/20 11/13/20 History Allergies Allergy/AdvReac Type Severity Reaction Status Date / Time hydrocodone [From [place]] AdvReac Rash/Hives Verified 11/13/20 09:21 Physical Exam Vitals: Vital Signs Temp Pulse Pulse Resp BP BP Pulse Ox 11/13/20 08:40 97.6 F 72 21 133/72 100 11/13/20 02:00 98.1 F 93 19 113/84 91 L 11/12/20 23:54 97.3 F L 99 20 124/89 100 Intake and Output 11/12/20 11/13/20 11/13/20 22:59 06:59 14:59 Intake Total 0 Balance 0 Intake: Oral 0 Other: Voiding Method External Catheter # Voids 1 Weight 118 kg PHYSICAL EXAMINATION: This is a 55-year-old female in no apparent distress at the time of my examination. VITAL SIGNS: Blood pressure 133/72, heart rate 72, respirations 21, temp 97.6F. Patient is 100% on 5 L via nasal cannula. HEENT: Head is atraumatic, normocephalic. Pupils are equal, round. Sclerae a nicteric. Conjunctivae are clear. Mucous membranes of the mouth are moist. Neck is supple. There is no elevated jugular venous pressure. No carotid bruit is heard. CHEST EXAMINATION: Lungs diminished to auscultation bilaterally. No wheezes rales or rhonchi. Respirations even and nonlabored. HEART EXAMINATION: Heart irregular irregular, positive S1 and S2. No S3. No S4. No clicks, rubs or murmurs. ABDOMEN: Soft, obese nontender. Bowel sounds are heard. No organomegaly noted. EXTREMITIES: 1+ peripheral pulses with evidence of mild peripheral edema and no calf tenderness noted. NEUROLOGIC EXAMINATION: Patient is awake, alert and oriented x3. Results 11/13/20 00:05 11/13/20 00:37 Cardiac Enzymes 11/13/20 11/13/20 11/13/20 Range/Units 00:37 00:37 03:49 AST 37 H (14-36) U/L Troponin I 0.039 H* 0.027 (0.000-0.034) ng/mL 11/13/20 Range/Units 08:38 AST (14-36) U/L Troponin I 0.020 (0.000-0.034) ng/mL Coagulation 11/13/20 11/13/20 Range/Units 00:05 08:38 PT 10.8 (9.0-12.0) sec APTT 37.2 H 24.2 (22.0-30.0) sec CBC 11/13/20 Range/Units 00:05 WBC 6.3 (3.8-10.6) k/uL RBC 3.80 (3.80-5.40) m/uL Hgb 12.3 (11.4-16.0) gm/dL Hct 40.0 (34.0-46.0) % Plt Count 130 L D (150-450) k/uL Comprehensive Metabolic Panel 11/13/20 Range/Units 00:37 Sodium 138 (137-145) mmol/L Potassium 3.9 (3.5-5.1) mmol/L Chloride 89 L (98-107) mmol/L Carbon Dioxide 43 H* (22-30) mmol/L BUN 49 H (7-17) mg/dL Creatinine 1.22 H (0.52-1.04) mg/dL Glucose 131 H (74-99) mg/dL Calcium 8.8 (8.4-10.2) mg/dL AST 37 H (14-36) U/L ALT 83 H (4-34) U/L Alkaline Phosphatase 84 (38-126) U/L Total Protein 6.0 L (6.3-8.2) g/dL Albumin 3.5 (3.5-5.0) g/dL Current Medications Generic Name Dose Route Start Last Admin Trade Name Freq PRN Reason Stop Dose Admin Acetaminophen/Butalbital/Caffeine 1 each 11/13/20 11:38 Butalb/Apap/Caff 50-325-40mg Tab PO TID PRN Migraine Headache Albuterol Sulfate 2 puff 11/13/20 12:00 Albuterol Hfa Inhaler INHALATION RT-QID [facility] Apixaban 5 mg 11/13/20 11:30 Apixaban 5 Mg Tab PO BID [facility] Ascorbic Acid 1,000 mg 11/14/20 09:00 Ascorbic Acid 500 Mg Tab PO DAILY [facility] Atorvastatin Calcium 20 mg 11/13/20 21:00 Atorvastatin 20 Mg Tab PO HS [facility] Budesonide/Formoterol Fumarate 2 puff 11/13/20 20:00 Symbicort 160-4.5 Mcg Inhaler INHALATION RT-BID [facility] Cholecalciferol 25 mcg 11/14/20 09:00 Cholecalciferol 25 Mcg (1000 Iu) Tablet PO DAILY [facility] Furosemide 40 mg 11/13/20 11:30 Furosemide 40 Mg Tab PO BID [facility] Insulin Detemir 20 unit 11/13/20 21:00 Insulin Detemir (Levemir) 100 Unit/Ml Syr SQ BID@0700,2100 [facility] Levothyroxine Sodium 150 mcg 11/14/20 06:30 Levothyroxine 75 Mcg Tab PO DAILY@0630 [facility] Metformin HCl 500 mg 11/14/20 09:00 Metformin 500 Mg Tab PO DAILY [facility] Metoprolol Tartrate 100 mg 11/13/20 16:00 Metoprolol Tartrate 50 Mg Tab PO TID [facility] Naloxone HCl 0.2 mg 11/13/20 00:26 Naloxone 0.4 Mg/Ml 1 Ml Vial IV Q2M PRN Opioid Reversal Tiotropium [place] 2 puff 11/14/20 08:00 Tiotropium 2.5 Mcg Inhaler INHALATION RT-DAILY [facility] Valacyclovir HCl 1,000 mg 11/13/20 11:45 Valacyclovir 500 Mg Tab PO BID [facility] Intake and Output 11/12/20 11/13/20 11/13/20 22:59 06:59 14:59 Intake Total 0 Balance 0 Intake: Oral 0 Other: Voiding Method External Catheter # Voids 1 Weight 118 kg 11/13/20 00:05 11/13/20 00:37 Assessment and Plan Assessment: #1 persistent atrial fibrillation #2 recent COVID pneumonia, recovered #3 acute hypoxic/hypercapnic respiratory failure #4 COPD exacerbation #5 chronic diastolic heart failure #6 mildly elevated troponins secondary to oxygen supply demand mismatch related to above #7 chronic nicotine dependence #8 diabetes mellitus #9 hypertension #10 hyperlipidemia #11 morbid obesity Plan: From cardiology's perspective we will discontinue IV heparin. We will resume patient's home cardiac medications. Heart rates are controlled. Continue metoprolol 100 mg 3 times a day. We'll continue to follow the patient provide further recommendations accordingly. NURSING C[facility] TUTOR note has been reviewed, I agree with a documented findings and plan of care. Patient was seen and examined.
[2020-11-13] MEDS: FUROSEMIDE 40 MG TAB PO SCH ×2 (13:54→21:14)
[2020-11-13] MEDS: APIXABAN 5 MG TAB PO SCH ×2 (13:54→21:14)
[2020-11-13] MEDS: METOPROLOL TARTRATE 50 MG TAB PO SCH ×2 (13:54→21:14)
[2020-11-13] MEDS: valACYclovir 500 MG TAB PO SCH ×2 (13:55→21:14)
[2020-11-13] MEDS: ALBUTEROL HFA INHALER INHALATION SCH ×3 (14:02→20:57)
[2020-11-13 16:30] LABS: Glucose,Whole Blood 210 mg/dL (75-99)
--- NOTE | 2020-11-13 16:32 | P.HPIM ---
History of Present Illness H&P Date: 11/13/20 Chief Complaint: Dyspnea 55-year-old female patient, morbidly obese, COPD and obesity hypoventilation syndrome/obstructive sleep apnea maintained on a true ALLERGY ventilator at home; history of diastolic heart failure, diabetes mellitus, liver cirrhosis and chronic atrial fibrillation. The patient has been hospitalized for an acute on top of chronic hypercapnic respiratory failure and hypoxic respiratory failure and fluid overload and she also was diagnosed having COVID-19 infection as the patient checked positive. The patient came into the emergency department as a transfer from [facility] where she came therefore worsening shortness of breath. The patient was also lethargic and somnolent. The blood gases was done and the patient showed an acute on top of chronic hypercapnic respiratory failure . Troponin was slightly elevated at 0.12 and the patient was started on IV heparin for a suspected non-STEMI. The patient was found to have stable hemodynamics and math, she was afebrile, her creatinine was 1.2 with a mean of 49 and a white cell count was at 6.3 with a platelet count of 1:30, the lactic acid level was low at 0.9. Note that this was noted through blood gases and this was a venous blood gas with a pH came back at 7.21 with a pCO2 113. Review of Systems CONSTITUTIONAL: Denies any recent significant weight loss or weight gain. EYES: Denies change in vision. EARS, NOSE, MOUTH, THROAT: Denies headaches, denies sore throat. CARDIOVASCULAR: Denies chest pain, palpitations or syncopal episodes. RESPIRATORY: Positive for shortness of breath, cough, congestion no hemoptysis. GASTROINTESTINAL: Denies change in appetite, denies abdominal pain GENITOURINARY: Denies hematuria, denies infections. MUSKULOSKELETAL: Denies pain, denies swelling. INTEGUMENTARY: Denies rash, denies eczema. NEUROLOGICAL: Denies recent memory loss, no recent seizure activity. PSYCHIATRIC: Denies anxiety, denies depression. HEMATOLOGIC/LYMPHATIC: Denies anemia, denies enlarged lymph nodes. Past Medical History Past Medical History: Chest Pain / Angina, COPD, Diabetes Mellitus, Liver Disease, Sleep Apnea/CPAP/BIPAP, Thyroid Disorder Additional Past Medical History / Comment(s): CHF, cpap at night, gout History of Any Multi-Drug Resistant Organisms: None Reported Past Surgical History: Section, Cholecystectomy Past Anesthesia/Blood Transfusion Reactions: No Reported Reaction Past Psychological History: No Psychological Hx Reported Smoking Status: Current every day smoker Past Alcohol Use History: None Reported Past Drug Use History: None Reported Medications and Allergies Home Medications Medication Instructions Recorded Confirmed Type Atorvastatin [Lipitor] 20 mg PO HS #30 tab 10/05/20 11/13/20 Rx Levothyroxine Sodium [Euthyrox] 150 mcg PO DAILY #30 tab 10/05/20 11/13/20 Rx Magnesium Oxide 400 mg PO DAILY #30 tab 10/05/20 11/13/20 Rx Omeprazole 40 mg PO DAILY #30 cap 10/05/20 11/13/20 Rx Ascorbic Acid [Vitamin C] 1,000 mg PO DAILY tab 10/19/20 11/13/20 Rx Budesonide-Formot 160-4.5 Mcg 2 puff INHALATION RT-BID #1 inh 10/19/20 11/13/20 Rx [Symbicort 160-4.5 Mcg Inhaler] Cholecalciferol [Vitamin D3 (25 25 mcg PO DAILY tablet 10/19/20 11/13/20 Rx Mcg = 1000 Iu)] Zinc Sulfate [Orazinc] 220 mg PO DAILY cap 10/19/20 11/13/20 Rx Apixaban [Eliquis] 5 mg PO BID #60 tab 10/21/20 11/13/20 Rx Metoprolol Tartrate [Lopressor] 100 mg PO TID #180 tab 10/31/20 11/13/20 Rx acetaZOLAMIDE [acetaZOLAMIDE ER] 500 mg PO DAILY 11/04/20 11/13/20 History metFORMIN HCL 500 mg PO DAILY 11/04/20 11/13/20 History Albuterol Sulfate [Ventolin HFA] 2 puff INHALATION RT-QID #1 inhaler 11/08/20 11/13/20 Rx Furosemide [Lasix] 40 mg PO BID #30 tablet 11/08/20 11/13/20 Rx Gabapentin [Neurontin] 300 mg PO BID #6 cap 11/08/20 11/13/20 Rx Insulin Glargine [Lantus] 20 unit SQ BID #1 vial 11/08/20 11/13/20 Rx Butalb/APAP/Caff 50-325-40Mg 1 tab PO TID PRN 04/18/21 04/18/21 History [Fioricet 50-325-40] Tiotropium 2.5 Mcg/Puff [Spiriva 2 puff INHALATION RT-DAILY 11/13/20 11/13/20 History Respimat 2.5 Mcg] predniSONE See Taper PO DAILY 11/13/20 11/13/20 History Allergies Allergy/AdvReac Type Severity Reaction Status Date / Time hydrocodone [From [place]] AdvReac Rash/Hives Verified 11/13/20 09:21 Physical Exam Vitals: Vital Signs Temp Pulse Pulse Resp BP BP Pulse Ox 11/13/20 02:00 98.1 F 93 19 113/84 91 L 11/12/20 23:54 97.3 F L 99 20 124/89 100 Intake and Output 11/12/20 11/13/20 11/13/20 22:59 06:59 14:59 Other: Voiding Method External Catheter # Voids 1 Weight 118 kg GENERAL EXAM: Alert, morbidly obese 55-year-old female, on his of oxygen by nasal cannula. Overnight, the patient was given BiPAP at a pressure of 12/5 with pulse of 35%. She is awake and alert, no signs of CO2 narcosis. HEAD: Normocephalic. EYES: Normal reaction of pupils, equal size. NECK: Short. No masses, no JVD. CHEST: No chest wall deformity. LUNGS: Equal air entry with few crackles in the posterior bases., The patient has a vesicular eruption over the right anterior and lateral chest area consistent with shingles CVS: S1 and S2 normal with no audible murmur, regular rhythm. ABDOMEN: Obese, unable to appreciate any organomegaly, normal bowel sounds, no guarding or rigidity. CENTRAL NERVOUS SYSTEM: No focal deficits, tone is normal in all 4 extremities. EXTREMITIES: Changes of chronic venous stasis. There is 1+ peripheral edema. No clubbing, no cyanosis. Peripheral pulses are intact. Results CBC & Chem 7: 11/13/20 00:05 11/13/20 00:37 Labs: Abnormal Lab Results - Last 24 Hours (Table) 11/13/20 11/13/20 11/13/20 Range/Units 00:05 00:05 00:05 MCV 105.3 H (80.0-100.0) fL MCHC 30.7 L (31.0-37.0) g/dL Plt Count 130 L D (150-450) k/uL APTT 37.2 H (22.0-30.0) sec VBG pH 7.21 L (7.31-7.41) VBG pCO2 113 H* (37-51) mmHg VBG HCO3 43 H (24-28) mmol/L Chloride (98-107) mmol/L Carbon Dioxide (22-30) mmol/L BUN (7-17) mg/dL Creatinine (0.52-1.04) mg/dL Glucose (74-99) mg/dL POC Glucose (mg/dL) (75-99) mg/dL AST (14-36) U/L ALT (4-34) U/L Troponin I (0.000-0.034) ng/mL Total Protein (6.3-8.2) g/dL 11/13/20 11/13/20 11/13/20 Range/Units 00:37 00:37 06:17 MCV (80.0-100.0) fL MCHC (31.0-37.0) g/dL Plt Count (150-450) k/uL APTT (22.0-30.0) sec VBG pH (7.31-7.41) VBG pCO2 (37-51) mmHg VBG HCO3 (24-28) mmol/L Chloride 89 L (98-107) mmol/L Carbon Dioxide 43 H* (22-30) mmol/L BUN 49 H (7-17) mg/dL Creatinine 1.22 H (0.52-1.04) mg/dL Glucose 131 H (74-99) mg/dL POC Glucose (mg/dL) 167 H (75-99) mg/dL AST 37 H (14-36) U/L ALT 83 H (4-34) U/L Troponin I 0.039 H* (0.000-0.034) ng/mL Total Protein 6.0 L (6.3-8.2) g/dL Thrombosis Risk Factor Assmnt - Choose All That Apply Any of the Below Risk Factors Present?: Yes Each Factor Represents 1 point: Abnormal pulmonary function (COPD), Age 41-60 years, Obesity (BMI >25), Swollen legs (current) Thrombosis Risk Factor Assessment Total Risk Factor Score: 4 Thrombosis Risk Factor Assessment Level: Moderate Risk Assessment and Plan Assessment: 1. Acute hypoxic/hypercapnic respiratory failure secondary to acute exacerbation chronic diastolic CHF and acute exacerbation of COPD - Patient is currently on 5 L of oxygen per nasal cannula and saturating greater than 92%; we will treat CHF and COPD as indicated below; continue to wean oxygen as able 2. Acute hypoxic hypercapnic respiratory failure; multifactorial; acute exacerbation CHF/COPD - Patient did require mechanical ventilation during previous admission; 10/20/2020 through 11/01/2019; pulmonary on board and recommending BiPAP at a pressure of 12/5 with FiO2 of 35; plan would be to continue to wean oxygen as possible - Cardiology switched to oral Lasix 40 mg twice a day - Symbicort inhaler 1604.52 puffs twice a day, Spiriva 2 puffs daily 3. Shingles right chest; patient is started on Valtrex 1 g by mouth 3 times a day 4. NSTEMI; patient's troponin is mildly elevated; secondary to increased demand; remains on IV heparin per protocol; cardiology on board and recommending to continue with IV heparin and metoprolol 100 mg 3 times a day; further recommendations pending clinical course 5. Hypertension; metoprolol 100 mg 3 times a day, Lasix 40 mg twice a day 6. Hyperlipidemia; Lipitor 20 mg by mouth daily at bedtime 7. Diabetes mellitus type 1; metformin 500 mg daily, Levemir 20 units subcu twice a day along with Accu-Cheks before meals and at bedtime with insulin sliding scale 8. Atrial fibrillation; rate controlled on metoprolol 100 mg 3 times a day with anticoagulation 9. Hypothyroidism; levothyroxine 50 MCG daily DVT prophylaxis; SCDs/systemic anticoagulation with heparin CODE STATUS; full code
[2020-11-13 20:32] LABS: Glucose,Whole Blood 179 mg/dL (75-99)
[2020-11-13] MEDS: SYMBICORT 160-4.5 MCG INHALER INHALATION SCH (20:57)
[2020-11-13] MEDS: INSULIN DETEMIR (LEVEMIR) 100 UNIT/ML SYR SQ SCH (21:14)
[2020-11-13] MEDS: ATORVASTATIN 20 MG TAB PO SCH (21:14)
[2020-11-14 06:34] LABS: Glucose,Whole Blood 144 mg/dL (75-99)
[2020-11-14] MEDS: LEVOTHYROXINE 75 MCG TAB PO SCH (06:36)
[2020-11-14] MEDS: INSULIN DETEMIR (LEVEMIR) 100 UNIT/ML SYR SQ SCH ×2 (06:37→21:09)
[2020-11-14] MEDS ORDERED: TIOTROPIUM 2.5 MCG INHALER INHALATION SCH (08:00)
[2020-11-14] MEDS ORDERED: BISMUTH SUBSALICYLATE 4,192 MG/240 ML BOTTLE PO PRN (08:26)
[2020-11-14] MEDS ORDERED: SODIUM CHLORIDE 0.65% NASAL SPRAY 44 ML BTL NASAL PRN (08:26)
[2020-11-14] MEDS: SYMBICORT 160-4.5 MCG INHALER INHALATION SCH ×2 (08:34→19:28)
[2020-11-14] MEDS: ALBUTEROL HFA INHALER INHALATION SCH ×4 (08:34→19:28)
[2020-11-14 08:59] LABS: Basophils % (A) 0 %; Eosinophils # (A) 0.1 k/uL (0-0.7); Eosinophils % (A) 3 %; HGB 12.4 gm/dL (11.4-16.0); Lymphocytes # (A) 0.9 k/uL (1.0-4.8); Lymphocytes % (A) 17 %; MCH 33.5 pg (25.0-35.0); MCHC 32.7 g/dL (31.0-37.0); MCV 102.2 fL (80.0-100.0); Macrocytosis Slight; Mean Platelet Volume 8.3; Monocytes # (A) 0.3 k/uL (0-1.0); Monocytes % (A) 5 %; Neutrophils # (A) 4.1 k/uL (1.3-7.7); Neutrophils % (A) 75 %; Platelet Count 128 k/uL (150-450); RBC 3.72 m/uL (3.80-5.40); RDW 14.4 % (11.5-15.5); WBC 5.5 k/uL (3.8-10.6)
[2020-11-14 09:11] LABS: Albumin 3.5 g/dL (3.5-5.0); Calcium 8.9 mg/dL (8.4-10.2); Total Bilirubin 0.8 mg/dL (0.2-1.3)
--- NOTE | 2020-11-14 09:50 | P.DS ---
Providers Date of admission: 11/13/20 00:26 Expected date of discharge: 11/14/20 Attending physician: Sergo Valencia MD Consults: 11/13/20 00:27 Consult Physician Routine Consulting Provider: Rasheed Tolentino Consult Reason/Comments: COPD exacerbation Do you want consulting provider notified?: Yes 11/13/20 00:28 Consult Physician Routine Consulting Provider: Elizabeth Jolly Consult Reason/Comments: NSTEMI Do you want consulting provider notified?: Yes Primary care physician: Sergo Valencia MD Hospital Course: Final Diagnoses: Acute on chronic hypoxic and hypercapnic respiratory failure, secondary to acute CHF exacerbation, acute COPD exacerbation. At baseline. Reporting she is homeless, social issues. Mildly elevated troponins, possible acute non-STEMI. Evaluated by cardiology, heparin drip discontinued, relating troponins secondary to oxygen supplied to be mismatch related to the above. Recent hospitalization with acute hypoxic, hypercapnic respiratory failure with A. fib with RVR, requiring intubation 10/20-10/31/20. Recent covid-Pneumonia hospitalization 10/16/20 through 10/19/2020. Recovered. History of Paroxysmal A-flutter, fib with RVR, suspect possibly chronic secondary to hypoxia Chronic diastolic CHF, NYHA class III, EF 50-55 % Obstructive sleep apnea on CPAP, noncompliant Diabetes mellitus type 2 hypothyroidism hypertension ongoing nicotine dependence. morbid obesity, BMI 62.3 Shingles involving right chest area, back. Medical debility, generalized weakness, unable to perform ADLs, requiring assistance Hospital course:This is a 55-year-old female with multiple recent hospital admissions,since her move here from [place] with past medical history of chronic hypoxic and hypercapnic respiratory failure,Covid-19 pneumonia, COPD, chronic diastolic CHF,A. fib with RVR, diabetes mellitus , ongoing nicotine dependence and multiple other medical issues. This visit patient returns , stating she has had a falling out with her sister and she has nowhere to stay . Troponin 0.039, 0.027, 0.020. Evaluated by cardiology, heparin drip discontinued, home cardiac medications resumed. VSS.Last visit , patient was discharged on 11/08/2020, we continued recommending subacute rehab at discharge .Patient agreed and at the last minute , declined and went home. Patient is maintaining O2 sats in the high 90s on 5 L nasal cannula, on nebulized bronchodilators, steroids and Lasix with BiPAP at night. Heart rate controlled . Anticoagulated on Eliquis. Blood sugars controlled. Cleared by pulmonary for discharge to subacute rehab. Patient requires social work assistance. Patient will be discharged to subacute rehab today in a stable condition with guarded prognosis pending final clearance and DC recommendations per cardiology. The impression and plan of care has been dictated as directed. : I performed a history and examination of this patient, discussed the same with the dictator. I agree with the dictator's note ,documented as a scribe. Any additional findings or plans will be noted. Patient Condition at Discharge: Stable Plan - Discharge Summary Discharge Rx Participant: No New Discharge Prescriptions: New Sodium Chloride 0.65% Nasal [Deep Sea (Saline)] 2 spray NASAL QID PRN spray PRN Reason: Dry Nasal Passages valACYclovir [Valtrex] 1,000 mg PO BID 7 Days #14 tab Continue Levothyroxine Sodium [Euthyrox] 150 mcg PO DAILY #30 tab Atorvastatin [Lipitor] 20 mg PO HS #30 tab Magnesium Oxide 400 mg PO DAILY #30 tab Omeprazole 40 mg PO DAILY #30 cap Zinc Sulfate [Orazinc] 220 mg PO DAILY cap Budesonide-Formot 160-4.5 Mcg [Symbicort 160-4.5 Mcg Inhaler] 2 puff INHALATION RT-BID #1 inh Cholecalciferol [Vitamin D3 (25 Mcg = 1000 Iu)] 25 mcg PO DAILY tablet Metoprolol Tartrate [Lopressor] 100 mg PO TID #180 tab acetaZOLAMIDE [acetaZOLAMIDE ER] 500 mg PO DAILY metFORMIN HCL 500 mg PO DAILY Furosemide [Lasix] 40 mg PO BID #30 tablet Gabapentin [Neurontin] 300 mg PO BID #6 cap Ascorbic Acid [Vitamin C] 1,000 mg PO DAILY tab Apixaban [Eliquis] 5 mg PO BID #60 tab Albuterol Sulfate [Ventolin HFA] 2 puff INHALATION RT-QID #1 inhaler Insulin Glargine [Lantus] 20 unit SQ BID #1 vial predniSONE See Taper PO DAILY Tiotropium 2.5 Mcg/Puff [Spiriva Respimat 2.5 Mcg] 2 puff INHALATION RT-DAILY Changed Butalb/APAP/Caff 50-325-40Mg [Fioricet 50-325-40] 1 tab PO TID PRN #9 tab PRN Reason: Migraine Headache Discharge Medication List Atorvastatin [Lipitor] 20 mg PO HS #30 tab 10/05/20 [Rx] Levothyroxine Sodium [Euthyrox] 150 mcg PO DAILY #30 tab 10/05/20 [Rx] Magnesium Oxide 400 mg PO DAILY #30 tab 10/05/20 [Rx] Omeprazole 40 mg PO DAILY #30 cap 10/05/20 [Rx] Ascorbic Acid [Vitamin C] 1,000 mg PO DAILY tab 10/19/20 [Rx] Budesonide-Formot 160-4.5 Mcg [Symbicort 160-4.5 Mcg Inhaler] 2 puff INHALATION RT-BID #1 inh 10/19/20 [Rx] Cholecalciferol [Vitamin D3 (25 Mcg = 1000 Iu)] 25 mcg PO DAILY tablet 10/19/20 [Rx] Zinc Sulfate [Orazinc] 220 mg PO DAILY cap 10/19/20 [Rx] Apixaban [Eliquis] 5 mg PO BID #60 tab 10/21/20 [Rx] Metoprolol Tartrate [Lopressor] 100 mg PO TID #180 tab 10/31/20 [Rx] acetaZOLAMIDE [acetaZOLAMIDE ER] 500 mg PO DAILY 11/04/20 [History] metFORMIN HCL 500 mg PO DAILY 11/04/20 [History] Albuterol Sulfate [Ventolin HFA] 2 puff INHALATION RT-QID #1 inhaler 11/08/20 [Rx] Furosemide [Lasix] 40 mg PO BID #30 tablet 11/08/20 [Rx] Insulin Glargine [Lantus] 20 unit SQ BID #1 vial 11/08/20 [Rx] Tiotropium 2.5 Mcg/Puff [Spiriva Respimat 2.5 Mcg] 2 puff INHALATION RT-DAILY 11/13/20 [History] predniSONE See Taper PO DAILY 11/13/20 [History] Butalb/APAP/Caff 50-325-40Mg [Fioricet 50-325-40] 1 tab PO TID PRN #9 tab 11/14/20 [Rx] Gabapentin [Neurontin] 300 mg PO BID #6 cap 11/14/20 [Rx] Sodium Chloride 0.65% Nasal [Deep Sea (Saline)] 2 spray NASAL QID PRN spray 04/19/21 [Rx] valACYclovir [Valtrex] 1,000 mg PO BID 7 Days #14 tab 11/14/20 [Rx] Follow up Appointment(s)/Referral(s): [facility] [Provider Group] - 1 Week Sergo Valencia MD [Primary Care Provider] - 1 Week (After DC from subacute rehab) Activity/Diet/Wound Care/Special Instructions: ECF: Confirm follow-up appointment with cardiology and pulmonary prior to discharge BiPAP at night, settings as per pulmonary CBC, BMP in 3 days Discharge Disposition: TRANSFER TO SNF/ECF
[2020-11-14] MEDS: CHOLECALCIFEROL 25 MCG (1000 IU) TABLET PO SCH (09:58)
[2020-11-14] MEDS: metFORMIN 500 MG TAB PO SCH (09:58)
[2020-11-14] MEDS: FUROSEMIDE 40 MG TAB PO SCH ×2 (09:58→21:09)
[2020-11-14] MEDS: valACYclovir 500 MG TAB PO SCH ×2 (09:58→21:09)
[2020-11-14] MEDS: METOPROLOL TARTRATE 50 MG TAB PO SCH ×3 (09:58→21:09)
[2020-11-14] MEDS: APIXABAN 5 MG TAB PO SCH ×2 (09:58→21:09)
[2020-11-14] MEDS: ASCORBIC ACID 500 MG TAB PO SCH (09:58)
[2020-11-14 11:49] LABS: Glucose,Whole Blood 231 mg/dL (75-99)
--- NOTE | 2020-11-14 12:51 | P.PN ---
Subjective Progress Note Date: 11/14/20 HISTORY OF PRESENT ILLNESS: A pleasant 55-year-old female patient with a history of COPD CHF, atrial fibrillation, hypertension, hyperlipidemia and morbid obesity. She has had mult iple admissions over the last month. This admission she apparently was brought into the emergency department [facility] with complaints of abdominal pain. Upon examination the patient was found to be minimally responsive, hypoxic and hypercapnic. We are asked to the patient in cons ultation due to elevated troponins of 0.112 at [facility]. She was subsequently transferred to the emergency department here at [facility]. She does have a history of COVID 19 infection on 10/16/2020. Subsequent troponins done here have been 0.039 0.027. She was initially placed on BiPAP but has currently been on nasal cannula oxygen. She was initiated on IV heparin. Echocardiogram done during a previous admission showed a low normal LV systolic function with ejection fraction of 50-55%. Upon examination the patient sitting up in a chair. She is overall feeling okay. She denies any complaints of abdominal discomfort. She feels her breathing is good. She has been having some issues at home. Apparently she is from [place] and has been living with her sister here in [place] since her left her. Her sister has kicked her out and she is currently homeless. 11/14/2020 Patient examined this morning. She is sitting up in the chair. She denies chest pain or pressure. She denies shortness of breath. PHYSICAL EXAM: VITAL SIGNS: Reviewed. GENERAL: Well-developed in no acute distress. NECK: Supple. No JVD or thyromegaly LUNGS: Respirations even and unlabored. Lungs essentially clear to auscultation bilaterally. HEART: Irregular rate and rhythm. S1 and S2 heard. EXTREMITIES: Normal range of motion. No clubbing or cyanosis. Peripheral pulses intact. No lower extremity edema ASSESSMENT: #1 Chronic persistent atrial fibrillation #2 recent COVID pneumonia, recovered #3 acute hypoxic/hypercapnic respiratory failure #4 COPD exacerbation #5 chronic diastolic heart failure #6 mildly elevated troponins secondary to oxygen supply demand mismatch related to above #7 chronic nicotine dependence #8 diabetes mellitus #9 hypertension #10 hyperlipidemia #11 morbid obesity PLAN: Continue current cardiac medications Patient is stable for discharge from a cardiac standpoint We will sign off. Please reconsult if needed. She is to follow up on an outpatient basis Nurse practitioner note has been reviewed by physician. Signing provider agrees with the documented findings, assessment, and plan of care. Objective - Vital Signs Vital signs: Vital Signs Temp 98.0 F 11/14/20 10:34 Pulse 120 H 11/14/20 10:34 Resp 20 11/14/20 10:34 BP 108/74 11/14/20 10:34 Pulse Ox 97 11/14/20 10:34 Intake & Output 11/13/20 11/14/20 11/14/20 18:59 06:59 18:59 Intake Total 1250 480 240 Balance 1250 480 240 Weight 159.7 kg Intake: Intake, IV Titration 50 Amount Heparin Sod,Pork in 0.45% 50 NaCl 25,000 unit In 0.45 % NaCl 1 250ml.bag @ 5.96 UNITS/KG/HR 10.003 mls/ hr IV .Q24H [facility] Rx#: [id number] Oral 1200 480 240 Other: Voiding Method Toilet Toilet # Voids 2 # Bowel Movements 1 - Labs CBC & Chem 7: 11/14/20 08:22 11/14/20 08:22 Labs: Abnormal Lab Results - Last 24 Hours (Table) 11/13/20 11/13/20 11/14/20 Range/Units 16:29 19:57 06:08 RBC (3.80-5.40) m/uL MCV (80.0-100.0) fL Plt Count (150-450) k/uL Lymphocytes # (1.0-4.8) k/uL Chloride (98-107) mmol/L Carbon Dioxide (22-30) mmol/L BUN (7-17) mg/dL Creatinine (0.52-1.04) mg/dL Glucose (74-99) mg/dL POC Glucose (mg/dL) 210 H 179 H 144 H (75-99) mg/dL ALT (4-34) U/L Total Protein (6.3-8.2) g/dL 11/14/20 11/14/20 11/14/20 Range/Units 08:22 08:22 11:48 RBC 3.72 L (3.80-5.40) m/uL MCV 102.2 H (80.0-100.0) fL Plt Count 128 L (150-450) k/uL Lymphocytes # 0.9 L (1.0-4.8) k/uL Chloride 90 L (98-107) mmol/L Carbon Dioxide 40 H (22-30) mmol/L BUN 52 H (7-17) mg/dL Creatinine 1.12 H (0.52-1.04) mg/dL Glucose 225 H (74-99) mg/dL POC Glucose (mg/dL) 231 H (75-99) mg/dL ALT 66 H (4-34) U/L Total Protein 6.0 L (6.3-8.2) g/dL
[2020-11-14 16:35] LABS: Glucose,Whole Blood 122 mg/dL (75-99)
--- NOTE | 2020-11-14 18:38 | CDI ---
Documentation Clarification Form Date: 11/14/2020 06:07:40 PM From: Sahra Rodriguez RN, CCDS Admit Date: 11/13/2020 12:26:00 AM Patient Name: Nerissa Marshall Visit Number: [id number] Discharge Date: ATTENTION: The Clinical Documentation Specialists (CDI) and [facility] Coding Staff appreciate your assistance in clarifying documentation. Please respond to the clarification below the line at the bottom and electronically sign. The CDI & [facility] Coding staff will review the response and follow-up if needed. Please note: Queries are made part of the Legal Health Record. If you have any questions, please contact the author of this message via ITS. Dr. Sergo Valencia There is documentation in the H/P and subsequent progress notes of Nstemi second to increased demand. 11/14 Cardiology documentation mildly elevated troponins secondary to oxygen supply demand mismatch. Additional clarification is requested. History/Risk Factors: COPD, Congestive heart failure, Morbid obesity, Diabetes Mellitus, Sleep Apnea/CPAP/BIPAP Clinical Indicators: 55-year-old female with complaints of shortness of breath. She report weakness, orthopnea. The respiratory exam in ED notes present: rales decreased breath sounds. Cardiovascular exam: Present: regular rate, irregular rhythm, normal heart sounds. 11/13 Vital signs: 124/89 99 20 97.3 11/13 Labs: Chloride 89, CO2 43 Troponin 0.039 11/13 ABG: pH 7.21, pCO2 113, HCO3 43 11/13 EKG: Atrial Fibrillation with premature ventricular or aberrantly conducted complexes. Vent rate 90 bpm Treatment: Telemetry monitoring Heparin drip 10 ml/hr (11/13 DC) Ventolin Inhaler 2 puff QID Monitor O2 Sat's (titrate) Can you please clarify oxygen supply mismatch, are you treating? [ ] Type 2 Myocardial Infarction due to acute hypoxic, hypercapnic respiratory failure [ ] Demand ischemia without KS [ ] NSTEMI ruled in [ ] Other, please specify [ ] Unable to determine (Template Last Revised: September 2020) Type 2 Myocardial Infarction due to acute hypoxic, hypercapnic respiratory failure [facility]
[2020-11-14 20:29] LABS: Glucose,Whole Blood 213 mg/dL (75-99)
[2020-11-14] MEDS: ATORVASTATIN 20 MG TAB PO SCH (21:09)
[2020-11-15 06:13] LABS: Glucose,Whole Blood 153 mg/dL (75-99)
[2020-11-15] MEDS: LEVOTHYROXINE 75 MCG TAB PO SCH (06:31)
[2020-11-15] MEDS: INSULIN DETEMIR (LEVEMIR) 100 UNIT/ML SYR SQ SCH ×2 (06:31→20:41)
[2020-11-15] MEDS: valACYclovir 500 MG TAB PO SCH ×2 (09:00→20:40)
[2020-11-15] MEDS: APIXABAN 5 MG TAB PO SCH ×2 (09:00→20:41)
[2020-11-15] MEDS: METOPROLOL TARTRATE 50 MG TAB PO SCH ×3 (09:00→20:41)
[2020-11-15] MEDS: FUROSEMIDE 40 MG TAB PO SCH ×2 (09:00→20:37)
[2020-11-15] MEDS: CHOLECALCIFEROL 25 MCG (1000 IU) TABLET PO SCH (09:00)
[2020-11-15] MEDS: metFORMIN 500 MG TAB PO SCH (09:00)
[2020-11-15] MEDS: ASCORBIC ACID 500 MG TAB PO SCH (09:00)
[2020-11-15] MEDS: GABAPENTIN 300 MG CAP PO SCH ×2 (09:10→20:41)
[2020-11-15] MEDS: SYMBICORT 160-4.5 MCG INHALER INHALATION SCH ×2 (09:23→21:36)
[2020-11-15] MEDS: ALBUTEROL HFA INHALER INHALATION SCH ×4 (09:23→21:36)
[2020-11-15 12:09] LABS: Glucose,Whole Blood 176 mg/dL (75-99)
[2020-11-15 17:17] LABS: Glucose,Whole Blood 184 mg/dL (75-99)
[2020-11-15] MEDS ORDERED: FLUTICASONE 50MCG/SPRAY NASAL 16GM EA NOSTRIL PRN (18:50)
[2020-11-15 20:17] LABS: Glucose,Whole Blood 166 mg/dL (75-99)
[2020-11-15] MEDS: ATORVASTATIN 20 MG TAB PO SCH (20:41)
[2020-11-16 06:08] LABS: Glucose,Whole Blood 182 mg/dL (75-99)
[2020-11-16] MEDS: LEVOTHYROXINE 75 MCG TAB PO SCH (06:25)
[2020-11-16] MEDS: INSULIN DETEMIR (LEVEMIR) 100 UNIT/ML SYR SQ SCH (06:25)
[2020-11-16 09:09] VITALS: BP 125/58; PULSE 85; RESP 18; TEMP 97.7
[2020-11-16] MEDS: valACYclovir 500 MG TAB PO SCH (09:10)
[2020-11-16] MEDS: APIXABAN 5 MG TAB PO SCH (09:10)
[2020-11-16] MEDS: metFORMIN 500 MG TAB PO SCH (09:10)
[2020-11-16] MEDS: METOPROLOL TARTRATE 50 MG TAB PO SCH (09:10)
[2020-11-16] MEDS: FUROSEMIDE 40 MG TAB PO SCH (09:10)
[2020-11-16] MEDS: ASCORBIC ACID 500 MG TAB PO SCH (09:10)
[2020-11-16] MEDS: GABAPENTIN 300 MG CAP PO SCH (09:11)
[2020-11-16] MEDS: ALBUTEROL HFA INHALER INHALATION SCH (09:11)
[2020-11-16] MEDS: CHOLECALCIFEROL 25 MCG (1000 IU) TABLET PO SCH (09:11)
[2020-11-16] MEDS: SYMBICORT 160-4.5 MCG INHALER INHALATION SCH (09:12)
[2020-11-16] MEDS ORDERED: ASPIRIN 81 MG PO SCH (09:45)
== END 2020-11-16 10:38 | DRG 190 ==
LOC: EC 23:51 → 3SCARD 11-13 00:26
PROVIDERS: ADMIT Family Medicine; ATTEND Family Medicine
PROC: 5A09457 Assistance with Respiratory Ventilation, 24-96 Consecutive Hours, Continuous Positive Airway Pressure (ICD-10-PCS; principal; 2020-11-12)
DX: J44.1 Chronic obstructive pulmonary disease with (acute) exacerbation (principal); J96.21 Acute and chronic respiratory failure with hypoxia; J96.22 Acute and chronic respiratory failure with hypercapnia; I50.33 Acute on chronic diastolic (congestive) heart failure; I21.A1 Myocardial infarction type 2; E66.2 Morbid (severe) obesity with alveolar hypoventilation; Z68.44 Body mass index [BMI] 60.0-69.9, adult; I48.19 Other persistent atrial fibrillation; I48.92 Unspecified atrial flutter; I11.0 Hypertensive heart disease with heart failure; K74.60 Unspecified cirrhosis of liver; E10.9 Type 1 diabetes mellitus without complications; Z79.4 Long term (current) use of insulin; Z20.822 Contact with and (suspected) exposure to COVID-19; G47.33 Obstructive sleep apnea (adult) (pediatric); B02.9 Zoster without complications; E78.5 Hyperlipidemia, unspecified; E03.9 Hypothyroidism, unspecified; F17.210 Nicotine dependence, cigarettes, uncomplicated; Z71.6 Tobacco abuse counseling; Z91.19 Patient's noncompliance with other medical treatment and regimen; Z79.01 Long term (current) use of anticoagulants; Z79.51 Long term (current) use of inhaled steroids; Z79.890 Hormone replacement therapy; Z79.899 Other long term (current) drug therapy; Z86.16 Personal history of COVID-19; Z59.0 Homelessness; Z87.39 Personal history of other diseases of the musculoskeletal system and connective tissue; Z98.891 History of uterine scar from previous surgery; Z90.49 Acquired absence of other specified parts of digestive tract; Z87.19 Personal history of other diseases of the digestive system; Z87.01 Personal history of pneumonia (recurrent); Z98.890 Other specified postprocedural states; Z88.5 Allergy status to narcotic agent
CPT/HCPCS: 36415; 71045; 80053; 82803; 83605; 84484; 85025; 85610; 85730; 87635; 93005; 94640; 94660; 94760; 99285